=== PATIENT | female | born 1950 | race African-American/Black ===

== ENCOUNTER 2016-12-24 20:42 | Inpatient (IN) | payer OTHER, MEDICARE ==
[~2016-12-24] VITALS: Ht 170.2 cm; Wt 51.1 kg
[~2016-12-24 20:42] MED LIST: ADVA250A; Z.0.NO CURRENT MEDS
[2016-12-24 20:45] VITALS: BP 177/108; PULSE 140; RESP 22; TEMP 99.9; O2SAT 100
[2016-12-24 20:50] VITALS: O2SAT 98
[2016-12-24] MEDS ORDERED: NITROGLYCERIN 2% OINT 1 GM PACKET TOPICAL ONE (21:00)
[2016-12-24] MEDS ORDERED: SODIUM CHLORIDE 0.9% FLUSH 10 ML FLUSH IVF PRN ×2 (21:00→22:15)
[2016-12-24] MEDS ORDERED: RESP: ALBUTEROL 2.5 MG/IPRATROPIUM 0.5 MG NEB (SCH) INH ONE (21:00)
--- NOTE | 2016-12-24 21:03 | PD ---
HPI Chief Complaint: short of breath Time Seen by Provider: 20:57 Travel History International Travel<30 days: No Contact w/Intl Traveler<30days: No Traveled to known affect area: No History of Present Illness HPI 66-year-old female presents to the emergency department from local rehabilitation facility for complaint of shortness of breath. Patient presents with ongoing work of breathing and tachycardia. Patient was placed on CPAP en route to the hospital and received 1 L of normal saline and 2 g of magnesium sulfate IV. Patient did not receive any updraft treatments en route. Patient with recent hospitalization for fracture hip repair. Patient is currently not on antibiotic. Patient with reported temperature elevation. No antipyretics administered. Patient here upon arrival placed on BiPAP and patient reports feels improved. Patient has had some vague periumbilical discomfort. Patient has a umbilical hernia. Patient denies any productive cough of yellow-green sputum and has had no hemoptysis. Patient intermittently has right-sided chest pain. Pain is intermittent and moderate. PFSH Past Medical History Narrative Medical COPD anemia hysterectomy tobacco use Asthma: No Blood Disorders: No Cancer: No Cardiovascular Problems: No COPD: Yes Diminished Hearing: No Endocrine: No Genitourinary: No Immune Disorder: No Musculoskeletal: No Neurologic: No Psychiatric: No Reproductive: No Respiratory: Yes (SMOKER) Sleep Apnea: No Past Surgical History Abdominal Surgery: No AICD: No Arteriovenous Shunt: No Cardiac Surgery: No Ear Surgery: No Endocrine Surgery: No Eye Surgery: No Genitourinary Surgery: Yes (BLADDER REPAIR AND "TACKED BOWELS") Gynecologic Surgery: Yes (HYST, ) Hysterectomy: Yes Insulin Pump: No Joint Replacement: No Oral Surgery: No Pacemaker: No Thoracic Surgery: No Social History Alcohol Use: No Tobacco Use: Yes Substance Use: No Allergies-Medications (Allergen,Severity, Reaction): Coded Allergies: Penicillin (Verified Allergy, Severe, BELLS RINGING IN EARS, 12/24/16) Reported Meds & Prescriptions Reported Meds & Active Scripts Active Active Prescriptions or Reported Medications Unobtainable Narrative Medication rehab MAR Review of Systems Except as stated in HPI: all other systems reviewed are Neg General / Constitutional: No: Fever HENT: No: Congestion Cardiovascular: Positive: Chest Pain or Discomfort Respiratory: Positive: Cough, Shortness of Breath Gastrointestinal: Positive: Abdominal Pain Genitourinary: No: Flank Pain Musculoskeletal: No: Pain Skin: No Rash Neurologic: Positive: Weakness Psychiatric: Positive: Anxiety Hematologic/Lymphatic: No: Lymph Node Enlargement Physical Exam Narrative GENERAL: Well-developed thin female in moderate respiratory distress with increased heart rate; GCS 15. T:99.9F; HR: 140; BP: 177/108; RR: 22; O2sat BiPAP 98% SKIN: Warm and dry. HEAD: Normocephalic. EYES: No scleral icterus. No injection or drainage. NECK: Supple, trachea midline. No JVD or lymphadenopathy. CARDIOVASCULAR: Increased regular rate and rhythm without murmurs, gallops, or rubs. RESPIRATORY: Breath sounds equal bilaterally diminished bilateral bases. No accessory muscle use. GASTROINTESTINAL: Abdomen soft, non-tender, nondistended. MUSCULOSKELETAL: No cyanosis, or edema. BACK: Nontender without obvious deformity. No CVA tenderness. Data Data Last Documented VS Vital Signs Date Time Temp Pulse Resp B/P Pulse Ox O2 Delivery O2 Flow Rate FiO2 12/24/16 21:20 138 24 98 CPAP 12/24/16 21:12 40 12/24/16 20:45 99.9 177/108 Orders Complete Blood Count With Diff (12/24/16 20:57) Basic Metabolic Panel (Bmp) (12/24/16 20:57) B-Type Natriuretic Peptide (12/24/16 20:57) Act Partial Throm Time (Ptt) (12/24/16 20:57) Prothrombin Time / Inr (Pt) (12/24/16 20:57) Magnesium (Mg) (12/24/16 20:57) Ckmb (Isoenzyme) Profile (12/24/16 20:57) Troponin I (12/24/16 20:57) Urinalysis - C+S If Indicated (12/24/16 20:57) Blood Culture (12/24/16 20:57) Iv Access Insert/Monitor (12/24/16 20:57) Electrocardiogram (12/24/16 20:57) Ecg Monitoring (12/24/16 20:57) Oximetry (12/24/16 20:57) Oxygen Administration (12/24/16 20:57) Chest, Single Ap (12/24/16 20:57) Sodium Chloride 0.9% Flush (Ns Flush) (12/24/16 21:00) Albuterol-Ipratropium Neb (Duoneb Neb) (12/24/16 21:00) Lactic Acid (12/24/16 20:57) Nitroglycerin 2% Oint (Nitroglycerin 2% (12/24/16 21:00) Aztreonam Inj (Azactam Inj) (12/24/16 21:15) Azithromycin Inj (Zithromax Inj) (12/24/16 21:15) Methylprednisolone So Succ Inj (Solumedr (12/24/16 21:15) Arterial Blood Gas (Abg) (12/24/16 ) Sodium Chlor 0.9% 1000 Ml Inj (Ns 1000 M (12/24/16 21:15) Acetaminophen Supp (Tylenol Supp) (12/24/16 21:15) Albuterol-Ipratropium Neb (Duoneb Neb) (12/24/16 21:30) Ondansetron Inj (Zofran Inj) (12/24/16 21:45) Morphine Inj (Morphine Inj) (12/24/16 21:45) Enalaprilat Inj (Vasotec Inj) (12/24/16 22:00) Resp Bipap / Cpap Non Invas Vt (12/24/16 ) Dexmedetomidine Inj (Precedex Inj) (12/24/16 22:15) Neurological Rass Scale Q30MX2,Q2HX4,Q4H (12/24/16 22:11) Admit Order (Ed Use Only) (12/24/16 ) ^ Saline Lock (12/24/16 22:12) Resp Oxygen Selvin C Titrat 1-4 L (12/24/16 ) Notify Dr: Other (12/24/16 22:12) Sodium Chloride 0.9% Flush (Ns Flush) (12/25/16 09:00) Sodium Chloride 0.9% Flush (Ns Flush) (12/24/16 22:15) Ct Pulmonary Angiogram (12/24/16 ) Osmolality,Serum (12/24/16 22:13) Osmolality, Urine (12/24/16 22:13) Sodium, Random Urine (12/24/16 22:13) Labs Laboratory Tests Test 12/24/16 12/24/16 21:05 21:23 White Blood Count 10.8 TH/MM3 Red Blood Count 4.01 MIL/MM3 Hemoglobin 9.5 GM/DL Hematocrit 30.1 % Mean Corpuscular Volume 75.0 FL Mean Corpuscular Hemoglobin 23.8 PG Mean Corpuscular Hemoglobin 31.7 % Concent Red Cell Distribution Width 19.3 % Platelet Count 501 TH/MM3 Mean Platelet Volume 7.4 FL Neutrophils (%) (Auto) 74.0 % Lymphocytes (%) (Auto) 15.9 % Monocytes (%) (Auto) 9.6 % Eosinophils (%) (Auto) 0.1 % Basophils (%) (Auto) 0.4 % Neutrophils # (Auto) 8.0 TH/MM3 Lymphocytes # (Auto) 1.7 TH/MM3 Monocytes # (Auto) 1.0 TH/MM3 Eosinophils # (Auto) 0.0 TH/MM3 Basophils # (Auto) 0.0 TH/MM3 CBC Comment AUTO DIFF Differential Comment AUTO DIFF CONFIRMED Toxic Vacuolation PRESENT Platelet Estimate HIGH Platelet Morphology Comment NORMAL Prothrombin Time 10.2 SEC Prothromb Time International 0.9 RATIO Ratio Activated Partial 29.2 SEC Thromboplast Time Urine Color LIGHT-YELLOW Urine Turbidity CLEAR Urine pH 7.0 Urine Specific [place] 1.005 Urine Protein NEG mg/dL Urine Glucose (UA) NEG mg/dL Urine Ketones NEG mg/dL Urine Occult Blood SMALL Urine Nitrite NEG Urine Bilirubin NEG Urine Urobilinogen LESS THAN 2.0 MG/DL Urine Leukocyte Esterase NEG Urine RBC 4 /hpf Urine WBC LESS THAN 1 /hpf Microscopic Urinalysis Comment CULT NOT INDICATED Urine Osmolality 211 MOSM/KG Urine Random Sodium 64 MEQ/L Sodium Level 130 MEQ/L Potassium Level 4.2 MEQ/L Chloride Level 89 MEQ/L Carbon Dioxide Level 33.0 MEQ/L Anion Gap 8 MEQ/L Blood Urea Nitrogen 11 MG/DL Creatinine 0.48 MG/DL Estimat Glomerular Filtration 157 ML/MIN Rate Random Glucose 110 MG/DL Serum Osmolality 276 MOSM/KG Lactic Acid Level 0.9 mmol/L Calcium Level 8.3 MG/DL Magnesium Level 3.2 MG/DL Total Creatine Kinase 71 U/L Troponin I 0.02 NG/ML B-Type Natriuretic Peptide 17 PG/ML Blood Gas Puncture Site LT RADIAL Blood Gas Patient Temperature 98.6 Blood Gas HCO3 32 mmol/L Blood Gas Base Excess 6.6 mmol/L Blood Gas Oxygen Saturation 96 % Arterial Blood pH 7.36 Arterial Blood Partial 58 mmHg Pressure CO2 Arterial Blood Partial 109 mmHG Pressure O2 Arterial Blood Oxygen Content 12.6 Vol % Arterial Blood 1.9 % Carboxyhemoglobin Arterial Blood Methemoglobin 0.6 % Blood Gas Hemoglobin 9.2 G/DL Oxygen Delivery Device BiPAP Blood Gas Ventilator Setting IPAP15/[id number] Blood Gas Inspired Oxygen 40 % MDM Medical Decision Making Medical Screen Exam Complete: Yes Emergency Medical Condition: Yes Medical Record Reviewed: Yes Interpretation(s) CBC is automated differential noted to be anemic with hemoglobin 9.5 ABG on BiPAP 15 over 5 40% FiO2 pH 7.56 elevated PCO2 of 58 PO2 109 with bicarbonate 32 and base excess of 6.6 Chest x-ray shows hyperinflation no lobar infiltrate EKG sinus tachycardia rate [address] elevation or injury pattern change Metabolic panel values grossly normal range Lactic acid 0.9, not elevated CK: 71, not elevated; Troponin I: less than 0.02, not elevated; BNP: 17, not elevated Differential Diagnosis Dyspnea, exacerbation COPD, pneumonia, sepsis, PE, anemia, dehydration, electrolyte disturbance, ACS, CT, abdominal pain, bowel ischemia, UTI also consider partial small bowel obstruction Narrative Course Time is not 10:05 PM patient continues to remain hypertensive and tachycardic patient has identified sent to medical improvement on BiPAP and unable to tolerate nasal cannula supplemental oxygen has been administered 3 DuoNeb [facility] Solu-Medrol has been resumed on BiPAP for supplemental and ventilatory support chest x-ray reveals hyperinflation consistent with her history of COPD patient shows no evidence of leukocytosis shows mild left shift chronic anemia and normal range renal function. Patient is febrile and now receiving antipyretic which is contributing to tachycardia along with respiratory distress and anxiety. Patient is hypermagnesemic reportedly received 2 g of magnesium en route to the hospital for respiratory complaint as well as 1 L of normal saline. At this time no evidence for vascular congestion by auscultation BNP or radiographic and imaging. Will send patient for CT pulmonary angiogram Patient's case discussed with on-call jewel stringer for ongoing tachycardia recommends steering patient on Precedex which jewel stringer will start with admitting orders As part of evaluation as well as CT pulmonary angiogram will add CT abdomen and pelvis--results pending at time of admission Patient admitted to floor/unit CT imaging studies remain pending; patient clinically improved although still some abnormal VS parameters. Sepsis Criteria SIRS Criteria (2 or more): Temp > 100.9 or < 96.8, Heart rate over 90, RR > 20 or PaCO2 < 32 Physician Communication Physician Communication call placed to jewel stringer; discussed with Dr Medrano Diagnosis Primary Impression: COPD with exacerbation Additional Impressions: Hypercarbia HTN (hypertension) SIRS (systemic inflammatory response syndrome) Admitting Information Admitting Physician Requests: Admit Scripts Unable to Obtain Active Prescriptions or Reported Meds Eileen Espinal MD December 24, 2016 21:03
[2016-12-24 21:12] VITALS: PULSE 142; RESP 20; O2SAT 98
[2016-12-24] MEDS ORDERED: methylPREDNISolone SOD SUCC 125 MG/2 ML VIAL IV PUSH ONE (21:15)
[2016-12-24] MEDS ORDERED: AZTREONAM INJ 1,000 MG in SODIUM CHLORIDE 0.9% INJ 100 ML IV ONE (21:15)
[2016-12-24] MEDS ORDERED: ACETAMINOPHEN 650 MG SUPP RECTAL ONE (21:15)
[2016-12-24] MEDS ORDERED: AZITHROMYCIN INJ 500 MG in SODIUM CHLOR 0.9% 250 ML INJ 250 ML IV ONE (21:15)
[2016-12-24 21:27] LABS: BASOPHIL % 0.4 % (0.0-2.0); EOSINOPHIL % 0.1 % (0.0-4.0); HEMATOCRIT 30.1 % (35.0-46.0); LYMPH % 15.9 % (9.0-44.0); LYMPHOCYTE # 1.7 TH/MM3 (1.0-4.8); MEAN CORPUSCULAR HEMOGLOBIN 23.8 PG (27.0-34.0); MEAN CORPUSCULAR HGB CONC 31.7 % (32.0-36.0); MONO % 9.6 % (0.0-8.0); PLATELET COUNT 501 TH/MM3 (150-450); RED BLOOD COUNT 4.01 MIL/MM3 (4.00-5.30); RED CELL DISTRIBUTION WIDTH 19.3 % (11.6-17.2); WHITE BLOOD COUNT 10.8 TH/MM3 (4.0-11.0)
[2016-12-24 21:30] LABS: HEMO FLAGS AUTO DIFF
--- NOTE | 2016-12-24 21:30 | RADRPT ---
EXAM DATE/TIME: 12/24/2016 21:14 [facility] COMPARISON: No previous studies available for comparison. INDICATIONS : Short of Breath MEDICAL HISTORY : Chronic obstructive pulmonary disease. Emphysema. SURGICAL HISTORY : None. ENCOUNTER: Initial ACUITY: 1 day PAIN SCORE: 0/10 LOCATION: Bilateral chest FINDINGS: The lungs are mildly hyperinflated but clear. There is no pneumothorax. The heart is small. Pulmon radha vascularity is normal. CONCLUSION: Hyperinflation; otherwise, negative. Joey Candelario MD FACR on December 24, 2016 at 21:26 Board Certified Radiologist. This report was verified electronically.
[2016-12-24 21:32] LABS: BLOOD GAS BASE EXCESS 6.6 mmol/L (-2-2); BLOOD GAS CARBOXYHEMOGLOBIN 1.9 % (0-4); BLOOD GAS HCO3 32 mmol/L (22-26); BLOOD GAS METHEMOGLOBIN 0.6 % (0-2); BLOOD GAS O2 HGB SATURATION 96 % (90-100); BLOOD GAS OXYGEN CONTENT 12.6 Vol % (12.0-20.0); BLOOD GAS PCO2 58 mmHg (38-42); BLOOD GAS PO2 109 mmHG (61-120); BLOOD GAS TOTAL HGB 9.2 G/DL (12.0-16.0); CRITICAL VALUE YES; TEMP CORR TO 98.6
[2016-12-24 21:33] LABS: DRAW SITE LT RADIAL; FIO2 40 %; NUMBER OF ARTERIAL PUNCTURES 1; OXYGEN DEVICE BiPAP; STAT YES; ULNAR PULSE PRESENT; VENT SETTINGS IPAP15/EPAP5
[2016-12-24] MEDS: RESP: ALBUTEROL 2.5 MG/IPRATROPIUM 0.5 MG NEB (SCH) INH (21:37)
[2016-12-24] MEDS: SODIUM CHLOR 0.9% 1000 ML INJ 1,000 ML IV SCH (21:38)
[2016-12-24 21:40] LABS: APTT (PATIENT) 29.2 SEC (24.3-30.1); INTERNATIONAL NORMALIZED RATIO 0.9 RATIO; PROTHROMBIN TIME - PATIENT 10.2 SEC (9.8-11.6)
[2016-12-24 21:42] LABS: MAGNESIUM 3.2 MG/DL (1.5-2.5); POTASSIUM 4.2 MEQ/L (3.5-5.1)
[2016-12-24] MEDS ORDERED: ONDANSETRON HCL 4 MG/2 ML VIAL IV PUSH ONE (21:45)
[2016-12-24] MEDS ORDERED: MORPHINE SULFATE 4 MG/ML INJ IV PUSH ONE (21:45)
[2016-12-24] MEDS ORDERED: ENALAPRILAT 1.25 MG/ML VIAL IV PUSH ONE (22:00)
[2016-12-24 22:05] LABS: PLATELET ESTIMATE SMEAR HIGH (NORMAL); PLATELET MORPHOLOGY NORMAL (NORMAL); SCAN/DIFF AUTO DIFF CONFIRMED; TOXIC VACUOLATION PRESENT (NONE SEEN)
[2016-12-24] MEDS ORDERED: DEXMEDETOMIDINE INJ 200 MCG in SODIUM CHLORIDE 0.9% INJ 50 ML IV SCH (22:15)
[2016-12-24 22:28] LABS: BLOOD, URINE SMALL (NEG); COMMENT (UR) CULT NOT INDICATED; CULTURE IF INDICATED CULT NOT INDICATED; GLUCOSE,URINE NEG (NEG); KETONE, URINE NEG (NEG); NITRITE,URINE NEG (NEG); URINE COLOR LIGHT-YELLOW (YELLW/STRAW)
[2016-12-25] VITALS (15 sets, daily range): BP systolic 134–173; BP diastolic 77–94; PULSE 100–127; RESP 16–47; TEMP 98.1–99.9; O2SAT 95–100
[2016-12-25] MEDS ORDERED: IOHEXOL 350 MG/ML 10 ML VIAL (for RAD DIAG) IV ONE (02:05)
--- NOTE | 2016-12-25 02:18 | RADRPT ---
EXAM DATE/TIME: 12/25/2016 01:40 [facility] COMPARISON: No previous studies available for comparison. INDICATIONS : Shortness of breath. IV CONTRAST: 76 cc Omnipaque 350 (iohexol) IV ; Cumulative dose for multiple exams. RADIATION DOSE: 5.76 CTDIvol (mGy) MEDICAL HISTORY : Chronic obstructive pulmonary disease. Cardiovascular disease Hypertension. SURGICAL HISTORY : section. Hysterectomy. ENCOUNTER: Initial ACUITY: 1 day PAIN SCALE: 0/10 LOCATION: chest TECHNIQUE: Volumetric scanning of the chest was performed using a pulmonary embolism protocol MIP images were re constructed. Using automated exposure control and adjustment of the mA and/or kV according to patien t size, radiation dose was kept as low as reasonably achievable to obtain optimal diagnostic quality images. FINDINGS: No filling defects identified to suggest pulmonary embolic disease. There is a near complete obstruct ion of bronchus intermedius with mucoid plugging extending into multiple segmental branches of the ri ght lower lobe and right middle lobe. There is partial obstruction of the right upper lobe bronchus a s well. Small right effusion is present. The severe underlying emphysema. There is irregular parenchymal opacity right lung apex probably repr esents scarring. Interstitial changes present in both upper lobes and right middle lobe. No acute findings in the upper abdomen. CONCLUSION: 1. Negative for pulmonary embolus. 2. There is suspected extensive mucoid plugging involving a portion of the distal right mainstem bron chus, right upper lobe bronchus and bronchus intermedius extending into segmental branches in both th e right middle lobe and right lower lobe. Cannot exclude an endobronchial lesion. A small right-sided pleural effusion. 3. Severe emphysema. Lee Uribe MD on December 25, 2016 at 2:08 Board Certified Radiologist. This report was verified electronically.
--- NOTE | 2016-12-25 02:24 | RADRPT ---
EXAM DATE/TIME: 12/25/2016 01:36 [facility] COMPARISON: No previous studies available for comparison. INDICATIONS : Diffuse abdominal pain. IV CONTRAST: 76 cc Omnipaque 350 (iohexol) IV ; Cumulative dose for multiple exams. ORAL CONTRAST: No oral contrast ingested. RADIATION DOSE: 7.74 CTDIvol (mGy) MEDICAL HISTORY : Cardiovascular disease. Chronic obstructive pulmonary disease. Hypertension. SURGICAL HISTORY : section. Hysterectomy. ENCOUNTER: Initial ACUITY: 1 day PAIN SCALE: 10/10 LOCATION: Bilateral abdomen TECHNIQUE: Volumetric scanning of the abdomen and pelvis was performed. Using automated exposure control and ad justment of the mA and/or kV according to patient size, radiation dose was kept as low as reasonably achievable to obtain optimal diagnostic quality images. FINDINGS: There is a small right-sided pleural effusion and extensive mucoid plugging of segmental bronchi in t he right lower lobe. No acute findings in the liver, spleen, adrenals, kidneys or pancreas. Small hiatal hernia. No calcif ied gallstones. Gaze masslike enlargement of the right psoas muscle most characteristic of a psoas hematoma measuring up to 4.7 cm on the right. Left psoas intact. There is a [place] ventral hernia containing a loop of colon. There is mild constipation. There is dilatation of multiple proximal small bowel loops measuring up to 3.3 cm. There is evidence for prior anastomosis in the pelvis. Padilla catheter present in the bladder. Moderately advanced degenerative d isc disease in lumbar spine. CONCLUSION: 1. Right-sided psoas hematoma measuring about 4.7 cm in maximum diameter and extending over a length of about 7 cm. 2. Previous bowel anastomosis with dilated loops of small bowel proximally with air fluid levels. Dif ferential diagnosis includes a partial or early obstruction. 3. [place] ventral hernia near umbilicus containing a loop of constipated colon. 4. Small right pleural effusion. Lee Uribe MD on December 25, 2016 at 2:17 Board Certified Radiologist. This report was verified electronically.
[2016-12-25] MEDS ORDERED: LACTULOSE SYRUP 20 GM/30 ML CUP PO PRN (04:15)
[2016-12-25] MEDS ORDERED: CHLORHEXIDINE GLUCONATE 2 % 1 PACK (2 CLOTHS) TOP PRN (04:15)
[2016-12-25] MEDS ORDERED: MAGNESIUM HYDROXIDE SUSP 30 ML CUP PO PRN (04:15)
[2016-12-25] MEDS ORDERED: BISACODYL 10 MG SUPP RECTAL PRN (04:15)
[2016-12-25] MEDS ORDERED: MISCELLANEOUS NURSING INFORMATION XX SCH (04:15)
[2016-12-25] MEDS ORDERED: SENNOSIDES 8.6 MG TAB PO PRN (04:15)
--- NOTE | 2016-12-25 04:16 | HHI.HP ---
[facility] Service Critical Care Medicine Primary Care Physician Neftaly West M.D. Admission Diagnosis exacerbation COPD w/ypercarbia; sirs/early sepsis Diagnosis: Travel History International Travel<30 Days: No Contact w/Intl Traveler <30 Da: No Traveled to Known Affected Are: No History of Present Illness History from patient is limited as she is lethargic and is inconsistent with some of her responses. 66-year-old female with past medical history of COPD, hypertension, tobacco abuse who presents to [facility] emergency department from a senior care ([facility]) due to shortness of breath. She states she has been in senior care for 1-1/2 months after she fell and sustained a left hip fracture requiring left hip arthroplasty at [facility]. She was hypertensive, tachycardic and anxious upon [facility] arrival. She was administered 2 L normal saline bolus and magnesium sulfate prior to arrival. She was placed on BiPAP 15/5 40%. ABG demonstrated acute on chronic hypercapnic respiratory failure with pH 7.36/PaCO2 58/PA O2 of 109. She was very anxious on BiPAP and was started on Precedex for BiPAP tolerance. Chest x-ray demonstrates hyperinflation with possible right lower lobe infiltrate. She received DuoNeb 3, Solu-Medrol 125 mg IV, aztreonam, as azithromycin in the emergency department. CT pulmonary angiogram was negative for pulmonary embolism. There is severe emphysema and mucous plugging in the right mainstem bronchus. Unable to rule out endobronchial lesion. Patient has cough with large amount of thick yellow sputum production so was taken off Bipap and placed on HFNC 30 L/min 40% FIO2. She states she is feeling better than she was on arrival. CT abdomen/pelvis demonstrated a 4.7 cm right psoas hematoma, 7 cm length . She has a prior bowel anastomosis with small bowel dilatation which may represent partial or early obstruction. Hgb 9.5. Patient denies more recent fall. She denies abdominal pain, flank pain, nausea, vomiting. Does not recall her last bowel movement Past Family Social History Allergies: Coded Allergies: Penicillin (Verified Allergy, Severe, BELLS RINGING IN EARS, 12/24/16) Past Medical History COPD Hypertension Fall with left hip fracture 1-1/2 months ago. Reportedly with ORIF at [facility] Past Surgical History Hysterectomy Bladder suspension surgery Unknown bowel surgery Biopsy right upper lobe lung mass 11/2006 Reported Medications There is no medication list provided. KITCHEN LEAD Seble is going to call senior care to find out patient's active medication list. Family History Patient is not able to provide family medical history due to clinical condition. Social History Patient has a little history of heavy smoking but quit according to her aunt. No alcohol or illicit drug use reported Physical Exam Vital Signs Vital Signs Date Time Temp Pulse Resp B/P Pulse Ox O2 Delivery O2 Flow Rate FiO2 12/25/16 02:19 95 High Flow Nasal Cannula 30.00 40 12/25/16 02:14 98.2 125 20 173/94 96 12/25/16 00:08 99.1 127 16 143/90 100 BiPAP 41 12/24/16 21:20 138 24 98 CPAP 12/24/16 21:12 142 20 98 CPAP 40 12/24/16 21:12 98 CPAP 40 12/24/16 20:50 98 40 12/24/16 20:45 99.9 140 22 177/108 100 Physical Exam GENERAL: Thin debilitated appearing female curled up in [facility] bed , lethargic but arouses and answers some questions, complains of being cold. SKIN: Dry, cool but well perfused. HEAD: Atraumatic. Normocephalic. EYES: Pupils equal and round, 2mm reactive. No scleral icterus. No injection or drainage. ENT: No nasal bleeding or discharge. Mucous membranes dry NECK: Trachea midline. No JVD. CARDIOVASCULAR: Regular rate and rhythm No murmurs rubs or gallops. RESPIRATORY: Distant diminished breath sounds bilaterally, no accessory muscle use, some rhonchi on the left. Coughing up quarter sized yellow mucous plugs GASTROINTESTINAL: Abdomen soft, non tender, reducible ventral hernia, bowel sounds present, vertical scar extending from umbilicus is healed. MUSCULOSKELETAL: Thin lower extremities have no clubbing cyanosis or edema. NEUROLOGICAL: Lethargic but opens her eyes to voice. She does not answer sometimes when questioned but other times answers and was actually oriented to [facility], year. No obvious cranial nerve deficits. Motor grossly within normal limits. Moving all extremities. Laboratory Laboratory Tests Test 12/24/16 12/24/16 21:05 21:23 White Blood Count 10.8 Red Blood Count 4.01 Hemoglobin 9.5 Hematocrit 30.1 Mean Corpuscular Volume 75.0 Mean Corpuscular Hemoglobin 23.8 Mean Corpuscular Hemoglobin 31.7 Concent Red Cell Distribution Width 19.3 Platelet Count 501 Mean Platelet Volume 7.4 Neutrophils (%) (Auto) 74.0 Lymphocytes (%) (Auto) 15.9 Monocytes (%) (Auto) 9.6 Eosinophils (%) (Auto) 0.1 Basophils (%) (Auto) 0.4 Neutrophils # (Auto) 8.0 Lymphocytes # (Auto) 1.7 Monocytes # (Auto) 1.0 Eosinophils # (Auto) 0.0 Basophils # (Auto) 0.0 CBC Comment AUTO DIFF Differential Comment AUTO DIFF CONFIRMED Toxic Vacuolation PRESENT Platelet Estimate HIGH Platelet Morphology Comment NORMAL Prothrombin Time 10.2 Prothromb Time International 0.9 Ratio Activated Partial 29.2 Thromboplast Time Urine Color LIGHT-YELLOW Urine Turbidity CLEAR Urine pH 7.0 Urine Specific [place] 1.005 Urine Protein NEG Urine Glucose (UA) NEG Urine Ketones NEG Urine Occult Blood SMALL Urine Nitrite NEG Urine Bilirubin NEG Urine Urobilinogen LESS THAN 2.0 Urine Leukocyte Esterase NEG Urine RBC 4 Urine WBC LESS THAN 1 Microscopic Urinalysis Comment CULT NOT INDICATED Urine Osmolality 211 Urine Random Sodium 64 Sodium Level 130 Potassium Level 4.2 Chloride Level 89 Carbon Dioxide Level 33.0 Anion Gap 8 Blood Urea Nitrogen 11 Creatinine 0.48 Estimat Glomerular Filtration 157 Rate Random Glucose 110 Serum Osmolality 276 Lactic Acid Level 0.9 Calcium Level 8.3 Magnesium Level 3.2 Total Creatine Kinase 71 Troponin I 0.02 B-Type Natriuretic Peptide 17 Blood Gas Puncture Site LT RADIAL Blood Gas Patient Temperature 98.6 Blood Gas HCO3 32 Blood Gas Base Excess 6.6 Blood Gas Oxygen Saturation 96 Arterial Blood pH 7.36 Arterial Blood Partial 58 Pressure CO2 Arterial Blood Partial 109 Pressure O2 Arterial Blood Oxygen Content 12.6 Arterial Blood 1.9 Carboxyhemoglobin Arterial Blood Methemoglobin 0.6 Blood Gas Hemoglobin 9.2 Oxygen Delivery Device BiPAP Blood Gas Ventilator Setting IPAP15/[id number] Blood Gas Inspired Oxygen 40 Date/Time Procedure Status Source Growth 12/24/16 21:10 Aerobic Blood Culture Received Blood Peripheral Pending 12/24/16 21:10 Anaerobic Blood Culture Received Blood Peripheral Pending Result Diagram: 12/24/16210412/24/162104 Assessment and Plan Assessment and Plan NEURO: Acute encephalopathy likely secondary to hypercapnia Will obtain CT brain to rule out any intracranial process (unclear history of fall, psoas hematoma, unclear anticoag history) Will discontinue Precedex for now as she is being taken off BiPAP and this was being used for BiPAP tolerance. Patient denies pain. Would be judicious with sedative analgesic medications. RESP: Acute hypercapnic respiratory failure Acute COPD exacerbation Tobacco abuse History of right upper lobe lung mass biopsy 2007granulomatous inflammation. Cytology negative for malignancy R mainstem mucous plugging, ?endobronchial lesion DuoNeb every 4 hours. Albuterol every 2 hours when necessary. High flow nasal cannula 30 L/m, 40% wean as tolerated for sat >89%. F/u ABG. Received SoluMedrol 125 mg IV in the emergency department. Continue Solumedrol 60 mg IV every 6 hours Guaifenesin 600 mg by mouth twice a day Abx as per below CTPA - negative for PE. There is mucus plugging and right mainstem and unable to rule out endobronchial lesion. Consult pulmonology to follow up regarding possibility of endobronchial lesion. Perform bronchoscopy if she gets intubated, or if doesn't get intubated would wait until respiratory status is optimized. CV: History of hypertension Sinus tachycardia Monitor hemodynamics Labetalol as needed for SBP >165. Will obtain patient's med list from senior care to determine antihypertensive GI: Ileus Reducible ventral hernia Severe chronic protein energy malnutrition R psoas hematoma (discussed below) Pericolace, bowel regimen Lactulose [address] abd/pelvis with dilated small bowel ?early obstruction. Patient denies GI symptoms. Will keep NPO , give bowel regimen and monitor clinically. Obtain baseline LFT FEN/RENAL: Hypovolemic hyponatremia Hypermagnesemia, iatrogenic secondary to magnesium administration by Teodoro Padilla in place. Monitor intake and output. Monitor electrolytes. Replace electrolyte as indicated per ICU electrolyte replacement protocol. Continue normal saline at 125 L per hour Follow-up BMP ID: Acute tracheobronchitis, healthcare associated Reported penicillin allergy Obtain sputum culture. Follow up blood culture. UA negative for markers of infection. Received aztreonam and azithromycin in the emergency department. Continue aztreonam 2 g IV every 8 hours, Levaquin 750 mg IV daily. Transition Levaquin to by mouth when appropriate (ileus improving) HEME: Right psoas hematoma Unknown if patient was on some type of anticoagulation at the senior care, obtaining medication list. Patient denies trauma or symptoms. Coags are normal. Hemoglobin 9.5. Will obtain serial hemoglobins. ENDO: Euglycemic. Check TSH. PROPH: SCDs for DVT prophylaxis. Will hold Pharmacologic DVT prophylaxis due to psoas hematoma. Protonix 40 mg IV daily for stress ulcer prophylaxis. ACCESS: Peripheral IV providing adequate access at this time. Called Enmanuel Pablo listed as "person to notify" and no answer, left message to call hospital. CAlled Adriana Pablo who provided a small amount of medical history, she stated she would try to call some family members and see if anyone else is more familiar. Also stated patient has 4 adult children Lisa Soni (lives in [facility]), Keyon Busch (lives in [place]) and two twins Harlan and Josue. She is unsure where they live. To her knowledge patient does not have an advanced directive and is full code. Unclear if patient is truly capacitated for medical decision-making but she does also state that she is full code. CCT 60 minutes exclusive of separately billable procedures. Elli Medrano MD December 25, 2016 04:15
[2016-12-25] MEDS ORDERED: LACTULOSE SYRUP 20 GM/30 ML CUP PO ONE (04:30)
[2016-12-25 04:34] LABS: HEMATOCRIT 28.3 % (35.0-46.0); MEAN CELL VOLUME 76.9 FL (80.0-100.0); MEAN CORPUSCULAR HEMOGLOBIN 23.9 PG (27.0-34.0); MEAN CORPUSCULAR HGB CONC 31.1 % (32.0-36.0); PLATELET COUNT 426 TH/MM3 (150-450); RED BLOOD COUNT 3.68 MIL/MM3 (4.00-5.30); RED CELL DISTRIBUTION WIDTH 19.2 % (11.6-17.2); WHITE BLOOD COUNT 8.7 TH/MM3 (4.0-11.0)
[2016-12-25 04:39] LABS: REVIEW FLAG FINAL
[2016-12-25 04:46] LABS: ALT (GPT) 24 U/L (10-53); ANION GAP 5 MEQ/L (5-15); AST (GOT) 15 U/L (15-37); BICARBONATE 36.8 MEQ/L (21.0-32.0); BLOOD UREA NITROGEN 9 MG/DL (7-18); CHLORIDE 93 MEQ/L (98-107); GLOMERULAR FILTRATION RATE 140 ML/MIN (>89); POTASSIUM 4.3 MEQ/L (3.5-5.1); SODIUM (NA) 135 MEQ/L (136-145)
[2016-12-25 04:49] LABS: ALKALINE PHOSPHATASE 109 U/L (45-117); TOTAL BILIRUBIN ADULT 0.3 MG/DL (0.2-1.0)
[2016-12-25] MEDS: methylPREDNISolone SOD SUCC 125 MG/2 ML VIAL IV PUSH SCH ×4 (05:35→23:52)
--- NOTE | 2016-12-25 05:35 | RADRPT ---
EXAM DATE/TIME: 12/25/2016 04:14 [facility] COMPARISON: No previous studies available for comparison. INDICATIONS : Altered mental status. RADIATION DOSE: 56.35 CTDIvol (mGy) MEDICAL HISTORY : Chronic obstructive pulmonary disease. Cardiovascular disease Hypertension. SURGICAL HISTORY : Hysterectomy. section. ENCOUNTER: Initial ACUITY: 1 day PAIN SCALE: Non-responsive LOCATION: cranial TECHNIQUE: Multiple contiguous axial images were obtained of the head. Using automated exposure control and adj ustment of the mA and/or kV according to patient size, radiation dose was kept as low as reasonably a chievable to obtain optimal diagnostic quality images. FINDINGS: CEREBRUM: The ventricles are normal for age. No evidence of midline shift, mass lesion, hemorrhage or acute in farction. No extra-axial fluid collections are seen. POSTERIOR FOSSA: The cerebellum and brainstem are intact. The 4th ventricle is midline. The cerebellopontine angle i s unremarkable. EXTRACRANIAL: The visualized portion of the orbits is intact. SKULL: The calvaria is intact. No evidence of skull fracture. CONCLUSION: 1. No acute intracranial abnormalities. Mild white matter ischemic changes. Lee Uribe MD on December 25, 2016 at 5:33 Board Certified Radiologist. This report was verified electronically.
[2016-12-25] MEDS: LEVOFLOXACIN 750 MG PREMIX INJ 150 ML IV SCH (05:36)
[2016-12-25] MEDS: SODIUM CHLOR 0.9% 1000 ML INJ 1,000 ML IV SCH ×2 (05:37→17:04)
[2016-12-25 05:41] LABS: BLOOD GAS BASE EXCESS 5.2 mmol/L (-2-2); BLOOD GAS CARBOXYHEMOGLOBIN 2.2 % (0-4); BLOOD GAS HCO3 31 mmol/L (22-26); BLOOD GAS METHEMOGLOBIN 1.1 % (0-2); BLOOD GAS O2 HGB SATURATION 93 % (90-100); BLOOD GAS OXYGEN CONTENT 11.2 Vol % (12.0-20.0); BLOOD GAS PCO2 67 mmHg (38-42); BLOOD GAS PO2 91 mmHg (61-120); BLOOD GAS TOTAL HGB 8.5 G/DL (12.0-16.0); CRITICAL VALUE YES; DRAW SITE RT RADIAL; LITER FLOW 3 L/M; NUMBER OF ARTERIAL PUNCTURES 1; OXYGEN DEVICE NASAL CANNULA; TEMP CORR TO 98.6
[2016-12-25 05:42] LABS: STAT YES; ULNAR PULSE PRESENT
[2016-12-25] MEDS: ONDANSETRON HCL 4 MG/2 ML VIAL IV PRN ×2 (07:39→14:06)
[2016-12-25] MEDS: SODIUM CHLORIDE 0.9% FLUSH 10 ML FLUSH SCH ×2 (07:39→20:30)
[2016-12-25] MEDS: SODIUM CHLORIDE 0.9% FLUSH 10 ML FLUSH PRN (07:39)
[2016-12-25] MEDS: AZTREONAM INJ 2,000 MG in SODIUM CHLORIDE 0.9% INJ 100 ML IV SCH ×3 (08:09→23:53)
[2016-12-25] MEDS: guaiFENesin E.R. 600 MG TAB PO SCH ×2 (08:10→20:31)
[2016-12-25] MEDS: PANTOPRAZOLE SODIUM 40 MG VIAL IV SCH (08:10)
[2016-12-25] MEDS: DOCUSATE SODIUM 50 MG/SENNA 8.6 MG TAB PO SCH ×2 (08:10→20:31)
[2016-12-25] MEDS: RESP: ALBUTEROL 2.5 MG/IPRATROPIUM 0.5 MG NEB (SCH) INH ×5 (08:31→23:51)
[2016-12-25] MEDS ORDERED: SODIUM CHLORIDE 0.9% FLUSH 10 ML FLUSH IV FLUSH SCH (09:00)
[2016-12-25] MEDS ORDERED: GLUCAGON 1 MG/ML VIAL OTHER PRN (09:30)
[2016-12-25] MEDS ORDERED: DEXTROSE 50% IN WATER 50 ML VIAL(D50) IV PRN (09:30)
[2016-12-25] MEDS: INSULIN NovoLIN REGULAR SUPPLEMENTAL SCALE SQ SCH ×3 (10:00→22:00)
[2016-12-25 11:58] LABS: HEMATOCRIT 27.1 % (35.0-46.0)
[2016-12-25 12:02] LABS: REVIEW FLAG FINAL
[2016-12-25 14:00] LABS: BLOOD GAS BASE EXCESS 6.8 mmol/L (-2-2); BLOOD GAS CARBOXYHEMOGLOBIN 2.4 % (0-4); BLOOD GAS HCO3 32 mmol/L (22-26); BLOOD GAS METHEMOGLOBIN 1.2 % (0-2); BLOOD GAS O2 HGB SATURATION 89 % (90-100); BLOOD GAS OXYGEN CONTENT 10.2 Vol % (12.0-20.0); BLOOD GAS PCO2 53 mmHg (38-42); BLOOD GAS PO2 64 mmHg (61-120); BLOOD GAS TOTAL HGB 8.1 G/DL (12.0-16.0); TEMP CORR TO 98.6
[2016-12-25 14:01] LABS: CRITICAL VALUE YES; DRAW SITE RT RADIAL; LITER FLOW 3 L/M; NUMBER OF ARTERIAL PUNCTURES 2; OXYGEN DEVICE NASAL CANNULA; STAT NO; ULNAR PULSE PRESENT
--- NOTE | 2016-12-25 14:40 | EKG ---
Date Performed: 12/24/2016 Time Performed: 21:20:42 PTAGE: 66 years EKG: SINUS TACHYCARDIA PROMINENT PRECORDIAL VOLTAGE Compared to previous tracing, heart rate is faster, otherwise no significant change. ABNORMAL ECG PREVIOUS TRACING : 02/09/2007 13.00 DOCTOR: Aiden Medina Interpretating Date/Time 12/25/2016 14:40:37
[2016-12-25] MEDS ORDERED: DILTIAZEM HCL 25 MG/5 ML VIAL IV ONE (15:15)
[2016-12-25] MEDS ORDERED: SOD PHOSPHATE/SOD BIPHOSPHATE (ADULT) ENEMA 133ML RECTAL ONE (17:30)
[2016-12-25] MEDS: POLYETHYLENE GLYCOL 17 GM PKG PO SCH (18:22)
[2016-12-25] MEDS: LABETALOL HCL 100 MG/20 ML VIAL IV PUSH PRN (18:33)
--- NOTE | 2016-12-25 19:10 | MB ---
cc: WINIFRED HARRIS DATE OF CONSULTATION: 12/25/2016. REASON FOR CONSULTATION: COPD and mucus plugging. REQUESTING PHYSICIAN: Dr. Elli Medrano. HISTORY OF PRESENT ILLNESS: Ms. Soni is a pleasant 66-year-old -[place] female who is known to me from the office. She has history of very severe obstructive lung disease and is short of breath even at rest. She was recently admitted at [facility] and now she was recuperating at [facility]. She was brought here because of worsening of her shortness of breath and hypoxia. She was evaluated in the hospital. She had a blood gas done which shows pH 7.36, pCO2 58, bicarbonate of 109. She was put on BiPAP now she is weaned down to nasal cannula. Her pH is 7.40, pC02 53, p02 64. Her CBC showed white blood cell count of 8.7, hemoglobin 8.8, hematocrit 28.3, MCV 79, platelet count 426,000. Sodium 135, potassium 4.3, chloride 93, carbon dioxide 36, BUN 9, creatinine 0.53. She had a CTA of the chest done; it does not show any pulmonary embolism. It shows suspected extensive mucoid plugging more in the distal right main stem bronchus, right upper lobe bronchus and bronchus intermedius extending into the segmental branches and both middle lobes and lower lobes. She has underlying severe emphysema. PAST MEDICAL HISTORY: Her past medical history is significant for: 1. History of severe emphysema. She is oxygen-dependent. 2. Hypertension. 3. Recent left hip fracture. 4. Hysterectomy. 5. section. 6. Right upper lobe lung mass biopsy. MEDICATIONS: She is currently takin. Mucinex 600 milligrams twice a day. 2. Protonix 40 milligrams a day. 3. Albuterol and Atrovent nebulizer treatment. 4. Aztreonam 2 grams q. 8 hours. 5. Levaquin 750 milligrams a day. 6. Tramadol 60 milligrams q. 6 hours. ALLERGIES: PENICILLIN. SOCIAL HISTORY: She has a history of smoking in the past. No alcohol abuse. FAMILY HISTORY: She lives with her daughter. REVIEW OF SYSTEMS: She has lost weight, feels short of breath. No seizure, stroke or epilepsy. PHYSICAL EXAMINATION: GENERAL: The physical examination reveals a thin-built elderly female short of breath even at rest. VITAL SIGNS: Blood pressure 157/94, heart rate 116, respirations 28, temperature 98.2. HEAD, EYES, EARS, NOSE, THROAT: Pupils are equal and reactive. Oral mucosa and nasal mucosa are normal. NECK: The neck is supple. JVP not raised. CHEST: She has hyperresonant chest. Decreased breath sounds on the right. CARDIOVASCULAR: S1 and S2 normal. ABDOMEN: Abdomen benign. EXTREMITIES: No edema. IMPRESSION: 1. Hypercapnic respiratory failure. 2. Mucus plugging in the right lung. 3. History of COPD. 4. Chronic respiratory insufficiency. 5. Hypertension. PLAN: 1. I discussed with the patient we will give her aerosol treatment. 2. Start her on Mucomyst nebulizer treatment. 3. Continue antibiotic 4. IV Solu-Medrol. 5. I will schedule her for bronchoscopy. I explained to her the procedure and the complications including complication of anesthesia, pneumothorax requiring chest tube and possible need for requiring ventilator support, also the possibility of bleeding complication, infection, injury to the blood vessels, lungs, nerves, arrhythmia, hypoxia, pneumothorax which she understands and want to proceed. Will scheduled her for bronchoscopy for tomorrow. Further treatment will depend on the course in the hospital. Thank you, Dr. Medrano, for this consult. MD ALEXYS Ruggiero/JCEnedina /6:50 PM /6:57 PM
--- NOTE | 2016-12-25 22:44 | MB ---
cc: TORITHOMASCARI DATE OF CONSULTATION 12/25/[address] Elli Medrano. REASON FOR CONSULTATION Possible bowel obstruction and abdominal pain. HISTORY OF PRESENT ILLNESS Patient is a 66-year-old -Australian female who was admitted to [facility] with shortness of breath and a history of COPD. The patient states that she also had some worsening abdominal pain, obstipation, as well as some nonbilious vomiting. The patient also had some spitting up since she has been here in the hospital but without NG tube placement. The patient did undergo a CT scan of the abdomen and pelvis which showed some large amount of stool in the colon and some loops that were mildly dilated. There is also of note of right psoas hematoma. The patient does have this past surgical history significant for exploratory laparotomy and lysis of adhesions by Dr. Wing in 2011 per her report. I do not have records of this. The patient had multiple previous abdominal surgeries earlier as well as hysterectomy and C-sections as well. REVIEW OF SYSTEMS 12-point you systems discussed with the patient is negative except for the pertinent positives as mentioned above in the history of present illness. PAST MEDICAL HISTORY 1. Emphysema, oxygen dependent. 2. Hypertension. 3. Left hip fracture. 4. History of previous bowel obstruction. PAST SURGICAL HISTORY As above. MEDICATIONS 1. Mucinex. 2. Protonix. 3. Albuterol. 4. Aztreonam. 5. Levaquin. 6. Tramadol. ALLERGIES PENICILLIN. SOCIAL HISTORY The patient has a history of smoking in the past. Denies alcohol, tobacco or illicit drug use. Lives in a senior care. FAMILY HISTORY Noncontributory. PHYSICAL EXAMINATION VITAL SIGNS: Blood pressure 157/94, heart rate 116. Temperature 98.2 degrees. GENERAL: The patient is a thin, chronically ill-appearing -Australian female. HEENT: Head is normocephalic, atraumatic. Pupils round and reactive to light and accommodation. Sclerae anicteric. Mucous membranes are moist. NECK: Supple. No JVD. LUNGS: Decreased breath sounds bilaterally. Nonlabored breathing pattern. CARDIOVASCULAR: Regular rate and rhythm. ABDOMEN: Soft. Mildly distended, tympanic with ventral hernia that is easily reducible. The patient has no peritonitis, rebound, tenderness or guarding. BACK: No CVA tenderness. EXTREMITIES: Mild trace edema. Warm and perfused. NEUROLOGIC: The patient is awake and alert and oriented times three. Moving all extremities non focally. Cranial nerves II through XII grossly intact. LABORATORY DATA Laboratory values white blood cell count 10.8, hemoglobin 9.5. IMAGING STUDIES CT scan of the abdomen and pelvis does show right side psoas hematoma 4.7 cm. Possible abnormality of the previous anastomosis. ASSESSMENT/PLAN The patient is a 66-year-old female with multiple medical comorbidities including significant COPD with exacerbation, also with possible GI complaint. I feel that this patient's clinical findings intra-abdominally are chronic or potentially related to an ileus due to a psoas hematoma as well as some overlying constipation. I do not feel there is any acute abnormality at this time. However, again the patient may have some significant chronic dilation of her bowel due to her previous anastomosis. I do feel the patient does need continued workup of her abdominal issues to include catharsis and possible small bowel follow-through. I will go ahead and order this. Also I feel that GI would be helpful in the patient's evaluation as I feel the patient would likely benefit from a colonoscopy if she has not had a colonoscopy in several years to again further evaluate her anatomy. If the patient becomes more stable from her pulmonary status and persistently has inability to tolerate p.o. she may need a semi elective operation for revision of her surgery, however I would like to avoid this due to the patient's high risk for surgery. I discussed with the patient and she also would like to avoid surgery if at all possible. I will follow along with the patient. Thank you very much for this consultation. MD SHALOM Mendoza/[place] /10:00 PM /10:28 PM JUSTO
[2016-12-25] MEDS: RESP: ACETYLCYSTEINE 20% 30 ML NEB NEB SCH (23:51)
[2016-12-26] VITALS (14 sets, daily range): BP systolic 145–158; BP diastolic 76–94; PULSE 104–120; RESP 16–38; TEMP 97.3–99.7; O2SAT 93–100
[2016-12-26] MEDS: RESP: ALBUTEROL 2.5 MG/IPRATROPIUM 0.5 MG NEB (SCH) INH ×6 (03:22→23:12)
[2016-12-26] MEDS: RESP: ACETYLCYSTEINE 20% 30 ML NEB NEB SCH ×3 (03:23→15:56)
[2016-12-26] MEDS: CHLORHEXIDINE GLUCONATE 2 % 1 PACK (2 CLOTHS) TOP SCH (04:00)
[2016-12-26] MEDS: INSULIN NovoLIN REGULAR SUPPLEMENTAL SCALE SQ SCH ×4 (04:00→21:27)
[2016-12-26 04:05] LABS: AUTOMATED NEUTROPHIL # 9.7 TH/MM3 (1.8-7.7); BASOPHIL % 0.1 % (0.0-2.0); HEMATOCRIT 25.9 % (35.0-46.0); LYMPH % 5.4 % (9.0-44.0); LYMPHOCYTE # 0.6 TH/MM3 (1.0-4.8); MEAN CELL VOLUME 76.3 FL (80.0-100.0); MEAN CORPUSCULAR HEMOGLOBIN 23.4 PG (27.0-34.0); MEAN CORPUSCULAR HGB CONC 30.7 % (32.0-36.0); MONO % 4.3 % (0.0-8.0); NEUT % 90.2 % (16.0-70.0); PLATELET COUNT 417 TH/MM3 (150-450); RED CELL DISTRIBUTION WIDTH 19.1 % (11.6-17.2); WHITE BLOOD COUNT 10.7 TH/MM3 (4.0-11.0)
[2016-12-26 04:10] LABS: HEMO FLAGS AUTO DIFF
[2016-12-26 04:26] LABS: ANION GAP 6 MEQ/L (5-15); AST (GOT) 16 U/L (15-37); BICARBONATE 34.2 MEQ/L (21.0-32.0); BLOOD UREA NITROGEN 6 MG/DL (7-18); CHLORIDE 99 MEQ/L (98-107); GLOMERULAR FILTRATION RATE 218 ML/MIN (>89); POTASSIUM 3.8 MEQ/L (3.5-5.1); SODIUM (NA) 139 MEQ/L (136-145)
[2016-12-26 04:29] LABS: ALKALINE PHOSPHATASE 90 U/L (45-117); ALT (GPT) 22 U/L (10-53); TOTAL BILIRUBIN ADULT 0.2 MG/DL (0.2-1.0)
[2016-12-26 04:50] LABS: KERATOCYTES OCC (NORMAL); SCAN/DIFF AUTO DIFF CONFIRMED
[2016-12-26 04:51] LABS: TARGET CELLS 1+ (NORMAL)
[2016-12-26] MEDS: SODIUM CHLOR 0.9% 1000 ML INJ 1,000 ML IV SCH (04:59)
[2016-12-26] MEDS: LEVOFLOXACIN 750 MG PREMIX INJ 150 ML IV SCH (05:00)
[2016-12-26] MEDS: methylPREDNISolone SOD SUCC 125 MG/2 ML VIAL IV PUSH SCH ×4 (06:02→21:20)
--- NOTE | 2016-12-26 07:06 | RADRPT ---
EXAM DATE/TIME: 12/26/2016 06:02 [facility] COMPARISON: CT PULMONARY ANGIOGRAM, December 25, 2016, 1:40. CHEST SINGLE AP, December 24, 2016, 21:14. INDICATIONS : Short of breath. MEDICAL HISTORY : None. SURGICAL HISTORY : None. ENCOUNTER: Subsequent ACUITY: 3 days PAIN SCORE: Non-responsive. LOCATION: Bilateral chest FINDINGS: There has been slight interval increase in medial right base parenchymal opacity worrisome for develo ping infiltrate. Left lung remains hyperinflated but grossly clear. Heart size and mediastinal contou rs are grossly stable. CONCLUSION: Medial right basilar infiltrate Erich Allison MD on December 26, 2016 at 7:02 Board Certified Radiologist. This report was verified electronically.
[2016-12-26] MEDS: AZTREONAM INJ 2,000 MG in SODIUM CHLORIDE 0.9% INJ 100 ML IV SCH ×2 (08:30→16:17)
[2016-12-26] MEDS: SODIUM CHLORIDE 0.9% FLUSH 10 ML FLUSH PRN (08:31)
[2016-12-26] MEDS: DOCUSATE SODIUM 50 MG/SENNA 8.6 MG TAB PO SCH ×2 (08:31→21:19)
[2016-12-26] MEDS: guaiFENesin E.R. 600 MG TAB PO SCH ×2 (08:31→21:19)
[2016-12-26] MEDS: SODIUM CHLORIDE 0.9% FLUSH 10 ML FLUSH SCH ×2 (08:31→21:19)
[2016-12-26] MEDS: POLYETHYLENE GLYCOL 17 GM PKG PO SCH (08:31)
[2016-12-26] MEDS: PANTOPRAZOLE SODIUM 40 MG VIAL IV SCH (08:31)
--- NOTE | 2016-12-26 09:18 | HHI.CCPN ---
Subjective Remarks/Hospital Course 66-year-old female with past medical history of COPD, hypertension, tobacco abuse who presents to [facility] emergency department from a fdc ([facility]) due to shortness of breath. She states she has been in fdc for 1-1/2 months after she fell and sustained a left hip fracture requiring left hip arthroplasty at [facility] in [facility]. She was hypertensive, tachycardic and anxious upon E V[facility] arrival. She was administered 2 L normal saline bolus and magnesium sulfate prior to arrival. She was placed on BiPAP 15/5 40%. ABG demonstrated acute on chronic hypercapnic respiratory failure with pH 7.36/PaCO2 58/PA O2 of 109. She was very anxious on BiPAP and was started on Precedex for BiPAP tolerance. Chest x-ray demonstrates hyperinflation with possible right lower lobe infiltrate. She received DuoNeb 3, Solu-Medrol 125 mg IV, aztreonam, as azithromycin in the emergency department. CT pulmonary angiogram was negative for pulmonary embolism. There is severe emphysema and mucous plugging in the right mainstem bronchus. Unable to rule out endobronchial lesion. Patient has cough with large amount of thick yellow sputum production so was taken off Bipap and placed on HFNC 30 L/min 40% FIO2. She states she is feeling better than she was on arrival. CT abdomen/pelvis demonstrated a 4.7 cm right psoas hematoma, 7 cm length . She has a prior bowel anastomosis with small bowel dilatation which may represent partial or early obstruction. Hgb 9.5. Patient denies more recent fall. She denies abdominal pain, flank pain, nausea, vomiting. Does not recall her last bowel movement 12/26 Patient is on 4L oxygen with good sats. Afebrile. Objective Vital Signs Date Time Temp Pulse Resp B/P Pulse Ox O2 Delivery O2 Flow Rate FiO2 12/26/16 08:00 97.5 119 24 149/94 100 12/26/16 07:22 Nasal Cannula 4.00 12/25/16 02:19 40 Intake and Output 12/25/16 12/25/16 12/26/16 08:00 16:00 00:00 Intake Total 252 ml 1124 ml 820 ml Output Total 400 ml 1175 ml 1000 ml Balance -148 ml -51 ml -180 ml Result Diagram: 12/26/16 0309 12/26/16 0309 Other Results Laboratory Tests Test 12/25/16 12/25/16 12/26/16 11:38 13:47 03:09 Hemoglobin 8.5 GM/DL 8.0 GM/DL Hematocrit 27.1 % 25.9 % Blood Gas Puncture Site RT RADIAL Blood Gas Patient Temperature 98.6 Blood Gas HCO3 32 mmol/L Blood Gas Base Excess 6.8 mmol/L Blood Gas Oxygen Saturation 89 % Arterial Blood pH 7.40 Arterial Blood Partial 53 mmHg Pressure CO2 Arterial Blood Partial 64 mmHg Pressure O2 Arterial Blood Oxygen Content 10.2 Vol % Arterial Blood 2.4 % Carboxyhemoglobin Arterial Blood Methemoglobin 1.2 % Blood Gas Hemoglobin 8.1 G/DL Oxygen Delivery Device NASAL CANNULA Blood Gas Liter Flow 3 L/M White Blood Count 10.7 TH/MM3 Red Blood Count 3.40 MIL/MM3 Mean Corpuscular Volume 76.3 FL Mean Corpuscular Hemoglobin 23.4 PG Mean Corpuscular Hemoglobin 30.7 % Concent Red Cell Distribution Width 19.1 % Platelet Count 417 TH/MM3 Mean Platelet Volume 7.5 FL Neutrophils (%) (Auto) 90.2 % Lymphocytes (%) (Auto) 5.4 % Monocytes (%) (Auto) 4.3 % Eosinophils (%) (Auto) 0.0 % Basophils (%) (Auto) 0.1 % Neutrophils # (Auto) 9.7 TH/MM3 Lymphocytes # (Auto) 0.6 TH/MM3 Monocytes # (Auto) 0.5 TH/MM3 Eosinophils # (Auto) 0.0 TH/MM3 Basophils # (Auto) 0.0 TH/MM3 CBC Comment AUTO DIFF Differential Comment AUTO DIFF CONFIRMED Target Cells 1+ Keratocytes OCC Sodium Level 139 MEQ/L Potassium Level 3.8 MEQ/L Chloride Level 99 MEQ/L Carbon Dioxide Level 34.2 MEQ/L Anion Gap 6 MEQ/L Blood Urea Nitrogen 6 MG/DL Creatinine 0.36 MG/DL Estimat Glomerular Filtration 218 ML/MIN Rate Random Glucose 130 MG/DL Calcium Level 8.3 MG/DL Total Bilirubin 0.2 MG/DL Aspartate Amino Transf 16 U/L (AST/SGOT) Alanine Aminotransferase 22 U/L (ALT/SGPT) Alkaline Phosphatase 90 U/L Total Protein 5.5 GM/DL Albumin 2.5 GM/DL Imaging Last Impressions Chest X-Ray 12/26/16 0000 Signed Impressions: Service Date/Time: Monday, December 26, 2016 06:02 - CONCLUSION: Medial right basilar infiltrate Erich Allison MD Head CT 12/25/16 0000 Signed Impressions: Service Date/Time: Sunday, December 25, 2016 04:14 - CONCLUSION: 1. No acute intracranial abnormalities. Mild white matter ischemic changes. Lee Uribe MD CT Angiography 12/24/16 0000 Signed Impressions: Service Date/Time: Sunday, December 25, 2016 01:40 - CONCLUSION: 1. Negative for pulmonary embolus. 2. There is suspected extensive mucoid plugging involving a portion of the distal right mainstem bronchus, right upper lobe bronchus and bronchus intermedius extending into segmental branches in both the right middle lobe and right lower lobe. Cannot exclude an endobronchial lesion. A small right-sided pleural effusion. 3. Severe emphysema. Lee Uribe MD Abdomen/Pelvis CT 12/24/16 0000 Signed Impressions: Service Date/Time: Sunday, December 25, 2016 01:36 - CONCLUSION: 1. Right-sided psoas hematoma measuring about 4.7 cm in maximum diameter and extending over a length of about 7 cm. 2. Previous bowel anastomosis with dilated loops of small bowel proximally with air fluid levels. Differential diagnosis includes a partial or early obstruction. 3. Widemouth ventral hernia near umbilicus containing a loop of constipated colon. 4. Small right pleural effusion. Lee Uribe MD Objective Remarks GENERAL: Patient is lying in bed in NAD SKIN: Warm and dry. HEAD: Normocephalic. EYES: No scleral icterus. No injection or drainage. NECK: Supple, trachea midline. No JVD or lymphadenopathy. CARDIOVASCULAR: Tachycardic without murmurs, gallops, or rubs. RESPIRATORY: Breath sounds equal bilaterally. No accessory muscle use. Diminished GASTROINTESTINAL: Abdomen soft, non-tender, nondistended. MUSCULOSKELETAL: No cyanosis, or edema. BACK: Nontender without obvious deformity. No CVA tenderness. 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 Cytology negative for malignancy R mainstem mucous plugging, Continue with oxygen keep sat >92% DuoNeb every 4 hours. Albuterol every 2 hours when necessary. Continue Solumedrol 60 mg IV every 6 hours Guaifenesin 600 mg by mouth twice a day CTPA - negative for PE. There is mucus plugging and right mainstem and unable to rule out endobronchial lesion. Pulm is following- - For bronch today CV: History of hypertension Sinus tachycardia Place on Cardizem 60mg QID monitor HR and BP keep MAP>65mmHg GI: Ileus Reducible ventral hernia Severe chronic protein energy malnutrition R psoas hematoma (discussed below) CT abd/pelvis with dilated small bowel ?early obstruction. Surgery is following - no acute intervention at this time. For small bowel series Continue with bowel regimen( Pericolace, Fátima lax, Senna) FEN/RENAL: Monitor renal function, electrolytes replacement per protocol. D/c IVF ID: Acute tracheobronchitis, healthcare associated Reported penicillin allergy Received aztreonam and azithromycin in the emergency department. Continue aztreonam 2 g IV every 8 hours, Levaquin 750 mg IV daily. Monitor for signs of infections ( Fever, WBC) HEME: Right psoas hematoma Patient denies trauma or symptoms. Coags are normal. Monitor CBC ENDO:SSI for glycemic control PROPH: SCDs for DVT prophylaxis. Not on Pharmacologic DVT prophylaxis due to psoas hematoma. Protonix 40 mg IV daily for stress ulcer prophylaxis. ACCESS: Peripheral IV providing adequate access at this time. Will sign off and transfer care to [facility] Level 3 Lakshmi Walker MD December 26, 2016 09:18
[2016-12-26] MEDS ORDERED: CALCIUM CARBONATE 500 MG CHEWABLE TAB CHEW ONE (10:00)
--- NOTE | 2016-12-26 10:30 | RADRPT ---
EXAM DATE/TIME: 12/26/2016 09:49 [place] COMPARISON: CT ABDOMEN & PELVIS W CONTRAST, December 25, 2016, 1:36. INDICATIONS : Evaluate for ileus. MEDICAL HISTORY : Cardiovascular disease. Chronic obstructive pulmonary disease. Hypertension. SURGICAL HISTORY : section. Hysterectomy. Left hip ENCOUNTER: Subsequent ACUITY: 3 days PAIN SCORE: 0/10 LOCATION: Abdomen. FINDINGS: 2 supine frontal views of the abdomen demonstrate mild diffuse distention of the small bowel. There i s a mildly dilated segment of small bowel in the left mid abdomen measuring 3.2 cm. A minimal amount of colon gas is present. No organomegaly or concerning calcifications are seen. Clips overlie the pel vis. Padilla catheter is present. There is slight blunting of the right costophrenic sulcus. No acute o sseous abnormality is visualized. There are 3 screws in the left proximal femur. CONCLUSION: 1. Relatively diffuse mild gaseous distention of the small bowel with a segment that is mildly dilate d in the left midabdomen. The degree of distention is less than present on the prior CT. Findings ove rall are not highly suspicious for obstruction. Patient is currently scheduled for small bowel follow -through examination which will further assess. 2. Stable small right pleural effusion. Erich Stephenson MD on December 26, 2016 at 10:25 Board Certified Radiologist. This report was verified electronically.
[2016-12-26] MEDS: DILTIAZEM HCL 60 MG TAB PO SCH ×3 (11:06→21:19)
[2016-12-26] MEDS ORDERED: DEXT 5%-NACL 0.9% 500 ML INJ 500 ML IV ONE (11:07)
[2016-12-26] MEDS ORDERED: SODIUM CHLORID 0.9% 500 ML INJ 500 ML IV ONE (11:07)
[2016-12-26] MEDS ORDERED: SUGAMMADEX SODIUM 200 MG/2 ML VIAL IV PUSH ONE ×2 (11:07)
[2016-12-26] MEDS ORDERED: PROPOFOL 200 MG/20 ML AMP IV ONE (11:07)
[2016-12-26] MEDS ORDERED: ONDANSETRON HCL 4 MG/2 ML VIAL IV PUSH ONE (11:07)
--- NOTE | 2016-12-26 11:18 | PD.CONS ---
HPI History of Present Illness This is a 66 year old [lady] w/ COPD came to hospital day complaining of dyspnea, coughing. GI has been consulted for constipation and poss ileus. She c/o constipation in the last year. At times she has to perform digital maneuvers in order to pass stool and when she does it is hard balls. She says when she gets really constipated she doesn't eat. She had n/v the last 2 days in the hospital but this has improved and pt is asking for food. Denies tarry stool, blood in stool. She has been given enema yesterday and reports passing hard balls stool. She is having MOM today. She is due to have bronch today as well and then SBFT tomorrow. GS managing non-operatively for now as she is high risk for surgery. CT 12-25-16--> right sided psoas hematoma 4.7 x 7 cm, previous bowel anastomosis with dilated loops of small bowel proximally with air fluid levels, diff dx includes partial or early obstruction, wide mout ventral hernia near ubilicus containing loop constipated colon. KUB 12-26-16--> relatively diffuse mild gaseous distention of the small bowel with a sebment that is mildly dilated inthe left midabd. The degree of distention is less than present on prior CT. Findings overall not highly suspicious for obstruction. (Mary Groves) PFSH Past Medical History COPD HTN hx fall Past Surgical History ORIF right hip lysis adhesions per pt ?bowel surgery involving anastamosis? hysterectomy bowel suspension (Mary Groves) Coded Allergies: Penicillin (Verified Allergy, Severe, BELLS RINGING IN EARS, 12/24/16) Medications Current Medications Medications (Trade) Dose Ordered Sig/Mariluz Route PRN Reason Start Time Stop Time Status Last Admin Dose Admin Guaifenesin (Mucinex Er) 600 mg BID PO 12/25/16 09:00 12/26/16 08:31 Methylprednisolone Sodium Succinate (SoluMEDROL INJ) 60 mg Q6H IV PUSH 12/25/16 04:00 12/26/16 08:32 Sodium Chloride (NS Flush) 2 ml UNSCH PRN .XX FLUSH AFTER USING IV ACCESS 12/25/16 04:15 12/26/16 08:31 Sodium Chloride (NS Flush) 2 ml BID .XX 5/28/17 09:00 12/26/16 08:31 Acetaminophen (Tylenol) 650 mg Q6H PRN PO PAIN 1-10 AND/OR FEVER >101F 12/25/16 04:15 Pantoprazole Sodium (Protonix Inj) 40 mg DAILY IV 12/25/16 09:00 12/26/16 08:31 Ondansetron HCl (Zofran Inj) 4 mg Q6H PRN IV NAUSEA OR VOMITING 12/25/16 04:15 12/25/16 14:06 Miscellaneous Information 1 Q361D XX 12/25/16 04:15 12/25/16 04:15 Chlorhexidine Gluconate (Chlorhexidine 2% Cloth) 3 pack Taper DAILY@04 TOP 12/26/16 04:00 12/22/17 03:59 12/26/16 04:00 Chlorhexidine Gluconate (Chlorhexidine 2% Cloth) 3 pack UNSCH PRN TOP HYGIENIC CARE 12/25/16 04:15 Senna/Docusate Sodium (Kellen-Colace) 1 tab BID PO 12/25/16 09:00 12/26/16 08:31 Magnesium Hydroxide (Milk Of Magnesia Liq) 30 ml Q12H PRN PO MILD - MODERATE CONSTIPATION 12/25/16 04:15 12/26/16 10:28 Sennosides (Senokot) 17.2 mg Q12H PRN PO MODERATE - SEVERE CONSTIPATION 12/25/16 04:15 Bisacodyl (Dulcolax Supp) 10 mg DAILY PRN RECTAL SEVERE CONSITIPATION 12/25/16 04:15 Lactulose (Lactulose Liq) 30 ml DAILY PRN PO SEVERE CONSITIPATION 12/25/16 04:15 Labetalol HCl 10 mg 10 mg Q4H PRN IV PUSH SBP >165 12/25/16 04:30 12/25/16 18:33 Aztreonam 2000 mg/ Sodium Chloride 100 ml @ 200 mls/hr Q8H IV 12/25/16 08:00 12/26/16 08:30 Levofloxacin/ Dextrose (Levaquin 750 Mg Premix Inj) 150 ml @ 100 mls/hr Q24H IV 12/25/16 05:00 12/26/16 05:00 Dextrose (D50w (Vial) Inj) 50 ml UNSCH PRN IV HYPOGLYCEMIA-SEE COMMENTS 12/25/16 09:30 Glucagon (Glucagon Inj) 1 mg UNSCH PRN OTHER HYPOGLYCEMIA-SEE COMMENTS 12/25/16 09:30 Insulin Human Regular (NovoLIN R SUPPLEMENTAL SCALE) 1 Q6H SQ 12/25/16 10:00 Polyethylene Glycol (Miralax) 17 gm DAILY PO 12/25/16 17:30 12/26/16 08:31 Diltiazem HCl (Cardizem) 60 mg QID PO 12/26/16 13:00 Family History Last Impressions Chest X-Ray 12/26/16 0000 Signed Impressions: Service Date/Time: Monday, December 26, 2016 06:02 - CONCLUSION: Medial right basilar infiltrate Erich Allison MD Abdomen X-Ray 12/26/16 0000 Signed Impressions: Service Date/Time: Monday, December 26, 2016 09:49 - CONCLUSION: 1. Relatively diffuse mild gaseous distention of the small bowel with a segment that is mildly dilated in the left midabdomen. The degree of distention is less than present on the prior CT. Findings overall are not highly suspicious for obstruction. Patient is currently scheduled for small bowel follow-through examination which will further assess. 2. Stable small right pleural effusion. Erich Stephenson MD Head CT 12/25/16 0000 Signed Impressions: Service Date/Time: Sunday, December 25, 2016 04:14 - CONCLUSION: 1. No acute intracranial abnormalities. Mild white matter ischemic changes. Lee Uribe MD CT Angiography 12/24/16 0000 Signed Impressions: Service Date/Time: Sunday, December 25, 2016 01:40 - CONCLUSION: 1. Negative for pulmonary embolus. 2. There is suspected extensive mucoid plugging involving a portion of the distal right mainstem bronchus, right upper lobe bronchus and bronchus intermedius extending into segmental branches in both the right middle lobe and right lower lobe. Cannot exclude an endobronchial lesion. A small right-sided pleural effusion. 3. Severe emphysema. Lee Uribe MD Abdomen/Pelvis CT 12/24/16 0000 Signed Impressions: Service Date/Time: Sunday, December 25, 2016 01:36 - CONCLUSION: 1. Right-sided psoas hematoma measuring about 4.7 cm in maximum diameter and extending over a length of about 7 cm. 2. Previous bowel anastomosis with dilated loops of small bowel proximally with air fluid levels. Differential diagnosis includes a partial or early obstruction. 3. Widemouth ventral hernia near umbilicus containing a loop of constipated colon. 4. Small right pleural effusion. Lee Uribe MD Social History denies ETOH tobacco illicit drugs (Mary Groves) Review of Systems Constitutional: DENIES: Diaphoretic episodes Eyes: DENIES: Blurred vision Ears, nose, mouth, throat: DENIES: Hearing loss Respiratory: COMPLAINS OF: Cough, Sputum production, DENIES: Hemoptysis Cardiovascular: DENIES: Palpitations Gastrointestinal: COMPLAINS OF: Abdominal pain (says her muscles hurt from coughing), Constipation, Nausea, Vomiting, Heartburn, DENIES: Black stools, Bloody stools, Diarrhea, Hematemesis Genitourinary: COMPLAINS OF: Hematuria Musculoskeletal: DENIES: Muscle aches Integumentary: DENIES: Abnormal pigmentation Hematologic/lymphatic: DENIES: Bruising Neurologic: DENIES: Abnormal gait Psychiatric: DENIES: Confusion (Mary Groves) GI Exam Vitals I&O Vital Signs Date Time Temp Pulse Resp B/P Pulse Ox O2 Delivery O2 Flow Rate FiO2 12/26/16 10:00 113 12/26/16 08:00 97.5 119 24 149/94 100 12/26/16 08:00 119 12/26/16 07:22 100 Nasal Cannula 4.00 12/26/16 06:00 116 12/26/16 04:00 98.8 104 38 145/78 100 12/26/16 04:00 104 12/26/16 02:00 109 12/26/16 00:00 98.9 113 27 158/90 100 12/26/16 00:00 113 12/25/16 22:00 119 12/25/16 20:01 98 Nasal Cannula 4.00 12/25/16 20:00 119 12/25/16 20:00 99.6 115 47 144/92 98 12/25/16 18:00 123 12/25/16 16:00 98.2 116 28 157/94 95 12/25/16 16:00 116 12/25/16 14:00 123 12/25/16 12:00 117 12/25/16 12:00 98.1 117 28 134/77 98 I/O 12/25/16 12/25/16 12/25/16 12/26/16 12/26/16 12/26/16 07:00 15:00 23:00 07:00 15:00 23:00 Intake Total 252 ml 1124 ml 820 ml 473 ml Output Total 400 ml 1175 ml 1000 ml 500 ml Balance -148 ml -51 ml -180 ml -27 ml Intake Oral 0 ml 120 ml 0 ml IV Total 252 ml 1124 ml 700 ml 473 ml Output Urine Total 400 ml 1175 ml 1000 ml 500 ml Stool Total 0 ml # Bowel Movements 0 0 0 0 Imaging Last Impressions Chest X-Ray 12/26/16 0000 Signed Impressions: Service Date/Time: Monday, December 26, 2016 06:02 - CONCLUSION: Medial right basilar infiltrate Erich Allison MD Abdomen X-Ray 12/26/16 0000 Signed Impressions: Service Date/Time: Monday, December 26, 2016 09:49 - CONCLUSION: 1. Relatively diffuse mild gaseous distention of the small bowel with a segment that is mildly dilated in the left midabdomen. The degree of distention is less than present on the prior CT. Findings overall are not highly suspicious for obstruction. Patient is currently scheduled for small bowel follow-through examination which will further assess. 2. Stable small right pleural effusion. Erich Stephenson MD Head CT 12/25/16 0000 Signed Impressions: Service Date/Time: Sunday, December 25, 2016 04:14 - CONCLUSION: 1. No acute intracranial abnormalities. Mild white matter ischemic changes. Lee Uribe MD CT Angiography 12/24/16 0000 Signed Impressions: Service Date/Time: Sunday, December 25, 2016 01:40 - CONCLUSION: 1. Negative for pulmonary embolus. 2. There is suspected extensive mucoid plugging involving a portion of the distal right mainstem bronchus, right upper lobe bronchus and bronchus intermedius extending into segmental branches in both the right middle lobe and right lower lobe. Cannot exclude an endobronchial lesion. A small right-sided pleural effusion. 3. Severe emphysema. Lee Uribe MD Abdomen/Pelvis CT 12/24/16 0000 Signed Impressions: Service Date/Time: Sunday, December 25, 2016 01:36 - CONCLUSION: 1. Right-sided psoas hematoma measuring about 4.7 cm in maximum diameter and extending over a length of about 7 cm. 2. Previous bowel anastomosis with dilated loops of small bowel proximally with air fluid levels. Differential diagnosis includes a partial or early obstruction. 3. Widemouth ventral hernia near umbilicus containing a loop of constipated colon. 4. Small right pleural effusion. Lee Uribe MD Laboratory Test 12/25/16 12/25/16 12/26/16 11:38 13:47 03:09 Hemoglobin 8.5 GM/DL 8.0 GM/DL Hematocrit 27.1 % 25.9 % Blood Gas Puncture Site RT RADIAL Blood Gas Patient Temperature 98.6 Blood Gas HCO3 32 mmol/L Blood Gas Base Excess 6.8 mmol/L Blood Gas Oxygen Saturation 89 % Arterial Blood pH 7.40 Arterial Blood Partial 53 mmHg Pressure CO2 Arterial Blood Partial 64 mmHg Pressure O2 Arterial Blood Oxygen Content 10.2 Vol % Arterial Blood 2.4 % Carboxyhemoglobin Arterial Blood Methemoglobin 1.2 % Blood Gas Hemoglobin 8.1 G/DL Oxygen Delivery Device NASAL CANNULA Blood Gas Liter Flow 3 L/M White Blood Count 10.7 TH/MM3 Red Blood Count 3.40 MIL/MM3 Mean Corpuscular Volume 76.3 FL Mean Corpuscular Hemoglobin 23.4 PG Mean Corpuscular Hemoglobin 30.7 % Concent Red Cell Distribution Width 19.1 % Platelet Count 417 TH/MM3 Mean Platelet Volume 7.5 FL Neutrophils (%) (Auto) 90.2 % Lymphocytes (%) (Auto) 5.4 % Monocytes (%) (Auto) 4.3 % Eosinophils (%) (Auto) 0.0 % Basophils (%) (Auto) 0.1 % Neutrophils # (Auto) 9.7 TH/MM3 Lymphocytes # (Auto) 0.6 TH/MM3 Monocytes # (Auto) 0.5 TH/MM3 Eosinophils # (Auto) 0.0 TH/MM3 Basophils # (Auto) 0.0 TH/MM3 CBC Comment AUTO DIFF Differential Comment AUTO DIFF CONFIRMED Target Cells 1+ Keratocytes OCC Sodium Level 139 MEQ/L Potassium Level 3.8 MEQ/L Chloride Level 99 MEQ/L Carbon Dioxide Level 34.2 MEQ/L Anion Gap 6 MEQ/L Blood Urea Nitrogen 6 MG/DL Creatinine 0.36 MG/DL Estimat Glomerular Filtration 218 ML/MIN Rate Random Glucose 130 MG/DL Calcium Level 8.3 MG/DL Total Bilirubin 0.2 MG/DL Aspartate Amino Transf 16 U/L (AST/SGOT) Alanine Aminotransferase 22 U/L (ALT/SGPT) Alkaline Phosphatase 90 U/L Total Protein 5.5 GM/DL Albumin 2.5 GM/DL Date/Time Procedure Status Source Growth 12/25/16 05:00 Gram Stain - Final Resulted Sputum Expectorated Sputum 12/25/16 05:00 Sputum Culture Resulted Sputum Expectorated Sputum Pending 12/24/16 21:10 Aerobic Blood Culture - Preliminary Resulted Blood Peripheral NO GROWTH IN 1 DAY 12/24/16 21:10 Anaerobic Blood Culture - Preliminary Resulted Blood Peripheral NO GROWTH IN 1 DAY Physical Examination HEENT: EOMI; normocephalic; atraumatic; no jaundice. CHEST: diminished, SOB to conversation CARDIAC: RRR ABDOMEN: lower abd firm and mildly distended, ventral hernia that is reducible and very firm, nontender; no hepatosplenomegaly; bowel sounds are present in all four quadrants. EXTREMITIES: No clubbing, cyanosis, or edema. SKIN: Normal; no rash; no jaundice. HEALTH RESEARCHER: No focal deficits; alert and oriented times three. (Mary Groves [facility]) Assessment and Plan Plan ASSESSMENT - constipation - poss ileus. worse in the last year At times requiring digital maneuvers in order to pass stool and when she does it is hard balls. Had n/v the last 2 days in the hospital but this has improved and pt is asking for food. Denies tarry stool, blood in stool. She has been given enema yesterday and reports passing hard balls stool. CT 12-25-16--> right sided psoas hematoma 4.7 x 7 cm, previous bowel anastomosis with dilated loops of small bowel proximally with air fluid levels, diff dx includes partial or early obstruction, wide mout ventral hernia near ubilicus containing loop constipated colon. KUB 12-26-16-->relatively diffuse mild gaseous distention of the small bowel with a segment that is mildly dilated in the left midabd. The degree of distention is less than present on prior CT. Findings overall not highly suspicious for obstruction. GS managing non- operatively for now as she is high risk for surgery. SBFT pending, gastrografin may help constipation. PLAN - await SBFT - continue bowel regimen - consider IV reglan - consider colonoscopy for change in bowel habits when ileus ruled out or resolved - further recommendations based on results above This pt seen by myself and Dr Segovia and this note is written on his behalf (Mary Groves) Physician Comments Seen and examined, plan as above, will follow up with you. (Irma Segovia MD) Mary Groves December 26, 2016 11:18 Irma Segovia MD December 27, 2016 07:12
--- NOTE | 2016-12-26 11:40 | HHI.PR ---
Subjective Subjective Notes DAILY PROGRESS NOTE FOR SURGICAL ATTENDING, DR. VIPIN FAUSTIN Resting in bed Awaiting bronchoscopy Has has multiple BMs Objective Vitals/I&O Vital Signs Date Time Temp Pulse Resp B/P Pulse Ox O2 Delivery O2 Flow Rate FiO2 12/26/16 10:00 113 12/26/16 08:00 97.5 24 149/94 100 12/26/16 07:22 Nasal Cannula 4.00 12/25/16 02:19 40 Labs Laboratory Tests Test 12/25/16 12/26/16 13:47 03:09 Blood Gas Puncture Site RT RADIAL Blood Gas Patient Temperature 98.6 Blood Gas HCO3 32 Blood Gas Base Excess 6.8 Blood Gas Oxygen Saturation 89 Arterial Blood pH 7.40 Arterial Blood Partial 53 Pressure CO2 Arterial Blood Partial 64 Pressure O2 Arterial Blood Oxygen Content 10.2 Arterial Blood 2.4 Carboxyhemoglobin Arterial Blood Methemoglobin 1.2 Blood Gas Hemoglobin 8.1 Oxygen Delivery Device NASAL CANNULA Blood Gas Liter Flow 3 White Blood Count 10.7 Red Blood Count 3.40 Hemoglobin 8.0 Hematocrit 25.9 Mean Corpuscular Volume 76.3 Mean Corpuscular Hemoglobin 23.4 Mean Corpuscular Hemoglobin 30.7 Concent Red Cell Distribution Width 19.1 Platelet Count 417 Mean Platelet Volume 7.5 Neutrophils (%) (Auto) 90.2 Lymphocytes (%) (Auto) 5.4 Monocytes (%) (Auto) 4.3 Eosinophils (%) (Auto) 0.0 Basophils (%) (Auto) 0.1 Neutrophils # (Auto) 9.7 Lymphocytes # (Auto) 0.6 Monocytes # (Auto) 0.5 Eosinophils # (Auto) 0.0 Basophils # (Auto) 0.0 CBC Comment AUTO DIFF Differential Comment AUTO DIFF CONFIRMED Target Cells 1+ Keratocytes OCC Sodium Level 139 Potassium Level 3.8 Chloride Level 99 Carbon Dioxide Level 34.2 Anion Gap 6 Blood Urea Nitrogen 6 Creatinine 0.36 Estimat Glomerular Filtration 218 Rate Random Glucose 130 Calcium Level 8.3 Total Bilirubin 0.2 Aspartate Amino Transf 16 (AST/SGOT) Alanine Aminotransferase 22 (ALT/SGPT) Alkaline Phosphatase 90 Total Protein 5.5 Albumin 2.5 Date/Time Procedure Status Source Growth 12/25/16 05:00 Gram Stain - Final Resulted Sputum Expectorated Sputum 12/25/16 05:00 Sputum Culture Resulted Sputum Expectorated Sputum Pending 12/24/16 21:10 Aerobic Blood Culture - Preliminary Resulted Blood Peripheral NO GROWTH IN 2 DAYS 12/24/16 21:10 Anaerobic Blood Culture - Preliminary Resulted Blood Peripheral NO GROWTH IN 2 DAYS Radiology Last Impressions Chest X-Ray 12/26/16 0000 Signed Impressions: Service Date/Time: Monday, December 26, 2016 06:02 - CONCLUSION: Medial right basilar infiltrate Erich Allison MD Abdomen X-Ray 12/26/16 0000 Signed Impressions: Service Date/Time: Monday, December 26, 2016 09:49 - CONCLUSION: 1. Relatively diffuse mild gaseous distention of the small bowel with a segment that is mildly dilated in the left midabdomen. The degree of distention is less than present on the prior CT. Findings overall are not highly suspicious for obstruction. Patient is currently scheduled for small bowel follow-through examination which will further assess. 2. Stable small right pleural effusion. Erich Stephenson MD Head CT 12/25/16 0000 Signed Impressions: Service Date/Time: Sunday, December 25, 2016 04:14 - CONCLUSION: 1. No acute intracranial abnormalities. Mild white matter ischemic changes. Vipin Uribe MD CT Angiography 12/24/16 0000 Signed Impressions: Service Date/Time: Sunday, December 25, 2016 01:40 - CONCLUSION: 1. Negative for pulmonary embolus. 2. There is suspected extensive mucoid plugging involving a portion of the distal right mainstem bronchus, right upper lobe bronchus and bronchus intermedius extending into segmental branches in both the right middle lobe and right lower lobe. Cannot exclude an endobronchial lesion. A small right-sided pleural effusion. 3. Severe emphysema. Vipin Uribe MD Abdomen/Pelvis CT 12/24/16 0000 Signed Impressions: Service Date/Time: Sunday, December 25, 2016 01:36 - CONCLUSION: 1. Right-sided psoas hematoma measuring about 4.7 cm in maximum diameter and extending over a length of about 7 cm. 2. Previous bowel anastomosis with dilated loops of small bowel proximally with air fluid levels. Differential diagnosis includes a partial or early obstruction. 3. Widemouth ventral hernia near umbilicus containing a loop of constipated colon. 4. Small right pleural effusion. Vipin Uribe MD Cardiovascular: Regular Lungs: Clear Abdomen: Non-distended, Other (easily reducible ventral hernia; healed midline incision ) Extremities: No edema A/P Problem List: (1) Incisional hernia (2) Constipation (3) Alternating constipation and diarrhea (4) SIRS (systemic inflammatory response syndrome) (5) COPD with exacerbation Assessment and Plan 66 year old female with possible PSBO; COPD -SBFT today -No indication for NGT unless nausea/vomiting -Pulm following--planning for bronchoscopy today -Continue non surgical management Attending Statement NOTE FOR SURGICAL ATTENDING, DR. VIPIN FAUSTIN I agree with above assessment and plan. The exam, history, and the medical decision-making described in the above note were completed with the assistance of the mid-level provider. I reviewed and agree with the findings presented. I attest that I had a [id number] encounter with the patient on the same day, and personally performed and documented my assessment and findings in the medical record. Patient states she's had numerous bowel movements Abdomen soft she has an incisional hernia palpable: Present that's full of stool For bronchoscopy later today The following services were provided during this hospital visit: Chart data review, vital sign assessments/reviewing monitor data Review of consultations notes if present. Medication orders/review and/or management Ordering and/or reviewing lab tests Ordering and/or interpreting/reviewing x-rays and/or diagnostic studies Care of the patient and discussion of the patient with the care team Documentation time To help prompt me to consider important information that might be impacting today's encounter and assessment, information from prior notes written by myself or my colleagues may have been "brought forward/copy and pasted" into today's note. Problem Qualifiers (1) Constipation: Qualified Code: K59.01 - Slow transit constipation Juany Bryant [facility] December 26, 2016 11:40 Vipin Faustin MD December 26, 2016 12:47
[2016-12-26] MEDS ORDERED: LIDOCAINE HCL 2% 50 ML VIAL ONE (13:37)
[2016-12-26] MEDS ORDERED: EPINEPHrine HCL (1:1000) 1 MG/ML VIAL ONE (13:37)
[2016-12-26] MEDS ORDERED: SODIUM CHLORIDE 0.9% 20 ML VIAL ONE (13:37)
--- NOTE | 2016-12-26 14:06 | HHI.PR ---
Subjective Remarks 66 YO AA female with severe COPD, Ch. resp insuff,Hypercapnoic RF CT chest Mucous plugging No fever or chills No CP Objective Vital Signs Vital Signs Date Time Temp Pulse Resp B/P Pulse Ox O2 Delivery O2 Flow Rate FiO2 12/26/16 12:00 97.8 114 29 156/87 96 12/26/16 12:00 111 12/26/16 10:00 113 12/26/16 08:00 97.5 119 24 149/94 100 12/26/16 08:00 119 12/26/16 07:22 100 Nasal Cannula 4.00 12/26/16 06:00 116 12/26/16 04:00 98.8 104 38 145/78 100 12/26/16 04:00 104 12/26/16 02:00 109 12/26/16 00:00 98.9 113 27 158/90 100 12/26/16 00:00 113 12/25/16 22:00 119 12/25/16 20:01 98 Nasal Cannula 4.00 12/25/16 20:00 119 12/25/16 20:00 99.6 115 47 144/92 98 12/25/16 18:00 123 12/25/16 16:00 98.2 116 28 157/94 95 12/25/16 16:00 116 I/O 12/25/16 12/25/16 12/25/16 12/26/16 12/26/16 12/26/16 07:00 15:00 23:00 07:00 15:00 23:00 Intake Total 252 ml 1124 ml 820 ml 473 ml Output Total 400 ml 1175 ml 1000 ml 500 ml Balance -148 ml -51 ml -180 ml -27 ml Intake Oral 0 ml 120 ml 0 ml IV Total 252 ml 1124 ml 700 ml 473 ml Output Urine Total 400 ml 1175 ml 1000 ml 500 ml Stool Total 0 ml # Bowel Movements 0 0 0 0 Result Diagram: 12/26/16 03012/26/16308 Objective Remarks GENERAL: Thin built AA female, sob, uses accessory muscles SKIN: Warm and dry. HEAD: Normocephalic. EYES: No scleral icterus. No injection or drainage. NECK: Supple, trachea midline. No JVD or lymphadenopathy. CARDIOVASCULAR: Regular rate and rhythm without murmurs, gallops, or rubs. RESPIRATORY: Breath sounds equal bilaterally. No accessory muscle use. Decreased chest excursion GASTROINTESTINAL: Abdomen soft, non-tender, nondistended. MUSCULOSKELETAL: No cyanosis, or edema. BACK: Nontender without obvious deformity. No CVA tenderness. A/P Assessment and Plan Hypercapnoic RF Severe COPD Anxiety Mucous plugging HTN PLAN: DW Pt and her daughter on phone Explained Bronchoscopy, procedure and complications including chance of needing vent support They agree to proceed Cont Abx Aerosol nebs IV Solumedrol Rolando Mejia MD December 26, 2016 14:06
[2016-12-26] MEDS ORDERED: DO NOT ADM ANY ANTICOAGULANT DRUGS PRN (15:09)
[2016-12-26] MEDS ORDERED: *RESP: ALBUTEROL 2.5 MG/3 ML NEB (PRN) PERIprocedural Use ONLY NEB ONE (15:10)
[2016-12-26] MEDS ORDERED: DILTIAZEM HCL 25 MG/5 ML VIAL IV ONE (15:15)
--- NOTE | 2016-12-26 16:07 | RADRPT ---
EXAM DATE/TIME: 12/26/2016 15:08 [facility] COMPARISON: CT PULMONARY ANGIOGRAM, December 25, 2016, 1:40. CHEST SINGLE AP, December 26, 2016, 6:02. INDICATIONS : Pneumothorax, post bronchoscopy. MEDICAL HISTORY : None. SURGICAL HISTORY : None. ENCOUNTER: Subsequent ACUITY: 1 week PAIN SCORE: 0/10 LOCATION: Bilateral chest FINDINGS: Emphysematous changes are noted bilaterally. No pneumothorax is noted. A tiny right pleural effusio n is noted. Bibasilar atelectasis and/or minimal infiltrates are noted. The heart is stable. CONCLUSION: 1. No pneumothorax. 2. Small right pleural effusion. 3. Bibasilar atelectasis and/or infiltrates (right slightly worse than left). 4. Underlying emphysematous changes bilaterally. Dontae Miramontes MD on December 26, 2016 at 15:51 Board Certified Radiologist. This report was verified electronically.
--- NOTE | 2016-12-26 17:44 | MR ---
cc: WINIFRED HARRIS DATE: 12/26/2016. PROCEDURE: Bronchoscopy PREOPERATIVE DIAGNOSIS: Atelectasis of the right lung. POSTOPERATIVE DIAGNOSIS: Mucus plugging. DESCRIPTION OF THE PROCEDURE IN DETAIL: Informed consent was obtained from the patient. The procedure and the complications including the complication of anesthesia, pneumothorax requiring chest tube, bleeding complications, injury to the blood vessels, lungs nerves, arrhythmia, hypoxia and possible need for ventilator were explained to the patient and her daughter, and they agreed to proceed with it. The patient was brought to the operating room and under general anesthesia, an endotracheal tube was placed by anesthesia. Bronchoscopy was done through the endotracheal tube. Main liset is sharp. Bronchoscope advanced to the right lung. There was a lot of thick mucous plugs seen in the right main stem bronchus. After suctioning all the mucus plugs, the airways were inspected. No endobronchial lesion was seen. The right upper, middle and lower lobes were patent. Then the bronchoscope was pulled back and advanced to the left lung. The left upper lobe, lingula and lower lobe were visualized. Small amount of mucus was suctioned. She tolerated the procedure well. Postprocedure chest x-ray was ordered. Bronchial washings sent for routine culture, AFB fungal culture and cytology. After the completion of the procedure I called the patient's daughter, Lisa, and explained to her about her condition. MD ALEXYS Ruggiero/ELLEN /3:12 PM /5:38 PM
[2016-12-27] VITALS (22 sets, daily range): BP systolic 137–194; BP diastolic 71–100; PULSE 86–144; RESP 21–67; TEMP 98.4–98.9; O2SAT 87–100
[2016-12-27] MEDS: AZTREONAM INJ 2,000 MG in SODIUM CHLORIDE 0.9% INJ 100 ML IV SCH ×3 (00:35→16:24)
[2016-12-27] MEDS: RESP: ACETYLCYSTEINE 20% 30 ML NEB NEB SCH ×3 (03:07→19:57)
[2016-12-27] MEDS: RESP: ALBUTEROL 2.5 MG/IPRATROPIUM 0.5 MG NEB (SCH) INH ×4 (03:07→19:57)
[2016-12-27] MEDS: CHLORHEXIDINE GLUCONATE 2 % 1 PACK (2 CLOTHS) TOP SCH (04:00)
[2016-12-27] MEDS: INSULIN NovoLIN REGULAR SUPPLEMENTAL SCALE SQ SCH ×4 (04:30→22:34)
[2016-12-27] MEDS: LEVOFLOXACIN 750 MG PREMIX INJ 150 ML IV SCH (04:41)
[2016-12-27] MEDS: methylPREDNISolone SOD SUCC 125 MG/2 ML VIAL IV PUSH SCH ×4 (04:42→22:27)
[2016-12-27 05:49] LABS: AUTOMATED NEUTROPHIL # 8.9 TH/MM3 (1.8-7.7); HEMATOCRIT 25.8 % (35.0-46.0); LYMPH % 3.8 % (9.0-44.0); LYMPHOCYTE # 0.4 TH/MM3 (1.0-4.8); MEAN CELL VOLUME 76.1 FL (80.0-100.0); MEAN CORPUSCULAR HEMOGLOBIN 23.7 PG (27.0-34.0); MEAN CORPUSCULAR HGB CONC 31.1 % (32.0-36.0); MONO % 4.5 % (0.0-8.0); NEUT % 91.7 % (16.0-70.0); PLATELET COUNT 442 TH/MM3 (150-450); RED CELL DISTRIBUTION WIDTH 18.9 % (11.6-17.2); WHITE BLOOD COUNT 9.7 TH/MM3 (4.0-11.0)
[2016-12-27 05:59] LABS: HEMO FLAGS AUTO DIFF
[2016-12-27 06:07] LABS: MAGNESIUM 2.4 MG/DL (1.5-2.5); POTASSIUM 3.6 MEQ/L (3.5-5.1)
[2016-12-27 07:48] LABS: ACANTHOCYTES OCC (NORMAL); KERATOCYTES OCC (NORMAL); PLATELET ESTIMATE SMEAR HIGH (NORMAL); TARGET CELLS 1+ (NORMAL)
[2016-12-27 07:49] LABS: PLATELET MORPHOLOGY NORMAL (NORMAL); SCAN/DIFF AUTO DIFF CONFIRMED
[2016-12-27] MEDS: PANTOPRAZOLE SODIUM 40 MG VIAL IV SCH (08:19)
[2016-12-27] MEDS: SODIUM CHLORIDE 0.9% FLUSH 10 ML FLUSH SCH ×2 (08:19→22:29)
[2016-12-27] MEDS: DILTIAZEM HCL 60 MG TAB PO SCH ×4 (08:19→22:27)
[2016-12-27] MEDS ORDERED: DIATRIZOATE MEGLUM/DIATRIZOATE SOD 120 ML BTL (for RAD DIAG) PO ONE (09:49)
--- NOTE | 2016-12-27 13:13 | RADRPT ---
EXAM DATE/TIME: 12/27/2016 09:23 [facility] COMPARISON: No previous studies available for comparison. INDICATIONS : Constipation; evaluate for obstruction. FLUORO TIME: 1.0 minutes IMAGE COUNT: 21 CONTRAST: [facility] IMAGING TIME(S): 15 min, 30 min, 45 min, 1 hr, 1.5 hrs2hr, 3hr. MEDICAL HISTORY : Hypertension. Chronic obstructive pulmonary disease. Emphysema. Hernia. SURGICAL HISTORY : Hysterectomy. section. Bladder repair. ENCOUNTER: Subsequent ACUITY: 3 days PAIN SCORE: 0/10 LOCATION: Abdomen. FINDINGS: Preliminary film demonstrates moderate stool throughout the colon. No abnormal dilatation of large or small bowel.. The stomach is grossly unremarkable. Examination of the small bowel demonstrates normal mucosal pattern involving the jejunum and ileum. There is no evidence of mass or obstruction. No intraluminal filling defects are identified. Small bowel transit time is normal at 3 hours. Fluoroscopy of the abdomen and terminal ileum demonstrates no abnormality. CONCLUSION: Unremarkable small bowel examination. No evidence of obstruction Fred Michelle MD on December 27, 2016 at 13:09 Board Certified Radiologist. This report was verified electronically.
[2016-12-27] MEDS: DOCUSATE SODIUM 50 MG/SENNA 8.6 MG TAB PO SCH ×2 (13:36→22:27)
[2016-12-27] MEDS: POLYETHYLENE GLYCOL 17 GM PKG PO SCH (13:36)
[2016-12-27] MEDS: guaiFENesin E.R. 600 MG TAB PO SCH ×2 (13:37→22:27)
[2016-12-27] MEDS: LABETALOL HCL 100 MG/20 ML VIAL IV PUSH PRN (15:03)
[2016-12-27 17:04] LABS: BLOOD GAS BASE EXCESS 9.9 mmol/L (-2-2); BLOOD GAS CARBOXYHEMOGLOBIN 1.9 % (0-4); BLOOD GAS HCO3 36 mmol/L (22-26); BLOOD GAS METHEMOGLOBIN 1.4 % (0-2); BLOOD GAS O2 HGB SATURATION 84 % (90-100); BLOOD GAS OXYGEN CONTENT 10.7 Vol % (12.0-20.0); BLOOD GAS PCO2 64 mmHg (38-42); BLOOD GAS PO2 57 mmHg (61-120); TEMP CORR TO 98.6
[2016-12-27 17:06] LABS: CRITICAL VALUE YES; FIO2 40 %; LITER FLOW 25 L/M; OXYGEN DEVICE HIGH FLOW NC
[2016-12-27 17:07] LABS: DRAW SITE LT RADIAL; NUMBER OF ARTERIAL PUNCTURES 1; STAT NO; ULNAR PULSE Y
--- NOTE | 2016-12-27 18:26 | HHI.PR ---
Subjective Remarks As per Rn, patient previously on nasal canula bu then placed on bipap due to tachypnea and respiratory distress Also patient's daughter at bedside very belligerant demanding the bipap to be taken off Patient seems to be agitated patient afebrile Objective Vitals Vital Signs Date Time Temp Pulse Resp B/P Pulse Ox O2 Delivery O2 Flow Rate FiO2 12/27/16 17:24 95 High Flow Nasal Cannula 25.00 50 12/27/16 16:42 93 High Flow Nasal Cannula 25.00 40 12/27/16 16:00 98.4 104 21 163/94 97 12/27/16 16:00 104 12/27/16 15:07 102 22 137/78 100 12/27/16 15:00 144 45 194/93 87 12/27/16 14:07 113 30 170/93 100 12/27/16 14:00 115 27 180/100 100 12/27/16 14:00 115 12/27/16 13:17 113 27 171/100 98 12/27/16 12:00 102 12/27/16 12:00 98.6 102 46 156/99 100 12/27/16 10:00 113 12/27/16 08:00 98.9 112 39 161/96 97 12/27/16 08:00 108 12/27/16 07:20 94 Nasal Cannula 4.00 12/27/16 06:00 96 12/27/16 04:00 97 12/27/16 04:00 98.8 97 67 139/71 99 12/27/16 02:00 101 12/27/16 00:00 98.6 96 30 145/80 99 12/27/16 00:00 96 12/26/16 22:00 104 12/26/16 20:00 99.7 120 34 150/84 95 12/26/16 20:00 120 12/26/16 19:43 95 Nasal Cannula 5.00 I/O 12/26/16 12/26/16 12/26/16 12/27/16 12/27/16 12/27/16 07:00 15:00 23:00 07:00 15:00 23:00 Intake Total 473 ml 425 ml 790 ml 250 ml 300 ml Output Total 500 ml 950 ml 550 ml 350 ml 450 ml Balance -27 ml -525 ml 240 ml -100 ml -150 ml Intake Oral 0 ml 240 ml 0 ml 200 ml IV Total 473 ml 425 ml 50 ml 250 ml 100 ml Other 500 ml Output Urine Total 500 ml 950 ml 550 ml 350 ml 450 ml # Bowel Movements 0 0 0 Result Diagram: 12/27/1651812/27/16518 Imaging Last Impressions Small Bowel X-Ray 12/27/16 0600 Signed Impressions: Service Date/Time: Tuesday, December 27, 2016 09:23 - CONCLUSION: Unremarkable small bowel examination. No evidence of obstruction Fred Michelle MD Chest X-Ray 12/26/16 0000 Signed Impressions: Service Date/Time: Monday, December 26, 2016 15:08 - CONCLUSION: 1. No pneumothorax. 2. Small right pleural effusion. 3. Bibasilar atelectasis and/ or infiltrates (right slightly worse than left). 4. Underlying emphysematous changes bilaterally. Dontae Miramontes MD Abdomen X-Ray 12/26/16 0000 Signed Impressions: Service Date/Time: Monday, December 26, 2016 09:49 - CONCLUSION: 1. Relatively diffuse mild gaseous distention of the small bowel with a segment that is mildly dilated in the left midabdomen. The degree of distention is less than present on the prior CT. Findings overall are not highly suspicious for obstruction. Patient is currently scheduled for small bowel follow-through examination which will further assess. 2. Stable small right pleural effusion. Erich Stephenson MD Head CT 12/25/16 0000 Signed Impressions: Service Date/Time: Sunday, December 25, 2016 04:14 - CONCLUSION: 1. No acute intracranial abnormalities. Mild white matter ischemic changes. Lee Uribe MD CT Angiography 12/24/16 0000 Signed Impressions: Service Date/Time: Sunday, December 25, 2016 01:40 - CONCLUSION: 1. Negative for pulmonary embolus. 2. There is suspected extensive mucoid plugging involving a portion of the distal right mainstem bronchus, right upper lobe bronchus and bronchus intermedius extending into segmental branches in both the right middle lobe and right lower lobe. Cannot exclude an endobronchial lesion. A small right-sided pleural effusion. 3. Severe emphysema. Lee Uribe MD Abdomen/Pelvis CT 12/24/16 0000 Signed Impressions: Service Date/Time: Sunday, December 25, 2016 01:36 - CONCLUSION: 1. Right-sided psoas hematoma measuring about 4.7 cm in maximum diameter and extending over a length of about 7 cm. 2. Previous bowel anastomosis with dilated loops of small bowel proximally with air fluid levels. Differential diagnosis includes a partial or early obstruction. 3. Widemouth ventral hernia near umbilicus containing a loop of constipated colon. 4. Small right pleural effusion. Lee Uribe MD Objective Remarks GENERAL: Patient is lying in bed in moderate respiratory distress SKIN: Warm and dry. HEAD: Normocephalic. EYES: No scleral icterus. No injection or drainage. NECK: Supple, trachea midline. No JVD or lymphadenopathy. CARDIOVASCULAR: Tachycardic without murmurs, gallops, or rubs. RESPIRATORY: Diminished bilaterally, no wheezing but very poor air movement. there is accesory muscle use. GASTROINTESTINAL: Abdomen soft, non-tender, nondistended. MUSCULOSKELETAL: No cyanosis, or edema. BACK: Nontender without obvious deformity. No CVA tenderness. Neuro: Awake and alert Medications and IVs Current Medications Medications (Trade) Dose Ordered Sig/Mariluz Route Start Time Stop Time Status Last Admin (Mucinex Er) 600 mg BID PO 12/25/16 09:00 12/27/16 13:37 (SoluMEDROL INJ) 60 mg Q6H IV PUSH 12/25/16 04:00 12/27/16 15:03 (NS Flush) 2 ml UNSCH PRN .XX 12/25/16 04:15 12/26/16 08:31 (NS Flush) 2 ml BID .XX 12/25/16 09:00 12/27/16 08:19 (Tylenol) 650 mg Q6H PRN PO 12/25/16 04:15 (Protonix Inj) 40 mg DAILY IV 12/25/16 09:00 12/27/16 08:19 (Zofran Inj) 4 mg Q6H PRN IV 12/25/16 04:15 12/25/16 14:06 Miscellaneous Information 1 Q361D XX 12/25/16 04:15 12/25/16 04:15 (Chlorhexidine 2% Cloth) 3 pack Taper DAILY@04 TOP 12/26/16 04:00 12/22/17 03:59 12/27/16 04:00 (Chlorhexidine 2% Cloth) 3 pack UNSCH PRN TOP 12/25/16 04:15 (Kellen-Colace) 1 tab BID PO 12/25/16 09:00 12/27/16 13:36 (Milk Of Magnesia Liq) 30 ml Q12H PRN PO 12/25/16 04:15 12/26/16 10:28 (Senokot) 17.2 mg Q12H PRN PO 12/25/16 04:15 (Dulcolax Supp) 10 mg DAILY PRN RECTAL 12/25/16 04:15 (Lactulose Liq) 30 ml DAILY PRN PO 12/25/16 04:15 Labetalol HCl 10 mg 10 mg Q4H PRN IV PUSH 12/25/16 04:30 12/27/16 15:03 Aztreonam 2000 mg/ Sodium Chloride 100 ml @ 200 mls/hr Q8H IV 12/25/16 08:00 12/27/16 16:24 (Levaquin 750 Mg Premix Inj) 150 ml @ 100 mls/hr Q24H IV 12/25/16 05:00 12/27/16 04:41 (D50w (Vial) Inj) 50 ml UNSCH PRN IV 12/25/16 09:30 (Glucagon Inj) 1 mg UNSCH PRN OTHER 12/25/16 09:30 (NovoLIN R SUPPLEMENTAL SCALE) 1 Q6H SQ 12/25/16 10:00 12/27/16 16:25 (Miralax) 17 gm DAILY PO 12/25/16 17:30 12/27/16 13:36 (Cardizem) 60 mg QID PO 12/26/16 13:00 12/27/16 13:38 A/P Problem List: (1) Acute hypercapnic respiratory failure ICD Code: J96.02 Status: Acute Plan: The patient was admitted to the intensive care unit and taken care of by wide area network engineer initially. Patient required BiPAP, now off BiPAP. Continue with supplemental oxygen to keep an O2 sat duration 192%. Continue DuoNeb every 4 hours, albuterol every 12 hours when needed. Continue Solu-Medrol IV CT angiogram without PE. This mucous plugging in the right mainstem, unable to rule out endobronchial lesion. Patient underwent bronchoscopy on 12/27, as per pulmonary report, no endobronchial lesion seen. (2) COPD with exacerbation ICD Code: J44.1 Status: Acute Plan: As above. Continue IV steroids and IV antibiotics. The patient currently on aztreonam 2 g IV every 8 hours, Levaquin 750 mg IV daily. Continue bipap appreciate pulmonary recommendations. check ABG (3) HTN (hypertension) ICD Code: I10 Status: Acute Plan: Bp seems to be elevated.Continue Cardizem po. will start patient on cardura. (4) Ileus ICD Code: K56.7 Status: Acute Plan: CT abdomen and pelvis showed right psoas hematoma measuring about 4.7 cm. Previous bowel anastomosis on the limited loops of small bowel proximally with air fluid level. Possible partial or early obstruction. There is also wid[place]outh ventral hernia the umbilicus containing a loop of constipated colon. Small right pleural effusion. Surgery consulted on following. Continue nonsurgical management. Patient has had several bowel movements today. (5) Hematoma ICD Code: T14.8 Status: Acute Plan: Patient denies any trauma or symptoms. Coags are normal. Monitor CBC. (6) Severe protein-calorie malnutrition ICD Code: E43 Status: Acute Plan: Consult dietitian. Patient has a low BMI of 17.6 (7) Anxiety ICD Code: F41.9 Status: Acute Plan: Due to respiratory distress - Will give Lorazepam as needed. Christian Graham MD December 27, 2016 18:25
--- NOTE | 2016-12-27 19:04 | HHI.PR ---
Subjective Remarks 66 YO AA female with severe COPD, Ch. resp insuff,Hypercapnoic RF CT chest Mucous plugging No fever or chills No CP Had small bowel study Feels more sob and tired Anxious Objective Vital Signs Vital Signs Date Time Temp Pulse Resp B/P Pulse Ox O2 Delivery O2 Flow Rate FiO2 12/27/16 19:00 110 12/27/16 18:00 122 12/27/16 17:24 95 High Flow Nasal Cannula 25.00 50 12/27/16 16:42 93 High Flow Nasal Cannula 25.00 40 12/27/16 16:00 98.4 104 21 163/94 97 12/27/16 16:00 104 12/27/16 15:07 102 22 137/78 100 12/27/16 15:00 144 45 194/93 87 12/27/16 14:07 113 30 170/93 100 12/27/16 14:00 115 27 180/100 100 12/27/16 14:00 115 12/27/16 13:17 113 27 171/100 98 12/27/16 12:00 102 12/27/16 12:00 98.6 102 46 156/99 100 12/27/16 10:00 113 12/27/16 08:00 98.9 112 39 161/96 97 12/27/16 08:00 108 12/27/16 07:20 94 Nasal Cannula 4.00 12/27/16 06:00 96 12/27/16 04:00 97 12/27/16 04:00 98.8 97 67 139/71 99 12/27/16 02:00 101 12/27/16 00:00 98.6 96 30 145/80 99 12/27/16 00:00 96 12/26/16 22:00 104 12/26/16 20:00 99.7 120 34 150/84 95 12/26/16 20:00 120 12/26/16 19:43 95 Nasal Cannula 5.00 I/O 12/26/16 12/26/16 12/26/16 12/27/16 12/27/16 12/27/16 07:00 15:00 23:00 07:00 15:00 23:00 Intake Total 473 ml 425 ml 790 ml 250 ml 300 ml Output Total 500 ml 950 ml 550 ml 350 ml 450 ml Balance -27 ml -525 ml 240 ml -100 ml -150 ml Intake Oral 0 ml 240 ml 0 ml 200 ml IV Total 473 ml 425 ml 50 ml 250 ml 100 ml Other 500 ml Output Urine Total 500 ml 950 ml 550 ml 350 ml 450 ml # Bowel Movements 0 0 0 Result Diagram: 12/27/1651812/27/16518 Objective Remarks GENERAL: Thin built AA female, sob, uses accessory muscles SKIN: Warm and dry. HEAD: Normocephalic. EYES: No scleral icterus. No injection or drainage. NECK: Supple, trachea midline. No JVD or lymphadenopathy. CARDIOVASCULAR: Regular rate and rhythm without murmurs, gallops, or rubs. RESPIRATORY: Breath sounds equal bilaterally. No accessory muscle use. Decreased chest excursion GASTROINTESTINAL: Abdomen soft, non-tender, nondistended. MUSCULOSKELETAL: No cyanosis, or edema. BACK: Nontender without obvious deformity. No CVA tenderness. A/P Assessment and Plan Hypercapnoic RF Severe COPD Anxiety Mucous plugging HTN PLAN: DW Pt and her daughter on phone Explained Bronchoscopy, procedure and complications including chance of needing vent support They agree to proceed Cont Abx Aerosol nebs IV Solumedrol Add Buspar 5 mg tid will try CPAP10/5 Rolando Mejia MD December 27, 2016 19:04
[2016-12-27] MEDS ORDERED: LORazepam 2 MG/ML VIAL IV PUSH ONE (19:45)
[2016-12-27] MEDS: busPIRone HCL 5 MG TAB PO SCH (22:27)
[2016-12-28] VITALS (18 sets, daily range): BP systolic 145–169; BP diastolic 86–99; PULSE 79–121; RESP 22–28; TEMP 97.7–98.6; O2SAT 95–100
[2016-12-28] MEDS: RESP: ALBUTEROL 2.5 MG/IPRATROPIUM 0.5 MG NEB (SCH) INH ×6 (00:07→20:29)
[2016-12-28] MEDS: CHLORHEXIDINE GLUCONATE 2 % 1 PACK (2 CLOTHS) TOP SCH (01:02)
[2016-12-28] MEDS: AZTREONAM INJ 2,000 MG in SODIUM CHLORIDE 0.9% INJ 100 ML IV SCH ×3 (01:12→17:58)
[2016-12-28] MEDS: methylPREDNISolone SOD SUCC 125 MG/2 ML VIAL IV PUSH SCH ×4 (04:20→22:08)
[2016-12-28] MEDS: LEVOFLOXACIN 750 MG PREMIX INJ 150 ML IV SCH (04:21)
[2016-12-28] MEDS: INSULIN NovoLIN REGULAR SUPPLEMENTAL SCALE SQ SCH ×4 (04:27→22:15)
[2016-12-28] MEDS: busPIRone HCL 5 MG TAB PO SCH ×3 (04:27→22:12)
[2016-12-28] MEDS: RESP: ACETYLCYSTEINE 20% 30 ML NEB NEB SCH ×4 (04:34→20:29)
[2016-12-28 04:53] LABS: BLOOD GAS BASE EXCESS 12.9 mmol/L (-2-2); BLOOD GAS HCO3 38 mmol/L (22-26); BLOOD GAS METHEMOGLOBIN 1.1 % (0-2); BLOOD GAS O2 HGB SATURATION 97 % (90-100); BLOOD GAS OXYGEN CONTENT 12.1 Vol % (12.0-20.0); BLOOD GAS PCO2 61 mmHg (38-42); BLOOD GAS PO2 162 mmHg (61-120); BLOOD GAS TOTAL HGB 8.7 G/DL (12.0-16.0); TEMP CORR TO 98.6
[2016-12-28 04:54] LABS: CRITICAL VALUE YES; OXYGEN DEVICE BiPAP
[2016-12-28 04:55] LABS: DRAW SITE LT RADIAL; FIO2 40 %; NUMBER OF ARTERIAL PUNCTURES 1; STAT NO; ULNAR PULSE PRESENT; VENT SETTINGS IPAP10/EPAP5
[2016-12-28] MEDS: RESP: ALBUTEROL 2.5 MG/3 ML NEB (PRN) INH (06:22)
[2016-12-28 06:57] LABS: BASOPHIL % 0.1 % (0.0-2.0); HEMATOCRIT 28.4 % (35.0-46.0); LYMPH % 4.8 % (9.0-44.0); LYMPHOCYTE # 0.4 TH/MM3 (1.0-4.8); MEAN CELL VOLUME 75.9 FL (80.0-100.0); MEAN CORPUSCULAR HEMOGLOBIN 22.8 PG (27.0-34.0); MONO % 3.5 % (0.0-8.0); NEUT % 91.6 % (16.0-70.0); PLATELET COUNT 459 TH/MM3 (150-450); RED BLOOD COUNT 3.74 MIL/MM3 (4.00-5.30); WHITE BLOOD COUNT 7.6 TH/MM3 (4.0-11.0)
[2016-12-28 07:05] LABS: HEMO FLAGS AUTO DIFF
[2016-12-28 07:10] LABS: ALKALINE PHOSPHATASE 115 U/L (45-117); ALT (GPT) 50 U/L (10-53); ANION GAP 5 MEQ/L (5-15); AST (GOT) 27 U/L (15-37); BICARBONATE 41.2 MEQ/L (21.0-32.0); BLOOD UREA NITROGEN 11 MG/DL (7-18); CHLORIDE 95 MEQ/L (98-107); GLOMERULAR FILTRATION RATE 199 ML/MIN (>89); MAGNESIUM 2.4 MG/DL (1.5-2.5); POTASSIUM 3.1 MEQ/L (3.5-5.1); SODIUM (NA) 141 MEQ/L (136-145); TOTAL BILIRUBIN ADULT 0.2 MG/DL (0.2-1.0)
[2016-12-28] MEDS: PANTOPRAZOLE SODIUM 40 MG VIAL IV SCH (07:34)
[2016-12-28] MEDS: DILTIAZEM HCL 60 MG TAB PO SCH ×4 (07:34→22:07)
[2016-12-28] MEDS: guaiFENesin E.R. 600 MG TAB PO SCH ×2 (07:34→22:07)
[2016-12-28] MEDS: SODIUM CHLORIDE 0.9% FLUSH 10 ML FLUSH SCH ×2 (07:36→22:07)
[2016-12-28 08:05] LABS: MYELOCYTES 2 % (0-0); NEUTROPHIL # MANUAL DIFF 7.1 TH/MM3 (1.8-7.7); PLATELET ESTIMATE SMEAR HIGH (NORMAL); PLATELET MORPHOLOGY NORMAL (NORMAL); POLYS (SEG NEUTROPHILS) 91 % (16-70); WBC DIFF SAMPLE 100
[2016-12-28 08:06] LABS: OVALOCYTES 1+ (NORMAL); SCAN/DIFF FINAL DIFF MANUAL
[2016-12-28 08:07] LABS: KERATOCYTES OCC (NORMAL)
[2016-12-28] MEDS: DOCUSATE SODIUM 50 MG/SENNA 8.6 MG TAB PO SCH ×2 (08:20→22:07)
[2016-12-28] MEDS: POLYETHYLENE GLYCOL 17 GM PKG PO SCH (08:20)
[2016-12-28] MEDS ORDERED: POTASSIUM CHLORIDE 20 MEQ CONTROLLED RELEASE TAB PO ONE (09:00)
--- NOTE | 2016-12-28 10:07 | HHI.PR ---
Subjective Remarks Patient off bipap states still has sob but has improved Patient has had BM's Bp elevated on nasal canula K low Objective Vitals Vital Signs Date Time Temp Pulse Resp B/P Pulse Ox O2 Delivery O2 Flow Rate FiO2 12/28/16 10:00 110 12/28/16 08:36 95 Nasal Cannula 25.00 45 12/28/16 08:00 97.7 110 22 169/99 96 12/28/16 08:00 110 12/28/16 08:00 Bi-Pap 40 12/28/16 07:48 97 BiPAP 40 12/28/16 07:48 97 40 12/28/16 06:29 100 Bi-Pap 40 12/28/16 06:00 121 12/28/16 05:31 100 Bi-Pap 35 12/28/16 04:35 100 40 12/28/16 04:00 79 12/28/16 04:00 98.4 79 24 162/99 100 12/28/16 02:00 89 12/28/16 01:08 100 40 12/28/16 00:00 100 Bi-Pap 40 12/28/16 00:00 87 12/28/16 00:00 98.6 87 26 145/86 100 12/27/16 22:00 86 12/27/16 20:00 105 12/27/16 20:00 100 Bi-Pap 40 12/27/16 20:00 98.8 105 52 168/92 100 12/27/16 19:57 100 50 12/27/16 19:57 100 BiPAP 50 12/27/16 19:03 94 35 12/27/16 19:00 110 12/27/16 18:00 122 12/27/16 17:24 95 High Flow Nasal Cannula 25.00 50 12/27/16 16:42 93 High Flow Nasal Cannula 25.00 40 12/27/16 16:00 98.4 104 21 163/94 97 12/27/16 16:00 104 12/27/16 15:07 102 22 137/78 100 12/27/16 15:00 144 45 194/93 87 12/27/16 14:07 113 30 170/93 100 12/27/16 14:00 115 27 180/100 100 12/27/16 14:00 115 12/27/16 13:17 113 27 171/100 98 12/27/16 12:00 102 12/27/16 12:00 98.6 102 46 156/99 100 I/O 12/27/16 12/27/16 12/27/16 12/28/16 12/28/16 12/28/16 07:00 15:00 23:00 07:00 15:00 23:00 Intake Total 250 ml 300 ml 240 ml 350 ml Output Total 350 ml 450 ml 600 ml 475 ml Balance -100 ml -150 ml -360 ml -125 ml Intake Oral 0 ml 200 ml 240 ml 100 ml IV Total 250 ml 100 ml 250 ml Output Urine Total 350 ml 450 ml 600 ml 475 ml # Bowel Movements 0 2 5 Result Diagram: 12/28/16 0527 12/28/16 0521 Imaging Last Impressions Small Bowel X-Ray 12/27/16 0600 Signed Impressions: Service Date/Time: Tuesday, December 27, 2016 09:23 - CONCLUSION: Unremarkable small bowel examination. No evidence of obstruction Fred Michelle MD Chest X-Ray 12/26/16 0000 Signed Impressions: Service Date/Time: Monday, December 26, 2016 15:08 - CONCLUSION: 1. No pneumothorax. 2. Small right pleural effusion. 3. Bibasilar atelectasis and/ or infiltrates (right slightly worse than left). 4. Underlying emphysematous changes bilaterally. Dontae Miramontes MD Abdomen X-Ray 12/26/16 0000 Signed Impressions: Service Date/Time: Monday, December 26, 2016 09:49 - CONCLUSION: 1. Relatively diffuse mild gaseous distention of the small bowel with a segment that is mildly dilated in the left midabdomen. The degree of distention is less than present on the prior CT. Findings overall are not highly suspicious for obstruction. Patient is currently scheduled for small bowel follow-through examination which will further assess. 2. Stable small right pleural effusion. Erich Stephenson MD Head CT 12/25/16 0000 Signed Impressions: Service Date/Time: Sunday, December 25, 2016 04:14 - CONCLUSION: 1. No acute intracranial abnormalities. Mild white matter ischemic changes. Lee Uribe MD CT Angiography 12/24/16 0000 Signed Impressions: Service Date/Time: Sunday, December 25, 2016 01:40 - CONCLUSION: 1. Negative for pulmonary embolus. 2. There is suspected extensive mucoid plugging involving a portion of the distal right mainstem bronchus, right upper lobe bronchus and bronchus intermedius extending into segmental branches in both the right middle lobe and right lower lobe. Cannot exclude an endobronchial lesion. A small right-sided pleural effusion. 3. Severe emphysema. Lee Uribe MD Abdomen/Pelvis CT 12/24/16 0000 Signed Impressions: Service Date/Time: Sunday, December 25, 2016 01:36 - CONCLUSION: 1. Right-sided psoas hematoma measuring about 4.7 cm in maximum diameter and extending over a length of about 7 cm. 2. Previous bowel anastomosis with dilated loops of small bowel proximally with air fluid levels. Differential diagnosis includes a partial or early obstruction. 3. Widemouth ventral hernia near umbilicus containing a loop of constipated colon. 4. Small right pleural effusion. Lee Uribe MD Objective Remarks GENERAL: Patient is lying in bed in moderate respiratory distress SKIN: Warm and dry. HEAD: Normocephalic. EYES: No scleral icterus. No injection or drainage. NECK: Supple, trachea midline. No JVD or lymphadenopathy. CARDIOVASCULAR: Tachycardic without murmurs, gallops, or rubs. RESPIRATORY: Diminished bilaterally, no wheezing but very poor air movement. there is accesory muscle use. GASTROINTESTINAL: Abdomen soft, non-tender, nondistended. MUSCULOSKELETAL: No cyanosis, or edema. BACK: Nontender without obvious deformity. No CVA tenderness. Neuro: Awake and alert Procedures sp bronchoscopy Medications and IVs Current Medications Medications (Trade) Dose Ordered Sig/Mariluz Route Start Time Stop Time Status Last Admin (Mucinex Er) 600 mg BID PO 12/25/16 09:00 12/28/16 07:34 (NS Flush) 2 ml UNSCH PRN .XX 12/25/16 04:15 12/26/16 08:31 (NS Flush) 2 ml BID .XX 12/25/16 09:00 12/28/16 07:36 (Tylenol) 650 mg Q6H PRN PO 12/25/16 04:15 (Protonix Inj) 40 mg DAILY IV 12/25/16 09:00 12/28/16 07:34 (Zofran Inj) 4 mg Q6H PRN IV 12/25/16 04:15 12/25/16 14:06 Miscellaneous Information 1 Q361D XX 12/25/16 04:15 12/25/16 04:15 (Chlorhexidine 2% Cloth) 3 pack Taper DAILY@04 TOP 12/26/16 04:00 12/22/17 03:59 12/28/16 01:02 (Chlorhexidine 2% Cloth) 3 pack UNSCH PRN TOP 12/25/16 04:15 (Kellen-Colace) 1 tab BID PO 12/25/16 09:00 12/27/16 22:27 (Milk Of Magnesia Liq) 30 ml Q12H PRN PO 12/25/16 04:15 12/26/16 10:28 (Senokot) 17.2 mg Q12H PRN PO 12/25/16 04:15 (Dulcolax Supp) 10 mg DAILY PRN RECTAL 12/25/16 04:15 (Lactulose Liq) 30 ml DAILY PRN PO 12/25/16 04:15 Labetalol HCl 10 mg 10 mg Q4H PRN IV PUSH 12/25/16 04:30 12/27/16 15:03 Aztreonam 2000 mg/ Sodium Chloride 100 ml @ 200 mls/hr Q8H IV 12/25/16 08:00 12/28/16 07:35 (Levaquin 750 Mg Premix Inj) 150 ml @ 100 mls/hr Q24H IV 12/25/16 05:00 12/28/16 04:21 (D50w (Vial) Inj) 50 ml UNSCH PRN IV 12/25/16 09:30 (Glucagon Inj) 1 mg UNSCH PRN OTHER 12/25/16 09:30 (NovoLIN R SUPPLEMENTAL SCALE) 1 Q6H SQ 12/25/16 10:00 12/27/16 16:25 (Miralax) 17 gm DAILY PO 12/25/16 17:30 12/27/16 13:36 (Cardizem) 60 mg QID PO 12/26/16 13:00 12/28/16 07:34 (Buspar) 5 mg Q8HR PO 12/27/16 22:00 12/28/16 15:26 (Ativan Inj) 1 mg Q2H PRN IV PUSH 12/27/16 20:00 (SoluMEDROL INJ) 125 mg Q6H IV PUSH 12/28/16 04:00 12/28/16 15:26 (Xanax) 0.5 mg Q6H PRN PO 12/28/16 10:15 12/28/16 12:01 Urinary Catheter: No Vascular Central Line Catheter: No A/P Problem List: (1) Acute hypercapnic respiratory failure ICD Code: J96.02 Status: Acute Plan: The patient was admitted to the intensive care unit and taken care of by vice president for philanthropy initially. Continue with supplemental oxygen to keep an O2 sat duration > 92%. Continue Bipap as needed Continue DuoNeb every 4 hours, albuterol every 12 hours when needed. Continue Solu-Medrol IV - dose increased to 125 mg IV Q [address] angiogram without PE. Mucous plugging in the right mainstem, unable to rule out endobronchial lesion. Patient underwent bronchoscopy on 12/27, as per pulmonary report, no endobronchial lesion seen. (2) COPD with exacerbation ICD Code: J44.1 Status: Acute Plan: As above. Continue IV steroids and IV antibiotics. The patient currently on aztreonam 2 g IV every 8 hours, Levaquin 750 mg IV daily. Continue bipap appreciate pulmonary recommendations. check ABG (3) HTN (hypertension) ICD Code: I10 Status: Acute Plan: Bp seems to be elevated.Continue Cardizem po. Start the patient on Cardura 2 mg po daily. (4) Ileus ICD Code: K56.7 Status: Acute Plan: CT abdomen and pelvis showed right psoas hematoma measuring about 4.7 cm. Previous bowel anastomosis on the limited loops of small bowel proximally with air fluid level. Possible partial or early obstruction. There is also wid[place]outh ventral hernia the umbilicus containing a loop of constipated colon. Small right pleural effusion. Surgery consulted - recommended non surgical management. Small bowel series - showed unremarkable examination (5) Hematoma ICD Code: T14.8 Status: Chronic Plan: Patient denies any trauma or symptoms. Coags are normal. Monitor CBC. (6) Severe protein-calorie malnutrition ICD Code: E43 Status: Acute Plan: Patient has a low BMI of 17.6 Dietitian consulted - enlive TID added to meals (7) Anxiety ICD Code: F41.9 Status: Acute Plan: Seems to be improved. continue Ativan for severe anxiety. Will Rx Xanax for mild anxiety. Assessment and Plan DVT prophylaxis - SCD's, continue to hold chemoprophylaxis due to psoas hematoma. Discharge Planning Continue to monitor in the ICU. Patient still requiring bipap. Christian Graham MD December 28, 2016 10:07
[2016-12-28] MEDS: ALPRAZolam 0.5 MG TAB PO PRN (12:01)
--- NOTE | 2016-12-28 14:27 | HHI.GIFU ---
Subjective Remarks Pt sitting up in bed eating. Says she is without abd pain and has been having BMs. She says she has vomited her food a few times into a cup but is still eating. (Mary Groves) Objective Vitals I&O Vital Signs Date Time Temp Pulse Resp B/P Pulse Ox O2 Delivery O2 Flow Rate FiO2 12/28/16 12:00 98.5 96 24 154/94 99 12/28/16 12:00 Bi-Pap 40 12/28/16 12:00 110 12/28/16 10:00 110 12/28/16 08:36 95 Nasal Cannula 25.00 45 12/28/16 08:00 97.7 110 22 169/99 96 12/28/16 08:00 110 12/28/16 08:00 Bi-Pap 40 12/28/16 07:48 97 BiPAP 40 12/28/16 07:48 97 40 12/28/16 06:29 100 Bi-Pap 40 12/28/16 06:00 121 12/28/16 05:31 100 Bi-Pap 35 12/28/16 04:35 100 40 12/28/16 04:00 79 12/28/16 04:00 98.4 79 24 162/99 100 12/28/16 02:00 89 12/28/16 01:08 100 40 12/28/16 00:00 100 Bi-Pap 40 12/28/16 00:00 87 12/28/16 00:00 98.6 87 26 145/86 100 12/27/16 22:00 86 12/27/16 20:00 105 12/27/16 20:00 100 Bi-Pap 40 12/27/16 20:00 98.8 105 52 168/92 100 12/27/16 19:57 100 50 12/27/16 19:57 100 BiPAP 50 12/27/16 19:03 94 35 12/27/16 19:00 110 12/27/16 18:00 122 12/27/16 17:24 95 High Flow Nasal Cannula 25.00 50 12/27/16 16:42 93 High Flow Nasal Cannula 25.00 40 12/27/16 16:00 98.4 104 21 163/94 97 12/27/16 16:00 104 12/27/16 15:07 102 22 137/78 100 12/27/16 15:00 144 45 194/93 87 I/O 12/27/16 12/27/16 12/27/16 12/28/16 12/28/16 12/28/16 07:00 15:00 23:00 07:00 15:00 23:00 Intake Total 250 ml 300 ml 240 ml 350 ml Output Total 350 ml 450 ml 600 ml 475 ml Balance -100 ml -150 ml -360 ml -125 ml Intake Oral 0 ml 200 ml 240 ml 100 ml IV Total 250 ml 100 ml 250 ml Output Urine Total 350 ml 450 ml 600 ml 475 ml # Bowel Movements 0 2 5 Laboratory Laboratory Tests Test 12/27/16 12/28/16 12/28/16 12/28/16 17:00 04:39 05:21 05:27 Blood Gas Puncture Site LT RADIAL LT RADIAL Blood Gas Patient Temperature 98.6 98.6 Blood Gas HCO3 36 38 Blood Gas Base Excess 9.9 12.9 Blood Gas Oxygen Saturation 84 97 Arterial Blood pH 7.37 7.42 Arterial Blood Partial 64 61 Pressure CO2 Arterial Blood Partial 57 162 Pressure O2 Arterial Blood Oxygen Content 10.7 12.1 Arterial Blood 1.9 2.0 Carboxyhemoglobin Arterial Blood Methemoglobin 1.4 1.1 Blood Gas Hemoglobin 9.0 8.7 Oxygen Delivery Device HIGH FLOW NC BiPAP Blood Gas Liter Flow 25 Blood Gas Ventilator Setting IPAP10/EPAP5 Blood Gas Inspired Oxygen 40 40 Sodium Level 141 Potassium Level 3.1 Chloride Level 95 Carbon Dioxide Level 41.2 Anion Gap 5 Blood Urea Nitrogen 11 Creatinine 0.39 Estimat Glomerular Filtration 199 Rate Random Glucose 121 Calcium Level 8.4 Phosphorus Level 2.4 Magnesium Level 2.4 Total Bilirubin 0.2 Aspartate Amino Transf 27 (AST/SGOT) Alanine Aminotransferase 50 (ALT/SGPT) Alkaline Phosphatase 115 Total Protein 5.7 Albumin 2.6 White Blood Count 7.6 Red Blood Count 3.74 Hemoglobin 8.5 Hematocrit 28.4 Mean Corpuscular Volume 75.9 Mean Corpuscular Hemoglobin 22.8 Mean Corpuscular Hemoglobin 30.0 Concent Red Cell Distribution Width 19.0 Platelet Count 459 Mean Platelet Volume 7.4 Neutrophils (%) (Auto) 91.6 Lymphocytes (%) (Auto) 4.8 Monocytes (%) (Auto) 3.5 Eosinophils (%) (Auto) 0.0 Basophils (%) (Auto) 0.1 Neutrophils # (Auto) 7.0 Lymphocytes # (Auto) 0.4 Monocytes # (Auto) 0.3 Eosinophils # (Auto) 0.0 Basophils # (Auto) 0.0 CBC Comment AUTO DIFF Differential Total Cells 100 Counted Neutrophils % (Manual) 91 Lymphocytes % 7 Neutrophils # (Manual) 7.1 Myelocytes 2 Differential Comment FINAL DIFF MANUAL Platelet Estimate HIGH Platelet Morphology Comment NORMAL Ovalocytes 1+ Keratocytes OCC Date/Time Procedure Status Source Growth 12/26/16 15:00 Gram Stain - Final Complete Bronchial Washings Other 12/26/16 15:00 Bronchial Culture - Final Complete Bronchial Washings Other NO GROWTH IN 48 HOURS. 12/26/16 15:00 Fungal Smear - Final Resulted Bronchial Washings Other NO FUNGAL ELEMENTS SEEN. 12/26/16 15:00 Fungal Culture Resulted Bronchial Washings Other Pending 12/26/16 15:00 Acid Fast Stain - Final Resulted Bronchial Washings Other NO ACID FAST BACILLI SEEN 12/26/16 15:00 Mycobacterial Culture Resulted Bronchial Washings Other Pending 12/24/16 21:10 Aerobic Blood Culture - Preliminary Resulted Blood Peripheral NO GROWTH IN 4 DAYS 12/24/16 21:10 Anaerobic Blood Culture - Preliminary Resulted Blood Peripheral NO GROWTH IN 4 DAYS Imaging Last Impressions Small Bowel X-Ray 12/27/16 0600 Signed Impressions: Service Date/Time: Tuesday, December 27, 2016 09:23 - CONCLUSION: Unremarkable small bowel examination. No evidence of obstruction Fred Michelle MD Chest X-Ray 12/26/16 0000 Signed Impressions: Service Date/Time: Monday, December 26, 2016 15:08 - CONCLUSION: 1. No pneumothorax. 2. Small right pleural effusion. 3. Bibasilar atelectasis and/ or infiltrates (right slightly worse than left). 4. Underlying emphysematous changes bilaterally. Dontae Miramontes MD Abdomen X-Ray 12/26/16 0000 Signed Impressions: Service Date/Time: Monday, December 26, 2016 09:49 - CONCLUSION: 1. Relatively diffuse mild gaseous distention of the small bowel with a segment that is mildly dilated in the left midabdomen. The degree of distention is less than present on the prior CT. Findings overall are not highly suspicious for obstruction. Patient is currently scheduled for small bowel follow-through examination which will further assess. 2. Stable small right pleural effusion. Erich Stephenson MD Head CT 12/25/16 0000 Signed Impressions: Service Date/Time: Sunday, December 25, 2016 04:14 - CONCLUSION: 1. No acute intracranial abnormalities. Mild white matter ischemic changes. Lee Uribe MD CT Angiography 12/24/16 0000 Signed Impressions: Service Date/Time: Sunday, December 25, 2016 01:40 - CONCLUSION: 1. Negative for pulmonary embolus. 2. There is suspected extensive mucoid plugging involving a portion of the distal right mainstem bronchus, right upper lobe bronchus and bronchus intermedius extending into segmental branches in both the right middle lobe and right lower lobe. Cannot exclude an endobronchial lesion. A small right-sided pleural effusion. 3. Severe emphysema. Lee Uribe MD Abdomen/Pelvis CT 12/24/16 0000 Signed Impressions: Service Date/Time: Sunday, December 25, 2016 01:36 - CONCLUSION: 1. Right-sided psoas hematoma measuring about 4.7 cm in maximum diameter and extending over a length of about 7 cm. 2. Previous bowel anastomosis with dilated loops of small bowel proximally with air fluid levels. Differential diagnosis includes a partial or early obstruction. 3. [place] ventral hernia near umbilicus containing a loop of constipated colon. 4. Small right pleural effusion. Lee Uribe MD Physical Exam HEENT: EOMI; normocephalic; atraumatic; no jaundice. CHEST: diminished, respirations seem labored CARDIAC: tachy ABDOMEN: Soft, nondistended, nontender; no hepatosplenomegaly; bowel sounds are present in all four quadrants. EXTREMITIES: No clubbing, cyanosis, or edema. SKIN: Normal; no rash; no jaundice. PROGRESSIVE CARE UNIT REGISTERED NURSE: No focal deficits; alert and oriented times three. (Mary Groves AUDIO VIDEO TECH) Assessment and Plan Plan ASSESSMENT - constipation - poss ileus. + BM after SBFT 12-27-16 negative. She has had constipation worse in the last year At times requiring digital maneuvers in order to pass stool and when she does it is hard balls. Had n/v the last 2 days in the hospital but this has improved and pt is asking for food. Denies tarry stool, blood in stool. She has been given enema yesterday and reports passing hard balls stool. CT 12-25-16--> right sided psoas hematoma 4.7 x 7 cm, previous bowel anastomosis with dilated loops of small bowel proximally with air fluid levels, diff dx includes partial or early obstruction, wide mout ventral hernia near ubilicus containing loop constipated colon. KUB 12-26-16-->relatively diffuse mild gaseous distention of the small bowel with a segment that is mildly dilated in the left midabd. The degree of distention is less than present on prior CT. Findings overall not highly suspicious for obstruction. GS managing non- operatively for now as she is high risk for surgery. PLAN - bowel regimen prn - consider colonoscopy for change in bowel habits as outpatient - GI will sign off, please reconsult if needed This pt seen by myself and Dr Segovia and this note is written on his behalf (Mary Groves) Physician Comments Seen and examined, plan as above, patient will need colonoscopy but SOB at this admission, need to schedule it as out patient when more stable, Please notify us if needed. (Irma Segovia MD) Mary Groves December 28, 2016 14:27 Irma Segovia MD Dec 29, 2016 06:51
--- NOTE | 2016-12-28 15:08 | HHI.PR ---
Subjective Subjective Notes Follow up on possible SBO Sitting up in bed Tolerated regular diet Reports +BMs Objective Vitals/I&O Vital Signs Date Time Temp Pulse Resp B/P Pulse Ox O2 Delivery O2 Flow Rate FiO2 12/28/16 12:00 98.5 96 24 154/94 99 12/28/16 12:00 Bi-Pap 40 12/28/16 08:36 25.00 Labs Laboratory Tests Test 12/27/16 12/28/16 12/28/16 12/28/16 17:00 04:39 05:21 05:27 Blood Gas Puncture Site LT RADIAL LT RADIAL Blood Gas Patient Temperature 98.6 98.6 Blood Gas HCO3 36 38 Blood Gas Base Excess 9.9 12.9 Blood Gas Oxygen Saturation 84 97 Arterial Blood pH 7.37 7.42 Arterial Blood Partial 64 61 Pressure CO2 Arterial Blood Partial 57 162 Pressure O2 Arterial Blood Oxygen Content 10.7 12.1 Arterial Blood 1.9 2.0 Carboxyhemoglobin Arterial Blood Methemoglobin 1.4 1.1 Blood Gas Hemoglobin 9.0 8.7 Oxygen Delivery Device HIGH FLOW NC BiPAP Blood Gas Liter Flow 25 Blood Gas Ventilator Setting IPAP10/EPAP5 Blood Gas Inspired Oxygen 40 40 Sodium Level 141 Potassium Level 3.1 Chloride Level 95 Carbon Dioxide Level 41.2 Anion Gap 5 Blood Urea Nitrogen 11 Creatinine 0.39 Estimat Glomerular Filtration 199 Rate Random Glucose 121 Calcium Level 8.4 Phosphorus Level 2.4 Magnesium Level 2.4 Total Bilirubin 0.2 Aspartate Amino Transf 27 (AST/SGOT) Alanine Aminotransferase 50 (ALT/SGPT) Alkaline Phosphatase 115 Total Protein 5.7 Albumin 2.6 White Blood Count 7.6 Red Blood Count 3.74 Hemoglobin 8.5 Hematocrit 28.4 Mean Corpuscular Volume 75.9 Mean Corpuscular Hemoglobin 22.8 Mean Corpuscular Hemoglobin 30.0 Concent Red Cell Distribution Width 19.0 Platelet Count 459 Mean Platelet Volume 7.4 Neutrophils (%) (Auto) 91.6 Lymphocytes (%) (Auto) 4.8 Monocytes (%) (Auto) 3.5 Eosinophils (%) (Auto) 0.0 Basophils (%) (Auto) 0.1 Neutrophils # (Auto) 7.0 Lymphocytes # (Auto) 0.4 Monocytes # (Auto) 0.3 Eosinophils # (Auto) 0.0 Basophils # (Auto) 0.0 CBC Comment AUTO DIFF Differential Total Cells 100 Counted Neutrophils % (Manual) 91 Lymphocytes % 7 Neutrophils # (Manual) 7.1 Myelocytes 2 Differential Comment FINAL DIFF MANUAL Platelet Estimate HIGH Platelet Morphology Comment NORMAL Ovalocytes 1+ Keratocytes OCC Date/Time Procedure Status Source Growth 12/26/16 15:00 Gram Stain - Final Complete Bronchial Washings Other 12/26/16 15:00 Bronchial Culture - Final Complete Bronchial Washings Other NO GROWTH IN 48 HOURS. 12/26/16 15:00 Fungal Smear - Final Resulted Bronchial Washings Other NO FUNGAL ELEMENTS SEEN. 12/26/16 15:00 Fungal Culture Resulted Bronchial Washings Other Pending 12/26/16 15:00 Acid Fast Stain - Final Resulted Bronchial Washings Other NO ACID FAST BACILLI SEEN 12/26/16 15:00 Mycobacterial Culture Resulted Bronchial Washings Other Pending 12/24/16 21:10 Aerobic Blood Culture - Preliminary Resulted Blood Peripheral NO GROWTH IN 4 DAYS 12/24/16 21:10 Anaerobic Blood Culture - Preliminary Resulted Blood Peripheral NO GROWTH IN 4 DAYS Radiology Last Impressions Chest X-Ray 12/26/16 0000 Signed Impressions: Service Date/Time: Monday, December 26, 2016 06:02 - CONCLUSION: Medial right basilar infiltrate Erich Allison MD Abdomen X-Ray 12/26/16 0000 Signed Impressions: Service Date/Time: Monday, December 26, 2016 09:49 - CONCLUSION: 1. Relatively diffuse mild gaseous distention of the small bowel with a segment that is mildly dilated in the left midabdomen. The degree of distention is less than present on the prior CT. Findings overall are not highly suspicious for obstruction. Patient is currently scheduled for small bowel follow-through examination which will further assess. 2. Stable small right pleural effusion. Erich Stephenson MD Head CT 12/25/16 0000 Signed Impressions: Service Date/Time: Sunday, December 25, 2016 04:14 - CONCLUSION: 1. No acute intracranial abnormalities. Mild white matter ischemic changes. Lee Uribe MD CT Angiography 12/24/16 0000 Signed Impressions: Service Date/Time: Sunday, December 25, 2016 01:40 - CONCLUSION: 1. Negative for pulmonary embolus. 2. There is suspected extensive mucoid plugging involving a portion of the distal right mainstem bronchus, right upper lobe bronchus and bronchus intermedius extending into segmental branches in both the right middle lobe and right lower lobe. Cannot exclude an endobronchial lesion. A small right-sided pleural effusion. 3. Severe emphysema. Lee Uribe MD Abdomen/Pelvis CT 12/24/16 0000 Signed Impressions: Service Date/Time: Sunday, December 25, 2016 01:36 - CONCLUSION: 1. Right-sided psoas hematoma measuring about 4.7 cm in maximum diameter and extending over a length of about 7 cm. 2. Previous bowel anastomosis with dilated loops of small bowel proximally with air fluid levels. Differential diagnosis includes a partial or early obstruction. 3. [place] ventral hernia near umbilicus containing a loop of constipated colon. 4. Small right pleural effusion. Lee Uribe MD Cardiovascular: Regular Lungs: Clear Abdomen: Non-distended, Non-tender Extremities: No edema A/P Problem List: (1) Incisional hernia (2) Constipation (3) Alternating constipation and diarrhea (4) SIRS (systemic inflammatory response syndrome) (5) COPD with exacerbation Assessment and Plan 66 year old female with possible PSBO; COPD -SBFT shows no obstruction -Tolerating regular diet -+BM -Continue non surgical management -GS will sign off; please call with any ??s Problem Qualifiers (1) Constipation: Qualified Code: K59.01 - Slow transit constipation Juany Bryant December 28, 2016 15:08
[2016-12-28] MEDS: DOXAZOSIN MESYLATE 2 MG TAB PO SCH (17:30)
--- NOTE | 2016-12-28 20:19 | HHI.PR ---
Subjective Remarks 66 YO AA female with severe COPD, Ch. resp insuff,Hypercapnoic RF CT chest Mucous plugging No fever or chills No CP Anxious Did't like CPAP Breathing little better today Objective Vital Signs Vital Signs Date Time Temp Pulse Resp B/P Pulse Ox O2 Delivery O2 Flow Rate FiO2 12/28/16 18:00 110 12/28/16 16:00 110 12/28/16 16:00 98.6 101 28 158/93 95 12/28/16 16:00 Nasal Cannula 40 Bi-Pap 12/28/16 14:00 110 12/28/16 12:00 98.5 96 24 154/94 99 12/28/16 12:00 Bi-Pap 40 12/28/16 12:00 110 12/28/16 10:00 110 12/28/16 08:36 95 Nasal Cannula 25.00 45 12/28/16 08:00 97.7 110 22 169/99 96 12/28/16 08:00 110 12/28/16 08:00 Bi-Pap 40 12/28/16 07:48 97 BiPAP 40 12/28/16 07:48 97 40 12/28/16 06:29 100 Bi-Pap 40 12/28/16 06:00 121 12/28/16 05:31 100 Bi-Pap 35 12/28/16 04:35 100 40 12/28/16 04:00 79 12/28/16 04:00 98.4 79 24 162/99 100 12/28/16 02:00 89 12/28/16 01:08 100 40 12/28/16 00:00 100 Bi-Pap 40 12/28/16 00:00 87 12/28/16 00:00 98.6 87 26 145/86 100 12/27/16 22:00 86 I/O 12/27/16 12/27/16 12/27/16 12/28/16 12/28/16 12/28/16 07:00 15:00 23:00 07:00 15:00 23:00 Intake Total 250 ml 300 ml 240 ml 350 ml 660 ml Output Total 350 ml 450 ml 600 ml 475 ml 700 ml Balance -100 ml -150 ml -360 ml -125 ml -40 ml Intake Oral 0 ml 200 ml 240 ml 100 ml 560 ml IV Total 250 ml 100 ml 250 ml 100 ml Output Urine Total 350 ml 450 ml 600 ml 475 ml 700 ml # Bowel Movements 0 2 5 5 Result Diagram: 12/28/16 0527 12/28/16 0521 Objective Remarks GENERAL: Thin built AA female, sob, uses accessory muscles SKIN: Warm and dry. HEAD: Normocephalic. EYES: No scleral icterus. No injection or drainage. NECK: Supple, trachea midline. No JVD or lymphadenopathy. CARDIOVASCULAR: Regular rate and rhythm without murmurs, gallops, or rubs. RESPIRATORY: Breath sounds equal bilaterally. No accessory muscle use. Decreased chest excursion GASTROINTESTINAL: Abdomen soft, non-tender, nondistended. MUSCULOSKELETAL: No cyanosis, or edema. BACK: Nontender without obvious deformity. No CVA tenderness. A/P Assessment and Plan Hypercapnoic RF Severe COPD Anxiety Mucous plugging HTN PLAN: DW Pt and her daughter on phone Explained Bronchoscopy, procedure and complications including chance of needing vent support They agree to proceed Cont Abx Aerosol nebs IV Solumedrol Buspar 5 mg tid CPAP10/5 prn SOB Rolando Mejia MD December 28, 2016 20:19
[2016-12-29] VITALS (15 sets, daily range): BP systolic 130–172; BP diastolic 71–104; PULSE 88–131; RESP 16–49; TEMP 98.1–98.9; O2SAT 94–100
[2016-12-29] MEDS: RESP: ALBUTEROL 2.5 MG/IPRATROPIUM 0.5 MG NEB (SCH) INH ×2 (00:01→03:43)
[2016-12-29] MEDS: AZTREONAM INJ 2,000 MG in SODIUM CHLORIDE 0.9% INJ 100 ML IV SCH ×4 (00:35→23:56)
[2016-12-29] MEDS: RESP: ACETYLCYSTEINE 20% 30 ML NEB NEB SCH ×5 (03:44→23:25)
[2016-12-29] MEDS: CHLORHEXIDINE GLUCONATE 2 % 1 PACK (2 CLOTHS) TOP SCH (04:00)
[2016-12-29] MEDS: methylPREDNISolone SOD SUCC 125 MG/2 ML VIAL IV PUSH SCH ×3 (04:01→17:01)
[2016-12-29] MEDS: LEVOFLOXACIN 750 MG PREMIX INJ 150 ML IV SCH (04:02)
[2016-12-29] MEDS: INSULIN NovoLIN REGULAR SUPPLEMENTAL SCALE SQ SCH ×4 (04:03→21:30)
[2016-12-29] MEDS: busPIRone HCL 5 MG TAB PO SCH ×3 (06:59→21:27)
[2016-12-29] MEDS: SODIUM CHLORIDE 0.9% FLUSH 10 ML FLUSH SCH ×2 (09:00→21:33)
[2016-12-29] MEDS: PANTOPRAZOLE SODIUM 40 MG VIAL IV SCH (09:00)
[2016-12-29] MEDS: DOCUSATE SODIUM 50 MG/SENNA 8.6 MG TAB PO SCH ×2 (09:00→21:28)
[2016-12-29] MEDS: POLYETHYLENE GLYCOL 17 GM PKG PO SCH (09:00)
[2016-12-29] MEDS: DOXAZOSIN MESYLATE 2 MG TAB PO SCH (09:27)
[2016-12-29] MEDS: DILTIAZEM HCL 60 MG TAB PO SCH ×4 (09:27→21:28)
[2016-12-29] MEDS: guaiFENesin E.R. 600 MG TAB PO SCH ×2 (09:27→21:27)
--- NOTE | 2016-12-29 10:52 | HHI.PR ---
Subjective Remarks Tells me breathing is improving. still coughing a lot. no CP. Vomited once this morning but none since. no nausea at this time. Objective Vitals Vital Signs Date Time Temp Pulse Resp B/P Pulse Ox O2 Delivery O2 Flow Rate FiO2 12/29/16 08:26 98 High Flow Nasal Cannula 25.00 37 12/29/16 08:00 102 12/29/16 08:00 40 12/29/16 08:00 98.5 102 22 172/92 94 12/29/16 06:00 94 12/29/16 04:00 92 12/29/16 04:00 98.3 92 22 172/104 100 12/29/16 04:00 Nasal Cannula 40 Bi-Pap 12/29/16 03:44 97 High Flow Nasal Cannula 25.00 38 12/29/16 02:00 93 12/29/16 00:00 91 12/29/16 00:00 99 High Flow Nasal Cannula 25.00 40 12/29/16 00:00 98.1 91 20 133/77 99 12/29/16 00:00 Nasal Cannula 40 Bi-Pap 12/28/16 22:48 99 High Flow Nasal Cannula 43 12/28/16 22:00 99 12/28/16 20:29 100 High Flow Nasal Cannula 25.00 46 12/28/16 20:00 98.0 101 22 157/94 100 12/28/16 20:00 101 12/28/16 20:00 Nasal Cannula 40 Bi-Pap 12/28/16 18:00 110 12/28/16 16:00 110 12/28/16 16:00 98.6 101 28 158/93 95 12/28/16 16:00 Nasal Cannula 40 Bi-Pap 12/28/16 14:00 110 12/28/16 12:00 98.5 96 24 154/94 99 12/28/16 12:00 Bi-Pap 40 12/28/16 12:00 110 I/O 12/28/16 12/28/16 12/28/16 12/29/16 12/29/16 12/29/16 07:00 15:00 23:00 07:00 15:00 23:00 Intake Total 350 ml 660 ml 402 ml 273 ml Output Total 475 ml 700 ml 400 ml 300 ml Balance -125 ml -40 ml 2 ml -27 ml Intake Oral 100 ml 560 ml 300 ml IV Total 250 ml 100 ml 102 ml 273 ml Output Urine Total 475 ml 700 ml 400 ml 300 ml # Bowel Movements 5 5 1 1 Result Diagram: 12/28/16 0527 12/28/16 0521 Imaging Last Impressions Small Bowel X-Ray 12/27/16 0600 Signed Impressions: Service Date/Time: Tuesday, December 27, 2016 09:23 - CONCLUSION: Unremarkable small bowel examination. No evidence of obstruction Fred Michelle MD Chest X-Ray 12/26/16 0000 Signed Impressions: Service Date/Time: Monday, December 26, 2016 15:08 - CONCLUSION: 1. No pneumothorax. 2. Small right pleural effusion. 3. Bibasilar atelectasis and/ or infiltrates (right slightly worse than left). 4. Underlying emphysematous changes bilaterally. Dontae Miramontes MD Abdomen X-Ray 12/26/16 0000 Signed Impressions: Service Date/Time: Monday, December 26, 2016 09:49 - CONCLUSION: 1. Relatively diffuse mild gaseous distention of the small bowel with a segment that is mildly dilated in the left midabdomen. The degree of distention is less than present on the prior CT. Findings overall are not highly suspicious for obstruction. Patient is currently scheduled for small bowel follow-through examination which will further assess. 2. Stable small right pleural effusion. Erich Stephenson MD Head CT 12/25/16 0000 Signed Impressions: Service Date/Time: Sunday, December 25, 2016 04:14 - CONCLUSION: 1. No acute intracranial abnormalities. Mild white matter ischemic changes. Lee Uribe MD CT Angiography 12/24/16 0000 Signed Impressions: Service Date/Time: Sunday, December 25, 2016 01:40 - CONCLUSION: 1. Negative for pulmonary embolus. 2. There is suspected extensive mucoid plugging involving a portion of the distal right mainstem bronchus, right upper lobe bronchus and bronchus intermedius extending into segmental branches in both the right middle lobe and right lower lobe. Cannot exclude an endobronchial lesion. A small right-sided pleural effusion. 3. Severe emphysema. Lee Uribe MD Abdomen/Pelvis CT 12/24/16 0000 Signed Impressions: Service Date/Time: Sunday, December 25, 2016 01:36 - CONCLUSION: 1. Right-sided psoas hematoma measuring about 4.7 cm in maximum diameter and extending over a length of about 7 cm. 2. Previous bowel anastomosis with dilated loops of small bowel proximally with air fluid levels. Differential diagnosis includes a partial or early obstruction. 3. Widemouth ventral hernia near umbilicus containing a loop of constipated colon. 4. Small right pleural effusion. Lee Uribe MD Objective Remarks GENERAL: Patient is lying in bed in moderate respiratory distress CARDIOVASCULAR: mildly Tachycardic without murmurs RESPIRATORY: Diminished bilaterally, no wheezing but very poor air movement. GASTROINTESTINAL: Abdomen soft, non-tender, nondistended. MUSCULOSKELETAL: No cyanosis, or edema. Neuro: Awake and alert Procedures sp bronchoscopy A/P Problem List: (1) Acute hypercapnic respiratory failure ICD Code: J96.02 Status: Acute (2) COPD with exacerbation ICD Code: J44.1 Status: Acute (3) HTN (hypertension) ICD Code: I10 Status: Acute (4) Ileus ICD Code: K56.7 Status: Acute (5) Hematoma ICD Code: T14.8 Status: Chronic (6) Severe protein-calorie malnutrition ICD Code: E43 Status: Acute (7) Anxiety ICD Code: F41.9 Status: Acute Assessment and Plan (1) Acute hypercapnic respiratory failure The patient was admitted to the intensive care unit and taken care of by chiropractor assistant initially. Continue with supplemental oxygen to keep an O2 sat duration > 92%. Continue Bipap as needed Continue DuoNeb every 4 hours, albuterol every 12 hours when needed. Continue Solu-Medrol IV - decreased dose to 60 mg IV Q [address] angiogram without PE. Mucous plugging in the right mainstem, unable to rule out endobronchial lesion. Patient underwent bronchoscopy on 12/27, as per pulmonary report, no endobronchial lesion seen. (2) COPD with exacerbation As above. Continue IV steroids and IV antibiotics. The patient currently on aztreonam 2 g IV every 8 hours, Levaquin 750 mg IV daily. Continue bipap appreciate pulmonary recommendations. (3) HTN (hypertension) BP elevated overnight but hasn't yet taken her meds. Continue Cardizem po. on Cardura 2 mg po daily. adjust meds as needed (4) Ileus CT abdomen and pelvis showed right psoas hematoma measuring about 4.7 cm. Previous bowel anastomosis on the limited loops of small bowel proximally with air fluid level. Possible partial or early obstruction. There is also widemouth ventral hernia the umbilicus containing a loop of constipated colon. Small right pleural effusion. Surgery consulted - pt had a BM, GS has signed off Small bowel series - showed unremarkable examination (5) Hematoma Patient denies any trauma or symptoms. Coags are normal. Monitor CBC. (6) Severe protein-calorie malnutrition Patient has a low BMI of 17.6 Dietitian consulted - enlive TID added to meals (7) Anxiety Seems to be improved. continue Ativan for severe anxiety. on Xanax for mild anxiety. DVT prophylaxis - SCD's, continue to hold chemoprophylaxis due to psoas hematoma. Discharge Planning Continue to monitor in the ICU. Patient still requiring bipap. continue to wean steroids. appreciate assistance from consultants Marysol Osborn MD Dec 29, 2016 10:52
[2016-12-29] MEDS: RESP: ALBUTEROL 2.5 MG/3 ML NEB (PRN) INH ×4 (11:40→23:25)
[2016-12-29] MEDS: ALPRAZolam 0.5 MG TAB PO PRN ×2 (12:05→23:56)
[2016-12-29] MEDS: ACETAMINOPHEN 325 MG TAB PO PRN (12:48)
[2016-12-29] MEDS: LORazepam 2 MG/ML VIAL IV PUSH PRN (13:44)
[2016-12-29 16:36] LABS: MAGNESIUM 2.1 MG/DL (1.5-2.5); POTASSIUM 4.1 MEQ/L (3.5-5.1)
[2016-12-29 17:06] LABS: BICARBONATE 42.9 MEQ/L (21.0-32.0)
--- NOTE | 2016-12-29 19:45 | HHI.PR ---
Subjective Remarks 66 YO AA female with severe COPD, Ch. resp insuff,Hypercapnoic RF CT chest Mucous plugging No fever or chills No CP Anxious Did't like CPAP Breathing little better today SOb even at rest Objective Vital Signs Vital Signs Date Time Temp Pulse Resp B/P Pulse Ox O2 Delivery O2 Flow Rate FiO2 12/29/16 18:00 102 12/29/16 16:00 98.9 88 24 130/71 95 12/29/16 16:00 102 12/29/16 16:00 40 12/29/16 14:00 102 12/29/16 14:00 96 High Flow Nasal Cannula 30.00 37 12/29/16 12:00 102 12/29/16 12:00 40 12/29/16 12:00 98.2 131 16 171/89 96 12/29/16 10:00 102 12/29/16 08:26 98 High Flow Nasal Cannula 25.00 37 12/29/16 08:00 102 12/29/16 08:00 40 12/29/16 08:00 98.5 102 22 172/92 94 12/29/16 06:00 94 12/29/16 04:00 92 12/29/16 04:00 98.3 92 22 172/104 100 12/29/16 04:00 Nasal Cannula 40 Bi-Pap 12/29/16 03:44 97 High Flow Nasal Cannula 25.00 38 12/29/16 02:00 93 12/29/16 00:00 91 12/29/16 00:00 99 High Flow Nasal Cannula 25.00 40 12/29/16 00:00 98.1 91 20 133/77 99 12/29/16 00:00 Nasal Cannula 40 Bi-Pap 12/28/16 22:48 99 High Flow Nasal Cannula 43 12/28/16 22:00 99 12/28/16 20:29 100 High Flow Nasal Cannula 25.00 46 12/28/16 20:00 98.0 101 22 157/94 100 12/28/16 20:00 101 12/28/16 20:00 Nasal Cannula 40 Bi-Pap I/O 12/28/16 12/28/16 12/28/16 12/29/16 12/29/16 12/29/16 07:00 15:00 23:00 07:00 15:00 23:00 Intake Total 350 ml 660 ml 402 ml 273 ml 578 ml Output Total 475 ml 700 ml 400 ml 300 ml 1400 ml Balance -125 ml -40 ml 2 ml -27 ml -822 ml Intake Oral 100 ml 560 ml 300 ml 480 ml IV Total 250 ml 100 ml 102 ml 273 ml 98 ml Output Urine Total 475 ml 700 ml 400 ml 300 ml 1400 ml # Bowel Movements 5 5 1 1 2 Result Diagram: 12/28/16 0527 12/29/16 1525 Objective Remarks GENERAL: Thin built AA female, sob, uses accessory muscles SKIN: Warm and dry. HEAD: Normocephalic. EYES: No scleral icterus. No injection or drainage. NECK: Supple, trachea midline. No JVD or lymphadenopathy. CARDIOVASCULAR: Regular rate and rhythm without murmurs, gallops, or rubs. RESPIRATORY: Breath sounds equal bilaterally. No accessory muscle use. Decreased chest excursion GASTROINTESTINAL: Abdomen soft, non-tender, nondistended. MUSCULOSKELETAL: No cyanosis, or edema. BACK: Nontender without obvious deformity. No CVA tenderness. A/P Assessment and Plan Hypercapnoic RF Severe COPD Anxiety Mucous plugging HTN PLAN: DW Pt and her daughter on phone Explained Bronchoscopy, procedure and complications including chance of needing vent support They agree to proceed Cont Abx Aerosol nebs Decrease Solumedrol 40 mg q 6 hrs Buspar 5 mg tid CPAP10/5 prn SOB Rolando Mejia MD Dec 29, 2016 19:44
[2016-12-29] MEDS: methylPREDNISolone SOD SUCC 40 MG/1 ML VIAL IV SCH (21:27)
[2016-12-29] MEDS ORDERED: methylPREDNISolone SOD SUCC 125 MG/2 ML VIAL IV PUSH SCH (22:00)
[2016-12-30] VITALS (16 sets, daily range): BP systolic 77–175; BP diastolic 65–111; PULSE 91–123; RESP 20–33; TEMP 98.4–99.3; O2SAT 95–100
[2016-12-30] MEDS: LABETALOL HCL 100 MG/20 ML VIAL IV PUSH PRN ×2 (00:09→09:06)
[2016-12-30] MEDS: INSULIN NovoLIN REGULAR SUPPLEMENTAL SCALE SQ SCH ×4 (04:00→21:45)
[2016-12-30] MEDS: CHLORHEXIDINE GLUCONATE 2 % 1 PACK (2 CLOTHS) TOP SCH (04:00)
[2016-12-30] MEDS: methylPREDNISolone SOD SUCC 40 MG/1 ML VIAL IV SCH ×3 (04:25→21:42)
[2016-12-30] MEDS: LEVOFLOXACIN 750 MG PREMIX INJ 150 ML IV SCH (04:27)
[2016-12-30] MEDS: busPIRone HCL 5 MG TAB PO SCH ×3 (05:50→21:43)
[2016-12-30 06:09] LABS: REVIEW FLAG FINAL
[2016-12-30 06:36] LABS: ANION GAP 3 MEQ/L (5-15); BICARBONATE GREATER THAN 45.0 MEQ/L (21.0-32.0); BLOOD UREA NITROGEN 18 MG/DL (7-18); CHLORIDE 86 MEQ/L (98-107); GLOMERULAR FILTRATION RATE 157 ML/MIN (>89); POTASSIUM 3.9 MEQ/L (3.5-5.1); SODIUM (NA) 134 MEQ/L (136-145)
[2016-12-30] MEDS: RESP: ALBUTEROL 2.5 MG/3 ML NEB (PRN) INH ×2 (08:19→11:53)
[2016-12-30] MEDS: RESP: ACETYLCYSTEINE 20% 30 ML NEB NEB SCH ×2 (08:19→16:00)
[2016-12-30] MEDS: PANTOPRAZOLE SODIUM 40 MG VIAL IV SCH (08:28)
[2016-12-30] MEDS: guaiFENesin E.R. 600 MG TAB PO SCH ×2 (08:28→21:43)
[2016-12-30] MEDS: DOXAZOSIN MESYLATE 2 MG TAB PO SCH (08:28)
[2016-12-30] MEDS: DILTIAZEM HCL 60 MG TAB PO SCH ×4 (08:28→21:00)
[2016-12-30] MEDS: DOCUSATE SODIUM 50 MG/SENNA 8.6 MG TAB PO SCH ×2 (08:28→21:00)
[2016-12-30] MEDS: SODIUM CHLORIDE 0.9% FLUSH 10 ML FLUSH SCH ×2 (09:00→21:42)
[2016-12-30] MEDS: POLYETHYLENE GLYCOL 17 GM PKG PO SCH (09:00)
[2016-12-30] MEDS: AZTREONAM INJ 2,000 MG in SODIUM CHLORIDE 0.9% INJ 100 ML IV SCH ×2 (10:04→17:32)
[2016-12-30] MEDS: ALPRAZolam 0.5 MG TAB PO PRN (11:08)
[2016-12-30] MEDS: ONDANSETRON HCL 4 MG/2 ML VIAL IV PRN (12:04)
--- NOTE | 2016-12-30 12:22 | EKG ---
Date Performed: 12/29/2016 Time Performed: 14:27:23 PTAGE: 66 years EKG: SINUS TACHYCARDIA WITH FREQUENT SUPRAVENTRICULAR PREMATURE COMPLEXES, POSSIBLE ATRIAL FLUTT ER VOLTAGE CRITERIA FOR LVH ABNORMAL ECG Compared to prior tracing no significant change PREVIOUS TRACING : 12/24/2016 21.20 DOCTOR: Doe Taylor Interpretating Date/Time 12/30/2016 12:19:53
[2016-12-30 12:25] LABS: BLOOD GAS BASE EXCESS 17.9 mmol/L (-2-2); BLOOD GAS CARBOXYHEMOGLOBIN 2.2 % (0-4); BLOOD GAS HCO3 44 mmol/L (22-26); BLOOD GAS METHEMOGLOBIN 1.2 % (0-2); BLOOD GAS O2 HGB SATURATION 91 % (90-100); BLOOD GAS OXYGEN CONTENT 12.2 Vol % (12.0-20.0); BLOOD GAS PCO2 78 mmHg (38-42); BLOOD GAS PO2 75 mmHg (61-120); BLOOD GAS TOTAL HGB 9.5 G/DL (12.0-16.0); TEMP CORR TO 98.6
[2016-12-30 12:26] LABS: CRITICAL VALUE YES; DRAW SITE RT RADIAL; FIO2 35 %; LITER FLOW 30 L/M; NUMBER OF ARTERIAL PUNCTURES 1; OXYGEN DEVICE HI-FLOW NC; STAT YES; ULNAR PULSE PRESENT
[2016-12-30] MEDS ORDERED: methylPREDNISolone SOD SUCC 125 MG/2 ML VIAL IV PUSH ONE (13:15)
--- NOTE | 2016-12-30 13:23 | HHI.PR ---
Subjective Remarks Pt tells me that she is having a hard time breathing. Discussed w RN, pt had difficulty eating breakfast due to SOB. Pt states she feels tightness across her chest as well. no nausea or vomiting. Objective Vitals Vital Signs Date Time Temp Pulse Resp B/P Pulse Ox O2 Delivery O2 Flow Rate FiO2 12/30/16 10:00 102 12/30/16 08:22 98 High Flow Nasal Cannula 35.00 35 12/30/16 08:00 102 12/30/16 08:00 98.5 111 20 175/107 95 12/30/16 08:00 40 12/30/16 06:00 117 12/30/16 04:00 95 Nasal Cannula 30.00 40 Bi-Pap 12/30/16 04:00 12/30/16 04:00 93 12/30/16 02:00 91 12/30/16 00:00 96 Nasal Cannula 30.00 40 Bi-Pap 12/30/16 00:00 123 12/30/16 00:00 98.4 123 28 171/111 97 12/29/16 22:00 130 12/29/16 20:31 100 High Flow Nasal Cannula 30.00 35 12/29/16 20:00 98.5 123 49 165/97 98 12/29/16 20:00 123 12/29/16 20:00 95 Nasal Cannula 30.00 40 Bi-Pap 12/29/16 18:00 102 12/29/16 16:00 98.9 88 24 130/71 95 12/29/16 16:00 102 12/29/16 16:00 40 12/29/16 14:00 102 12/29/16 14:00 96 High Flow Nasal Cannula 30.00 37 I/O 12/29/16 12/29/16 12/29/16 12/30/16 12/30/16 12/30/16 07:00 15:00 23:00 07:00 15:00 23:00 Intake Total 273 ml 578 ml 966 ml 448 ml Output Total 300 ml 1400 ml 850 ml 1050 ml Balance -27 ml -822 ml 116 ml -602 ml Intake Oral 480 ml 850 ml 300 ml IV Total 273 ml 98 ml 116 ml 148 ml Output Urine Total 300 ml 1400 ml 850 ml 1050 ml # Bowel Movements 1 2 0 0 Result Diagram: 12/30/16 0458 12/30/16 0458 Imaging Last Impressions Small Bowel X-Ray 12/27/16 0600 Signed Impressions: Service Date/Time: Tuesday, December 27, 2016 09:23 - CONCLUSION: Unremarkable small bowel examination. No evidence of obstruction Fred Michelle MD Chest X-Ray 12/26/16 0000 Signed Impressions: Service Date/Time: Monday, December 26, 2016 15:08 - CONCLUSION: 1. No pneumothorax. 2. Small right pleural effusion. 3. Bibasilar atelectasis and/ or infiltrates (right slightly worse than left). 4. Underlying emphysematous changes bilaterally. Dontae Miramontes MD Abdomen X-Ray 12/26/16 0000 Signed Impressions: Service Date/Time: Monday, December 26, 2016 09:49 - CONCLUSION: 1. Relatively diffuse mild gaseous distention of the small bowel with a segment that is mildly dilated in the left midabdomen. The degree of distention is less than present on the prior CT. Findings overall are not highly suspicious for obstruction. Patient is currently scheduled for small bowel follow-through examination which will further assess. 2. Stable small right pleural effusion. Erich Stephenson MD Head CT 12/25/16 0000 Signed Impressions: Service Date/Time: Sunday, December 25, 2016 04:14 - CONCLUSION: 1. No acute intracranial abnormalities. Mild white matter ischemic changes. Lee Uribe MD CT Angiography 12/24/16 0000 Signed Impressions: Service Date/Time: Sunday, December 25, 2016 01:40 - CONCLUSION: 1. Negative for pulmonary embolus. 2. There is suspected extensive mucoid plugging involving a portion of the distal right mainstem bronchus, right upper lobe bronchus and bronchus intermedius extending into segmental branches in both the right middle lobe and right lower lobe. Cannot exclude an endobronchial lesion. A small right-sided pleural effusion. 3. Severe emphysema. Lee Uribe MD Abdomen/Pelvis CT 12/24/16 0000 Signed Impressions: Service Date/Time: Sunday, December 25, 2016 01:36 - CONCLUSION: 1. Right-sided psoas hematoma measuring about 4.7 cm in maximum diameter and extending over a length of about 7 cm. 2. Previous bowel anastomosis with dilated loops of small bowel proximally with air fluid levels. Differential diagnosis includes a partial or early obstruction. 3. [place]idemouth ventral hernia near umbilicus containing a loop of constipated colon. 4. Small right pleural effusion. Lee Uribe MD Objective Remarks GENERAL: Patient is lying in bed in moderate respiratory distress, eyes closed CARDIOVASCULAR: Tachycardic without murmurs RESPIRATORY: very diminished bilaterally, no wheezing but very poor air movement. some use of accessory muscles GASTROINTESTINAL: Abdomen soft, non-tender, nondistended. MUSCULOSKELETAL: No cyanosis, or edema. Neuro: Awake, keeps eyes closed, but answers questions Procedures sp bronchoscopy A/P Problem List: (1) Acute hypercapnic respiratory failure ICD Code: J96.02 Status: Acute (2) COPD with exacerbation ICD Code: J44.1 Status: Acute (3) HTN (hypertension) ICD Code: I10 Status: Acute (4) Ileus ICD Code: K56.7 Status: Acute (5) Hematoma ICD Code: T14.8 Status: Chronic (6) Severe protein-calorie malnutrition ICD Code: E43 Status: Acute (7) Anxiety ICD Code: F41.9 Status: Acute Assessment and Plan (1) Acute hypercapnic respiratory failure The patient was admitted to the intensive care unit and taken care of by mechanical specialist initially. Continue with supplemental oxygen to keep an O2 sat duration > 92%. Pt clinically doing worst this morning. I ordered a STAT ABG which showed pH 7.369, pCO2 78.4, HCO3 44.2. I explained to pt that we need to put her on BiPAP to help w her breathing but pt refuses adamantly, and tells me that Dr. Mejia told her she didn't have to use it if she didn't want to. I spoke w Dr. Mejia who agrees that pt needs it, I went back and explained to her that he recommended BiPAP but pt still refused. I personally spoke w Dr. Jung, mechanical specialist who agrees that clinically she is not doing well and should get BiPAP. Chest x-ray ordered. Dr. Jung recommended giving her a dose of ativan prior to doing BiPAP and see if she tolerates it, if not, will consult him for further management. Pt is agreeable to intubation if needed. Stat Solu-medrol 125mg IV x 1 and increase to 60mg IV q6hrs. DuoNeb every 4 hours, albuterol every [address] angiogram without PE. Mucous plugging in the right mainstem, unable to rule out endobronchial lesion. Patient underwent bronchoscopy on 12/27, as per pulmonary report, no endobronchial lesion seen. (2) COPD with exacerbation As above. Continue IV steroids and IV antibiotics. The patient currently on aztreonam 2 g IV every 8 hours, Levaquin 750 mg IV daily. Continue bipap appreciate pulmonary recommendations. (3) HTN (hypertension) BP elevated overnight but hasn't yet taken her meds. Continue Cardizem po. on Cardura 2 mg po daily. adjust meds as needed (4) Ileus CT abdomen and pelvis showed right psoas hematoma measuring about 4.7 cm. Previous bowel anastomosis on the limited loops of small bowel proximally with air fluid level. Possible partial or early obstruction. There is also widemouth ventral hernia the umbilicus containing a loop of constipated colon. Small right pleural effusion. Surgery consulted - pt had a BM, GS has signed off Small bowel series - showed unremarkable examination (5) Hematoma Patient denies any trauma or symptoms. Coags are normal. Monitor CBC. (6) Severe protein-calorie malnutrition Patient has a low BMI of 17.6 Dietitian consulted - enlive TID added to meals (7) Anxiety Seems to be improved. continue Ativan for severe anxiety. on Xanax for mild anxiety. DVT prophylaxis - SCD's, continue to hold chemoprophylaxis due to psoas hematoma. Discharge Planning Continue to monitor in the ICU. Patient needs bipap but is refusing, will try some ativan and see if she tolerates it, if not, will transfer care to mechanical specialist service. Marysol Vo MD Dec 30, 2016 13:23
--- NOTE | 2016-12-30 13:30 | RADRPT ---
EXAM DATE/TIME: 12/30/2016 12:54 [facility] COMPARISON: CHEST SINGLE AP, December 26, 2016, 6:02. CHEST SINGLE AP, December 26, 2016, 15:08. INDICATIONS : Respiratory Distress/ Shortness of Breath MEDICAL HISTORY : Chronic obstructive pulmonary disease. SURGICAL HISTORY : None. ENCOUNTER: Subsequent ACUITY: 4 - 6 days PAIN SCORE: 0/10 LOCATION: Bilateral chest FINDINGS: Single AP view of the chest. Hyperaeration suggesting emphysema. The lungs are clear. Cardiomediastin al silhouette within normal limits. No evidence of pleural effusion or pneumothorax. CONCLUSION: No acute cardiopulmonary disease identified. Joe Piña MD on December 30, 2016 at 13:28 Board Certified Radiologist. This report was verified electronically.
[2016-12-30] MEDS ORDERED: DEXMEDETOMIDINE INJ 200 MCG in SODIUM CHLORIDE 0.9% INJ 50 ML IV SCH (14:15)
[2016-12-30] MEDS ORDERED: DEXMEDETOMIDINE HCL 200 MCG/2 ML VIAL ONE (14:20)
--- NOTE | 2016-12-30 14:33 | HHI.CCPN ---
Subjective Remarks/Hospital Course 66-year-old female with past medical history of COPD, hypertension, tobacco abuse who presents to [facility] emergency department from a residential ([facility]) due to shortness of breath. She states she has been in residential for 1-1/2 months after she fell and sustained a left hip fracture requiring left hip arthroplasty at [facility] in [facility]. She was hypertensive, tachycardic and anxious upon E VAC arrival. She was administered 2 L normal saline bolus and magnesium sulfate prior to arrival. She was placed on BiPAP 15/5 40%. ABG demonstrated acute on chronic hypercapnic respiratory failure with pH 7.36/PaCO2 58/PA O2 of 109. She was very anxious on BiPAP and was started on Precedex for BiPAP tolerance. Chest x-ray demonstrates hyperinflation with possible right lower lobe infiltrate. She received DuoNeb 3, Solu-Medrol 125 mg IV, aztreonam, as azithromycin in the emergency department. CT pulmonary angiogram was negative for pulmonary embolism. There is severe emphysema and mucous plugging in the right mainstem bronchus. Unable to rule out endobronchial lesion. Patient has cough with large amount of thick yellow sputum production so was taken off Bipap and placed on HFNC 30 L/min 40% FIO2. She states she is feeling better than she was on arrival. CT abdomen/pelvis demonstrated a 4.7 cm right psoas hematoma, 7 cm length . She has a prior bowel anastomosis with small bowel dilatation which may represent partial or early obstruction. Hgb 9.5. Patient denies more recent fall. She denies abdominal pain, flank pain, nausea, vomiting. Does not recall her last bowel movement 12/26 Patient is on 4L oxygen with good sats. Afebrile. 12/30: [facility] reconsulted today for worsening COPD exacerbation. Patient is tachypneic, shallow breathing and respiratory rate varying from 35-40. Patient isn't using BiPAP but his bilirubin for endotracheal intubation if need be. After discussion with the patient she is agreeable to attempt BiPAP after IV Ativan. I have written for Ativan and Precedex to be started if needed. I have explained to the patient that she may need endotracheal intubation if not improved in the next 2 hours. ABG shows worsening CO2 retention, now 78 Objective Vital Signs Date Time Temp Pulse Resp B/P Pulse Ox O2 Delivery O2 Flow Rate FiO2 12/30/16 14:00 102 12/30/16 13:48 96 35 12/30/16 12:00 98.6 20 170/101 12/30/16 08:22 High Flow Nasal Cannula 35.00 Intake and Output 12/29/16 12/29/16 12/30/16 08:00 16:00 00:00 Intake Total 273 ml 578 ml 966 ml Output Total 300 ml 1400 ml 850 ml Balance -27 ml -822 ml 116 ml Result Diagram: 12/30/16 0458 12/30/16 0458 Other Results Laboratory Tests Test 12/30/16 12:10 Blood Gas Puncture Site RT RADIAL Blood Gas Patient Temperature 98.6 Blood Gas HCO3 44 mmol/L (22-26) Blood Gas Base Excess 17.9 mmol/L (-2-2) Blood Gas Oxygen Saturation 91 % (90-100) Arterial Blood pH 7.37 (7.380-7.420) Arterial Blood Partial 78 mmHg (38-42) Pressure CO2 Arterial Blood Partial 75 mmHg Pressure O2 (61-120) Arterial Blood Oxygen Content 12.2 Vol % (12.0-20.0) Arterial Blood 2.2 % (0-4) Carboxyhemoglobin Arterial Blood Methemoglobin 1.2 % (0-2) Blood Gas Hemoglobin 9.5 G/DL (12.0-16.0) Oxygen Delivery Device HI-FLOW NC Blood Gas Liter Flow 30 L/M Blood Gas Inspired Oxygen 35 % Imaging Last Impressions Chest X-Ray 12/26/16 0000 Signed Impressions: Service Date/Time: Monday, December 26, 2016 06:02 - CONCLUSION: Medial right basilar infiltrate Erich Allison MD Head CT 12/25/16 0000 Signed Impressions: Service Date/Time: Sunday, December 25, 2016 04:14 - CONCLUSION: 1. No acute intracranial abnormalities. Mild white matter ischemic changes. Lee Uribe MD CT Angiography 12/24/16 0000 Signed Impressions: Service Date/Time: Sunday, December 25, 2016 01:40 - CONCLUSION: 1. Negative for pulmonary embolus. 2. There is suspected extensive mucoid plugging involving a portion of the distal right mainstem bronchus, right upper lobe bronchus and bronchus intermedius extending into segmental branches in both the right middle lobe and right lower lobe. Cannot exclude an endobronchial lesion. A small right-sided pleural effusion. 3. Severe emphysema. Lee Uribe MD Abdomen/Pelvis CT 12/24/16 0000 Signed Impressions: Service Date/Time: Sunday, December 25, 2016 01:36 - CONCLUSION: 1. Right-sided psoas hematoma measuring about 4.7 cm in maximum diameter and extending over a length of about 7 cm. 2. Previous bowel anastomosis with dilated loops of small bowel proximally with air fluid levels. Differential diagnosis includes a partial or early obstruction. 3. Widemouth ventral hernia near umbilicus containing a loop of constipated colon. 4. Small right pleural effusion. Lee Uribe MD Objective Remarks GENERAL: Patient is lying in bed in acute respiratory distress, tachypneic SKIN: Warm and dry. HEAD: Normocephalic. EYES: No scleral icterus. No injection or drainage. NECK: Supple, trachea midline. No JVD or lymphadenopathy. CARDIOVASCULAR: Tachycardic without murmurs, gallops, or rubs. RESPIRATORY: Breath sounds equal bilaterally, but very diminished. Positive accessory muscle use. Mild expiratory wheezing bilaterally GASTROINTESTINAL: Abdomen soft, non-tender, nondistended. MUSCULOSKELETAL: No cyanosis, or edema. BACK: Nontender without obvious deformity. No CVA tenderness. Neuro: Awake and alert. No focal deficits Procedures sp bronchoscopy A/P Assessment and Plan NEURO: When necessary Ativan and continued Precedex for anxiety RESP: Acute hypercapnic respiratory failure Acute COPD exacerbation Tobacco abuse History of right upper lobe lung mass biopsy 2007granulomatous inflammation. Cytology negative for malignancy R mainstem mucous plugging, resolved BiPAP 12/5 to keep sat >88%, RR <30 DuoNeb every 4 hoursand PRN IV Solu-Medrol 125 mg 1 and 60 every 6 hours Pulm is following- Dr.Aneja COX in 2 hours CV: Sinus tachycardia History of hypertension Continue Cardizem 60mg QID monitor HR and BP keep MAP>65mmHg GI: Ileus resolved Reducible ventral hernia Severe chronic protein energy malnutrition R psoas hematoma (see below) Small bowel x-ray 12/17/[address] abd/pelvis with dilated small bowel ?early obstruction. Surgery has followed Continue with bowel regimen( Pericolace, Fátima lax, Senna) FEN/RENAL: Monitor renal function, electrolytes replacement per protocol. D/c IVF ID: Acute tracheobronchitis, healthcare associated Continue aztreonam 2 g IV every 8 hours, Levaquin 750 mg IV daily. Monitor for signs of infections ( Fever, WBC) HEME: Right psoas hematoma Patient denies trauma or symptoms. Coags are normal. ENDO: SSI for glycemic control PROPH: SCDs for DVT prophylaxis. Not on Pharmacologic DVT prophylaxis due to psoas hematoma. Protonix 40 mg IV daily for stress ulcer prophylaxis. ACCESS: Peripheral IV providing adequate access at this time. CCT 55 min Addendum: Repeat ABG after 1 hour BiPAP shows pH of 7.27 PCO2 was sent to 106. Patient is still tachypneic, using accessory muscles. She is agreeable endotracheal intubation. We'll proceed with intubation and mechanical ventilation Additional critical care time 32 minutes Total CCT 77 MIN excluding procedures Yuriy Jung MD Dec 30, 2016 14:33
[2016-12-30 15:12] LABS: BLOOD GAS BASE EXCESS 18.8 mmol/L (-2-2); BLOOD GAS CARBOXYHEMOGLOBIN 2.1 % (0-4); BLOOD GAS HCO3 46 mmol/L (22-26); BLOOD GAS METHEMOGLOBIN 1.1 % (0-2); BLOOD GAS O2 HGB SATURATION 90 % (90-100); BLOOD GAS OXYGEN CONTENT 12.3 Vol % (12.0-20.0); BLOOD GAS PCO2 106 mmHg (38-42); BLOOD GAS PO2 78 mmHg (61-120); BLOOD GAS TOTAL HGB 9.6 G/DL (12.0-16.0); TEMP CORR TO 98.6
[2016-12-30 15:13] LABS: CRITICAL VALUE YES; DRAW SITE RT RADIAL; FIO2 35 %; NUMBER OF ARTERIAL PUNCTURES 1; OXYGEN DEVICE BIPAP; STAT NO; ULNAR PULSE PRESENT; VENT SETTINGS IPAP 10/EPAP 5
[2016-12-30] MEDS ORDERED: ETOMIDATE 20 MG/10 ML VIAL ONE (15:21)
[2016-12-30] MEDS ORDERED: MIDAZOLAM HCL 5 MG/ML VIAL (1 ML) ONE (15:21)
[2016-12-30] MEDS ORDERED: PROPOFOL 1000 MG/100 ML INJ 100 ML ONE ×2 (15:38→21:34)
--- NOTE | 2016-12-30 15:46 | PD.PROCEDR ---
Procedure Note Procedure After the risks and benefits were discussed the following procedure was performed: INTUBATION: The patient was put in optimal position for the procedure. Rapid sequence intubation was initiated by me using 20 milligrams of etomidate IV, Versed 5 mg IV and 50 milligrams of Rocuronium IV. DL with Mac 4 blade, Grade 1 view. The patient was intubated with a 8.0 cuffed endotracheal tube. Tube placement was confirmed by visualization of the tube and balloon passing through the cords, capnometry and subsequent chest x-ray. Breath sounds were equal and well aerated bilaterally postintubation. No breath sounds over stomach. Patient tolerated procedure well. Yuriy Jung MD Dec 30, 2016 15:46
[2016-12-30] MEDS: RESP: ALBUTEROL 2.5 MG/IPRATROPIUM 0.5 MG NEB (SCH) NEB ×2 (15:48→19:53)
--- NOTE | 2016-12-30 16:07 | RADRPT ---
EXAM DATE/TIME: 12/30/2016 15:40 [facility] COMPARISON: CHEST SINGLE AP, December 30, 2016, 12:54. INDICATIONS : Post intubation MEDICAL HISTORY : Chronic obstructive pulmonary disease. SURGICAL HISTORY : None. ENCOUNTER: Initial ACUITY: 1 day PAIN SCORE: Non-responsive. LOCATION: Bilateral chest FINDINGS: Lungs are hyperinflated. The patient is intubated. There is no pneumothorax. Nipple shadows are seen. Heart is small and tubular. CONCLUSION: 1. Hyperinflated. 2. Intubated without pneumothorax. Joey Candelario MD FACR on December 30, 2016 at 16:03 Board Certified Radiologist. This report was verified electronically.
[2016-12-30 17:24] LABS: BLOOD GAS BASE EXCESS 14.9 mmol/L (-2-2); BLOOD GAS CARBOXYHEMOGLOBIN 2.6 % (0-4); BLOOD GAS HCO3 40 mmol/L (22-26); BLOOD GAS METHEMOGLOBIN 1.2 % (0-2); BLOOD GAS O2 HGB SATURATION 96 % (90-100); BLOOD GAS OXYGEN CONTENT 11.4 Vol % (12.0-20.0); BLOOD GAS PCO2 54 mmHg (38-42); BLOOD GAS PO2 162 mmHg (61-120); BLOOD GAS TOTAL HGB 8.2 G/DL (12.0-16.0); TEMP CORR TO 98.6
[2016-12-30 17:25] LABS: CRITICAL VALUE YES; DRAW SITE RT RADIAL; FIO2 40 %; NUMBER OF ARTERIAL PUNCTURES 1; OXYGEN DEVICE VENTILATOR; STAT NO; ULNAR PULSE PRESENT; VENT SETTINGS AC/12/550/PEEP 5
--- NOTE | 2016-12-30 18:10 | HHI.PR ---
Subjective Remarks 66 YO AA female with severe COPD, Ch. resp insuff,Hypercapnoic RF CT chest Mucous plugging No fever or chills No CP Anxious Intubated due to worsening resp status Sedated Objective Vital Signs Vital Signs Date Time Temp Pulse Resp B/P Pulse Ox O2 Delivery O2 Flow Rate FiO2 12/30/16 16:00 Mechanical Ventilator 40 12/30/16 16:00 102 12/30/16 16:00 98.4 101 20 77/65 96 12/30/16 15:52 100 40 12/30/16 14:00 102 12/30/16 13:48 96 35 12/30/16 12:00 98.6 111 20 170/101 96 12/30/16 12:00 102 12/30/16 12:00 40 12/30/16 10:00 102 12/30/16 08:22 98 High Flow Nasal Cannula 35.00 35 12/30/16 08:00 102 12/30/16 08:00 98.5 111 20 175/107 95 12/30/16 08:00 40 12/30/16 06:00 117 12/30/16 04:00 95 Nasal Cannula 30.00 40 Bi-Pap 12/30/16 04:00 12/30/16 04:00 93 12/30/16 02:00 91 12/30/16 00:00 96 Nasal Cannula 30.00 40 Bi-Pap 12/30/16 00:00 123 12/30/16 00:00 98.4 123 28 171/111 97 12/29/16 22:00 130 12/29/16 20:31 100 High Flow Nasal Cannula 30.00 35 12/29/16 20:00 98.5 123 49 165/97 98 12/29/16 20:00 123 12/29/16 20:00 95 Nasal Cannula 30.00 40 Bi-Pap I/O 12/29/16 12/29/16 12/29/16 12/30/16 12/30/16 12/30/16 06:59 14:59 22:59 06:59 14:59 22:59 Intake Total 273 ml 578 ml 966 ml 448 ml 286 ml Output Total 300 ml 1400 ml 850 ml 1050 ml 1000 ml Balance -27 ml -822 ml 116 ml -602 ml -714 ml Intake Oral 480 ml 850 ml 300 ml 120 ml IV Total 273 ml 98 ml 116 ml 148 ml 166 ml Output Urine Total 300 ml 1400 ml 850 ml 1050 ml 1000 ml # Bowel Movements 1 2 0 0 Result Diagram: 12/30/1645712/30/16457 Objective Remarks GENERAL: Thin built AA female, sob, uses accessory muscles SKIN: Warm and dry. HEAD: Normocephalic. EYES: No scleral icterus. No injection or drainage. NECK: Supple, trachea midline. No JVD or lymphadenopathy. CARDIOVASCULAR: Regular rate and rhythm without murmurs, gallops, or rubs. RESPIRATORY: Breath sounds equal bilaterally. No accessory muscle use. Decreased chest excursion GASTROINTESTINAL: Abdomen soft, non-tender, nondistended. MUSCULOSKELETAL: No cyanosis, or edema. BACK: Nontender without obvious deformity. No CVA tenderness. A/P Assessment and Plan Hypercapnoic RF VDRF Severe COPD Anxiety Mucous plugging HTN PLAN: Vent support AC 14, TV 500, Decrease Fi02 30% Cont Abx Aerosol nebs Solumedrol 40 mg q 6 hrs Buspar 5 mg tid CPAP trial in AM Rolando Mejia MD Dec 30, 2016 18:10
[2016-12-31] VITALS (24 sets, daily range): BP systolic 103–147; BP diastolic 70–93; PULSE 78–103; RESP 14–27; TEMP 97.5–99.4; O2SAT 97–100
[2016-12-31] MEDS: RESP: ALBUTEROL 2.5 MG/IPRATROPIUM 0.5 MG NEB (SCH) NEB ×7 (00:14→23:52)
[2016-12-31] MEDS: AZTREONAM INJ 2,000 MG in SODIUM CHLORIDE 0.9% INJ 100 ML IV SCH ×4 (00:19→23:07)
[2016-12-31] MEDS: CHLORHEXIDINE GLUCONATE 2 % 1 PACK (2 CLOTHS) TOP SCH (04:00)
[2016-12-31] MEDS: INSULIN NovoLIN REGULAR SUPPLEMENTAL SCALE SQ SCH ×4 (04:00→21:20)
[2016-12-31 04:26] LABS: HEMATOCRIT 28.5 % (35.0-46.0)
[2016-12-31 04:29] LABS: REVIEW FLAG FINAL
[2016-12-31 04:38] LABS: BICARBONATE 42.5 MEQ/L (21.0-32.0); POTASSIUM 3.5 MEQ/L (3.5-5.1)
[2016-12-31] MEDS: methylPREDNISolone SOD SUCC 40 MG/1 ML VIAL IV SCH ×4 (05:29→21:18)
[2016-12-31] MEDS: LEVOFLOXACIN 750 MG PREMIX INJ 150 ML IV SCH (05:30)
[2016-12-31] MEDS: PROPOFOL 1000 MG/100 ML IV SCH ×2 (05:30→21:22)
[2016-12-31] MEDS: busPIRone HCL 5 MG TAB PO SCH ×3 (05:30→21:19)
--- NOTE | 2016-12-31 07:17 | HHI.CCPN ---
Subjective Remarks/Hospital Course 66-year-old female with past medical history of COPD, hypertension, tobacco abuse who presents to [facility] emergency department from a long term ([facility]) due to shortness of breath. She states she has been in long term for 1-1/2 months after she fell and sustained a left hip fracture requiring left hip arthroplasty at [facility] in [facility]. She was hypertensive, tachycardic and anxious upon E VAC arrival. She was administered 2 L normal saline bolus and magnesium sulfate prior to arrival. She was placed on BiPAP 15/5 40%. ABG demonstrated acute on chronic hypercapnic respiratory failure with pH 7.36/PaCO2 58/PA O2 of 109. She was very anxious on BiPAP and was started on Precedex for BiPAP tolerance. Chest x-ray demonstrates hyperinflation with possible right lower lobe infiltrate. She received DuoNeb 3, Solu-Medrol 125 mg IV, aztreonam, as azithromycin in the emergency department. CT pulmonary angiogram was negative for pulmonary embolism. There is severe emphysema and mucous plugging in the right mainstem bronchus. Unable to rule out endobronchial lesion. Patient has cough with large amount of thick yellow sputum production so was taken off Bipap and placed on HFNC 30 L/min 40% FIO2. She states she is feeling better than she was on arrival. CT abdomen/pelvis demonstrated a 4.7 cm right psoas hematoma, 7 cm length . She has a prior bowel anastomosis with small bowel dilatation which may represent partial or early obstruction. Hgb 9.5. Patient denies more recent fall. She denies abdominal pain, flank pain, nausea, vomiting. Does not recall her last bowel movement 12/26 Patient is on 4L oxygen with good sats. Afebrile. 12/30: [facility] reconsulted today for worsening COPD exacerbation. Patient is tachypneic, shallow breathing and respiratory rate varying from 35-40. Patient isn't using BiPAP but his bilirubin for endotracheal intubation if need be. After discussion with the patient she is agreeable to attempt BiPAP after IV Ativan. I have written for Ativan and Precedex to be started if needed. I have explained to the patient that she may need endotracheal intubation if not improved in the next 2 hours. ABG shows worsening CO2 retention, now 78 12/31: Patient developed worsening hypercapnic respiratory failure on BiPAP required intubation yesterday evening. Postintubation PCO2 improved from 106 to 54. Currently remains intubated sedated on the ventilator improved wheezing Objective Vital Signs Date Time Temp Pulse Resp B/P Pulse Ox O2 Delivery O2 Flow Rate FiO2 12/31/16 04:14 100 30 12/31/16 02:00 97 12/31/16 00:00 Mechanical Ventilator 12/31/16 00:00 99.4 27 103/74 12/30/16 08:22 35.00 Intake and Output 12/30/16 12/30/16 12/31/16 08:00 16:00 00:00 Intake Total 448 ml 286 ml 199 ml Output Total 1050 ml 1000 ml 350 ml Balance -602 ml -714 ml -151 ml Result Diagram: 12/31/16 0347 12/31/16 0347 Other Results Laboratory Tests Test 12/30/16 12/30/16 12/30/16 12:10 14:54 17:08 Blood Gas Puncture Site RT RADIAL RT RADIAL RT RADIAL Blood Gas Patient Temperature 98.6 98.6 98.6 Blood Gas HCO3 44 mmol/L 46 mmol/L 40 mmol/L (22-26) (22-26) (22-26) Blood Gas Base Excess 17.9 mmol/L 18.8 mmol/L 14.9 mmol/L (-2-2) (-2-2) (-2-2) Blood Gas Oxygen Saturation 91 % (90-100) 90 % (90-100) 96 % (90-100) Arterial Blood pH 7.37 7.27 7.48 (7.380-7.420) (7.380-7.420) (7.380-7.420) Arterial Blood Partial 78 mmHg (38-42) 106 mmHg 54 mmHg (38-42) Pressure CO2 (38-42) Arterial Blood Partial 75 mmHg 78 mmHg 162 mmHg Pressure O2 (61-120) (61-120) (61-120) Arterial Blood Oxygen Content 12.2 Vol % 12.3 Vol % 11.4 Vol % (12.0-20.0) (12.0-20.0) (12.0-20.0) Arterial Blood 2.2 % (0-4) 2.1 % (0-4) 2.6 % (0-4) Carboxyhemoglobin Arterial Blood Methemoglobin 1.2 % (0-2) 1.1 % (0-2) 1.2 % (0-2) Blood Gas Hemoglobin 9.5 G/DL 9.6 G/DL 8.2 G/DL (12.0-16.0) (12.0-16.0) (12.0-16.0) Oxygen Delivery Device HI-FLOW NC BIPAP VENTILATOR Blood Gas Liter Flow 30 L/M Blood Gas Inspired Oxygen 35 % 35 % 40 % Blood Gas Ventilator Setting IPAP 10/EPAP 5 AC/12/550/PEEP 5 Imaging Last Impressions Chest X-Ray 12/26/16 0000 Signed Impressions: Service Date/Time: Monday, December 26, 2016 06:02 - CONCLUSION: Medial right basilar infiltrate Erich Allison MD Head CT 12/25/16 0000 Signed Impressions: Service Date/Time: Sunday, December 25, 2016 04:14 - CONCLUSION: 1. No acute intracranial abnormalities. Mild white matter ischemic changes. Lee Uribe MD CT Angiography 12/24/16 0000 Signed Impressions: Service Date/Time: Sunday, December 25, 2016 01:40 - CONCLUSION: 1. Negative for pulmonary embolus. 2. There is suspected extensive mucoid plugging involving a portion of the distal right mainstem bronchus, right upper lobe bronchus and bronchus intermedius extending into segmental branches in both the right middle lobe and right lower lobe. Cannot exclude an endobronchial lesion. A small right-sided pleural effusion. 3. Severe emphysema. Lee Uribe MD Abdomen/Pelvis CT 12/24/16 0000 Signed Impressions: Service Date/Time: Sunday, December 25, 2016 01:36 - CONCLUSION: 1. Right-sided psoas hematoma measuring about 4.7 cm in maximum diameter and extending over a length of about 7 cm. 2. Previous bowel anastomosis with dilated loops of small bowel proximally with air fluid levels. Differential diagnosis includes a partial or early obstruction. 3. [place] ventral hernia near umbilicus containing a loop of constipated colon. 4. Small right pleural effusion. Lee Uribe MD Objective Remarks GENERAL: Patient is lying in bed in intubated sedated SKIN: Warm and dry. HEAD: Normocephalic. EYES: No scleral icterus. No injection or drainage. NECK: Supple, trachea midline. No JVD or lymphadenopathy. CARDIOVASCULAR: Tachycardic without murmurs, gallops, or rubs. RESPIRATORY: Breath sounds equal bilaterally, improved air entry. Mild expiratory wheezing bilaterally GASTROINTESTINAL: Abdomen soft, non-tender, nondistended. MUSCULOSKELETAL: No cyanosis, or edema. NEURO: Intubated sedated with propofol. Moves all extremities Procedures sp bronchoscopy A/P Assessment and Plan NEURO: Propofol for sedation and ventilator synchrony Daily sedation vacation in 24 hours RESP: Acute hypercapnic respiratory failure Acute COPD exacerbation History of right upper lobe lung mass biopsy 2007granulomatous inflammation. Cytology negative for malignancy R mainstem mucous plugging, resolved Tobacco abuse Failed BiPAP, required endotracheal intubation and mechanical ventilation 12/30/16 DuoNeb every 4 hoursand PRN IV Solu-Medrol 60 every 6 hours Pulm is following- Continue empiric ABX, DC Azactam today CV: Sinus tachycardia History of hypertension Continue Cardizem 60mg QID monitor HR and BP keep MAP>65mmHg GI: Ileus resolved Reducible ventral hernia Severe chronic protein energy malnutrition R psoas hematoma (see below) Small bowel x-ray 12/17/[address] abd/pelvis with dilated small bowel ?early obstruction. Surgery has followed Continue with bowel regimen( Pericolace, Fátima lax, Senna) FEN/RENAL: Monitor renal function, electrolytes replacement per protocol. D/c IVF ID: Acute tracheobronchitis, healthcare associated DC aztreonam 2 g IV every 8 hours today 12/31/16, Continue Levaquin 750 mg IV daily. Monitor for signs of infections ( Fever, WBC) HEME: Right psoas hematoma Patient denies trauma or symptoms. Coags are normal. ENDO: SSI for glycemic control PROPH: SCDs for DVT prophylaxis. Not on Pharmacologic DVT prophylaxis due to psoas hematoma. Protonix 40 mg IV daily for stress ulcer prophylaxis. ACCESS: Peripheral IV providing adequate access at this time. CCT 35 min Addendum: Repeat ABG after 1 hour BiPAP shows pH of 7.27 PCO2 was sent to 106. Patient is still tachypneic, using accessory muscles. She is agreeable endotracheal intubation. We'll proceed with intubation and mechanical ventilation Additional critical care time 32 minutes Total CCT 77 MIN excluding procedures Yuriy Jung MD Dec 31, 2016 07:17
[2016-12-31] MEDS: RESP: ACETYLCYSTEINE 20% 30 ML NEB NEB SCH ×3 (07:26→23:52)
[2016-12-31] MEDS: DOXAZOSIN MESYLATE 2 MG TAB PO SCH (09:09)
[2016-12-31] MEDS: guaiFENesin E.R. 600 MG TAB PO SCH ×2 (09:09→21:18)
[2016-12-31] MEDS: DILTIAZEM HCL 60 MG TAB PO SCH ×4 (09:09→21:18)
[2016-12-31] MEDS: DOCUSATE SODIUM 50 MG/SENNA 8.6 MG TAB PO SCH ×2 (09:09→21:00)
[2016-12-31] MEDS: PANTOPRAZOLE SODIUM 40 MG VIAL IV SCH (09:09)
[2016-12-31] MEDS: SODIUM CHLORIDE 0.9% FLUSH 10 ML FLUSH SCH ×2 (09:10→21:18)
[2016-12-31] MEDS: POLYETHYLENE GLYCOL 17 GM PKG PO SCH (09:11)
--- NOTE | 2016-12-31 13:33 | HHI.PR ---
Subjective Remarks 66 YO AA female with severe COPD, Ch. resp insuff,Hypercapnoic RF CT chest Mucous plugging No fever or chills Anxious Intubated due to worsening resp status Sedated Objective Vital Signs Vital Signs Date Time Temp Pulse Resp B/P Pulse Ox O2 Delivery O2 Flow Rate FiO2 12/31/16 12:00 100 Mechanical Ventilator 30 12/31/16 12:00 98.3 84 14 139/92 100 12/31/16 12:00 30 12/31/16 12:00 84 12/31/16 11:26 100 30 12/31/16 10:00 103 12/31/16 08:00 98.7 103 17 141/81 100 12/31/16 08:00 100 Mechanical Ventilator 30 12/31/16 08:00 103 12/31/16 07:25 100 30 12/31/16 06:00 102 12/31/16 04:14 100 30 12/31/16 04:00 101 12/31/16 04:00 100 Mechanical Ventilator 30 12/31/16 04:00 99.0 101 14 128/81 100 12/31/16 02:00 97 12/31/16 00:13 100 30 12/31/16 00:00 100 Mechanical Ventilator 30 12/31/16 00:00 99.4 97 27 103/74 100 12/31/16 00:00 97 12/30/16 22:00 101 12/30/16 20:03 100 30 12/30/16 20:00 99.3 104 33 126/79 100 12/30/16 20:00 104 12/30/16 20:00 100 Mechanical Ventilator 30 12/30/16 18:00 102 12/30/16 16:00 Mechanical Ventilator 40 12/30/16 16:00 102 12/30/16 16:00 98.4 101 20 77/65 96 12/30/16 15:52 100 40 12/30/16 14:00 102 12/30/16 13:48 96 35 I/O 12/30/16 12/30/16 12/30/16 12/31/16 12/31/16 12/31/16 07:00 15:00 23:00 07:00 15:00 23:00 Intake Total 448 ml 286 ml 199 ml 221 ml Output Total 1050 ml 1000 ml 350 ml 225 ml Balance -602 ml -714 ml -151 ml -4 ml Intake Oral 300 ml 120 ml 0 ml 0 ml IV Total 148 ml 166 ml 199 ml 221 ml Output Urine Total 1050 ml 1000 ml 350 ml 225 ml # Bowel Movements 0 0 1 Result Diagram: 12/31/1634612/31/16346 Objective Remarks GENERAL: Thin built AA female, sob, uses accessory muscles SKIN: Warm and dry. HEAD: Normocephalic. EYES: No scleral icterus. No injection or drainage. NECK: Supple, trachea midline. No JVD or lymphadenopathy. CARDIOVASCULAR: Regular rate and rhythm without murmurs, gallops, or rubs. RESPIRATORY: Breath sounds equal bilaterally. No accessory muscle use. Decreased chest excursion GASTROINTESTINAL: Abdomen soft, non-tender, nondistended. MUSCULOSKELETAL: No cyanosis, or edema. BACK: Nontender without obvious deformity. No CVA tenderness. A/P Assessment and Plan Hypercapnoic RF VDRF Severe COPD Anxiety Mucous plugging HTN PLAN: Vent support AC 14, TV 500, Decrease Fi02 30% Cont Abx Aerosol nebs Solumedrol 40 mg q 6 hrs Buspar 5 mg tid CPAP trial Rolando Mejia MD Dec 31, 2016 13:33
[2017-01-01] VITALS (38 sets, daily range): BP systolic 113–171; BP diastolic 71–101; PULSE 79–118; RESP 14–69; TEMP 97.5–98.8; O2SAT 97–100
[2017-01-01] MEDS: methylPREDNISolone SOD SUCC 40 MG/1 ML VIAL IV SCH ×4 (01:50→22:41)
[2017-01-01] MEDS: RESP: ALBUTEROL 2.5 MG/IPRATROPIUM 0.5 MG NEB (SCH) NEB ×6 (03:32→23:10)
[2017-01-01] MEDS: INSULIN NovoLIN REGULAR SUPPLEMENTAL SCALE SQ SCH ×4 (04:00→22:45)
[2017-01-01] MEDS: CHLORHEXIDINE GLUCONATE 2 % 1 PACK (2 CLOTHS) TOP SCH (04:00)
--- NOTE | 2017-01-01 04:31 | RADRPT ---
EXAM DATE/TIME: 01/01/2017 03:43 [facility] COMPARISON: CHEST SINGLE AP, December 30, 2016, 15:40. INDICATIONS : Shortness of breath, possible pulmonary disease. MEDICAL HISTORY : Chronic obstructive pulmonary disease. SURGICAL HISTORY : None. ENCOUNTER: Subsequent ACUITY: 1 week PAIN SCORE: Non-responsive. LOCATION: Bilateral chest FINDINGS: NG tube is present with tip in the stomach. ET tube is present with tip overlapping approximately 4 c m above the liset. COPD is again seen. Heart and mediastinum are unremarkable for technique. The debbie gs are clear without infiltrate, nodule, or mass. There is no appreciable pleural effusion for techn ique. Heart and mediastinum are unremarkable. CONCLUSION: No acute cardiopulmonary disease. Lorri Engel MD on January 01, 2017 at 4:28 Board Certified Radiologist. This report was verified electronically.
[2017-01-01] MEDS: PROPOFOL 1000 MG/100 ML IV SCH (05:03)
[2017-01-01] MEDS: LEVOFLOXACIN 750 MG PREMIX INJ 150 ML IV SCH (05:04)
[2017-01-01] MEDS: busPIRone HCL 5 MG TAB PO SCH ×3 (05:06→22:34)
[2017-01-01 06:47] LABS: AUTOMATED NEUTROPHIL # 8.8 TH/MM3 (1.8-7.7); EOSINOPHIL % 0.1 % (0.0-4.0); LYMPH % 4.1 % (9.0-44.0); LYMPHOCYTE # 0.4 TH/MM3 (1.0-4.8); MEAN CELL VOLUME 74.2 FL (80.0-100.0); MEAN CORPUSCULAR HEMOGLOBIN 23.7 PG (27.0-34.0); MEAN CORPUSCULAR HGB CONC 31.9 % (32.0-36.0); MONO % 3.6 % (0.0-8.0); NEUT % 92.2 % (16.0-70.0); PLATELET COUNT 426 TH/MM3 (150-450); RED BLOOD COUNT 3.91 MIL/MM3 (4.00-5.30); RED CELL DISTRIBUTION WIDTH 19.4 % (11.6-17.2); WHITE BLOOD COUNT 9.5 TH/MM3 (4.0-11.0)
[2017-01-01 06:49] LABS: HEMO FLAGS AUTO DIFF
[2017-01-01 07:24] LABS: ALKALINE PHOSPHATASE 87 U/L (45-117); ALT (GPT) 30 U/L (10-53); ANION GAP 6 MEQ/L (5-15); AST (GOT) 14 U/L (15-37); BICARBONATE 38.6 MEQ/L (21.0-32.0); BLOOD UREA NITROGEN 24 MG/DL (7-18); CHLORIDE 91 MEQ/L (98-107); GLOMERULAR FILTRATION RATE 117 ML/MIN (>89); MAGNESIUM 2.2 MG/DL (1.5-2.5); SODIUM (NA) 136 MEQ/L (136-145); TOTAL BILIRUBIN ADULT 0.2 MG/DL (0.2-1.0)
[2017-01-01 07:51] LABS: POTASSIUM 2.9 MEQ/L (3.5-5.1)
[2017-01-01] MEDS: DOXAZOSIN MESYLATE 2 MG TAB PO SCH (08:03)
[2017-01-01] MEDS: DILTIAZEM HCL 60 MG TAB PO SCH ×4 (08:04→22:33)
[2017-01-01] MEDS: AZTREONAM INJ 2,000 MG in SODIUM CHLORIDE 0.9% INJ 100 ML IV SCH ×3 (08:04→22:42)
[2017-01-01] MEDS: PANTOPRAZOLE SODIUM 40 MG VIAL IV SCH (08:04)
[2017-01-01] MEDS: DOCUSATE SODIUM 50 MG/SENNA 8.6 MG TAB PO SCH ×2 (08:04→22:34)
[2017-01-01] MEDS: guaiFENesin E.R. 600 MG TAB PO SCH ×2 (08:04→22:33)
[2017-01-01] MEDS: SODIUM CHLORIDE 0.9% FLUSH 10 ML FLUSH SCH ×2 (08:05→22:33)
[2017-01-01] MEDS: POLYETHYLENE GLYCOL 17 GM PKG PO SCH (08:05)
[2017-01-01] MEDS ORDERED: POTASSIUM PHOSPHATE INJ 30 MMOL in SODIUM CHLOR 0.9% 250 ML INJ 250 ML IV PRN (08:15)
[2017-01-01] MEDS ORDERED: MAGNESIUM SULFATE INJ 4 GM in SODIUM CHLORIDE 0.9% INJ 92 ML IV PRN (08:15)
[2017-01-01] MEDS ORDERED: POTASSIUM PHOSPHATE MONOBASIC 500 MG TAB PO/TUBE PRN (08:15)
[2017-01-01] MEDS ORDERED: POTASSIUM CHLORIDE 25 MEQ EFFERVESCENT TAB PO PRN (08:15)
[2017-01-01] MEDS ORDERED: MAGNESIUM OXIDE 400 MG TAB PO PRN (08:15)
[2017-01-01] MEDS ORDERED: POTASSIUM CHLOR 20 MEQ PREMIX 100 ML IV PRN (08:15)
[2017-01-01] MEDS ORDERED: SODIUM PHOSPHATE INJ 30 MMOL in SODIUM CHLOR 0.9% 250 ML INJ 240 ML IV PRN (08:15)
[2017-01-01] MEDS ORDERED: MAGNESIUM SULFATE INJ 2 GM in SODIUM CHLORIDE 0.9% INJ 96 ML IV PRN (08:15)
[2017-01-01] MEDS ORDERED: POTASSIUM PHOSPHATE MONOBASIC 500 MG TAB PO PRN (08:15)
[2017-01-01] MEDS ORDERED: POTASSIUM CHLOR 40 MEQ PREMIX 100 ML IV PRN ×2 (08:15)
[2017-01-01 08:46] LABS: BANDS 3 % (0-6); CORRECTED NUCLEATED RBC 1 /100 WBC (0-0); METAMYELOCYTES 1 % (0-1); MYELOCYTES 7 % (0-0); NEUTROPHIL # MANUAL DIFF 9.2 TH/MM3 (1.8-7.7); POLYS (SEG NEUTROPHILS) 86 % (16-70); WBC DIFF SAMPLE 100
[2017-01-01 08:48] LABS: TARGET CELLS 1+ (NORMAL)
[2017-01-01 08:49] LABS: ACANTHOCYTES OCC (NORMAL)
[2017-01-01 08:50] LABS: OVALOCYTES 1+ (NORMAL); PLATELET ESTIMATE SMEAR HIGH (NORMAL); PLATELET MORPHOLOGY NORMAL (NORMAL); SCAN/DIFF FINAL DIFF MANUAL
[2017-01-01] MEDS: POTASSIUM CHLOR 20 MEQ PREMIX 100 ML IV PRN ×4 (09:45→16:33)
--- NOTE | 2017-01-01 11:11 | HHI.CCPN ---
Subjective Remarks/Hospital Course 66-year-old female with past medical history of COPD, hypertension, tobacco abuse who presents to [facility] emergency department from a skilled nursing ([facility]) due to shortness of breath. She states she has been in skilled nursing for 1-1/2 months after she fell and sustained a left hip fracture requiring left hip arthroplasty at [facility] in [facility]. She was hypertensive, tachycardic and anxious upon E VAC arrival. She was administered 2 L normal saline bolus and magnesium sulfate prior to arrival. She was placed on BiPAP 15/5 40%. ABG demonstrated acute on chronic hypercapnic respiratory failure with pH 7.36/PaCO2 58/PA O2 of 109. She was very anxious on BiPAP and was started on Precedex for BiPAP tolerance. Chest x-ray demonstrates hyperinflation with possible right lower lobe infiltrate. She received DuoNeb 3, Solu-Medrol 125 mg IV, aztreonam, as azithromycin in the emergency department. CT pulmonary angiogram was negative for pulmonary embolism. There is severe emphysema and mucous plugging in the right mainstem bronchus. Unable to rule out endobronchial lesion. Patient has cough with large amount of thick yellow sputum production so was taken off Bipap and placed on HFNC 30 L/min 40% FIO2. She states she is feeling better than she was on arrival. CT abdomen/pelvis demonstrated a 4.7 cm right psoas hematoma, 7 cm length . She has a prior bowel anastomosis with small bowel dilatation which may represent partial or early obstruction. Hgb 9.5. Patient denies more recent fall. She denies abdominal pain, flank pain, nausea, vomiting. Does not recall her last bowel movement 12/26 Patient is on 4L oxygen with good sats. Afebrile. 12/30: CCM reconsulted today for worsening COPD exacerbation. Patient is tachypneic, shallow breathing and respiratory rate varying from 35-40. Patient isn't using BiPAP but his bilirubin for endotracheal intubation if need be. After discussion with the patient she is agreeable to attempt BiPAP after IV Ativan. I have written for Ativan and Precedex to be started if needed. I have explained to the patient that she may need endotracheal intubation if not improved in the next 2 hours. ABG shows worsening CO2 retention, now 78 12/31: Patient developed worsening hypercapnic respiratory failure on BiPAP required intubation yesterday evening. Postintubation PCO2 improved from 106 to 54. Currently remains intubated sedated on the ventilator improved wheezing 01/01: Appears comfortable on the ventilator. Follows commands when sedation is held. Wheezing improved. Chest x-ray unchanged Objective Vital Signs Date Time Temp Pulse Resp B/P Pulse Ox O2 Delivery O2 Flow Rate FiO2 01/01/17 10:00 103 01/01/17 09:47 30 01/01/17 08:00 97.5 14 161/101 100 01/01/17 08:00 Mechanical Ventilator 12/30/16 08:22 35.00 Intake and Output 12/31/16 12/31/16 01/01/17 08:00 16:00 00:00 Intake Total 221 ml 578 ml 268 ml Output Total 225 ml 775 ml 475 ml Balance -4 ml -197 ml -207 ml Result Diagram: 01/01/17 0455 01/01/17 0455 Imaging Last Impressions Chest X-Ray 12/26/16 0000 Signed Impressions: Service Date/Time: Monday, December 26, 2016 06:02 - CONCLUSION: Medial right basilar infiltrate Erich Allison MD Head CT 12/25/16 0000 Signed Impressions: Service Date/Time: Sunday, December 25, 2016 04:14 - CONCLUSION: 1. No acute intracranial abnormalities. Mild white matter ischemic changes. Lee Uribe MD CT Angiography 12/24/16 0000 Signed Impressions: Service Date/Time: Sunday, December 25, 2016 01:40 - CONCLUSION: 1. Negative for pulmonary embolus. 2. There is suspected extensive mucoid plugging involving a portion of the distal right mainstem bronchus, right upper lobe bronchus and bronchus intermedius extending into segmental branches in both the right middle lobe and right lower lobe. Cannot exclude an endobronchial lesion. A small right-sided pleural effusion. 3. Severe emphysema. Lee Uribe MD Abdomen/Pelvis CT 12/24/16 0000 Signed Impressions: Service Date/Time: Sunday, December 25, 2016 01:36 - CONCLUSION: 1. Right-sided psoas hematoma measuring about 4.7 cm in maximum diameter and extending over a length of about 7 cm. 2. Previous bowel anastomosis with dilated loops of small bowel proximally with air fluid levels. Differential diagnosis includes a partial or early obstruction. 3. Widemouth ventral hernia near umbilicus containing a loop of constipated colon. 4. Small right pleural effusion. Lee Uribe MD Objective Remarks GENERAL: Patient is lying in bed in intubated sedated SKIN: Warm and dry. HEAD: Normocephalic. EYES: No scleral icterus. No injection or drainage. NECK: Supple, trachea midline. No JVD or lymphadenopathy. CARDIOVASCULAR: No murmurs, gallops, or rubs. RESPIRATORY: Breath sounds equal bilaterally, improved air entry. Mild expiratory wheezing bilaterally, now improved GASTROINTESTINAL: Abdomen soft, non-tender, nondistended. MUSCULOSKELETAL: No cyanosis, or edema. NEURO: Intubated sedated with propofol. Moves all extremities. 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 Cytology negative for malignancy R mainstem mucous plugging, resolved Tobacco abuse Failed BiPAP, required endotracheal intubation and mechanical ventilation 12/30/16 DuoNeb every 4 hoursand PRN IV Solu-Medrol 60 every 6 hours Pulm is following- Continue empiric ABX, DC Azactam today SBT for possible extubation today CV: Sinus tachycardia History of hypertension Continue Cardizem 60mg QID monitor HR and BP keep MAP>65mmHg GI: Ileus resolved Reducible ventral hernia Severe chronic protein energy malnutrition R psoas hematoma (see below) Small bowel x-ray 12/17/[address] abd/pelvis with dilated small bowel ?early obstruction. Surgery has followed Continue with bowel regimen( Pericolace, Fátima lax, Senna) FEN/RENAL: Monitor renal function, electrolytes replacement per protocol. D/c IVF ID: Acute tracheobronchitis, healthcare associated DCd aztreonam 2 g IV every 8 hours today 12/31/16, Continue Levaquin 750 mg IV daily. Monitor for signs of infections ( Fever, WBC) HEME: Right psoas hematoma Patient denies trauma or symptoms. Coags are normal. ENDO: SSI for glycemic control PROPH: SCDs for DVT prophylaxis. Not on Pharmacologic DVT prophylaxis due to psoas hematoma. Protonix 40 mg IV daily for stress ulcer prophylaxis. ACCESS: Peripheral IV providing adequate access at this time. Level 2 Yuriy Jung MD Jan 01, 2017 11:11
[2017-01-01 11:19] LABS: BLOOD GAS BASE EXCESS 12.8 mmol/L (-2-2); BLOOD GAS HCO3 37 mmol/L (22-26); BLOOD GAS O2 HGB SATURATION 93 % (90-100); BLOOD GAS OXYGEN CONTENT 12.3 Vol % (12.0-20.0); BLOOD GAS PCO2 54 mmHg (38-42); BLOOD GAS PO2 80 mmHg (61-120); BLOOD GAS TOTAL HGB 9.3 G/DL (12.0-16.0); CRITICAL VALUE YES; DRAW SITE LT RADIAL; FIO2 30 %; NUMBER OF ARTERIAL PUNCTURES 1; TEMP CORR TO 98.6; ULNAR PULSE Y
[2017-01-01 11:20] LABS: STAT NO
--- NOTE | 2017-01-01 14:26 | HHI.PR ---
Subjective Remarks 66 YO AA female with severe COPD, Ch. resp insuff,Hypercapnoic RF CT chest Mucous plugging No fever or chills Anxious Extubated On NC, weak, tired Objective Vital Signs Vital Signs Date Time Temp Pulse Resp B/P Pulse Ox O2 Delivery O2 Flow Rate FiO2 01/01/17 12:28 100 Nasal Cannula 3 01/01/17 10:00 103 01/01/17 09:47 30 01/01/17 08:00 79 01/01/17 08:00 30 01/01/17 08:00 97.5 79 14 161/101 100 01/01/17 08:00 100 Mechanical Ventilator 30 01/01/17 07:16 100 30 01/01/17 06:00 82 01/01/17 05:30 102 01/01/17 05:00 81 01/01/17 04:30 84 14 128/83 100 01/01/17 04:30 84 01/01/17 04:03 100 30 01/01/17 04:00 30 01/01/17 04:00 100 Mechanical Ventilator 30 01/01/17 04:00 97.8 84 14 139/92 100 01/01/17 04:00 84 01/01/17 03:30 80 14 132/71 100 01/01/17 03:00 83 14 124/79 100 01/01/17 03:00 83 01/01/17 02:30 82 01/01/17 02:30 82 14 129/79 100 01/01/17 02:00 86 14 143/88 100 01/01/17 02:00 86 01/01/17 01:30 82 14 138/88 100 01/01/17 01:30 82 01/01/17 01:02 100 30 01/01/17 01:00 79 01/01/17 01:00 79 14 113/78 100 01/01/17 00:30 82 01/01/17 00:30 82 14 118/76 100 01/01/17 00:00 30 01/01/17 00:00 97.7 112 16 123/82 100 01/01/17 00:00 112 01/01/17 00:00 100 Mechanical Ventilator 30 12/31/16 23:30 78 12/31/16 23:30 78 14 127/84 100 12/31/16 23:00 80 14 119/77 100 12/31/16 23:00 80 12/31/16 22:30 82 14 111/75 100 12/31/16 22:20 100 30 12/31/16 22:00 86 12/31/16 22:00 86 14 120/81 100 12/31/16 21:30 85 14 125/82 98 12/31/16 21:00 83 14 142/93 100 12/31/16 20:00 83 12/31/16 20:00 30 12/31/16 20:00 97.5 83 14 147/89 97 12/31/16 20:00 100 Mechanical Ventilator 30 12/31/16 19:36 100 30 12/31/16 18:00 87 12/31/16 16:00 100 Mechanical Ventilator 30 12/31/16 16:00 97.5 82 14 124/70 100 12/31/16 16:00 30 12/31/16 16:00 82 12/31/16 15:22 100 30 I/O 12/31/16 12/31/16 12/31/16 01/01/17 01/01/17 01/01/17 07:00 15:00 23:00 07:00 15:00 23:00 Intake Total 221 ml 578 ml 268 ml 257 ml Output Total 225 ml 775 ml 475 ml 245 ml Balance -4 ml -197 ml -207 ml 12 ml Intake Oral 0 ml 240 ml 0 ml 0 ml IV Total 221 ml 338 ml 268 ml 197 ml Tube Irrigant 60 ml Output Urine Total 225 ml 775 ml 475 ml 245 ml # Bowel Movements 1 0 0 Result Diagram: 01/01/17 0455 01/01/17 0455 Objective Remarks GENERAL: Thin built AA female, sob, uses accessory muscles SKIN: Warm and dry. HEAD: Normocephalic. EYES: No scleral icterus. No injection or drainage. NECK: Supple, trachea midline. No JVD or lymphadenopathy. CARDIOVASCULAR: Regular rate and rhythm without murmurs, gallops, or rubs. RESPIRATORY: Breath sounds equal bilaterally. No accessory muscle use. Decreased chest excursion GASTROINTESTINAL: Abdomen soft, non-tender, nondistended. MUSCULOSKELETAL: No cyanosis, or edema. BACK: Nontender without obvious deformity. No CVA tenderness. A/P Assessment and Plan Hypercapnoic RF S/P Extubation Severe COPD Anxiety Mucous plugging HTN PLAN: Supplement 02 Cont Abx Aerosol nebs Solumedrol 40 mg q 6 hrs Buspar 5 mg tid Rolando Mejia MD Jan 01, 2017 14:26
[2017-01-01] MEDS: RESP: ACETYLCYSTEINE 20% 30 ML NEB NEB SCH (19:36)
[2017-01-02] VITALS (20 sets, daily range): BP systolic 114–157; BP diastolic 71–88; PULSE 85–116; RESP 17–84; TEMP 98.4–98.6; O2SAT 96–100
[2017-01-02] MEDS: RESP: ALBUTEROL 2.5 MG/IPRATROPIUM 0.5 MG NEB (SCH) NEB ×6 (03:20→23:34)
[2017-01-02] MEDS: CHLORHEXIDINE GLUCONATE 2 % 1 PACK (2 CLOTHS) TOP SCH (04:00)
[2017-01-02] MEDS: INSULIN NovoLIN REGULAR SUPPLEMENTAL SCALE SQ SCH ×3 (04:00→20:19)
[2017-01-02] MEDS: methylPREDNISolone SOD SUCC 40 MG/1 ML VIAL IV SCH ×4 (04:57→20:19)
[2017-01-02] MEDS: LEVOFLOXACIN 750 MG PREMIX INJ 150 ML IV SCH (04:58)
[2017-01-02] MEDS: busPIRone HCL 5 MG TAB PO SCH ×3 (04:59→20:18)
--- NOTE | 2017-01-02 07:29 | HHI.CCPN ---
Subjective Remarks/Hospital Course 66-year-old female with past medical history of COPD, hypertension, tobacco abuse who presents to [facility] emergency department from a intermediate ([facility]) due to shortness of breath. She states she has been in intermediate for 1-1/2 months after she fell and sustained a left hip fracture requiring left hip arthroplasty at [facility] in [facility]. She was hypertensive, tachycardic and anxious upon E VAC arrival. She was administered 2 L normal saline bolus and magnesium sulfate prior to arrival. She was placed on BiPAP 15/5 40%. ABG demonstrated acute on chronic hypercapnic respiratory failure with pH 7.36/PaCO2 58/PA O2 of 109. She was very anxious on BiPAP and was started on Precedex for BiPAP tolerance. Chest x-ray demonstrates hyperinflation with possible right lower lobe infiltrate. She received DuoNeb 3, Solu-Medrol 125 mg IV, aztreonam, as azithromycin in the emergency department. CT pulmonary angiogram was negative for pulmonary embolism. There is severe emphysema and mucous plugging in the right mainstem bronchus. Unable to rule out endobronchial lesion. Patient has cough with large amount of thick yellow sputum production so was taken off Bipap and placed on HFNC 30 L/min 40% FIO2. She states she is feeling better than she was on arrival. CT abdomen/pelvis demonstrated a 4.7 cm right psoas hematoma, 7 cm length . She has a prior bowel anastomosis with small bowel dilatation which may represent partial or early obstruction. Hgb 9.5. Patient denies more recent fall. She denies abdominal pain, flank pain, nausea, vomiting. Does not recall her last bowel movement 12/26 Patient is on 4L oxygen with good sats. Afebrile. 12/30: CCM reconsulted today for worsening COPD exacerbation. Patient is tachypneic, shallow breathing and respiratory rate varying from 35-40. Patient isn't using BiPAP but his bilirubin for endotracheal intubation if need be. After discussion with the patient she is agreeable to attempt BiPAP after IV Ativan. I have written for Ativan and Precedex to be started if needed. I have explained to the patient that she may need endotracheal intubation if not improved in the next 2 hours. ABG shows worsening CO2 retention, now 78 12/31: Patient developed worsening hypercapnic respiratory failure on BiPAP required intubation yesterday evening. Postintubation PCO2 improved from 106 to 54. Currently remains intubated sedated on the ventilator improved wheezing 01/01: Appears comfortable on the ventilator. Follows commands when sedation is held. Wheezing improved. Chest x-ray unchanged 01/02 Patient s/p extubation yesterday. On 2L oxygen with good sats. Afebrile. Objective Vital Signs Date Time Temp Pulse Resp B/P Pulse Ox O2 Delivery O2 Flow Rate FiO2 01/02/17 06:00 101 01/02/17 05:00 84 114/86 99 01/02/17 04:00 Nasal Cannula 2.00 01/02/17 04:00 98.5 01/01/17 12:00 30 Intake and Output 01/01/17 01/01/17 01/02/17 08:00 16:00 00:00 Intake Total 257 ml 654 ml 912 ml Output Total 245 ml 625 ml 330 ml Balance 12 ml 29 ml 582 ml Result Diagram: 01/01/17 0455 01/01/17 2230 Other Results Laboratory Tests Test 01/01/17 01/01/17 11:12 22:30 Blood Gas Puncture Site LT RADIAL Blood Gas Patient Temperature 98.6 Blood Gas HCO3 37 mmol/L Blood Gas Base Excess 12.8 mmol/L Blood Gas Oxygen Saturation 93 % Arterial Blood pH 7.46 Arterial Blood Partial 54 mmHg Pressure CO2 Arterial Blood Partial 80 mmHg Pressure O2 Arterial Blood Oxygen Content 12.3 Vol % Arterial Blood 2.0 % Carboxyhemoglobin Arterial Blood Methemoglobin 1.0 % Blood Gas Hemoglobin 9.3 G/DL Blood Gas Ventilator Setting Blood Gas Inspired Oxygen 30 % Potassium Level 4.0 MEQ/L Imaging Last Impressions Chest X-Ray 01/01/17 06 Signed Impressions: Service Date/Time: Sunday, January 01, 2017 03:43 - CONCLUSION: No acute cardiopulmonary disease. Lorri Engel MD Small Bowel X-Ray 12/27/16 06 Signed Impressions: Service Date/Time: Tuesday, December 27, 2016 09:23 - CONCLUSION: Unremarkable small bowel examination. No evidence of obstruction Fred Michelle MD Abdomen X-Ray 12/26/16 0000 Signed Impressions: Service Date/Time: Monday, December 26, 2016 09:49 - CONCLUSION: 1. Relatively diffuse mild gaseous distention of the small bowel with a segment that is mildly dilated in the left midabdomen. The degree of distention is less than present on the prior CT. Findings overall are not highly suspicious for obstruction. Patient is currently scheduled for small bowel follow-through examination which will further assess. 2. Stable small right pleural effusion. Erich Stephenson MD Head CT 12/25/16 0000 Signed Impressions: Service Date/Time: Sunday, December 25, 2016 04:14 - CONCLUSION: 1. No acute intracranial abnormalities. Mild white matter ischemic changes. Lee Uribe MD CT Angiography 12/24/16 0000 Signed Impressions: Service Date/Time: Sunday, December 25, 2016 01:40 - CONCLUSION: 1. Negative for pulmonary embolus. 2. There is suspected extensive mucoid plugging involving a portion of the distal right mainstem bronchus, right upper lobe bronchus and bronchus intermedius extending into segmental branches in both the right middle lobe and right lower lobe. Cannot exclude an endobronchial lesion. A small right-sided pleural effusion. 3. Severe emphysema. Lee Uribe MD Abdomen/Pelvis CT 12/24/16 0000 Signed Impressions: Service Date/Time: Sunday, December 25, 2016 01:36 - CONCLUSION: 1. Right-sided psoas hematoma measuring about 4.7 cm in maximum diameter and extending over a length of about 7 cm. 2. Previous bowel anastomosis with dilated loops of small bowel proximally with air fluid levels. Differential diagnosis includes a partial or early obstruction. 3. [place] ventral hernia near umbilicus containing a loop of constipated colon. 4. Small right pleural effusion. Lee Uribe MD Objective Remarks GENERAL: Patient is 66 yo lying in bed in NAD SKIN: Warm and dry. HEAD: Normocephalic. EYES: No scleral icterus. No injection or drainage. NECK: Supple, trachea midline. No JVD or lymphadenopathy. CARDIOVASCULAR: Regular rate and rhythm without murmurs, gallops, or rubs. RESPIRATORY: Breath sounds equal bilaterally. No accessory muscle use. GASTROINTESTINAL: Abdomen soft, non-tender, nondistended. MUSCULOSKELETAL: No cyanosis, or edema. Neuro: awake and alert Procedures sp bronchoscopy A/P Assessment and Plan NEURO: Monitor neuro status and avoid sedatives RESP: Acute hypercapnic respiratory failure- Extubated 6/ Acute COPD exacerbation History of right upper lobe lung mass biopsy 2007granulomatous inflammation. Cytology negative for malignancy R mainstem mucous plugging, resolved Tobacco abuse Continue with oxygen keep sat >92% DuoNeb every 4 hoursand PRN IV Solu-Medrol 60 every 6 hours Pulm is following- NIPPV PRN for resp distress CV: Sinus tachycardia History of hypertension Continue Cardizem 60mg QID, Cardura 2mg daily- monitor HR and BP keep MAP>65mmHg GI: Ileus resolved Reducible ventral hernia Severe chronic protein energy malnutrition R psoas hematoma (see below) Small bowel x-ray 12/17/[address] abd/pelvis with dilated small bowel ?early obstruction. Surgery has followed Continue with bowel regimen( Pericolace, Fátima lax, Senna) Speech eval, diet per speech FEN/RENAL: Monitor renal function, electrolytes replacement per protocol. ID: Acute tracheobronchitis, healthcare associated DCd aztreonam. Continue Levaquin 750 mg IV daily. Monitor for signs of infections ( Fever, WBC) HEME: Right psoas hematoma Patient denies trauma or symptoms. Coags are normal. Monitor CBC ENDO: SSI for glycemic control PROPH: SCDs for DVT prophylaxis. Not on Pharmacologic DVT prophylaxis due to psoas hematoma. Protonix 40 mg IV daily for stress ulcer prophylaxis. ACCESS: Peripheral IV providing adequate access at this time. Will sign off and transfer care to [facility] Level 3 Lakshmi Walker MD Jan 02, 2017 07:29
[2017-01-02] MEDS: RESP: ACETYLCYSTEINE 20% 30 ML NEB NEB SCH ×3 (07:41→23:34)
[2017-01-02] MEDS: guaiFENesin E.R. 600 MG TAB PO SCH ×2 (09:00→20:18)
[2017-01-02] MEDS: PANTOPRAZOLE SODIUM 40 MG VIAL IV SCH (09:00)
[2017-01-02 09:22] LABS: AUTOMATED NEUTROPHIL # 16.7 TH/MM3 (1.8-7.7); BASOPHIL % 0.1 % (0.0-2.0); LYMPH % 1.3 % (9.0-44.0); LYMPHOCYTE # 0.2 TH/MM3 (1.0-4.8); MEAN CELL VOLUME 74.5 FL (80.0-100.0); MEAN CORPUSCULAR HEMOGLOBIN 23.3 PG (27.0-34.0); MEAN CORPUSCULAR HGB CONC 31.2 % (32.0-36.0); MONO % 2.1 % (0.0-8.0); NEUT % 96.5 % (16.0-70.0); PLATELET COUNT 427 TH/MM3 (150-450); RED BLOOD COUNT 4.03 MIL/MM3 (4.00-5.30); RED CELL DISTRIBUTION WIDTH 19.6 % (11.6-17.2); WHITE BLOOD COUNT 17.3 TH/MM3 (4.0-11.0)
[2017-01-02 09:23] LABS: HEMO FLAGS AUTO DIFF
[2017-01-02 09:33] LABS: BICARBONATE 37.8 MEQ/L (21.0-32.0); MAGNESIUM 2.5 MG/DL (1.5-2.5)
[2017-01-02] MEDS: POLYETHYLENE GLYCOL 17 GM PKG PO SCH (09:46)
[2017-01-02] MEDS: DOXAZOSIN MESYLATE 2 MG TAB PO SCH (09:46)
[2017-01-02] MEDS: DILTIAZEM HCL 60 MG TAB PO SCH ×4 (09:46→20:25)
[2017-01-02] MEDS: DOCUSATE SODIUM 50 MG/SENNA 8.6 MG TAB PO SCH ×2 (09:46→20:18)
[2017-01-02] MEDS: ALPRAZolam 0.5 MG TAB PO PRN (09:55)
[2017-01-02 10:00] LABS: BANDS 4 % (0-6); CORRECTED NUCLEATED RBC 1 /100 WBC (0-0); MYELOCYTES 3 % (0-0); NEUTROPHIL # MANUAL DIFF 16.4 TH/MM3 (1.8-7.7); PLATELET ESTIMATE SMEAR NORMAL (NORMAL); PLATELET MORPHOLOGY NORMAL (NORMAL); POLYS (SEG NEUTROPHILS) 88 % (16-70); SCAN/DIFF FINAL DIFF MANUAL; WBC DIFF SAMPLE 100
--- NOTE | 2017-01-02 18:26 | HHI.PR ---
Subjective Remarks 66 YO AA female with severe COPD, Ch. resp insuff,Hypercapnoic RF CT chest Mucous plugging No fever or chills Anxious Up in chair. On NC, weak, tired Objective Vital Signs Vital Signs Date Time Temp Pulse Resp B/P Pulse Ox O2 Delivery O2 Flow Rate FiO2 01/02/17 10:00 101 01/02/17 08:00 98.6 116 24 150/83 98 01/02/17 08:00 101 01/02/17 07:42 100 Nasal Cannula 2.00 01/02/17 06:00 101 01/02/17 05:30 100 01/02/17 05:00 108 01/02/17 05:00 108 84 114/86 99 01/02/17 04:30 97 60 151/86 100 01/02/17 04:30 97 01/02/17 04:00 99 01/02/17 04:00 100 Nasal Cannula 2.00 01/02/17 04:00 98.5 99 60 151/85 100 01/02/17 03:30 96 01/02/17 03:30 96 71 145/85 100 01/02/17 03:00 99 54 153/83 99 01/02/17 03:00 99 01/02/17 02:30 101 61 157/88 99 01/02/17 02:30 101 01/02/17 02:00 94 28 140/83 98 01/02/17 02:00 94 01/02/17 01:30 93 01/02/17 01:30 93 26 134/79 97 01/02/17 01:00 111 01/02/17 01:00 111 53 146/76 96 01/02/17 00:30 85 30 122/75 99 01/02/17 00:30 85 01/02/17 00:30 85 01/02/17 00:00 100 Nasal Cannula 2.00 01/02/17 00:00 98.5 96 17 133/75 100 01/02/17 00:00 96 01/02/17 00:00 96 01/01/17 23:30 101 18 146/79 100 01/01/17 23:30 101 01/01/17 23:00 113 22 155/91 98 01/01/17 23:00 113 01/01/17 22:30 107 63 146/81 99 01/01/17 22:30 107 01/01/17 22:00 109 01/01/17 22:00 109 69 150/85 99 01/01/17 21:30 101 35 134/78 99 01/01/17 21:30 101 01/01/17 21:00 103 53 135/77 99 01/01/17 21:00 103 01/01/17 20:30 103 01/01/17 20:30 103 48 138/81 100 01/01/17 20:00 98.4 103 58 126/80 100 01/01/17 20:00 103 01/01/17 20:00 100 Nasal Cannula 2.00 01/01/17 19:36 97 Nasal Cannula 2.00 01/01/17 19:30 99 01/01/17 19:30 99 25 137/83 99 01/01/17 19:00 98 18 132/77 100 01/01/17 19:00 98 01/01/17 18:30 103 43 137/78 99 I/O 01/01/17 01/01/17 01/01/17 01/02/17 01/02/17 01/02/17 07:00 15:00 23:00 07:00 15:00 23:00 Intake Total 257 ml 654 ml 912 ml 276 ml Output Total 245 ml 625 ml 330 ml 85 ml Balance 12 ml 29 ml 582 ml 191 ml Intake Oral 0 ml 120 ml 120 ml IV Total 197 ml 554 ml 792 ml 156 ml Tube Irrigant 60 ml 100 ml Output Urine Total 245 ml 625 ml 330 ml 85 ml # Bowel Movements 0 0 0 Result Diagram: 01/02/1746 01/02/1746 Objective Remarks GENERAL: Thin built AA female, sob, uses accessory muscles SKIN: Warm and dry. HEAD: Normocephalic. EYES: No scleral icterus. No injection or drainage. NECK: Supple, trachea midline. No JVD or lymphadenopathy. CARDIOVASCULAR: Regular rate and rhythm without murmurs, gallops, or rubs. RESPIRATORY: Breath sounds equal bilaterally. No accessory muscle use. Decreased chest excursion GASTROINTESTINAL: Abdomen soft, non-tender, nondistended. MUSCULOSKELETAL: No cyanosis, or edema. BACK: Nontender without obvious deformity. No CVA tenderness. A/P Assessment and Plan Hypercapnoic RF S/P Extubation Severe COPD Anxiety Mucous plugging HTN PLAN: Supplement 02 Cont Abx Aerosol nebs Solumedrol 40 mg q 6 hrs Buspar 5 mg tid OOB in chair Rolando Mejia MD Jan 02, 2017 18:26
[2017-01-02] MEDS: SODIUM CHLORIDE 0.9% FLUSH 10 ML FLUSH SCH (20:21)
[2017-01-03] VITALS (12 sets, daily range): BP systolic 143–172; BP diastolic 81–98; PULSE 99–128; RESP 16–37; TEMP 98–98.8; O2SAT 99–100
[2017-01-03] MEDS: RESP: ALBUTEROL 2.5 MG/IPRATROPIUM 0.5 MG NEB (SCH) NEB ×3 (03:30→11:52)
[2017-01-03] MEDS: CHLORHEXIDINE GLUCONATE 2 % 1 PACK (2 CLOTHS) TOP SCH (04:00)
[2017-01-03] MEDS: INSULIN NovoLIN REGULAR SUPPLEMENTAL SCALE SQ SCH ×4 (04:00→21:23)
[2017-01-03] MEDS: busPIRone HCL 5 MG TAB PO SCH ×3 (04:56→20:19)
[2017-01-03] MEDS: methylPREDNISolone SOD SUCC 40 MG/1 ML VIAL IV SCH ×3 (04:56→13:17)
[2017-01-03] MEDS: LEVOFLOXACIN 750 MG PREMIX INJ 150 ML IV SCH (04:56)
[2017-01-03 06:34] LABS: AUTOMATED NEUTROPHIL # 23.1 TH/MM3 (1.8-7.7); BASOPHIL % 0.1 % (0.0-2.0); HEMATOCRIT 29.5 % (35.0-46.0); LYMPH % 0.7 % (9.0-44.0); LYMPHOCYTE # 0.2 TH/MM3 (1.0-4.8); MEAN CELL VOLUME 76.2 FL (80.0-100.0); MEAN CORPUSCULAR HEMOGLOBIN 23.2 PG (27.0-34.0); MEAN CORPUSCULAR HGB CONC 30.4 % (32.0-36.0); MONO % 2.3 % (0.0-8.0); NEUT % 96.9 % (16.0-70.0); PLATELET COUNT 374 TH/MM3 (150-450); RED BLOOD COUNT 3.88 MIL/MM3 (4.00-5.30); RED CELL DISTRIBUTION WIDTH 19.1 % (11.6-17.2); WHITE BLOOD COUNT 23.8 TH/MM3 (4.0-11.0)
[2017-01-03 06:36] LABS: HEMO FLAGS AUTO DIFF
[2017-01-03 06:54] LABS: BICARBONATE 43.9 MEQ/L (21.0-32.0); POTASSIUM 4.6 MEQ/L (3.5-5.1)
[2017-01-03 07:58] LABS: ACANTHOCYTES OCC (NORMAL); OVALOCYTES 1+ (NORMAL); SCAN/DIFF AUTO DIFF CONFIRMED; TARGET CELLS 1+ (NORMAL)
[2017-01-03] MEDS: SODIUM CHLORIDE 0.9% FLUSH 10 ML FLUSH SCH ×2 (09:30→20:20)
[2017-01-03] MEDS: guaiFENesin E.R. 600 MG TAB PO SCH ×2 (09:31→20:19)
[2017-01-03] MEDS: PANTOPRAZOLE SODIUM 40 MG VIAL IV SCH (09:31)
[2017-01-03] MEDS: DILTIAZEM HCL 60 MG TAB PO SCH ×4 (09:31→20:19)
[2017-01-03] MEDS: DOCUSATE SODIUM 50 MG/SENNA 8.6 MG TAB PO SCH ×2 (09:31→20:19)
[2017-01-03] MEDS: POLYETHYLENE GLYCOL 17 GM PKG PO SCH (09:31)
[2017-01-03] MEDS: DOXAZOSIN MESYLATE 2 MG TAB PO SCH (09:31)
--- NOTE | 2017-01-03 16:45 | HHI.PR ---
Subjective Remarks patient states breathing better cough- productive of whitsh phlegm- suctions herself Objective Vitals Vital Signs Date Time Temp Pulse Resp B/P Pulse Ox O2 Delivery O2 Flow Rate FiO2 01/03/17 12:00 119 01/03/17 12:00 98.0 119 16 163/95 100 01/03/17 12:00 100 3.00 01/03/17 10:00 114 01/03/17 08:00 100 Nasal Cannula 3.00 01/03/17 08:00 98.4 100 18 155/94 100 01/03/17 08:00 100 01/03/17 08:00 100 Nasal Cannula 3.00 01/03/17 06:00 99 01/03/17 04:00 107 01/03/17 04:00 95 Nasal Cannula 2.00 01/03/17 04:00 98.0 101 21 143/81 100 01/03/17 02:00 103 01/03/17 00:00 94 Nasal Cannula 2.00 01/03/17 00:00 98.2 105 37 151/84 99 01/03/17 00:00 105 01/02/17 22:00 100 01/02/17 20:18 100 Nasal Cannula 2.00 01/02/17 20:00 96 Nasal Cannula 2.00 01/02/17 20:00 110 01/02/17 20:00 98.4 111 18 124/71 100 I/O 01/02/17 01/02/17 01/02/17 01/03/17 01/03/17 01/03/17 07:00 15:00 23:00 07:00 15:00 23:00 Intake Total 276 ml 408 ml 179 ml Output Total 85 ml 550 ml 500 ml Balance 191 ml -142 ml -321 ml Intake Oral 120 ml 200 ml IV Total 156 ml 208 ml 179 ml Output Urine Total 85 ml 550 ml 500 ml # Bowel Movements 0 0 0 Result Diagram: 01/03/17 0501 01/03/17 0501 Imaging Last Impressions Chest X-Ray 01/01/17599 Signed Impressions: Service Date/Time: Sunday, January 01, 2017 03:43 - CONCLUSION: No acute cardiopulmonary disease. Lorri Engel MD Small Bowel X-Ray 12/27/16599 Signed Impressions: Service Date/Time: Tuesday, December 27, 2016 09:23 - CONCLUSION: Unremarkable small bowel examination. No evidence of obstruction Fred Michelle MD Abdomen X-Ray 12/26/16 0000 Signed Impressions: Service Date/Time: Monday, December 26, 2016 09:49 - CONCLUSION: 1. Relatively diffuse mild gaseous distention of the small bowel with a segment that is mildly dilated in the left midabdomen. The degree of distention is less than present on the prior CT. Findings overall are not highly suspicious for obstruction. Patient is currently scheduled for small bowel follow-through examination which will further assess. 2. Stable small right pleural effusion. Erich Stephenson MD Head CT 12/25/16 0000 Signed Impressions: Service Date/Time: Sunday, December 25, 2016 04:14 - CONCLUSION: 1. No acute intracranial abnormalities. Mild white matter ischemic changes. Lee Uribe MD CT Angiography 12/24/16 0000 Signed Impressions: Service Date/Time: Sunday, December 25, 2016 01:40 - CONCLUSION: 1. Negative for pulmonary embolus. 2. There is suspected extensive mucoid plugging involving a portion of the distal right mainstem bronchus, right upper lobe bronchus and bronchus intermedius extending into segmental branches in both the right middle lobe and right lower lobe. Cannot exclude an endobronchial lesion. A small right-sided pleural effusion. 3. Severe emphysema. Lee Uribe MD Abdomen/Pelvis CT 12/24/16 0000 Signed Impressions: Service Date/Time: Sunday, December 25, 2016 01:36 - CONCLUSION: 1. Right-sided psoas hematoma measuring about 4.7 cm in maximum diameter and extending over a length of about 7 cm. 2. Previous bowel anastomosis with dilated loops of small bowel proximally with air fluid levels. Differential diagnosis includes a partial or early obstruction. 3. Widemouth ventral hernia near umbilicus containing a loop of constipated colon. 4. Small right pleural effusion. Lee Uribe MD Objective Remarks awake and alert, oriented x 3 anicteric lungs- decreased breath sounds, no rales or wheezes regular rhythm HR 106-sinus abdomen soft, nontender extremites no edema-no calf swelling, moves all spontaenously Procedures sp bronchoscopy Urinary Catheter: Yes Assessment to: Continue A/P Problem List: (1) Acute hypercapnic respiratory failure ICD Code: J96.02 Status: Acute (2) COPD with exacerbation ICD Code: J44.1 Status: Acute (3) HTN (hypertension) ICD Code: I10 Status: Acute (4) Ileus ICD Code: K56.7 Status: Acute (5) Hematoma ICD Code: T14.8 Status: Chronic (6) Severe protein-calorie malnutrition ICD Code: E43 Status: Acute (7) Anxiety ICD Code: F41.9 Status: Acute Assessment and Plan NEURO: a xox 3 Monitor neuro status and avoid sedatives RESP: Acute hypercapnic respiratory failure- Extubated 01/01 Acute COPD exacerbation History of right upper lobe lung mass biopsy 2007granulomatous inflammation. Cytology negative for malignancy R mainstem mucous plugging, resolved Tobacco abuse Continue with oxygen keep sat >92% DuoNeb every 4 hoursand PRN IV Solu-Medrol 60 every 6 hours - decrease to q 8 today 01/03 - Pulm is following- NIPPV PRN for resp distress CV: Sinus tachycardia History of hypertension Continue Cardizem 60mg QID, Cardura 2mg daily- monitor HR and BP keep MAP>65mmHg GI: Ileus resolved Reducible ventral hernia Severe chronic protein energy malnutrition R psoas hematoma (see below) Small bowel x-ray 12/17/[address] abd/pelvis with dilated small bowel ?early obstruction. Surgery has followed Continue with bowel regimen( Pericolace, Fátima lax, Senna) + BM FEN/RENAL: Monitor renal function, electrolytes replacement per protocol. ID: Acute tracheobronchitis, healthcare associated DCd aztreonam. On Levaquin 750 mg IV daily- 12/25. Monitor for signs of infections - - leukocytosis- on steroids HEME: Right psoas hematoma Leukocytosis- on steroids Patient denies trauma or symptoms. Coags are normal. Monitor CBC Recent Left hip surgery at [facility] - came from rehab facility -PT consult - keep levin- consider DC in am -Out of bed to chair ENDO: SSI for glycemic control PROPH: SCDs for DVT prophylaxis. Not on Pharmacologic DVT prophylaxis due to psoas hematoma. Protonix 40 mg IV daily for stress ulcer prophylaxis. ACCESS: Peripheral IV providing adequate access at this time. Case management consult w- patient need SNF- recent hip surgery- patient came from [facility] post hip surgery from [facility] Jackelyn Castaneda MD Jan 03, 2017 16:45 Jackelyn Castaneda MD Jan 03, 2017 16:45 Jackelyn Castaneda MD Jan 03, 2017 16:45
--- NOTE | 2017-01-03 19:16 | HHI.PR ---
Subjective Remarks 66 YO AA female with severe COPD, Ch. resp insuff,Hypercapnoic RF CT chest Mucous plugging No fever or chills Anxious Up in chair. On NC, weak, tired has cough not able to expactorate Objective Vital Signs Vital Signs Date Time Temp Pulse Resp B/P Pulse Ox O2 Delivery O2 Flow Rate FiO2 01/03/17 18:00 116 01/03/17 16:00 118 01/03/17 16:00 98.6 118 22 172/98 100 01/03/17 16:00 100 Nasal Cannula 6.00 01/03/17 14:00 128 01/03/17 12:00 119 01/03/17 12:00 98.0 119 16 163/95 100 01/03/17 12:00 100 3.00 01/03/17 10:00 114 01/03/17 08:00 100 Nasal Cannula 3.00 01/03/17 08:00 98.4 100 18 155/94 100 01/03/17 08:00 100 01/03/17 08:00 100 Nasal Cannula 3.00 01/03/17 06:00 99 01/03/17 04:00 107 01/03/17 04:00 95 Nasal Cannula 2.00 01/03/17 04:00 98.0 101 21 143/81 100 01/03/17 02:00 103 01/03/17 00:00 94 Nasal Cannula 2.00 01/03/17 00:00 98.2 105 37 151/84 99 01/03/17 00:00 105 01/02/17 22:00 100 01/02/17 20:18 100 Nasal Cannula 2.00 01/02/17 20:00 96 Nasal Cannula 2.00 01/02/17 20:00 110 01/02/17 20:00 98.4 111 18 124/71 100 I/O 01/02/17 01/02/17 01/02/17 01/03/17 01/03/17 01/03/17 07:00 15:00 23:00 07:00 15:00 23:00 Intake Total 276 ml 408 ml 179 ml Output Total 85 ml 550 ml 500 ml 450 ml Balance 191 ml -142 ml -321 ml -450 ml Intake Oral 120 ml 200 ml IV Total 156 ml 208 ml 179 ml Output Urine Total 85 ml 550 ml 500 ml 450 ml # Bowel Movements 0 0 0 1 Result Diagram: 01/03/17 0501 01/03/17 0501 Objective Remarks GENERAL: Thin built AA female, sob, uses accessory muscles SKIN: Warm and dry. HEAD: Normocephalic. EYES: No scleral icterus. No injection or drainage. NECK: Supple, trachea midline. No JVD or lymphadenopathy. CARDIOVASCULAR: Regular rate and rhythm without murmurs, gallops, or rubs. RESPIRATORY: Breath sounds equal bilaterally. No accessory muscle use. Decreased chest excursion GASTROINTESTINAL: Abdomen soft, non-tender, nondistended. MUSCULOSKELETAL: No cyanosis, or edema. BACK: Nontender without obvious deformity. No CVA tenderness. A/P Assessment and Plan Hypercapnoic RF S/P Extubation Severe COPD Anxiety Mucous plugging HTN PLAN: Supplement 02 Cont Abx Aerosol nebs Solumedrol 40 mg q 6 hrs Buspar 5 mg tid OOB in chair tessalon 200 mg tid Rolando Mejia MD Jan 03, 2017 19:16
[2017-01-03] MEDS: methylPREDNISolone SOD SUCC 125 MG/2 ML VIAL IV SCH (20:19)
[2017-01-03] MEDS: RESP: ALBUTEROL 2.5 MG/3 ML NEB (PRN) INH (20:36)
[2017-01-04] VITALS (25 sets, daily range): BP systolic 162–196; BP diastolic 93–108; PULSE 89–121; RESP 19–59; TEMP 98–98.9; O2SAT 100
[2017-01-04] MEDS: LABETALOL HCL 100 MG/20 ML VIAL IV PUSH PRN (00:47)
[2017-01-04] MEDS: CHLORHEXIDINE GLUCONATE 2 % 1 PACK (2 CLOTHS) TOP SCH (04:00)
[2017-01-04] MEDS: INSULIN NovoLIN REGULAR SUPPLEMENTAL SCALE SQ SCH ×4 (04:00→20:24)
[2017-01-04] MEDS: busPIRone HCL 5 MG TAB PO SCH ×3 (04:54→20:26)
[2017-01-04] MEDS: methylPREDNISolone SOD SUCC 125 MG/2 ML VIAL IV SCH ×3 (04:55→20:26)
[2017-01-04] MEDS: LEVOFLOXACIN 750 MG PREMIX INJ 150 ML IV SCH (04:55)
[2017-01-04] MEDS: RESP: ALBUTEROL 2.5 MG/3 ML NEB (PRN) INH (07:38)
[2017-01-04] MEDS: DOXAZOSIN MESYLATE 2 MG TAB PO SCH (08:38)
[2017-01-04] MEDS: POLYETHYLENE GLYCOL 17 GM PKG PO SCH (08:38)
[2017-01-04] MEDS: BENZONATATE 100 MG CAP PO SCH ×3 (08:38→18:46)
[2017-01-04] MEDS: DILTIAZEM HCL 60 MG TAB PO SCH ×2 (08:39→15:15)
[2017-01-04] MEDS: guaiFENesin E.R. 600 MG TAB PO SCH ×2 (08:39→20:27)
[2017-01-04] MEDS: SODIUM CHLORIDE 0.9% FLUSH 10 ML FLUSH SCH ×2 (08:39→20:27)
[2017-01-04] MEDS: DOCUSATE SODIUM 50 MG/SENNA 8.6 MG TAB PO SCH ×2 (08:39→20:24)
[2017-01-04] MEDS: PANTOPRAZOLE SODIUM 40 MG VIAL IV SCH (08:39)
[2017-01-04] MEDS: ACETAMINOPHEN 325 MG TAB PO PRN (15:18)
[2017-01-04] MEDS: RESP: ALBUTEROL 2.5 MG/IPRATROPIUM 0.5 MG NEB (SCH) NEB (17:33)
--- NOTE | 2017-01-04 17:37 | HHI.PR ---
Subjective Remarks awake and alert, cough slightly better patient is baseline 02 dependent at 3 LNC minimal cough Objective Vitals Vital Signs Date Time Temp Pulse Resp B/P Pulse Ox O2 Delivery O2 Flow Rate FiO2 01/04/17 17:00 97 30 162/93 100 01/04/17 16:00 100 Nasal Cannula 6.00 01/04/17 16:00 98.9 106 29 174/96 100 01/04/17 15:00 115 21 180/104 100 01/04/17 15:00 115 01/04/17 14:00 119 36 189/101 100 01/04/17 14:00 119 01/04/17 13:01 115 01/04/17 13:01 115 34 196/108 100 01/04/17 13:00 114 01/04/17 13:00 114 21 100 01/04/17 12:00 100 Nasal Cannula 6.00 01/04/17 12:00 109 01/04/17 12:00 98.8 109 29 171/97 100 01/04/17 11:00 111 30 185/97 100 01/04/17 11:00 111 01/04/17 10:30 108 19 172/98 100 01/04/17 10:30 108 01/04/17 10:00 107 37 169/95 100 01/04/17 10:00 107 01/04/17 09:30 121 01/04/17 09:30 121 28 195/105 100 01/04/17 09:01 113 37 180/103 100 01/04/17 09:01 113 01/04/17 09:00 111 01/04/17 09:00 111 35 100 01/04/17 08:31 121 01/04/17 08:31 121 26 163/103 100 01/04/17 08:01 112 01/04/17 08:01 112 27 190/108 100 01/04/17 08:00 100 Nasal Cannula 6.00 01/04/17 08:00 98.7 108 20 100 01/04/17 08:00 108 01/04/17 07:39 100 Nasal Cannula 3.00 01/04/17 06:00 101 01/04/17 04:00 100 01/04/17 04:00 98.0 100 59 162/95 100 01/04/17 04:00 100 Nasal Cannula 6.00 01/04/17 02:00 89 01/04/17 00:00 109 01/04/17 00:00 99 Nasal Cannula 6.00 01/04/17 00:00 98.4 109 50 173/97 100 01/03/17 22:00 124 01/03/17 20:00 123 01/03/17 20:00 99 Nasal Cannula 6.00 01/03/17 20:00 98.8 109 18 157/88 99 01/03/17 18:00 116 I/O 01/03/17 01/03/17 01/03/17 01/04/17 01/04/17 01/04/17 07:00 15:00 23:00 07:00 15:00 23:00 Intake Total 179 ml 300 ml 1020 ml Output Total 500 ml 450 ml 300 ml 450 ml 700 ml Balance -321 ml -450 ml 0 ml -450 ml 320 ml Intake Oral 300 ml 1020 ml IV Total 179 ml 0 ml Output Urine Total 500 ml 450 ml 300 ml 450 ml 700 ml # Bowel Movements 0 1 2 Result Diagram: 01/03/17 0501 01/03/17 0501 Imaging Last Impressions Chest X-Ray 01/01/17 0600 Signed Impressions: Service Date/Time: Sunday, January 01, 2017 03:43 - CONCLUSION: No acute cardiopulmonary disease. Lorri Engel MD Small Bowel X-Ray 12/27/16 0600 Signed Impressions: Service Date/Time: Tuesday, December 27, 2016 09:23 - CONCLUSION: Unremarkable small bowel examination. No evidence of obstruction Fred Michelle MD Abdomen X-Ray 12/26/16 0000 Signed Impressions: Service Date/Time: Monday, December 26, 2016 09:49 - CONCLUSION: 1. Relatively diffuse mild gaseous distention of the small bowel with a segment that is mildly dilated in the left midabdomen. The degree of distention is less than present on the prior CT. Findings overall are not highly suspicious for obstruction. Patient is currently scheduled for small bowel follow-through examination which will further assess. 2. Stable small right pleural effusion. Erich Stephenson MD Head CT 12/25/16 0000 Signed Impressions: Service Date/Time: Sunday, December 25, 2016 04:14 - CONCLUSION: 1. No acute intracranial abnormalities. Mild white matter ischemic changes. Lee Uribe MD CT Angiography 12/24/16 0000 Signed Impressions: Service Date/Time: Sunday, December 25, 2016 01:40 - CONCLUSION: 1. Negative for pulmonary embolus. 2. There is suspected extensive mucoid plugging involving a portion of the distal right mainstem bronchus, right upper lobe bronchus and bronchus intermedius extending into segmental branches in both the right middle lobe and right lower lobe. Cannot exclude an endobronchial lesion. A small right-sided pleural effusion. 3. Severe emphysema. Lee Uribe MD Abdomen/Pelvis CT 12/24/16 0000 Signed Impressions: Service Date/Time: Sunday, December 25, 2016 01:36 - CONCLUSION: 1. Right-sided psoas hematoma measuring about 4.7 cm in maximum diameter and extending over a length of about 7 cm. 2. Previous bowel anastomosis with dilated loops of small bowel proximally with air fluid levels. Differential diagnosis includes a partial or early obstruction. 3. [place]idemouth ventral hernia near umbilicus containing a loop of constipated colon. 4. Small right pleural effusion. Lee Uribe MD Objective Remarks awake and alert, oriented x 3 BP 160-100 anicteric lungs- decreased breath sounds, no rales or wheezes regular rhythm HR 106-sinus abdomen soft, nontender extremites no edema-no calf swelling, moves all spontaneously Procedures sp bronchoscopy Assessment to: Remove Date of Removal: Jan 04, 2017 A/P Problem List: (1) Acute hypercapnic respiratory failure ICD Code: J96.02 Status: Acute (2) COPD with exacerbation ICD Code: J44.1 Status: Acute (3) HTN (hypertension) ICD Code: I10 Status: Acute (4) Ileus ICD Code: K56.7 Status: Acute (5) Hematoma ICD Code: T14.8 Status: Chronic (6) Severe protein-calorie malnutrition ICD Code: E43 Status: Acute (7) Anxiety ICD Code: F41.9 Status: Acute Assessment and Plan NEURO: a xox 3 Monitor neuro status and avoid sedatives RESP: Acute hypercapnic respiratory failure- Extubated 01/01 with underlying COPD-02 dependent Acute COPD exacerbation History of right upper lobe lung mass biopsy 2007granulomatous inflammation. Cytology negative for malignancy R mainstem mucous plugging, resolved Tobacco abuse Continue with oxygen keep sat >92% DuoNeb every 6 hoursand PRN q 2 IV Solu-Medrol 60 every 6 hours - decrease to q 8 - 01/03 - Pulm is following- Dr.Aneja KRAFT PRN for resp distress CV: Sinus tachycardia- occasionally 110s History of hypertension - some DBPs in the 100 Continue Cardizem 60mg QID, - increasee to 90 mg qid Cardura 2mg daily- monitor HR and BP keep MAP>65mmHg GI: Ileus resolved Reducible ventral hernia Severe chronic protein energy malnutrition R psoas hematoma (see below) Small bowel x-ray 12/17/[address] abd/pelvis with dilated small bowel ?early obstruction. Surgery has followed Continue with bowel regimen( Pericolace, Fátima lax, Senna) + BM FEN/RENAL: Monitor renal function, electrolytes replacement per protocol. - DC levin- check voiding ID: Acute tracheobronchitis, healthcare associated DCd aztreonam. On Levaquin 750 mg IV daily- 12/25. - change to po Levaquin starting suyapa- 01/05 x 3 days more Monitor for signs of infections - - leukocytosis- on steroids HEME: Right psoas hematoma Leukocytosis- on steroids Patient denies trauma or symptoms. Coags are normal. Monitor CBC Recent Left hip surgery at [facility] - came from rehab facility - -DC levin today- 01/04- check voiding -Out of bed to chair/ PT dialy as tolerated ENDO: SSI for glycemic control PROPH: SCDs for DVT prophylaxis. Not on Pharmacologic DVT prophylaxis due to psoas hematoma. Protonix 40 mg IV daily for stress ulcer prophylaxis.- change to po ACCESS: Peripheral IV providing adequate access at this time. Case management consult w- patient need SNF- recent hip surgery- patient came from [facility] post hip surgery from [facility] Jackelyn Castaneda MD Jan 04, 2017 17:37
--- NOTE | 2017-01-04 18:21 | HHI.PR ---
Subjective Remarks 66 YO AA female with severe COPD, Ch. resp insuff,Hypercapnoic RF CT chest Mucous plugging No fever or chills Anxious Up in chair. On NC, weak, tired Objective Vital Signs Vital Signs Date Time Temp Pulse Resp B/P Pulse Ox O2 Delivery O2 Flow Rate FiO2 01/04/17 17:00 97 30 162/93 100 01/04/17 16:00 100 Nasal Cannula 6.00 01/04/17 16:00 98.9 106 29 174/96 100 01/04/17 15:00 115 21 180/104 100 01/04/17 15:00 115 01/04/17 14:00 119 36 189/101 100 01/04/17 14:00 119 01/04/17 13:01 115 01/04/17 13:01 115 34 196/108 100 01/04/17 13:00 114 01/04/17 13:00 114 21 100 01/04/17 12:00 100 Nasal Cannula 6.00 01/04/17 12:00 109 01/04/17 12:00 98.8 109 29 171/97 100 01/04/17 11:00 111 30 185/97 100 01/04/17 11:00 111 01/04/17 10:30 108 19 172/98 100 01/04/17 10:30 108 01/04/17 10:00 107 37 169/95 100 01/04/17 10:00 107 01/04/17 09:30 121 01/04/17 09:30 121 28 195/105 100 01/04/17 09:01 113 37 180/103 100 01/04/17 09:01 113 01/04/17 09:00 111 01/04/17 09:00 111 35 100 01/04/17 08:31 121 01/04/17 08:31 121 26 163/103 100 01/04/17 08:01 112 01/04/17 08:01 112 27 190/108 100 01/04/17 08:00 100 Nasal Cannula 6.00 01/04/17 08:00 98.7 108 20 100 01/04/17 08:00 108 01/04/17 07:39 100 Nasal Cannula 3.00 01/04/17 06:00 101 01/04/17 04:00 100 01/04/17 04:00 98.0 100 59 162/95 100 01/04/17 04:00 100 Nasal Cannula 6.00 01/04/17 02:00 89 01/04/17 00:00 109 01/04/17 00:00 99 Nasal Cannula 6.00 01/04/17 00:00 98.4 109 50 173/97 100 01/03/17 22:00 124 01/03/17 20:00 123 01/03/17 20:00 99 Nasal Cannula 6.00 01/03/17 20:00 98.8 109 18 157/88 99 I/O 01/03/17 01/03/17 01/03/17 01/04/17 01/04/17 01/04/17 07:00 15:00 23:00 07:00 15:00 23:00 Intake Total 179 ml 300 ml 1020 ml Output Total 500 ml 450 ml 300 ml 450 ml 700 ml Balance -321 ml -450 ml 0 ml -450 ml 320 ml Intake Oral 300 ml 1020 ml IV Total 179 ml 0 ml Output Urine Total 500 ml 450 ml 300 ml 450 ml 700 ml # Bowel Movements 0 1 2 Result Diagram: 01/03/17 0501 01/03/17 0501 Objective Remarks GENERAL: Thin built AA female, sob, uses accessory muscles SKIN: Warm and dry. HEAD: Normocephalic. EYES: No scleral icterus. No injection or drainage. NECK: Supple, trachea midline. No JVD or lymphadenopathy. CARDIOVASCULAR: Regular rate and rhythm without murmurs, gallops, or rubs. RESPIRATORY: Breath sounds equal bilaterally. No accessory muscle use. Decreased chest excursion GASTROINTESTINAL: Abdomen soft, non-tender, nondistended. MUSCULOSKELETAL: No cyanosis, or edema. BACK: Nontender without obvious deformity. No CVA tenderness. A/P Assessment and Plan Hypercapnoic RF S/P Extubation Severe COPD Anxiety Mucous plugging HTN PLAN: Supplement 02 Cont Abx Aerosol nebs Solumedrol 40 mg q 6 hrs Buspar 5 mg tid OOB in chair tessalon 200 mg tid Renew Aerosol keiths Rolando Mejia MD Jan 04, 2017 18:21
[2017-01-04] MEDS: DILTIAZEM HCL 90 MG TAB PO SCH (20:26)
[2017-01-04] MEDS: LORazepam 2 MG/ML VIAL IV PUSH PRN (23:40)
[2017-01-05] VITALS (14 sets, daily range): BP systolic 139–200; BP diastolic 89–116; PULSE 97–124; RESP 24–42; TEMP 98.2–98.6; O2SAT 95–100
[2017-01-05] MEDS: RESP: ALBUTEROL 2.5 MG/IPRATROPIUM 0.5 MG NEB (SCH) NEB ×7 (00:35→23:48)
[2017-01-05] MEDS: ALPRAZolam 0.5 MG TAB PO PRN ×3 (00:38→20:02)
[2017-01-05] MEDS: CHLORHEXIDINE GLUCONATE 2 % 1 PACK (2 CLOTHS) TOP SCH (03:36)
[2017-01-05] MEDS: INSULIN NovoLIN REGULAR SUPPLEMENTAL SCALE SQ SCH ×4 (03:36→20:03)
[2017-01-05] MEDS: methylPREDNISolone SOD SUCC 125 MG/2 ML VIAL IV SCH ×3 (05:23→20:02)
[2017-01-05] MEDS: busPIRone HCL 5 MG TAB PO SCH ×3 (05:23→20:04)
[2017-01-05] MEDS: DOXAZOSIN MESYLATE 2 MG TAB PO SCH (08:46)
[2017-01-05] MEDS: SODIUM CHLORIDE 0.9% FLUSH 10 ML FLUSH SCH ×2 (08:46→20:02)
[2017-01-05] MEDS: BENZONATATE 100 MG CAP PO SCH ×3 (08:46→18:08)
[2017-01-05] MEDS: POLYETHYLENE GLYCOL 17 GM PKG PO SCH (08:46)
[2017-01-05] MEDS: LEVOFLOXACIN 750 MG TAB PO SCH (08:46)
[2017-01-05] MEDS: DILTIAZEM HCL 90 MG TAB PO SCH ×4 (08:46→20:02)
[2017-01-05] MEDS: DOCUSATE SODIUM 50 MG/SENNA 8.6 MG TAB PO SCH ×2 (08:46→20:02)
[2017-01-05] MEDS: guaiFENesin E.R. 600 MG TAB PO SCH ×2 (08:46→20:02)
[2017-01-05] MEDS: PANTOPRAZOLE SOD 40 MG DELAYED RELEASE TAB PO SCH (08:46)
[2017-01-05] MEDS: LABETALOL HCL 100 MG/20 ML VIAL IV PUSH PRN ×2 (11:33→15:39)
--- NOTE | 2017-01-05 17:38 | HHI.PR ---
Subjective Remarks BP noted to be elevated patient denies cp Patient also noted to be tachycardic and tachypneic Objective Vitals Vital Signs Date Time Temp Pulse Resp B/P Pulse Ox O2 Delivery O2 Flow Rate FiO2 01/05/17 16:00 100 Nasal Cannula 3.00 01/05/17 16:00 98.6 124 24 200/116 100 01/05/17 16:00 124 01/05/17 14:00 120 01/05/17 12:00 95 Nasal Cannula 3.00 01/05/17 12:00 105 01/05/17 12:00 98.4 105 36 183/105 95 01/05/17 10:00 100 01/05/17 08:25 100 Nasal Cannula 2.00 01/05/17 08:00 98.4 97 30 146/89 100 01/05/17 08:00 100 01/05/17 08:00 93 Nasal Cannula 3.00 01/05/17 06:00 101 01/05/17 04:00 98 01/05/17 04:00 94 Nasal Cannula 4.00 01/05/17 04:00 98.2 98 28 139/94 100 01/05/17 02:00 99 01/05/17 00:00 100 Nasal Cannula 4.00 01/05/17 00:00 116 01/05/17 00:00 98.6 116 24 172/100 100 01/04/17 22:00 119 01/04/17 20:20 100 Nasal Cannula 4.00 01/04/17 20:00 112 01/04/17 20:00 100 Nasal Cannula 4.00 01/04/17 20:00 98.0 112 27 169/96 100 01/04/17 18:00 121 I/O 01/04/17 01/04/17 01/04/17 01/05/17 01/05/17 01/05/17 07:00 15:00 23:00 07:00 15:00 23:00 Intake Total 1020 ml 480 ml 100 ml 150 ml Output Total 450 ml 700 ml 600 ml 800 ml Balance -450 ml 320 ml -120 ml -700 ml 150 ml Intake Oral 1020 ml 480 ml 100 ml 150 ml IV Total 0 ml 0 ml 0 ml Output Urine Total 450 ml 700 ml 600 ml 800 ml # Voids 3 # Bowel Movements 2 0 0 1 Result Diagram: 01/03/17 0501 01/03/17 0501 Imaging Last Impressions Chest X-Ray 01/01/17 06 Signed Impressions: Service Date/Time: Sunday, January 01, 2017 03:43 - CONCLUSION: No acute cardiopulmonary disease. Lorri Engel MD Small Bowel X-Ray 12/27/16 0600 Signed Impressions: Service Date/Time: Tuesday, December 27, 2016 09:23 - CONCLUSION: Unremarkable small bowel examination. No evidence of obstruction Fred Michelle MD Abdomen X-Ray 12/26/16 0000 Signed Impressions: Service Date/Time: Monday, December 26, 2016 09:49 - CONCLUSION: 1. Relatively diffuse mild gaseous distention of the small bowel with a segment that is mildly dilated in the left midabdomen. The degree of distention is less than present on the prior CT. Findings overall are not highly suspicious for obstruction. Patient is currently scheduled for small bowel follow-through examination which will further assess. 2. Stable small right pleural effusion. Erich Stephenson MD Head CT 12/25/16 0000 Signed Impressions: Service Date/Time: Sunday, December 25, 2016 04:14 - CONCLUSION: 1. No acute intracranial abnormalities. Mild white matter ischemic changes. Lee Uirbe MD CT Angiography 12/24/16 0000 Signed Impressions: Service Date/Time: Sunday, December 25, 2016 01:40 - CONCLUSION: 1. Negative for pulmonary embolus. 2. There is suspected extensive mucoid plugging involving a portion of the distal right mainstem bronchus, right upper lobe bronchus and bronchus intermedius extending into segmental branches in both the right middle lobe and right lower lobe. Cannot exclude an endobronchial lesion. A small right-sided pleural effusion. 3. Severe emphysema. Lee Uribe MD Abdomen/Pelvis CT 12/24/16 0000 Signed Impressions: Service Date/Time: Sunday, December 25, 2016 01:36 - CONCLUSION: 1. Right-sided psoas hematoma measuring about 4.7 cm in maximum diameter and extending over a length of about 7 cm. 2. Previous bowel anastomosis with dilated loops of small bowel proximally with air fluid levels. Differential diagnosis includes a partial or early obstruction. 3. [place] ventral hernia near umbilicus containing a loop of constipated colon. 4. Small right pleural effusion. Lee Uribe MD Objective Remarks GENERAL: Patient is sitting up in bed in moderate respiratory distress. SKIN: Warm and dry. HEAD: Normocephalic. EYES: No scleral icterus. No injection or drainage. NECK: Supple, trachea midline. No JVD or lymphadenopathy. CARDIOVASCULAR: Tachycardic without murmurs, gallops, or rubs. RESPIRATORY: Diminished bilaterally, no wheezing but very poor air movement. there is accesory muscle use. GASTROINTESTINAL: Abdomen soft, non-tender, nondistended. MUSCULOSKELETAL: No cyanosis, or edema. BACK: Nontender without obvious deformity. No CVA tenderness. Neuro: Awake and alert Procedures sp bronchoscopy Medications and IVs Current Medications Medications (Trade) Dose Ordered Sig/Mariluz Route Start Time Stop Time Status Last Admin (Mucinex Er) 600 mg BID PO 12/25/16 09:00 01/05/17 20:02 (NS Flush) 2 ml UNSCH PRN .XX 12/25/16 04:15 12/26/16 08:31 (NS Flush) 2 ml BID .XX 12/25/16 09:00 01/05/17 08:46 (Tylenol) 650 mg Q6H PRN PO 12/25/16 04:15 01/04/17 15:18 (Zofran Inj) 4 mg Q6H PRN IV 12/25/16 04:15 12/30/16 12:04 Miscellaneous Information 1 Q361D XX 12/25/16 04:15 12/25/16 04:15 (Chlorhexidine 2% Cloth) Taper DAILY@04 TOP 12/26/16 04:00 12/22/17 03:59 01/04/17 04:00 (Chlorhexidine 2% Cloth) 3 pack UNSCH PRN TOP 12/25/16 04:15 (Kellen-Colace) 1 tab BID PO 12/25/16 09:00 01/05/17 08:46 (Milk Of Magnesia Liq) 30 ml Q12H PRN PO 12/25/16 04:15 12/26/16 10:28 (Senokot) 17.2 mg Q12H PRN PO 12/25/16 04:15 (Dulcolax Supp) 10 mg DAILY PRN RECTAL 12/25/16 04:15 (Lactulose Liq) 30 ml DAILY PRN PO 12/25/16 04:15 (D50w (Vial) Inj) 50 ml UNSCH PRN IV 12/25/16 09:30 (Glucagon Inj) 1 mg UNSCH PRN OTHER 12/25/16 09:30 (NovoLIN R SUPPLEMENTAL SCALE) 1 Q6H SQ 12/25/16 10:00 01/04/17 10:56 (Miralax) 17 gm DAILY PO 12/25/16 17:30 01/05/17 08:46 (Buspar) 5 mg Q8HR PO 12/27/16 22:00 01/05/17 20:04 (Ativan Inj) 1 mg Q2H PRN IV PUSH 12/27/16 20:00 01/05/17 20:09 Alprazolam 0.5 mg 0.5 mg Q6H PRN PO 12/28/16 10:15 01/05/17 20:02 Propofol 100 ml @ 0 mls/hr TITRATE IV 12/31/16 03:00 01/01/17 05:03 Potassium Chloride 100 ml @ 50 mls/hr Q2H PRN IV 01/01/17 08:15 (KCl 20 Meq Premix Inj) 100 ml @ 50 mls/hr Q2H PRN IV 01/01/17 08:15 01/01/17 16:33 Potassium Bicarb/ Potassium Chloride 50 meq 50 meq UNSCH PRN PO 01/01/17 08:15 Potassium Chloride 100 ml @ 25 mls/hr UNSCH PRN IV 01/01/17 08:15 Potassium Chloride 100 ml @ 50 mls/hr Q2H PRN IV 01/01/17 08:15 (Magnesium Sulfate Inj/NS Inj) 100 ml @ 50 mls/hr UNSCH PRN IV 01/01/17 08:15 Magnesium Oxide 800 mg 800 mg UNSCH PRN PO 01/01/17 08:15 (Magnesium Sulfate Inj/NS Inj) 100 ml @ 50 mls/hr UNSCH PRN IV 01/01/17 08:15 Potassium Phosphate 2000 mg 2,000 mg Q4H PRN PO 01/01/17 08:15 (Sodium Phosphate Inj/NS 250 ml Inj) 250 ml @ 42 mls/hr UNSCH PRN IV 01/01/17 08:15 Potassium Phosphate 2000 mg 2,000 mg UNSCH PRN PO/TUBE 01/01/17 08:15 (Potassium Phosphate Inj/NS 250 ml Inj) 260 ml @ 42 mls/hr UNSCH PRN IV 01/01/17 08:15 (Tessalon) 200 mg TID PO 01/04/17 09:00 01/05/17 18:08 (Levaquin) 750 mg DAILY PO 01/05/17 09:00 01/08/17 08:59 01/05/17 08:46 (Cardizem) 90 mg QID PO 01/04/17 21:00 01/05/17 20:02 (Protonix) 40 mg DAILY PO 01/05/17 09:00 01/05/17 08:46 (Cardura) 4 mg DAILY PO 01/06/17 09:00 (SoluMEDROL INJ) 40 mg Q6H IV 01/05/17 20:00 01/05/17 20:02 (Apresoline Inj) 10 mg Q30M PRN IV PUSH 01/05/17 17:45 (Catapres) 0.1 mg Q6H PRN PO 01/05/17 17:45 Urinary Catheter: No Date of Removal: Jan 04, 2017 Vascular Central Line Catheter: No A/P Problem List: (1) Acute hypercapnic respiratory failure ICD Code: J96.02 Status: Acute Plan: The patient was admitted to the intensive care unit and taken care of by powerbuilder initially. Continue with supplemental oxygen to keep an O2 sat duration > 92%. Continue Bipap as needed Continue DuoNeb every 4 hours, albuterol every [address] angiogram without PE. Mucous plugging in the right mainstem, unable to rule out endobronchial lesion. Patient underwent bronchoscopy on 12/27, as per pulmonary report, no endobronchial lesion seen. Continue Solu-Medrol IV - decrease dose to 40 q 6 hrs (2) COPD with exacerbation ICD Code: J44.1 Status: Acute Plan: As above. Continue bipap appreciate pulmonary recommendations. Continue oral Levaquin Continue steroids Patient has end stage COPD exacerbation, now on IV steroids for prolonged time with minimal improvement. Will consult Palliative care. (3) HTN (hypertension) ICD Code: I10 Status: Acute Plan: Bp uncontrolled. Will increase Doxazosin to 4 mg po daily and give 2 mg po now. Will DC Labetalol IV as beta blockers could worsen COPD. Will RX Clonidine and Hydralazine prn for SBP >170. (4) Ileus ICD Code: K56.7 Status: Resolved Plan: CT abdomen and pelvis showed right psoas hematoma measuring about 4.7 cm. Previous bowel anastomosis on the limited loops of small bowel proximally with air fluid level. Possible partial or early obstruction. There is also [place] ventral hernia the umbilicus containing a loop of constipated colon. Small right pleural effusion. Surgery consulted - recommended non surgical management. Small bowel series - showed unremarkable examination Ileus has resolved (5) Hematoma ICD Code: T14.8 Status: Chronic Plan: Patient denies any trauma or symptoms. Coags are normal. Monitor CBC. (6) Severe protein-calorie malnutrition ICD Code: E43 Status: Acute Plan: Patient has a low BMI of 17.6 Dietitian consulted - enlive TID added to meals (7) Anxiety ICD Code: F41.9 Status: Acute Plan: Seems to be improved. continue Ativan and Xanax for Anxiety. Assessment and Plan DVT prophylaxis - SCD's, continue to hold chemoprophylaxis due to psoas hematoma. Discharge Planning Continue to monitor in the ICU. Patient still requiring bipap. Problem Qualifiers (1) HTN (hypertension): Qualified Code: I10 - Essential hypertension Christian Graham MD Jan 05, 2017 17:38
[2017-01-05] MEDS ORDERED: cloNIDine HCL 0.1 MG TAB PO PRN (17:45)
[2017-01-05 18:38] LABS: AUTOMATED NEUTROPHIL # 29.7 TH/MM3 (1.8-7.7); BASOPHIL # 0.1 TH/MM3 (0-0.2); BASOPHIL % 0.2 % (0.0-2.0); HEMATOCRIT 32.1 % (35.0-46.0); LYMPH % 0.8 % (9.0-44.0); LYMPHOCYTE # 0.2 TH/MM3 (1.0-4.8); MEAN CELL VOLUME 76.5 FL (80.0-100.0); MEAN CORPUSCULAR HEMOGLOBIN 23.4 PG (27.0-34.0); MEAN CORPUSCULAR HGB CONC 30.6 % (32.0-36.0); PLATELET COUNT 207 TH/MM3 (150-450); RED BLOOD COUNT 4.19 MIL/MM3 (4.00-5.30); RED CELL DISTRIBUTION WIDTH 19.9 % (11.6-17.2); WHITE BLOOD COUNT 30.6 TH/MM3 (4.0-11.0)
[2017-01-05 18:39] LABS: HEMO FLAGS AUTO DIFF
[2017-01-05 18:48] LABS: ALKALINE PHOSPHATASE 114 U/L (45-117); ALT (GPT) 57 U/L (10-53); ANION GAP 1 MEQ/L (5-15); AST (GOT) 38 U/L (15-37); BICARBONATE 41.9 MEQ/L (21.0-32.0); BLOOD UREA NITROGEN 20 MG/DL (7-18); CHLORIDE 87 MEQ/L (98-107); GLOMERULAR FILTRATION RATE 160 ML/MIN (>89); SODIUM (NA) 130 MEQ/L (136-145); TOTAL BILIRUBIN ADULT 0.3 MG/DL (0.2-1.0)
[2017-01-05 18:49] LABS: POTASSIUM 5.2 MEQ/L (3.5-5.1)
--- NOTE | 2017-01-05 18:53 | HHI.PR ---
Subjective Remarks 66 YO AA female with severe COPD, Ch. resp insuff,Hypercapnoic RF No fever or chills Anxious Up in chair. On NC, weak, tired Objective Vital Signs Vital Signs Date Time Temp Pulse Resp B/P Pulse Ox O2 Delivery O2 Flow Rate FiO2 01/05/17 18:00 120 01/05/17 16:00 100 Nasal Cannula 3.00 01/05/17 16:00 98.6 124 24 200/116 100 01/05/17 16:00 124 01/05/17 14:00 120 01/05/17 12:00 95 Nasal Cannula 3.00 01/05/17 12:00 105 01/05/17 12:00 98.4 105 36 183/105 95 01/05/17 10:00 100 01/05/17 08:25 100 Nasal Cannula 2.00 01/05/17 08:00 98.4 97 30 146/89 100 01/05/17 08:00 100 01/05/17 08:00 93 Nasal Cannula 3.00 01/05/17 06:00 101 01/05/17 04:00 98 01/05/17 04:00 94 Nasal Cannula 4.00 01/05/17 04:00 98.2 98 28 139/94 100 01/05/17 02:00 99 01/05/17 00:00 100 Nasal Cannula 4.00 01/05/17 00:00 116 01/05/17 00:00 98.6 116 24 172/100 100 01/04/17 22:00 119 01/04/17 20:20 100 Nasal Cannula 4.00 01/04/17 20:00 112 01/04/17 20:00 100 Nasal Cannula 4.00 01/04/17 20:00 98.0 112 27 169/96 100 I/O 01/04/17 01/04/17 01/04/17 01/05/17 01/05/17 01/05/17 07:00 15:00 23:00 07:00 15:00 23:00 Intake Total 1020 ml 480 ml 100 ml 150 ml Output Total 450 ml 700 ml 600 ml 800 ml Balance -450 ml 320 ml -120 ml -700 ml 150 ml Intake Oral 1020 ml 480 ml 100 ml 150 ml IV Total 0 ml 0 ml 0 ml Output Urine Total 450 ml 700 ml 600 ml 800 ml # Voids 3 # Bowel Movements 2 0 0 1 Result Diagram: 01/05/17 1746 01/05/17 1746 Objective Remarks GENERAL: Thin built AA female, sob, uses accessory muscles SKIN: Warm and dry. HEAD: Normocephalic. EYES: No scleral icterus. No injection or drainage. NECK: Supple, trachea midline. No JVD or lymphadenopathy. CARDIOVASCULAR: Regular rate and rhythm without murmurs, gallops, or rubs. RESPIRATORY: Breath sounds equal bilaterally. No accessory muscle use. Decreased chest excursion GASTROINTESTINAL: Abdomen soft, non-tender, nondistended. MUSCULOSKELETAL: No cyanosis, or edema. BACK: Nontender without obvious deformity. No CVA tenderness. A/P Assessment and Plan Hypercapnoic RF S/P Extubation Severe COPD Anxiety Mucous plugging HTN PLAN: Supplement 02 Cont Abx Aerosol nebs Solumedrol 40 mg q 6 hrs Buspar 5 mg tid OOB in chair tessalon 200 mg tid Renew Aerosol nebs palliative care consulted Rolando Mejia MD Jan 05, 2017 18:53
[2017-01-05] MEDS ORDERED: DOXAZOSIN MESYLATE 2 MG TAB PO ONE (19:00)
[2017-01-05 19:16] LABS: NEUTROPHIL # MANUAL DIFF 29.7 TH/MM3 (1.8-7.7); POLYS (SEG NEUTROPHILS) 97 % (16-70); WBC DIFF SAMPLE 100
[2017-01-05 19:17] LABS: ACANTHOCYTES 1+ (NORMAL); OVALOCYTES 1+ (NORMAL); PLATELET ESTIMATE SMEAR NORMAL (NORMAL); PLATELET MORPHOLOGY NORMAL (NORMAL); SCAN/DIFF FINAL DIFF MANUAL
[2017-01-05] MEDS: LORazepam 2 MG/ML VIAL IV PUSH PRN (20:09)
[2017-01-06] VITALS (20 sets, daily range): BP systolic 113–165; BP diastolic 66–96; PULSE 85–142; RESP 30–80; TEMP 98–99; O2SAT 98–100
[2017-01-06] MEDS: RESP: ALBUTEROL 2.5 MG/IPRATROPIUM 0.5 MG NEB (SCH) NEB ×6 (03:44→23:10)
[2017-01-06] MEDS: CHLORHEXIDINE GLUCONATE 2 % 1 PACK (2 CLOTHS) TOP SCH (04:00)
[2017-01-06] MEDS: INSULIN NovoLIN REGULAR SUPPLEMENTAL SCALE SQ SCH ×4 (04:00→21:30)
[2017-01-06] MEDS: methylPREDNISolone SOD SUCC 125 MG/2 ML VIAL IV SCH ×4 (05:29→20:37)
[2017-01-06] MEDS: busPIRone HCL 5 MG TAB PO SCH ×5 (06:00→20:36)
[2017-01-06 06:17] LABS: AUTOMATED NEUTROPHIL # 25.2 TH/MM3 (1.8-7.7); BASOPHIL # 0.1 TH/MM3 (0-0.2); BASOPHIL % 0.4 % (0.0-2.0); HEMATOCRIT 30.4 % (35.0-46.0); HEMO FLAGS DIFF FINAL; LYMPH % 0.7 % (9.0-44.0); LYMPHOCYTE # 0.2 TH/MM3 (1.0-4.8); MEAN CELL VOLUME 75.8 FL (80.0-100.0); MEAN CORPUSCULAR HGB CONC 30.3 % (32.0-36.0); MONO % 1.8 % (0.0-8.0); NEUT % 97.1 % (16.0-70.0); PLATELET COUNT 269 TH/MM3 (150-450); RED BLOOD COUNT 4.01 MIL/MM3 (4.00-5.30); RED CELL DISTRIBUTION WIDTH 19.7 % (11.6-17.2); WHITE BLOOD COUNT 25.9 TH/MM3 (4.0-11.0)
[2017-01-06 06:36] LABS: ALT (GPT) 63 U/L (10-53); ANION GAP 4 MEQ/L (5-15); AST (GOT) 16 U/L (15-37); BICARBONATE GREATER THAN 45.0 MEQ/L (21.0-32.0); BLOOD UREA NITROGEN 19 MG/DL (7-18); CHLORIDE 87 MEQ/L (98-107); GLOMERULAR FILTRATION RATE 188 ML/MIN (>89); MAGNESIUM 2.6 MG/DL (1.5-2.5); POTASSIUM 4.9 MEQ/L (3.5-5.1); SODIUM (NA) 136 MEQ/L (136-145)
[2017-01-06 06:39] LABS: ALKALINE PHOSPHATASE 110 U/L (45-117); TOTAL BILIRUBIN ADULT 0.3 MG/DL (0.2-1.0)
[2017-01-06] MEDS: POLYETHYLENE GLYCOL 17 GM PKG PO SCH (08:32)
[2017-01-06] MEDS: guaiFENesin E.R. 600 MG TAB PO SCH ×2 (08:32→20:36)
[2017-01-06] MEDS: DOXAZOSIN MESYLATE 2 MG TAB PO SCH (08:33)
[2017-01-06] MEDS: BENZONATATE 100 MG CAP PO SCH ×3 (08:33→18:00)
[2017-01-06] MEDS: DOCUSATE SODIUM 50 MG/SENNA 8.6 MG TAB PO SCH ×2 (08:33→20:36)
[2017-01-06] MEDS: LEVOFLOXACIN 750 MG TAB PO SCH (08:33)
[2017-01-06] MEDS: PANTOPRAZOLE SOD 40 MG DELAYED RELEASE TAB PO SCH (08:33)
[2017-01-06] MEDS: DILTIAZEM HCL 90 MG TAB PO SCH ×4 (08:33→20:36)
[2017-01-06] MEDS: SODIUM CHLORIDE 0.9% FLUSH 10 ML FLUSH SCH ×2 (08:38→20:37)
[2017-01-06] MEDS: RESP: ALBUTEROL 2.5 MG/3 ML NEB (PRN) INH ×2 (16:33→21:35)
--- NOTE | 2017-01-06 16:43 | HHI.PR ---
Subjective Remarks 66 YO AA female with severe COPD, Ch. resp insuff,Hypercapnoic RF No fever or chills Anxious Up in chair. On NC, weak, tired SOB even at rest Objective Vital Signs Vital Signs Date Time Temp Pulse Resp B/P Pulse Ox O2 Delivery O2 Flow Rate FiO2 01/06/17 16:27 100 40 01/06/17 14:01 126 62 155/80 100 01/06/17 14:00 129 30 100 01/06/17 13:00 118 47 139/75 100 01/06/17 12:00 98.4 120 62 163/88 100 01/06/17 11:00 116 50 149/70 01/06/17 10:10 119 55 160/92 01/06/17 10:00 119 43 01/06/17 09:00 121 50 163/86 98 01/06/17 08:00 Nasal Cannula 4.00 01/06/17 08:00 98.3 110 77 149/81 100 01/06/17 07:40 100 Nasal Cannula 4.00 01/06/17 04:00 98.0 85 39 116/66 100 01/06/17 04:00 85 01/06/17 04:00 100 Nasal Cannula 4.00 01/06/17 02:00 90 01/06/17 00:00 98 01/06/17 00:00 98.1 98 51 113/68 100 01/06/17 00:00 100 Nasal Cannula 4.00 01/05/17 22:00 122 01/05/17 20:47 100 Nasal Cannula 5.00 01/05/17 20:00 122 01/05/17 20:00 100 Nasal Cannula 4.00 01/05/17 20:00 98.3 122 42 170/101 100 01/05/17 18:00 120 I/O 01/05/17 01/05/17 01/05/17 01/06/17 01/06/17 01/06/17 07:00 15:00 23:00 07:00 15:00 23:00 Intake Total 100 ml 150 ml 480 ml 100 ml 400 ml Output Total 800 ml Balance -700 ml 150 ml 480 ml 100 ml 400 ml Intake Oral 100 ml 150 ml 480 ml 100 ml 400 ml IV Total 0 ml 0 ml 0 ml 0 ml Output Urine Total 800 ml # Voids 3 2 1 2 # Bowel Movements 0 1 0 0 0 Result Diagram: 01/06/17 0549 01/06/17 0549 Objective Remarks GENERAL: Thin built AA female, sob, uses accessory muscles SKIN: Warm and dry. HEAD: Normocephalic. EYES: No scleral icterus. No injection or drainage. NECK: Supple, trachea midline. No JVD or lymphadenopathy. CARDIOVASCULAR: Regular rate and rhythm without murmurs, gallops, or rubs. RESPIRATORY: Breath sounds equal bilaterally. No accessory muscle use. Decreased chest excursion GASTROINTESTINAL: Abdomen soft, non-tender, nondistended. MUSCULOSKELETAL: No cyanosis, or edema. BACK: Nontender without obvious deformity. No CVA tenderness. A/P Assessment and Plan Hypercapnoic RF S/P Extubation Severe COPD Anxiety Mucous plugging HTN PLAN: Supplement 02 Cont Abx Aerosol nebs Solumedrol 40 mg q 6 hrs Buspar 5 mg tid OOB in chair tessalon 200 mg tid Aerosol nebs palliative care consulted Rolando Mejia MD Jan 06, 2017 16:43
[2017-01-06] MEDS ORDERED: DILTIAZEM HCL 30 MG TAB PO ONE (17:00)
--- NOTE | 2017-01-06 17:14 | PD.CONS ---
Consult Service Palliative Care . Consult Requested By Dr. Memo Kapadia . Primary Care Physician Neftaly West M.D. . Reason for Consultation a. To assist with evaluation and management of symptoms including: dyspnea, anxiety. b. To assist medical decision maker(s) with: better understanding of current medical conditions; weighing benefits/burdens of medical treatment options; making medical treatment decisions. . HPI History of Present Illness Ms. Soni is a 66 year old female with past medical history of end stage oxygen dependent COPD, emphysema, hypertension and tobacco abuse. Patient presented to [facility] emergency department on 12/24/[address] [facility] rehab for worsening shortness of breath. She was in penitent[facility] for 1-1/2 months after she fell and sustained a left hip fracture requiring left hip arthroplasty at [facility] in [facility]. She was hypertensive, tachycardic and anxious upon [facility] arrival. She was administered 2 L normal saline bolus and magnesium sulfate prior to arrival. She was placed on BiPAP 15/ 5 40%. ABG demonstrated acute on chronic hypercapnic respiratory failure with pH 7.36/PaCO2 58/PA O2 of 109. She was very anxious on BiPAP and was started on Precedex for BiPAP tolerance. Chest x-ray demonstrated hyperinflation with possible right lower lobe infiltrate. She received DuoNeb 3, Solu-Medrol 125 mg IV, aztreonam, as azithromycin in the emergency department. CT pulmonary angiogram was negative for pulmonary embolism, with severe emphysema and mucous plugging in the right mainstem bronchus, unable to rule out endobronchial lesion. Patient had cough with large amount of thick yellow sputum production so was taken off BiPAP and placed on HFNC 30 L/min 40% FIO2, with some improvement in shortness of breath. CT abdomen/pelvis demonstrated a 4.7 cm right psoas hematoma measuring 7cm, denied recent fall. Patient with history of prior bowel anastomosis with small bowel dilatation which may represent partial or early obstruction. Hgb 9.5. Denied abdominal pain, flank pain, nausea, vomiting. Patient was admitted with respiratory failure and COPD exacerbation. Pulmonology, Dr. Mejia was consulted and continues to follow. Dr. Love, general surgery was consulted for evaluation of possible bowel obstruction and abdominal pain. He recommended against surgery due to high surgical risk and GI consult. Gastroenterology, Dr. Segovia was consulted, bowel regimen recommended, symptoms resolved and GI recommend outpatient follow up for colonoscopy. Patient remains in ICU on oxygen via NC with persistent shortness of breath, generalized weakness, difficulty participating in therapy due to severe SOB. Oxygen saturations remain within normal limits. Palliative care consulted to assist with clarification fo treatment goals in this patient with end stage COPD. . Function/Cognitive Trajectory Ongoing trajectory of decline. Was living home alone prior to last hospitalization it appears, now requiring assistance with all care. Oxygen dependent. Feeds herself some meals. . Review of Systems Constitutional: COMPLAINS OF: Fatigue, Weight loss, Change in appetite ( decreased), Generalized weakness Eyes: COMPLAINS OF: Blurred vision (wears bifocals. ) Respiratory: COMPLAINS OF: Cough, Shortness of breath (at rest, worsens with conversation, eating, exertion. ) Cardiovascular: COMPLAINS OF: Dyspnea on Exertion, Orthopnea Gastrointestinal: COMPLAINS OF: Constipation Musculoskeletal: COMPLAINS OF: Joint pain (from being in bed) Neurologic: COMPLAINS OF: Speech Problems (weak frail voice due to dyspnea. ), Poor Balance (recent falls. ) Psychiatric: COMPLAINS OF: Anxiety Past Family Social History Coded Allergies: Penicillin (Verified Allergy, Severe, BELLS RINGING IN EARS, 12/24/16) Past Medical History COPD, end stage, oxygen dependent. Emphysema Hypertension History of falls Prior hip fracture s/p surgery . Past Surgical History ORIF hip Lysis of adhesions ? Bowel surgery involving anastomosis Hysterectomy Bowel suspension Right upper lung mass biopsy 11/2006 . Reported Medications * Mucinex 600 mg BID * Protonix 40mg PO daily * Albuterol and Atrovent nebulizer treatment * Aztreonam 2grams every 8 hours * Levaquin 750mg PO daily * Tramadol 60mg every 6 hours. . Current Medications Medications (Trade) Dose Ordered Sig/Mariluz Route Start Time Stop Time Status Last Admin (Mucinex Er) 600 mg BID PO 12/25/16 09:00 01/06/17 08:32 (NS Flush) 2 ml UNSCH PRN .XX 12/25/16 04:15 12/26/16 08:31 (NS Flush) 2 ml BID .XX 12/25/16 09:00 01/06/17 08:38 (Tylenol) 650 mg Q6H PRN PO 12/25/16 04:15 01/04/17 15:18 (Zofran Inj) 4 mg Q6H PRN IV 12/25/16 04:15 12/30/16 12:04 Miscellaneous Information 1 Q361D XX 12/25/16 04:15 12/25/16 04:15 (Chlorhexidine 2% Cloth) Taper DAILY@04 TOP 12/26/16 04:00 12/22/17 03:59 01/04/17 04:00 (Chlorhexidine 2% Cloth) 3 pack UNSCH PRN TOP 12/25/16 04:15 (Kellen-Colace) 1 tab BID PO 12/25/16 09:00 01/06/17 08:33 (Milk Of Magnesia Liq) 30 ml Q12H PRN PO 12/25/16 04:15 12/26/16 10:28 (Senokot) 17.2 mg Q12H PRN PO 12/25/16 04:15 (Dulcolax Supp) 10 mg DAILY PRN RECTAL 12/25/16 04:15 (Lactulose Liq) 30 ml DAILY PRN PO 12/25/16 04:15 (D50w (Vial) Inj) 50 ml UNSCH PRN IV 12/25/16 09:30 (Glucagon Inj) 1 mg UNSCH PRN OTHER 12/25/16 09:30 (NovoLIN R SUPPLEMENTAL SCALE) 1 Q6H SQ 12/25/16 10:00 01/06/17 10:00 (Miralax) 17 gm DAILY PO 12/25/16 17:30 01/06/17 08:32 (Buspar) 5 mg Q8HR PO 12/27/16 22:00 01/06/17 15:39 (Ativan Inj) 1 mg Q2H PRN IV PUSH 12/27/16 20:00 01/05/17 20:09 Alprazolam 0.5 mg 0.5 mg Q6H PRN PO 12/28/16 10:15 01/05/17 20:02 Propofol 100 ml @ 0 mls/hr TITRATE IV 12/31/16 03:00 01/01/17 05:03 Potassium Chloride 100 ml @ 50 mls/hr Q2H PRN IV 01/01/17 08:15 (KCl 20 Meq Premix Inj) 100 ml @ 50 mls/hr Q2H PRN IV 01/01/17 08:15 01/01/17 16:33 Potassium Bicarb/ Potassium Chloride 50 meq 50 meq UNSCH PRN PO 01/01/17 08:15 Potassium Chloride 100 ml @ 25 mls/hr UNSCH PRN IV 01/01/17 08:15 Potassium Chloride 100 ml @ 50 mls/hr Q2H PRN IV 01/01/17 08:15 (Magnesium Sulfate Inj/NS Inj) 100 ml @ 50 mls/hr UNSCH PRN IV 01/01/17 08:15 Magnesium Oxide 800 mg 800 mg UNSCH PRN PO 01/01/17 08:15 (Magnesium Sulfate Inj/NS Inj) 100 ml @ 50 mls/hr UNSCH PRN IV 01/01/17 08:15 Potassium Phosphate 2000 mg 2,000 mg Q4H PRN PO 01/01/17 08:15 (Sodium Phosphate Inj/NS 250 ml Inj) 250 ml @ 42 mls/hr UNSCH PRN IV 01/01/17 08:15 Potassium Phosphate 2000 mg 2,000 mg UNSCH PRN PO/TUBE 01/01/17 08:15 (Potassium Phosphate Inj/NS 250 ml Inj) 260 ml @ 42 mls/hr UNSCH PRN IV 01/01/17 08:15 (Tessalon) 200 mg TID PO 01/04/17 09:00 01/06/17 12:30 (Levaquin) 750 mg DAILY PO 01/05/17 09:00 01/08/17 08:59 01/06/17 08:33 (Cardizem) 90 mg QID PO 01/04/17 21:00 01/06/17 12:30 (Protonix) 40 mg DAILY PO 01/05/17 09:00 01/06/17 08:33 (Cardura) 4 mg DAILY PO 01/06/17 09:00 01/06/17 08:33 (SoluMEDROL INJ) 40 mg Q6H IV 01/05/17 20:00 01/06/17 12:32 (Apresoline Inj) 10 mg Q30M PRN IV PUSH 01/05/17 17:45 (Catapres) 0.1 mg Q6H PRN PO 01/05/17 17:45 (Cardizem) 30 mg ONCE ONCE PO 01/06/17 16:15 01/06/17 16:16 UNV . Family History Last Impressions Chest X-Ray 12/26/16 0000 Signed Impressions: Service Date/Time: Monday, December 26, 2016 06:02 - CONCLUSION: Medial right basilar infiltrate Erich Allison MD Abdomen X-Ray 12/26/16 0000 Signed Impressions: Service Date/Time: Monday, December 26, 2016 09:49 - CONCLUSION: 1. Relatively diffuse mild gaseous distention of the small bowel with a segment that is mildly dilated in the left midabdomen. The degree of distention is less than present on the prior CT. Findings overall are not highly suspicious for obstruction. Patient is currently scheduled for small bowel follow-through examination which will further assess. 2. Stable small right pleural effusion. Erich Stephenson MD Head CT 12/25/16 0000 Signed Impressions: Service Date/Time: Sunday, December 25, 2016 04:14 - CONCLUSION: 1. No acute intracranial abnormalities. Mild white matter ischemic changes. Lee Uribe MD CT Angiography 12/24/16 Signed Impressions: Service Date/Time: Sunday, December 25, 2016 01:40 - CONCLUSION: 1. Negative for pulmonary embolus. 2. There is suspected extensive mucoid plugging involving a portion of the distal right mainstem bronchus, right upper lobe bronchus and bronchus intermedius extending into segmental branches in both the right middle lobe and right lower lobe. Cannot exclude an endobronchial lesion. A small right-sided pleural effusion. 3. Severe emphysema. Lee Uribe MD Abdomen/Pelvis CT 12/24/16 0000 Signed Impressions: Service Date/Time: Sunday, December 25, 2016 01:36 - CONCLUSION: 1. Right-sided psoas hematoma measuring about 4.7 cm in maximum diameter and extending over a length of about 7 cm. 2. Previous bowel anastomosis with dilated loops of small bowel proximally with air fluid levels. Differential diagnosis includes a partial or early obstruction. 3. Widemouth ventral hernia near umbilicus containing a loop of constipated colon. 4. Small right pleural effusion. Lee Uribe MD Substance Use Tobacco: History of heavy smoking, quit. Alcohol: None. Prescription med abuse: None. Illicits: None. . Psychosocial History From [place]. 27 years ago. 4 adult children Lisa Soni (lives in [facility]), Keyon Busch (lives in [place]) and two twins Harlan and Josue. . Spiritual/Cultural Factors Scientology jonelle. . Health Care Surrogate: Copy in medical record Date completed: 01/06/17 . Health Care Surrogate(s): Primary health care surrogate, Enmanuel Pablo (brother). Alternates listed on form. . Documented care wishes: No Living Will. . Today's verbally stated goals: Desires aggressive care. . Ethical and Legal Issues Patient is currently capacitated. Should she lose capacity she has designated her brother, Enmanuel Pablo as primary HCS. . Physical Exam Vital Signs Date Time Temp Pulse Resp B/P Pulse Ox O2 Delivery O2 Flow Rate FiO2 01/06/17 14:01 126 62 155/80 100 01/06/17 14:00 129 30 100 01/06/17 13:00 118 47 139/75 100 01/06/17 12:00 98.4 120 62 163/88 100 01/06/17 11:00 116 50 149/70 01/06/17 10:10 119 55 160/92 01/06/17 10:00 119 43 01/06/17 09:00 121 50 163/86 98 01/06/17 08:00 Nasal Cannula 4.00 01/06/17 08:00 98.3 110 77 149/81 100 01/06/17 07:40 100 Nasal Cannula 4.00 01/06/17 04:00 98.0 85 39 116/66 100 01/06/17 04:00 85 01/06/17 04:00 100 Nasal Cannula 4.00 01/06/17 02:00 90 01/06/17 00:00 98 01/06/17 00:00 98.1 98 51 113/68 100 01/06/17 00:00 100 Nasal Cannula 4.00 01/05/17 22:00 122 01/05/17 20:47 100 Nasal Cannula 5.00 01/05/17 20:00 122 01/05/17 20:00 100 Nasal Cannula 4.00 01/05/17 20:00 98.3 122 42 170/101 100 01/05/17 18:00 120 01/05/17 01/06/17 19:00 07:00 Intake Total 150 ml 580 ml Balance 150 ml 580 ml Intake Oral 150 ml 580 ml IV Total 0 ml # Voids 3 3 # Bowel Movements 1 0 Exam CONSTITUTIONAL/GENERAL: This is an frail, short of breath female who appears older than her age. TUBES/LINES/DRAINS: PIV x 2 left. SKIN: No jaundice, rashes, or lesions. Ecchymoses on upper extremities. No wounds seen anteriorly. Skin temperature appropriate. Not diaphoretic. HEAD: Atraumatic. Normocephalic. EYES: Pupils equal and round and reactive. Extraocular motions intact. No scleral icterus. No injection or drainage. Fundi not examined. ENT: Hearing grossly normal. Nose without bleeding or purulent drainage. Throat without visible erythema, exudates, masses, or lesions. NECK: Trachea midline. CARDIOVASCULAR: Irregular, tachycardic. No JVD. RESPIRATORY/CHEST: Symmetric, labored respirations at rest. Diminished breath sounds bilaterally. GASTROINTESTINAL: Abdomen soft, non-tender, nondistended. No guarding. Bowel sounds present. GENITOURINARY: Without palpable bladder distension. Padilla catheter in place. MUSCULOSKELETAL: Extremities without clubbing, cyanosis, or edema. LYMPHATICS: No palpable cervical or supraclavicular adenopathy. NEUROLOGICAL: Awake and alert. Generalized weakness. Follows commands. Cognitively sharp. Moves all extremities. PSYCHIATRIC: Denies anxiety. . Diagnostic Tests Laboratory Laboratory Tests Test 01/05/17 01/06/17 17:46 05:49 White Blood Count 30.6 TH/MM3 25.9 TH/MM3 (4.0-11.0) (4.0-11.0) Red Blood Count 4.19 MIL/MM3 4.01 MIL/MM3 (4.00-5.30) (4.00-5.30) Hemoglobin 9.8 GM/DL 9.2 GM/DL (11.6-15.3) (11.6-15.3) Hematocrit 32.1 % 30.4 % (35.0-46.0) (35.0-46.0) Mean Corpuscular Volume 76.5 FL 75.8 FL (80.0-100.0) (80.0-100.0) Mean Corpuscular Hemoglobin 23.4 PG 23.0 PG (27.0-34.0) (27.0-34.0) Mean Corpuscular Hemoglobin 30.6 % 30.3 % Concent (32.0-36.0) (32.0-36.0) Red Cell Distribution Width 19.9 % 19.7 % (11.6-17.2) (11.6-17.2) Platelet Count 207 TH/MM3 269 TH/MM3 (150-450) (150-450) Mean Platelet Volume 8.2 FL 7.4 FL (7.0-11.0) (7.0-11.0) Neutrophils (%) (Auto) 97.0 % 97.1 % (16.0-70.0) (16.0-70.0) Lymphocytes (%) (Auto) 0.8 % 0.7 % (9.0-44.0) (9.0-44.0) Monocytes (%) (Auto) 2.0 % (0.0-8.0) 1.8 % (0.0-8.0) Eosinophils (%) (Auto) 0.0 % (0.0-4.0) 0.0 % (0.0-4.0) Basophils (%) (Auto) 0.2 % (0.0-2.0) 0.4 % (0.0-2.0) Neutrophils # (Auto) 29.7 TH/MM3 25.2 TH/MM3 (1.8-7.7) (1.8-7.7) Lymphocytes # (Auto) 0.2 TH/MM3 0.2 TH/MM3 (1.0-4.8) (1.0-4.8) Monocytes # (Auto) 0.6 TH/MM3 0.5 TH/MM3 (0-0.9) (0-0.9) Eosinophils # (Auto) 0.0 TH/MM3 0.0 TH/MM3 (0-0.4) (0-0.4) Basophils # (Auto) 0.1 TH/MM3 0.1 TH/MM3 (0-0.2) (0-0.2) CBC Comment AUTO DIFF DIFF FINAL Differential Total Cells 100 Counted Neutrophils % (Manual) 97 % (16-70) Lymphocytes % 2 % (9-44) Monocytes % 1 % (0-8) Neutrophils # (Manual) 29.7 TH/MM3 (1.8-7.7) Differential Comment FINAL DIFF MANUAL Platelet Estimate NORMAL (NORMAL) Platelet Morphology Comment NORMAL (NORMAL) Ovalocytes 1+ (NORMAL) Acanthocytes 1+ (NORMAL) Sodium Level 130 MEQ/L 136 MEQ/L (136-145) (136-145) Potassium Level 5.2 MEQ/L 4.9 MEQ/L (3.5-5.1) (3.5-5.1) Chloride Level 87 MEQ/L 87 MEQ/L (98-107) (98-107) Carbon Dioxide Level 41.9 MEQ/L GREATER THAN (21.0-32.0) 45.0 MEQ/L (21.0-32.0) Anion Gap 1 MEQ/L (5-15) 4 MEQ/L (5-15) Blood Urea Nitrogen 20 MG/DL (7-18) 19 MG/DL (7-18) Creatinine 0.47 MG/DL 0.41 MG/DL (0.50-1.00) (0.50-1.00) Estimat Glomerular Filtration 160 ML/MIN 188 ML/MIN Rate (>89) (>89) Random Glucose 177 MG/DL 140 MG/DL (74-106) (74-106) Calcium Level 8.5 MG/DL 8.8 MG/DL (8.5-10.1) (8.5-10.1) Total Bilirubin 0.3 MG/DL 0.3 MG/DL (0.2-1.0) (0.2-1.0) Aspartate Amino Transf 38 U/L (15-37) 16 U/L (15-37) (AST/SGOT) Alanine Aminotransferase 57 U/L (10-53) 63 U/L (10-53) (ALT/SGPT) Alkaline Phosphatase 114 U/L 110 U/L (45-117) (45-117) Total Protein 5.6 GM/DL 5.5 GM/DL (6.4-8.2) (6.4-8.2) Albumin 2.4 GM/DL 2.7 GM/DL (3.4-5.0) (3.4-5.0) Phosphorus Level 3.2 MG/DL (2.5-4.9) Magnesium Level 2.6 MG/DL (1.5-2.5) Result Diagram: 01/06/17 0549 01/06/17 0549 Imaging Last Impressions Chest X-Ray 01/01/17 0600 Signed Impressions: Service Date/Time: Sunday, January 01, 2017 03:43 - CONCLUSION: No acute cardiopulmonary disease. Lorri Engel MD Small Bowel X-Ray 12/27/16 0600 Signed Impressions: Service Date/Time: Tuesday, December 27, 2016 09:23 - CONCLUSION: Unremarkable small bowel examination. No evidence of obstruction Fred Michelle MD Abdomen X-Ray 12/26/16 0000 Signed Impressions: Service Date/Time: Monday, December 26, 2016 09:49 - CONCLUSION: 1. Relatively diffuse mild gaseous distention of the small bowel with a segment that is mildly dilated in the left midabdomen. The degree of distention is less than present on the prior CT. Findings overall are not highly suspicious for obstruction. Patient is currently scheduled for small bowel follow-through examination which will further assess. 2. Stable small right pleural effusion. Erich Stephenson MD Head CT 12/25/16 0000 Signed Impressions: Service Date/Time: Sunday, December 25, 2016 04:14 - CONCLUSION: 1. No acute intracranial abnormalities. Mild white matter ischemic changes. Lee Uribe MD CT Angiography 12/24/16 0000 Signed Impressions: Service Date/Time: Sunday, December 25, 2016 01:40 - CONCLUSION: 1. Negative for pulmonary embolus. 2. There is suspected extensive mucoid plugging involving a portion of the distal right mainstem bronchus, right upper lobe bronchus and bronchus intermedius extending into segmental branches in both the right middle lobe and right lower lobe. Cannot exclude an endobronchial lesion. A small right-sided pleural effusion. 3. Severe emphysema. Lee Uribe MD Abdomen/Pelvis CT 12/24/16 0000 Signed Impressions: Service Date/Time: Sunday, December 25, 2016 01:36 - CONCLUSION: 1. Right-sided psoas hematoma measuring about 4.7 cm in maximum diameter and extending over a length of about 7 cm. 2. Previous bowel anastomosis with dilated loops of small bowel proximally with air fluid levels. Differential diagnosis includes a partial or early obstruction. 3. Widemouth ventral hernia near umbilicus containing a loop of constipated colon. 4. Small right pleural effusion. Lee Uribe MD . Procedures * 01/01/17 - extubated. * 12/30/16 - Intubated * 12/24/16 - Bronchoscopy. . Patient/Family Conference Present at Family Conference: Met with pt. Also present Adalgisa Andrea LCSW. . Family Conference Time (mins): 60 Family Conference Location: Bedside Issues Discussed: * Palliative care role, purpose, approach * Additional medical, psychosocial, and spiritual history * Patients general health, functional status, and cognitive changes in the months leading up to the current hospitalization * Patient/family understanding of the current medical problems * Patient/family understanding of prognosis * Patients goals of care as best understood from advance directives and/or conversations and/or values * Current medical treatment options and benefits/burdens of those options * Likely scenarios comparing ongoing aggressive care with a transition to comfort measures only * Questions answered to the best of my ability * Palliative care contact information provided In summary: Patient completed designation of health care surrogate paperwork today. Conversation is limited due to severe shortness of breath. She desires continued aggressive care. Welcomes continued palliative care visits and conversations. She does verbalize frustration with lack of pulmonary improvement and the limitations severe shortness of breath has had on her life. Patient is considering alternate Code Status, for now remains FULL CODE. I was unable to open conversation regarding consideration of transition to comfort measures during this encounter. . Assessment and Plan Disease Oriented Problem List: (1) COPD with exacerbation (2) Anxiety (3) HTN (hypertension) (4) Ileus (5) Hematoma (6) Severe protein-calorie malnutrition Symptom Scale: (1) Anxiety 0-10 Scale: Unable to quantify (2) Shortness of breath 0-10 Scale: Unable to quantify Pertinent Non-Medical Issues Psychosocial: . 4 children. Spiritual: Scientology jonelle. Legal: Patient is currently capacitated. Should she lose capacity she has designated her brother, Enmanuel Pablo as primary HCS. Sent Designation of HCS paperwork to HIM to be scanned, copy in chart, and original given to patient. Witnessed by Adalgisa Andrea LCSW. Ethical issues impacting care: No known concerns at this time. . Important Contacts * Enmanuel Pablo, brother/primary HCS: [phone] * Alternate HCS #2: Raysa Acharya, sister: [phone] or Eli Pelayo, sister : * Alternate HCS #3: Lisa Zachariah, daughter: [phone] * Alternate HCS #4: Talisha Busch, daughter: [phone] . Prognosis 66 year old female with end stage COPD, overall prognosis is poor. Life expectancy limited, hospice appropriate if goals are comfort oriented. . Code Status: Full Code Plan * Patient is currently capacitated. Should she lose capacity she has designated her brother, Enmanuel Pablo as primary HCS. Sent Designation of HCS paperwork to HIM to be scanned, copy in chart, and original given to patient. Witnessed by Adalgisa Andrea LCSW. * FULL CODE * Discussed with case advocate (Serene), nurse (Antonietta) and Dr. Mejia. * Palliative care met with patient at bedside. Also present Adalgisa Andrea LCSW. Patient completed designation of health care surrogate paperwork today. Conversation is limited due to severe shortness of breath. She desires continued aggressive care. Welcomes continued palliative care visits and conversations. She does verbalize frustration with lack of pulmonary improvement and the limitations severe shortness of breath has had on her life. Patient is considering alternate Code Status, for now remains FULL CODE. I was unable to open conversation regarding consideration of transition to comfort measures during this encounter. Left message for brother, Enmanuel Pablo to introduce palliative care, give medical update, review HCS paperwork completed and discussion with patient, awaiting return call. * Palliative care will see again 01/09/17 to continue to attempt to clarify goals. * SYMPTOMS: Shortness of breath: on oxygen via NC, on Solu-medrol, On Buspar 5mg PO every 8 hours ATC, Xanax 0.5mg PO every 6 hours PRN anxiety, encouraged use and has nebulizers ordered. Will monitor. Anxiety: secondary to severe COPD , Xanax 0.5mg PO every 6 hours PRN anxiety, encouraged use. No new medication recommendations at this time. * Palliative care number provided. * Palliative care will continue to follow to assist with symptom management and further clarification of treatment goals. . Time Spent Total Floor Time (mins): 75 Face to Face Time (mins): 60 >50% Counseling/Coord of Care: Yes Thank you for the opportunity to participate in the care of Ms. Soni. Attestation To help prompt me to consider important information that might be impacting today's encounter and assessment, information from prior notes written by myself or my colleagues may have been "brought forward" into today's note. My signature on this note, however, is an attestation that I personally performed the exam, history, and/or decision-making noted today, and, unless otherwise indicated, the interactions with patient, family, and staff as well as the review of records all occurred today. I also attest that the listed assessment and stated plan reflect my best clinical judgment today based on the combination of historical information, prior notes, and today's exam/ interactions. When time spent is documented, it refers only to time spent today by the signer, or if indicated, combined time spent today by collaborating physician/nurse practitioner. IVETH OSBORNE Jan 06, 2017 17:13
--- NOTE | 2017-01-06 18:58 | HHI.PR ---
Subjective Remarks Deferred entry - patient seen earlier at 12:30 PM Patient states her breathing is at baseline denies cp seems anxious Objective Vitals Vital Signs Date Time Temp Pulse Resp B/P Pulse Ox O2 Delivery O2 Flow Rate FiO2 01/06/17 17:00 119 30 156/81 100 01/06/17 16:27 100 40 01/06/17 16:00 Nasal Cannula 4.00 01/06/17 16:00 99.0 127 38 154/88 100 01/06/17 15:00 142 80 165/96 100 01/06/17 14:01 126 62 155/80 100 01/06/17 14:00 129 30 100 01/06/17 13:00 118 47 139/75 100 01/06/17 12:00 Nasal Cannula 4.00 01/06/17 12:00 98.4 120 62 163/88 100 01/06/17 11:00 116 50 149/70 01/06/17 10:10 119 55 160/92 01/06/17 10:00 119 43 01/06/17 09:00 121 50 163/86 98 01/06/17 08:00 Nasal Cannula 4.00 01/06/17 08:00 98.3 110 77 149/81 100 01/06/17 07:40 100 Nasal Cannula 4.00 01/06/17 04:00 98.0 85 39 116/66 100 01/06/17 04:00 85 01/06/17 04:00 100 Nasal Cannula 4.00 01/06/17 02:00 90 01/06/17 00:00 98 01/06/17 00:00 98.1 98 51 113/68 100 01/06/17 00:00 100 Nasal Cannula 4.00 01/05/17 22:00 122 01/05/17 20:47 100 Nasal Cannula 5.00 01/05/17 20:00 122 01/05/17 20:00 100 Nasal Cannula 4.00 01/05/17 20:00 98.3 122 42 170/101 100 I/O 01/05/17 01/05/17 01/05/17 01/06/17 01/06/17 01/06/17 07:00 15:00 23:00 07:00 15:00 23:00 Intake Total 100 ml 150 ml 480 ml 100 ml 400 ml Output Total 800 ml Balance -700 ml 150 ml 480 ml 100 ml 400 ml Intake Oral 100 ml 150 ml 480 ml 100 ml 400 ml IV Total 0 ml 0 ml 0 ml 0 ml Output Urine Total 800 ml # Voids 3 2 1 2 # Bowel Movements 0 1 0 0 0 Result Diagram: 01/06/17 0549 01/06/17 0549 Imaging Last Impressions Chest X-Ray 01/01/17 06 Signed Impressions: Service Date/Time: Sunday, January 01, 2017 03:43 - CONCLUSION: No acute cardiopulmonary disease. Lorri Engel MD Small Bowel X-Ray 12/27/16 0600 Signed Impressions: Service Date/Time: Tuesday, December 27, 2016 09:23 - CONCLUSION: Unremarkable small bowel examination. No evidence of obstruction Fred Michelle MD Abdomen X-Ray 12/26/16 0000 Signed Impressions: Service Date/Time: Monday, December 26, 2016 09:49 - CONCLUSION: 1. Relatively diffuse mild gaseous distention of the small bowel with a segment that is mildly dilated in the left midabdomen. The degree of distention is less than present on the prior CT. Findings overall are not highly suspicious for obstruction. Patient is currently scheduled for small bowel follow-through examination which will further assess. 2. Stable small right pleural effusion. Erich Stephenson MD Head CT 12/25/16 0000 Signed Impressions: Service Date/Time: Sunday, December 25, 2016 04:14 - CONCLUSION: 1. No acute intracranial abnormalities. Mild white matter ischemic changes. Lee Uribe MD CT Angiography 12/24/16 0000 Signed Impressions: Service Date/Time: Sunday, December 25, 2016 01:40 - CONCLUSION: 1. Negative for pulmonary embolus. 2. There is suspected extensive mucoid plugging involving a portion of the distal right mainstem bronchus, right upper lobe bronchus and bronchus intermedius extending into segmental branches in both the right middle lobe and right lower lobe. Cannot exclude an endobronchial lesion. A small right-sided pleural effusion. 3. Severe emphysema. Lee Uribe MD Abdomen/Pelvis CT 12/24/16 0000 Signed Impressions: Service Date/Time: Sunday, December 25, 2016 01:36 - CONCLUSION: 1. Right-sided psoas hematoma measuring about 4.7 cm in maximum diameter and extending over a length of about 7 cm. 2. Previous bowel anastomosis with dilated loops of small bowel proximally with air fluid levels. Differential diagnosis includes a partial or early obstruction. 3. [place] ventral hernia near umbilicus containing a loop of constipated colon. 4. Small right pleural effusion. Lee Uribe MD Objective Remarks GENERAL: Patient is sitting up in bed in moderate respiratory distress. SKIN: Warm and dry. HEAD: Normocephalic. EYES: No scleral icterus. No injection or drainage. NECK: Supple, trachea midline. No JVD or lymphadenopathy. CARDIOVASCULAR: Tachycardic without murmurs, gallops, or rubs. RESPIRATORY: Diminished bilaterally, no wheezing but very poor air movement. there is accesory muscle use. GASTROINTESTINAL: Abdomen soft, non-tender, nondistended. MUSCULOSKELETAL: No cyanosis, or edema. BACK: Nontender without obvious deformity. No CVA tenderness. Neuro: Awake and alert Procedures sp bronchoscopy Medications and IVs Current Medications Medications (Trade) Dose Ordered Sig/Mariluz Route Start Time Stop Time Status Last Admin (Mucinex Er) 600 mg BID PO 12/25/16 09:00 01/06/17 08:32 (NS Flush) 2 ml UNSCH PRN .XX 12/25/16 04:15 12/26/16 08:31 (NS Flush) 2 ml BID .XX 12/25/16 09:00 01/06/17 08:38 (Tylenol) 650 mg Q6H PRN PO 12/25/16 04:15 01/04/17 15:18 (Zofran Inj) 4 mg Q6H PRN IV 12/25/16 04:15 12/30/16 12:04 Miscellaneous Information 1 Q361D XX 12/25/16 04:15 12/25/16 04:15 (Chlorhexidine 2% Cloth) Taper DAILY@04 TOP 12/26/16 04:00 12/22/17 03:59 01/04/17 04:00 (Chlorhexidine 2% Cloth) 3 pack UNSCH PRN TOP 12/25/16 04:15 (Kellen-Colace) 1 tab BID PO 12/25/16 09:00 01/06/17 08:33 (Milk Of Magnesia Liq) 30 ml Q12H PRN PO 12/25/16 04:15 12/26/16 10:28 (Senokot) 17.2 mg Q12H PRN PO 12/25/16 04:15 (Dulcolax Supp) 10 mg DAILY PRN RECTAL 12/25/16 04:15 (Lactulose Liq) 30 ml DAILY PRN PO 12/25/16 04:15 (D50w (Vial) Inj) 50 ml UNSCH PRN IV 12/25/16 09:30 (Glucagon Inj) 1 mg UNSCH PRN OTHER 12/25/16 09:30 (NovoLIN R SUPPLEMENTAL SCALE) 1 Q6H SQ 12/25/16 10:00 01/06/17 16:00 (Miralax) 17 gm DAILY PO 12/25/16 17:30 01/06/17 08:32 (Buspar) 5 mg Q8HR PO 12/27/16 22:00 01/06/17 15:39 (Ativan Inj) 1 mg Q2H PRN IV PUSH 12/27/16 20:00 01/05/17 20:09 Alprazolam 0.5 mg 0.5 mg Q6H PRN PO 12/28/16 10:15 01/05/17 20:02 Propofol 100 ml @ 0 mls/hr TITRATE IV 12/31/16 03:00 01/01/17 05:03 Potassium Chloride 100 ml @ 50 mls/hr Q2H PRN IV 01/01/17 08:15 (KCl 20 Meq Premix Inj) 100 ml @ 50 mls/hr Q2H PRN IV 01/01/17 08:15 01/01/17 16:33 Potassium Bicarb/ Potassium Chloride 50 meq 50 meq UNSCH PRN PO 01/01/17 08:15 Potassium Chloride 100 ml @ 25 mls/hr UNSCH PRN IV 01/01/17 08:15 Potassium Chloride 100 ml @ 50 mls/hr Q2H PRN IV 01/01/17 08:15 (Magnesium Sulfate Inj/NS Inj) 100 ml @ 50 mls/hr UNSCH PRN IV 01/01/17 08:15 Magnesium Oxide 800 mg 800 mg UNSCH PRN PO 01/01/17 08:15 (Magnesium Sulfate Inj/NS Inj) 100 ml @ 50 mls/hr UNSCH PRN IV 01/01/17 08:15 Potassium Phosphate 2000 mg 2,000 mg Q4H PRN PO 01/01/17 08:15 (Sodium Phosphate Inj/NS 250 ml Inj) 250 ml @ 42 mls/hr UNSCH PRN IV 01/01/17 08:15 Potassium Phosphate 2000 mg 2,000 mg UNSCH PRN PO/TUBE 01/01/17 08:15 (Potassium Phosphate Inj/NS 250 ml Inj) 260 ml @ 42 mls/hr UNSCH PRN IV 01/01/17 08:15 (Tessalon) 200 mg TID PO 01/04/17 09:00 01/06/17 18:00 (Levaquin) 750 mg DAILY PO 01/05/17 09:00 01/08/17 08:59 01/06/17 08:33 (Cardizem) 90 mg QID PO 01/04/17 21:00 01/06/17 18:00 (Protonix) 40 mg DAILY PO 01/05/17 09:00 01/06/17 08:33 (Cardura) 4 mg DAILY PO 01/06/17 09:00 01/06/17 08:33 (SoluMEDROL INJ) 40 mg Q6H IV 01/05/17 20:00 01/06/17 12:32 (Apresoline Inj) 10 mg Q30M PRN IV PUSH 01/05/17 17:45 (Catapres) 0.1 mg Q6H PRN PO 01/05/17 17:45 Urinary Catheter: No Date of Removal: Jan 04, 2017 Vascular Central Line Catheter: No A/P Problem List: (1) Acute hypercapnic respiratory failure ICD Code: J96.02 Status: Acute Plan: The patient was admitted to the intensive care unit and taken care of by medical assembly initially. Continue with supplemental oxygen to keep an O2 sat duration > 92%. Continue Bipap as needed Continue DuoNeb every 4 hours, albuterol every [address] angiogram without PE. Mucous plugging in the right mainstem, unable to rule out endobronchial lesion. Patient underwent bronchoscopy on 12/27, as per pulmonary report, no endobronchial lesion seen. Continue Solu-Medrol IV - Continue Solumedrol 40 mg IV Q 6 hrs (2) COPD with exacerbation ICD Code: J44.1 Status: Acute Plan: As above. Continue bipap appreciate pulmonary recommendations. Continue oral Levaquin Continue steroids Patient has end stage COPD exacerbation, now on IV steroids for prolonged time with minimal improvement. 01/06 appreciate palliative care efforts. (3) HTN (hypertension) ICD Code: I10 Status: Acute Plan: BP with improved control however still elevated. We'll continue doxazosin 4 mg by mouth daily. Continue to monitor vital signs. Continue dosing and clonidine as needed. Labetalol discontinued as beta blockers could worsen COPD. (4) Ileus ICD Code: K56.7 Status: Resolved Plan: CT abdomen and pelvis showed right psoas hematoma measuring about 4.7 cm. Previous bowel anastomosis on the limited loops of small bowel proximally with air fluid level. Possible partial or early obstruction. There is also [place] ventral hernia the umbilicus containing a loop of constipated colon. Small right pleural effusion. Surgery consulted - recommended non surgical management. Small bowel series - showed unremarkable examination Ileus has resolved (5) Hematoma ICD Code: T14.8 Status: Chronic Plan: Patient denies any trauma or symptoms. Coags are normal. Monitor CBC. (6) Severe protein-calorie malnutrition ICD Code: E43 Status: Acute Plan: Patient has a low BMI of 17.6 Dietitian consulted - enlive TID added to meals (7) Anxiety ICD Code: F41.9 Status: Acute Plan: Seems to be improved. continue Ativan and Xanax for Anxiety. Assessment and Plan DVT prophylaxis - SCD's, continue to hold chemoprophylaxis due to psoas hematoma. Discharge Planning Continue to monitor in the ICU. Patient still requiring bipap. Problem Qualifiers (1) HTN (hypertension): Qualified Code: I10 - Essential hypertension Christian Graham MD Jan 06, 2017 18:58
[2017-01-06] MEDS: ALPRAZolam 0.5 MG TAB PO PRN (20:36)
[2017-01-06] MEDS: hydrALAZINE HCL 20 MG/ML VIAL IV PUSH PRN (21:41)
[2017-01-06] MEDS: LORazepam 2 MG/ML VIAL IV PUSH PRN (22:56)
[2017-01-07] VITALS (16 sets, daily range): BP systolic 143–176; BP diastolic 71–89; PULSE 100–117; RESP 24–44; TEMP 96.7–98.5; O2SAT 99–100
[2017-01-07] MEDS: methylPREDNISolone SOD SUCC 125 MG/2 ML VIAL IV SCH ×4 (02:02→19:47)
[2017-01-07] MEDS: RESP: ALBUTEROL 2.5 MG/IPRATROPIUM 0.5 MG NEB (SCH) NEB ×6 (03:34→23:36)
[2017-01-07] MEDS: CHLORHEXIDINE GLUCONATE 2 % 1 PACK (2 CLOTHS) TOP SCH (04:00)
[2017-01-07] MEDS: INSULIN NovoLIN REGULAR SUPPLEMENTAL SCALE SQ SCH ×4 (04:00→22:24)
[2017-01-07 04:08] LABS: BLOOD GAS BASE EXCESS 20.3 mmol/L (-2-2); BLOOD GAS CARBOXYHEMOGLOBIN 2.1 % (0-4); BLOOD GAS HCO3 47 mmol/L (22-26); BLOOD GAS METHEMOGLOBIN 1.1 % (0-2); BLOOD GAS O2 HGB SATURATION 94 % (90-100); BLOOD GAS OXYGEN CONTENT 11.6 Vol % (12.0-20.0); BLOOD GAS PCO2 81 mmHg (38-42); BLOOD GAS PO2 90 mmHg (61-120); BLOOD GAS TOTAL HGB 8.7 G/DL (12.0-16.0); TEMP CORR TO 98.6
[2017-01-07 04:09] LABS: CRITICAL VALUE YES; DRAW SITE RT RADIAL; FIO2 36 %; LITER FLOW 4 L/M; NUMBER OF ARTERIAL PUNCTURES 1; OXYGEN DEVICE NASAL CANNULA; ULNAR PULSE PRESENT
[2017-01-07] MEDS: LORazepam 2 MG/ML VIAL IV PUSH PRN ×3 (04:09→14:33)
[2017-01-07] MEDS: busPIRone HCL 5 MG TAB PO SCH ×4 (04:09→22:22)
[2017-01-07 04:10] LABS: STAT NO
--- NOTE | 2017-01-07 05:09 | HHI.PR ---
Blank section for building Received call from Dr. Oconnor and RN that patient does not want to be reintubated latest ABG reviewed 7.38, pCO2 81, pO2 90 HCO3 47, base excess 20.3 Patient is currently A&O x3 and states she does not want to be re intubated. Patient would like to be a DNR Patient states that she is, "ready to meet [facility]." Patient agreeable to where a BiPAP BiPAP placed and code status changed to DNR Discussed with patient, nursing, Dr. Oconnor and Kait Amezcua Jan 07, 2017 05:09
[2017-01-07] MEDS: hydrALAZINE HCL 20 MG/ML VIAL IV PUSH PRN (06:53)
[2017-01-07] MEDS: POLYETHYLENE GLYCOL 17 GM PKG PO SCH (07:53)
[2017-01-07] MEDS: DILTIAZEM HCL 90 MG TAB PO SCH ×4 (07:54→19:47)
[2017-01-07] MEDS: DOCUSATE SODIUM 50 MG/SENNA 8.6 MG TAB PO SCH ×2 (07:54→19:46)
[2017-01-07] MEDS: SODIUM CHLORIDE 0.9% FLUSH 10 ML FLUSH SCH ×2 (07:54→19:48)
[2017-01-07] MEDS: DOXAZOSIN MESYLATE 2 MG TAB PO SCH (07:54)
[2017-01-07] MEDS: PANTOPRAZOLE SOD 40 MG DELAYED RELEASE TAB PO SCH (07:54)
[2017-01-07] MEDS: BENZONATATE 100 MG CAP PO SCH ×4 (07:54→18:00)
[2017-01-07] MEDS: LEVOFLOXACIN 750 MG TAB PO SCH (07:54)
[2017-01-07] MEDS: guaiFENesin E.R. 600 MG TAB PO SCH ×2 (07:54→19:51)
--- NOTE | 2017-01-07 23:46 | HHI.PR ---
Subjective Remarks Deferred entry - patient seen earlier around 10 AM Patient in severe respiratory distress and hypercapnia refused to be intubated made DNR Patient feels sob and states is anxious BP still elevated Objective Vitals Vital Signs Date Time Temp Pulse Resp B/P Pulse Ox O2 Delivery O2 Flow Rate FiO2 01/07/17 20:30 100 40 01/07/17 20:07 100 Nasal Cannula 3.00 01/07/17 20:00 100 01/07/17 18:00 102 01/07/17 16:00 96 Nasal Cannula 4.00 01/07/17 16:00 97.6 117 28 167/89 100 01/07/17 16:00 114 01/07/17 14:00 110 01/07/17 12:00 98 Nasal Cannula 4.00 01/07/17 12:00 98.5 104 28 146/78 100 01/07/17 12:00 104 01/07/17 10:00 101 01/07/17 08:00 105 01/07/17 08:00 98.2 109 36 163/79 100 01/07/17 08:00 100 Non-Rebreather 01/07/17 07:51 100 Non-Rebreather 12.00 01/07/17 06:00 107 01/07/17 04:45 99 40 01/07/17 04:00 108 01/07/17 04:00 Nasal Cannula 4.00 40 01/07/17 04:00 96.7 108 44 144/71 100 01/07/17 02:00 107 01/07/17 00:00 116 01/07/17 00:00 Nasal Cannula 4.00 40 01/07/17 00:00 98.0 116 38 143/71 100 I/O 01/06/17 01/06/17 01/06/17 01/07/17 01/07/17 01/07/17 07:00 15:00 23:00 07:00 15:00 23:00 Intake Total 100 ml 400 ml 740 ml 200 ml 480 ml Balance 100 ml 400 ml 740 ml 200 ml 480 ml Intake Oral 100 ml 400 ml 740 ml 200 ml 480 ml IV Total 0 ml 0 ml # Voids 1 2 3 1 2 # Bowel Movements 0 0 0 0 Result Diagram: 01/06/17 0549 01/06/17 0549 Imaging Last Impressions Chest X-Ray 01/01/17599 Signed Impressions: Service Date/Time: Sunday, January 01, 2017 03:43 - CONCLUSION: No acute cardiopulmonary disease. Lorri Engel MD Small Bowel X-Ray 12/27/1600 Signed Impressions: Service Date/Time: Tuesday, December 27, 2016 09:23 - CONCLUSION: Unremarkable small bowel examination. No evidence of obstruction Fred Michelle MD Abdomen X-Ray 12/26/16 0000 Signed Impressions: Service Date/Time: Monday, December 26, 2016 09:49 - CONCLUSION: 1. Relatively diffuse mild gaseous distention of the small bowel with a segment that is mildly dilated in the left midabdomen. The degree of distention is less than present on the prior CT. Findings overall are not highly suspicious for obstruction. Patient is currently scheduled for small bowel follow-through examination which will further assess. 2. Stable small right pleural effusion. Erich Stephenson MD Head CT 12/25/16 0000 Signed Impressions: Service Date/Time: Sunday, December 25, 2016 04:14 - CONCLUSION: 1. No acute intracranial abnormalities. Mild white matter ischemic changes. Lee Uribe MD CT Angiography 12/24/16 0000 Signed Impressions: Service Date/Time: Sunday, December 25, 2016 01:40 - CONCLUSION: 1. Negative for pulmonary embolus. 2. There is suspected extensive mucoid plugging involving a portion of the distal right mainstem bronchus, right upper lobe bronchus and bronchus intermedius extending into segmental branches in both the right middle lobe and right lower lobe. Cannot exclude an endobronchial lesion. A small right-sided pleural effusion. 3. Severe emphysema. Lee Uribe MD Abdomen/Pelvis CT 12/24/16 0000 Signed Impressions: Service Date/Time: Sunday, December 25, 2016 01:36 - CONCLUSION: 1. Right-sided psoas hematoma measuring about 4.7 cm in maximum diameter and extending over a length of about 7 cm. 2. Previous bowel anastomosis with dilated loops of small bowel proximally with air fluid levels. Differential diagnosis includes a partial or early obstruction. 3. [place] ventral hernia near umbilicus containing a loop of constipated colon. 4. Small right pleural effusion. Lee Uribe MD Objective Remarks GENERAL: Patient is sitting up in bed in moderate respiratory distress. SKIN: Warm and dry. HEAD: Normocephalic. EYES: No scleral icterus. No injection or drainage. NECK: Supple, trachea midline. No JVD or lymphadenopathy. CARDIOVASCULAR: Tachycardic without murmurs, gallops, or rubs. RESPIRATORY: Diminished bilaterally, no wheezing but very poor air movement. there is accesory muscle use. GASTROINTESTINAL: Abdomen soft, non-tender, nondistended. MUSCULOSKELETAL: No cyanosis, or edema. BACK: Nontender without obvious deformity. No CVA tenderness. Neuro: Awake and alert Procedures sp bronchoscopy Medications and IVs Current Medications Medications (Trade) Dose Ordered Sig/Mariluz Route Start Time Stop Time Status Last Admin (Mucinex Er) 600 mg BID PO 12/25/16 09:00 01/07/17 19:51 (NS Flush) 2 ml UNSCH PRN .XX 12/25/16 04:15 12/26/16 08:31 (NS Flush) 2 ml BID .XX 12/25/16 09:00 01/07/17 19:48 (Tylenol) 650 mg Q6H PRN PO 12/25/16 04:15 01/04/17 15:18 (Zofran Inj) 4 mg Q6H PRN IV 12/25/16 04:15 12/30/16 12:04 Miscellaneous Information 1 Q361D XX 12/25/16 04:15 12/25/16 04:15 (Chlorhexidine 2% Cloth) Taper DAILY@04 TOP 12/26/16 04:00 12/22/17 03:59 01/07/17 04:00 (Chlorhexidine 2% Cloth) 3 pack UNSCH PRN TOP 12/25/16 04:15 (Kellen-Colace) 1 tab BID PO 12/25/16 09:00 01/07/17 19:46 (Milk Of Magnesia Liq) 30 ml Q12H PRN PO 12/25/16 04:15 12/26/16 10:28 (Senokot) 17.2 mg Q12H PRN PO 12/25/16 04:15 (Dulcolax Supp) 10 mg DAILY PRN RECTAL 12/25/16 04:15 (Lactulose Liq) 30 ml DAILY PRN PO 12/25/16 04:15 (D50w (Vial) Inj) 50 ml UNSCH PRN IV 12/25/16 09:30 (Glucagon Inj) 1 mg UNSCH PRN OTHER 12/25/16 09:30 (NovoLIN R SUPPLEMENTAL SCALE) 1 Q6H SQ 12/25/16 10:00 01/07/17 22:24 (Miralax) 17 gm DAILY PO 12/25/16 17:30 01/07/17 07:53 (Buspar) 5 mg Q8HR PO 12/27/16 22:00 01/07/17 22:22 (Ativan Inj) 1 mg Q2H PRN IV PUSH 12/27/16 20:00 01/07/17 14:33 Alprazolam 0.5 mg 0.5 mg Q6H PRN PO 12/28/16 10:15 01/06/17 20:36 Propofol 100 ml @ 0 mls/hr TITRATE IV 12/31/16 03:00 01/01/17 05:03 Potassium Chloride 100 ml @ 50 mls/hr Q2H PRN IV 01/01/17 08:15 (KCl 20 Meq Premix Inj) 100 ml @ 50 mls/hr Q2H PRN IV 01/01/17 08:15 01/01/17 16:33 Potassium Bicarb/ Potassium Chloride 50 meq 50 meq UNSCH PRN PO 01/01/17 08:15 Potassium Chloride 100 ml @ 25 mls/hr UNSCH PRN IV 01/01/17 08:15 Potassium Chloride 100 ml @ 50 mls/hr Q2H PRN IV 01/01/17 08:15 (Magnesium Sulfate Inj/NS Inj) 100 ml @ 50 mls/hr UNSCH PRN IV 01/01/17 08:15 Magnesium Oxide 800 mg 800 mg UNSCH PRN PO 01/01/17 08:15 (Magnesium Sulfate Inj/NS Inj) 100 ml @ 50 mls/hr UNSCH PRN IV 01/01/17 08:15 Potassium Phosphate 2000 mg 2,000 mg Q4H PRN PO 01/01/17 08:15 (Sodium Phosphate Inj/NS 250 ml Inj) 250 ml @ 42 mls/hr UNSCH PRN IV 01/01/17 08:15 Potassium Phosphate 2000 mg 2,000 mg UNSCH PRN PO/TUBE 01/01/17 08:15 (Potassium Phosphate Inj/NS 250 ml Inj) 260 ml @ 42 mls/hr UNSCH PRN IV 01/01/17 08:15 (Tessalon) 200 mg TID PO 01/04/17 09:00 01/07/17 07:54 (Levaquin) 750 mg DAILY PO 01/05/17 09:00 01/08/17 08:59 01/07/17 07:54 (Cardizem) 90 mg QID PO 01/04/17 21:00 01/07/17 19:47 (Protonix) 40 mg DAILY PO 01/05/17 09:00 01/07/17 07:54 (Cardura) 4 mg DAILY PO 01/06/17 09:00 01/07/17 07:54 (SoluMEDROL INJ) 40 mg Q6H IV 01/05/17 20:00 01/07/17 19:47 (Apresoline Inj) 10 mg Q30M PRN IV PUSH 01/05/17 17:45 01/07/17 06:53 (Catapres) 0.1 mg Q6H PRN PO 01/05/17 17:45 01/06/17 22:05 Urinary Catheter: No Date of Removal: Jan 04, 2017 Vascular Central Line Catheter: No A/P Problem List: (1) Acute hypercapnic respiratory failure ICD Code: J96.02 Status: Acute Plan: The patient was admitted to the intensive care unit and taken care of by faith doctor initially. Continue with supplemental oxygen to keep an O2 sat duration > 92%. Continue Bipap as needed Continue DuoNeb every 4 hours, albuterol every [address] angiogram without PE. Mucous plugging in the right mainstem, unable to rule out endobronchial lesion. Patient underwent bronchoscopy on 12/27, as per pulmonary report, no endobronchial lesion seen. Continue Solu-Medrol IV - Continue Solumedrol 40 mg IV Q 6 hrs 01/07 Patient with severe respiratory distress overnight, seen by [employer] PA. ABG showed hypercapnic respiratory failure and patient was offered to be intubated however she refused and changed her code status to DNR. I discussed the patient's current status w the patient and explained to her that she has reached an end stage in her condition which is not reponding to treatment with high dose steroids, bronchodilators and antibiotics. Offered to consult hospice but she asked me to speak with her family first. I called brother who came to hospital. I discussed at length the patient's condition, brother stated he was going to consult with her other sister and get back to me. (2) COPD with exacerbation ICD Code: J44.1 Status: Acute Plan: As above. Continue bipap appreciate pulmonary recommendations. Continue oral Levaquin Continue steroids Patient has end stage COPD exacerbation, now on IV steroids for prolonged time with minimal improvement. 01/06 appreciate palliative care efforts. 01/07 patient is DNR. Awaiting family and patient decision to consult hospice. (3) HTN (hypertension) ICD Code: I10 Status: Acute Plan: BP with improved control however still elevated. We'll continue doxazosin 4 mg by mouth daily. Continue to monitor vital signs. Continue dosing and clonidine as needed. Labetalol discontinued as beta blockers could worsen COPD. 01/07 BP still elevated - Will increase Cardura to 6 mg po daily. Continue Clonidine as needed. (4) Ileus ICD Code: K56.7 Status: Resolved Plan: CT abdomen and pelvis showed right psoas hematoma measuring about 4.7 cm. Previous bowel anastomosis on the limited loops of small bowel proximally with air fluid level. Possible partial or early obstruction. There is also [place] ventral hernia the umbilicus containing a loop of constipated colon. Small right pleural effusion. Surgery consulted - recommended non surgical management. Small bowel series - showed unremarkable examination Ileus has resolved (5) Hematoma ICD Code: T14.8 Status: Chronic Plan: Patient denies any trauma or symptoms. Coags are normal. Monitor CBC. (6) Severe protein-calorie malnutrition ICD Code: E43 Status: Acute Plan: Patient has a low BMI of 17.6 Dietitian consulted - enlive TID added to meals (7) Anxiety ICD Code: F41.9 Status: Acute Plan: Seems to be improved. continue Ativan and Xanax for Anxiety. Assessment and Plan DVT prophylaxis - SCD's, continue to hold chemoprophylaxis due to psoas hematoma. Discharge Planning Continue to monitor in the ICU. Patient still requiring bipap. Problem Qualifiers (1) HTN (hypertension): Qualified Code: I10 - Essential hypertension Christian Graham MD Jan 07, 2017 23:46
[2017-01-08] VITALS (14 sets, daily range): BP systolic 119–190; BP diastolic 59–92; PULSE 79–115; RESP 22–29; TEMP 97.4–98.6; O2SAT 94–100
[2017-01-08] MEDS: methylPREDNISolone SOD SUCC 125 MG/2 ML VIAL IV SCH ×4 (01:39→21:25)
[2017-01-08] MEDS: RESP: ALBUTEROL 2.5 MG/IPRATROPIUM 0.5 MG NEB (SCH) NEB ×6 (03:27→23:18)
[2017-01-08] MEDS: INSULIN NovoLIN REGULAR SUPPLEMENTAL SCALE SQ SCH ×4 (04:00→22:00)
[2017-01-08] MEDS: CHLORHEXIDINE GLUCONATE 2 % 1 PACK (2 CLOTHS) TOP SCH ×2 (04:00→23:15)
[2017-01-08] MEDS: busPIRone HCL 5 MG TAB PO SCH ×3 (04:57→21:27)
[2017-01-08 06:33] LABS: AUTOMATED NEUTROPHIL # 23.5 TH/MM3 (1.8-7.7); BASOPHIL # 0.1 TH/MM3 (0-0.2); BASOPHIL % 0.3 % (0.0-2.0); HEMATOCRIT 28.7 % (35.0-46.0); HEMO FLAGS DIFF FINAL; LYMPH % 0.3 % (9.0-44.0); LYMPHOCYTE # 0.1 TH/MM3 (1.0-4.8); MEAN CELL VOLUME 74.5 FL (80.0-100.0); MEAN CORPUSCULAR HEMOGLOBIN 23.1 PG (27.0-34.0); MONO % 1.7 % (0.0-8.0); NEUT % 97.7 % (16.0-70.0); PLATELET COUNT 214 TH/MM3 (150-450); RED BLOOD COUNT 3.85 MIL/MM3 (4.00-5.30); RED CELL DISTRIBUTION WIDTH 19.6 % (11.6-17.2)
[2017-01-08 07:05] LABS: ALKALINE PHOSPHATASE 95 U/L (45-117); ALT (GPT) 57 U/L (10-53); ANION GAP 6 MEQ/L (5-15); AST (GOT) 18 U/L (15-37); BICARBONATE 43.8 MEQ/L (21.0-32.0); BLOOD UREA NITROGEN 17 MG/DL (7-18); CHLORIDE 82 MEQ/L (98-107); GLOMERULAR FILTRATION RATE 366 ML/MIN (>89); POTASSIUM 4.1 MEQ/L (3.5-5.1); SODIUM (NA) 132 MEQ/L (136-145); TOTAL BILIRUBIN ADULT 0.5 MG/DL (0.2-1.0)
[2017-01-08] MEDS: DOXAZOSIN MESYLATE 2 MG TAB PO SCH (07:56)
[2017-01-08] MEDS: guaiFENesin E.R. 600 MG TAB PO SCH ×2 (07:56→21:00)
[2017-01-08] MEDS: BENZONATATE 100 MG CAP PO SCH ×3 (07:56→17:28)
[2017-01-08] MEDS: DILTIAZEM HCL 90 MG TAB PO SCH ×4 (07:56→21:00)
[2017-01-08] MEDS: DOCUSATE SODIUM 50 MG/SENNA 8.6 MG TAB PO SCH ×2 (07:56→21:00)
[2017-01-08] MEDS: PANTOPRAZOLE SOD 40 MG DELAYED RELEASE TAB PO SCH (07:56)
[2017-01-08] MEDS: POLYETHYLENE GLYCOL 17 GM PKG PO SCH (07:56)
[2017-01-08] MEDS: SODIUM CHLORIDE 0.9% FLUSH 10 ML FLUSH SCH ×2 (07:57→21:24)
[2017-01-08] MEDS: ALPRAZolam 0.5 MG TAB PO PRN (12:01)
--- NOTE | 2017-01-08 14:13 | HHI.PR ---
Subjective Remarks The patient is in severe respiratory distress Very lethargic Tachycardic, tachypneic Satting well on nasal cannula. Objective Vitals Vital Signs Date Time Temp Pulse Resp B/P Pulse Ox O2 Delivery O2 Flow Rate FiO2 01/08/17 10:00 111 01/08/17 08:00 100 Nasal Cannula 4.00 01/08/17 08:00 97 29 144/73 100 01/08/17 08:00 115 01/08/17 07:41 100 Nasal Cannula 4.00 01/08/17 06:00 109 01/08/17 04:00 100 Nasal Cannula 4.00 01/08/17 04:00 98.6 103 24 170/86 97 01/08/17 04:00 103 01/08/17 02:00 96 01/08/17 00:00 100 Nasal Cannula 4.00 01/08/17 00:00 99 01/08/17 00:00 98.2 99 22 151/74 100 01/07/17 22:00 112 01/07/17 20:30 100 40 01/07/17 20:07 100 Nasal Cannula 3.00 01/07/17 20:00 99 Nasal Cannula 4.00 01/07/17 20:00 100 01/07/17 20:00 98.3 112 24 176/84 99 01/07/17 18:00 102 01/07/17 16:00 96 Nasal Cannula 4.00 01/07/17 16:00 97.6 117 28 167/89 100 01/07/17 16:00 114 I/O 01/07/17 01/07/17 01/07/17 01/08/17 01/08/17 01/08/17 07:00 15:00 23:00 07:00 15:00 23:00 Intake Total 200 ml 480 ml 200 ml 200 ml Balance 200 ml 480 ml 200 ml 200 ml Intake Oral 200 ml 480 ml 200 ml 200 ml # Voids 1 2 1 1 # Bowel Movements 0 0 0 Result Diagram: 01/08/17 0536 01/08/17 0536 Imaging Last Impressions Chest X-Ray 01/08/17 0000 Signed Impressions: Service Date/Time: Sunday, January 08, 2017 14:04 - CONCLUSION: No evidence of acute cardiopulmonary disease. Erich Morales MD Small Bowel X-Ray 12/27/16 0600 Signed Impressions: Service Date/Time: Tuesday, December 27, 2016 09:23 - CONCLUSION: Unremarkable small bowel examination. No evidence of obstruction Fred Michelle MD Abdomen X-Ray 12/26/16 0000 Signed Impressions: Service Date/Time: Monday, December 26, 2016 09:49 - CONCLUSION: 1. Relatively diffuse mild gaseous distention of the small bowel with a segment that is mildly dilated in the left midabdomen. The degree of distention is less than present on the prior CT. Findings overall are not highly suspicious for obstruction. Patient is currently scheduled for small bowel follow-through examination which will further assess. 2. Stable small right pleural effusion. Erich Stephenson MD Head CT 12/25/16 0000 Signed Impressions: Service Date/Time: Sunday, December 25, 2016 04:14 - CONCLUSION: 1. No acute intracranial abnormalities. Mild white matter ischemic changes. Lee Uribe MD CT Angiography 12/24/16 0000 Signed Impressions: Service Date/Time: Sunday, December 25, 2016 01:40 - CONCLUSION: 1. Negative for pulmonary embolus. 2. There is suspected extensive mucoid plugging involving a portion of the distal right mainstem bronchus, right upper lobe bronchus and bronchus intermedius extending into segmental branches in both the right middle lobe and right lower lobe. Cannot exclude an endobronchial lesion. A small right-sided pleural effusion. 3. Severe emphysema. Lee Uribe MD Abdomen/Pelvis CT 12/24/16 0000 Signed Impressions: Service Date/Time: Sunday, December 25, 2016 01:36 - CONCLUSION: 1. Right-sided psoas hematoma measuring about 4.7 cm in maximum diameter and extending over a length of about 7 cm. 2. Previous bowel anastomosis with dilated loops of small bowel proximally with air fluid levels. Differential diagnosis includes a partial or early obstruction. 3. [place] ventral hernia near umbilicus containing a loop of constipated colon. 4. Small right pleural effusion. Lee Uribe MD Objective Remarks GENERAL: Patient is sitting up in bed in moderate respiratory distress. SKIN: Warm and dry. HEAD: Normocephalic. EYES: No scleral icterus. No injection or drainage. NECK: Supple, trachea midline. No JVD or lymphadenopathy. CARDIOVASCULAR: Tachycardic without murmurs, gallops, or rubs. RESPIRATORY: Diminished bilaterally, no wheezing but very poor air movement. there is accesory muscle use. GASTROINTESTINAL: Abdomen soft, non-tender, nondistended. MUSCULOSKELETAL: No cyanosis, or edema. BACK: Nontender without obvious deformity. No CVA tenderness. Neuro: Awake and alert Procedures sp bronchoscopy Medications and IVs Current Medications Medications (Trade) Dose Ordered Sig/Mariluz Route Start Time Stop Time Status Last Admin (Mucinex Er) 600 mg BID PO 12/25/16 09:00 01/08/17 07:56 (NS Flush) 2 ml UNSCH PRN .XX 12/25/16 04:15 12/26/16 08:31 (NS Flush) 2 ml BID .XX 12/25/16 09:00 01/08/17 07:57 (Tylenol) 650 mg Q6H PRN PO 12/25/16 04:15 01/04/17 15:18 (Zofran Inj) 4 mg Q6H PRN IV 12/25/16 04:15 12/30/16 12:04 Miscellaneous Information 1 Q361D XX 12/25/16 04:15 12/25/16 04:15 (Chlorhexidine 2% Cloth) Taper DAILY@04 TOP 12/26/16 04:00 12/22/17 03:59 01/08/17 04:00 (Chlorhexidine 2% Cloth) 3 pack UNSCH PRN TOP 12/25/16 04:15 (Kellen-Colace) 1 tab BID PO 12/25/16 09:00 01/08/17 07:56 (Milk Of Magnesia Liq) 30 ml Q12H PRN PO 12/25/16 04:15 12/26/16 10:28 (Senokot) 17.2 mg Q12H PRN PO 12/25/16 04:15 (Dulcolax Supp) 10 mg DAILY PRN RECTAL 12/25/16 04:15 (Lactulose Liq) 30 ml DAILY PRN PO 12/25/16 04:15 (D50w (Vial) Inj) 50 ml UNSCH PRN IV 12/25/16 09:30 (Glucagon Inj) 1 mg UNSCH PRN OTHER 12/25/16 09:30 (NovoLIN R SUPPLEMENTAL SCALE) 1 Q6H SQ 12/25/16 10:00 01/08/17 15:51 (Miralax) 17 gm DAILY PO 12/25/16 17:30 01/08/17 07:56 (Buspar) 5 mg Q8HR PO 12/27/16 22:00 01/08/17 04:57 (Ativan Inj) 1 mg Q2H PRN IV PUSH 12/27/16 20:00 01/07/17 14:33 Alprazolam 0.5 mg 0.5 mg Q6H PRN PO 12/28/16 10:15 01/08/17 12:01 Propofol 100 ml @ 0 mls/hr TITRATE IV 12/31/16 03:00 01/01/17 05:03 Potassium Chloride 100 ml @ 50 mls/hr Q2H PRN IV 01/01/17 08:15 (KCl 20 Meq Premix Inj) 100 ml @ 50 mls/hr Q2H PRN IV 01/01/17 08:15 01/01/17 16:33 Potassium Bicarb/ Potassium Chloride 50 meq 50 meq UNSCH PRN PO 01/01/17 08:15 Potassium Chloride 100 ml @ 25 mls/hr UNSCH PRN IV 01/01/17 08:15 Potassium Chloride 100 ml @ 50 mls/hr Q2H PRN IV 01/01/17 08:15 (Magnesium Sulfate Inj/NS Inj) 100 ml @ 50 mls/hr UNSCH PRN IV 01/01/17 08:15 Magnesium Oxide 800 mg 800 mg UNSCH PRN PO 01/01/17 08:15 (Magnesium Sulfate Inj/NS Inj) 100 ml @ 50 mls/hr UNSCH PRN IV 01/01/17 08:15 Potassium Phosphate 2000 mg 2,000 mg Q4H PRN PO 01/01/17 08:15 (Sodium Phosphate Inj/NS 250 ml Inj) 250 ml @ 42 mls/hr UNSCH PRN IV 01/01/17 08:15 Potassium Phosphate 2000 mg 2,000 mg UNSCH PRN PO/TUBE 01/01/17 08:15 (Potassium Phosphate Inj/NS 250 ml Inj) 260 ml @ 42 mls/hr UNSCH PRN IV 01/01/17 08:15 (Tessalon) 200 mg TID PO 01/04/17 09:00 01/08/17 07:56 (Cardizem) 90 mg QID PO 01/04/17 21:00 01/08/17 17:28 (Protonix) 40 mg DAILY PO 01/05/17 09:00 01/08/17 07:56 (Apresoline Inj) 10 mg Q30M PRN IV PUSH 01/05/17 17:45 01/07/17 06:53 (Catapres) 0.1 mg Q6H PRN PO 01/05/17 17:45 01/06/17 22:05 (Cardura) 6 mg DAILY PO 01/08/17 09:00 01/08/17 07:56 Methylprednisolone Sodium Succinate 125 mg 125 mg Q6H IV 01/08/17 20:00 (Maxipime Inj/NS Inj) 100 ml @ 200 mls/hr Q8HR IV 01/08/17 15:00 01/08/17 15:47 Urinary Catheter: No Date of Removal: Jan 04, 2017 Vascular Central Line Catheter: No A/P Problem List: (1) Acute hypercapnic respiratory failure ICD Code: J96.02 Status: Acute Plan: The patient was admitted to the intensive care unit and taken care of by viticulturist initially. Continue with supplemental oxygen to keep an O2 sat duration > 92%. Continue Bipap as needed Continue DuoNeb every 4 hours, albuterol every [address] angiogram without PE. Mucous plugging in the right mainstem, unable to rule out endobronchial lesion. Patient underwent bronchoscopy on 12/27, as per pulmonary report, no endobronchial lesion seen. Continue Solu-Medrol IV - Continue Solumedrol 40 mg IV Q 6 hrs 01/07 Patient with severe respiratory distress overnight, seen by Therapeutic Program Worker and Medicine PA. ABG showed hypercapnic respiratory failure and patient was offered to be intubated however she refused and changed her code status to DNR. I discussed the patient's current status w the patient and explained to her that she has reached an end stage in her condition which is not reponding to treatment with high dose steroids, bronchodilators and antibiotics. Offered to consult hospice but she asked me to speak with her family first. I called brother who came to hospital. I discussed at length the patient's condition, brother stated he was going to consult with her other sister and get back to me. 01/08 patient is in severe respiratory distress. Ordered a stat ABG and chest x- ray, increase the dose of steroids to 125 mg IV every 6 hours first dose now and start the patient IV cefepime. Stat ABG showed a pH of 7.29, PCO2 of 96, PO2 of 106. Patient is in acute on chronic respiratory failure with hypercarbia. Patient is currently a DO NOT RESUSCITATE. I asked patient if she would like to be intubated and she answered no. Given due to the high CO2 I don't think the patient is able to make adequate decisions at this time, however previously the patient stated that she would not want to be intubated so she was made DO NOT RESUSCITATE and DO NOT INTUBATE. I will follow her wishes. Called the patient's brother who is to healthcare proxy and left a message in his cell phone and in his home phone to return a call urgently to the hospital. I called the other patients contacted in the chart, Adriana Pablo who is the patient's account and she said that she was going to try to locate Mr. Enmanuel Pablo. (2) COPD with exacerbation ICD Code: J44.1 Status: Acute Plan: As above. Continue bipap appreciate pulmonary recommendations. Continue oral Levaquin Continue steroids Patient has end stage COPD exacerbation, now on IV steroids for prolonged time with minimal improvement. 01/06 appreciate palliative care efforts. 01/07 patient is DNR. Awaiting family and patient decision to consult hospice. 01/08 patient with acute hypercarbic respiratory failure, lethargic, patient not tolerating refusing BiPAP. Continue supplemental oxygen to keep oxygen saturation > 92%. (3) HTN (hypertension) ICD Code: I10 Status: Acute Plan: BP with improved control however still elevated. We'll continue doxazosin 4 mg by mouth daily. Continue to monitor vital signs. Continue dosing and clonidine as needed. Labetalol discontinued as beta blockers could worsen COPD. 01/07 BP still elevated - Will increase Cardura to 6 mg po daily. Continue Clonidine as needed. 01/08 BP much improved. Continue doxazosin 6 mg by mouth daily. Continue clonidine as needed. (4) Ileus ICD Code: K56.7 Status: Resolved Plan: CT abdomen and pelvis showed right psoas hematoma measuring about 4.7 cm. Previous bowel anastomosis on the limited loops of small bowel proximally with air fluid level. Possible partial or early obstruction. There is also [place] ventral hernia the umbilicus containing a loop of constipated colon. Small right pleural effusion. Surgery consulted - recommended non surgical management. Small bowel series - showed unremarkable examination Ileus has resolved (5) Hematoma ICD Code: T14.8 Status: Chronic Plan: Patient denies any trauma or symptoms. Coags are normal. Monitor CBC. (6) Severe protein-calorie malnutrition ICD Code: E43 Status: Acute Plan: Patient has a low BMI of 17.6 Dietitian consulted - enlive TID added to meals (7) Anxiety ICD Code: F41.9 Status: Acute Plan: Hold Xanax and anxiety now secondary to toxic encephalopathy caused by CO2 narcosis. (8) Toxic encephalopathy ICD Code: G92 Status: Acute Plan: Due to CO2 narcosis. At this point the patient is unable to make medical decisions. We'll try BiPAP if patient tolerates it. Patient is DO NOT RESUSCITATE and DO NOT INTUBATE. Assessment and Plan DVT prophylaxis - SCD's, continue to hold chemoprophylaxis due to psoas hematoma. 45 minutes of critical care time spent on patient care. Discharge Planning Continue to monitor in the ICU. Patient still requiring bipap. Problem Qualifiers (1) HTN (hypertension): Qualified Code: I10 - Essential hypertension Christian Graham MD Jan 08, 2017 14:13
[2017-01-08] MEDS ORDERED: methylPREDNISolone SOD SUCC 125 MG/2 ML VIAL IV PUSH ONE (14:15)
--- NOTE | 2017-01-08 14:29 | RADRPT ---
EXAM DATE/TIME: 01/08/2017 14:04 [facility] COMPARISON: CHEST SINGLE AP, January 01, 2017, 3:43. INDICATIONS : Short of breath. MEDICAL HISTORY : Chronic obstructive pulmonary disease. SURGICAL HISTORY : None. ENCOUNTER: Initial ACUITY: 1 week PAIN SCORE: Non-responsive. LOCATION: Bilateral chest FINDINGS: No infiltrate, effusion or pneumothorax. Lungs are hyperexpanded. Heart size stable, within normal li mits. Endotracheal tube and nasogastric tube out in the interim. CONCLUSION: No evidence of acute cardiopulmonary disease. Erich Morales MD on January 08, 2017 at 14:27 Board Certified Radiologist. This report was verified electronically.
[2017-01-08 14:38] LABS: BLOOD GAS BASE EXCESS 17.3 mmol/L (-2-2); BLOOD GAS HCO3 45 mmol/L (22-26); BLOOD GAS METHEMOGLOBIN 1.4 % (0-2); BLOOD GAS O2 HGB SATURATION 94 % (90-100); BLOOD GAS OXYGEN CONTENT 11.6 Vol % (12.0-20.0); BLOOD GAS PCO2 96 mmHg (38-42); BLOOD GAS PO2 106 mmHg (61-120); BLOOD GAS TOTAL HGB 8.6 G/DL (12.0-16.0); TEMP CORR TO 98.6
[2017-01-08 14:39] LABS: CRITICAL VALUE YES; DRAW SITE RT RADIAL; LITER FLOW 4 L/M; NUMBER OF ARTERIAL PUNCTURES 1; OXYGEN DEVICE NASAL CANNULA; STAT YES; ULNAR PULSE PRESENT
[2017-01-08] MEDS ORDERED: PIPERACIL-TAZO 4.5 GM PREMIX 100 ML IV SCH (15:00)
[2017-01-08] MEDS ORDERED: CEFEPIME INJ 2,000 MG in SODIUM CHLORIDE 0.9% INJ 100 ML IV SCH (15:00)
[2017-01-08] MEDS: CEFEPIME INJ 2,000 MG in SODIUM CHLORIDE 0.9% INJ 100 ML IV SCH ×2 (15:47→21:25)
[2017-01-08] MEDS: SODIUM CHLOR 0.9% 1000 ML INJ 1,000 ML IV SCH (18:00)
[2017-01-09] VITALS (14 sets, daily range): BP systolic 78–127; BP diastolic 47–64; PULSE 74–83; RESP 20–36; TEMP 94.7–98.2; O2SAT 82–100
[2017-01-09] MEDS: methylPREDNISolone SOD SUCC 125 MG/2 ML VIAL IV SCH ×4 (00:18→19:38)
--- NOTE | 2017-01-09 00:19 | HHI.FPPN ---
Addendum to progress note ADDENDUM Reason for addendum: Additonal documentation Additional information Reviewed cxr - no acute disease, patient with severe respiratory distress. Will order CTA chest to r/o PE. Patient has not been on chemical prophylaxis due to a hematoma. Christian Graham MD Jan 09, 2017 00:19
[2017-01-09] MEDS ORDERED: IOHEXOL 350 MG/ML 10 ML VIAL (for RAD DIAG) IV ONE (01:18)
--- NOTE | 2017-01-09 01:33 | RADRPT ---
EXAM DATE/TIME: 01/09/2017 01:08 [facility] COMPARISON: No previous studies available for comparison. INDICATIONS : Respiratory distress; rule out pulmonary embolus. IV CONTRAST: 75 cc Omnipaque 350 (iohexol) IV RADIATION DOSE: 3.44 CTDIvol (mGy) MEDICAL HISTORY : Hypertension. Cardiovascular disease Chronic obstructive pulmonary disease. SURGICAL HISTORY : Hysterectomy. section. ENCOUNTER: Initial ACUITY: 1 day PAIN SCALE: 0/10 LOCATION: chest TECHNIQUE: Volumetric scanning of the chest was performed using a pulmonary embolism protocol MIP images were re constructed. Using automated exposure control and adjustment of the mA and/or kV according to patien t size, radiation dose was kept as low as reasonably achievable to obtain optimal diagnostic quality images. FINDINGS: The lungs are clear without infiltrate, nodule, or mass except for COPD and scattered areas of scarri ng in both lungs. There is no pleural effusion. No appreciable pathological adenopathy is seen with in the mediastinum. There is a tiny amount of ascites in the perihepatic space. Tiny right pleural ef fusion is seen. There is no evidence for PE for technique. CONCLUSION: Tiny right pleural effusion and ascites and COPD. Lorri Engel MD on January 09, 2017 at 1:29 Board Certified Radiologist. This report was verified electronically.
[2017-01-09] MEDS: RESP: ALBUTEROL 2.5 MG/IPRATROPIUM 0.5 MG NEB (SCH) NEB ×5 (03:33→20:43)
[2017-01-09] MEDS: SODIUM CHLOR 0.9% 1000 ML INJ 1,000 ML IV SCH ×3 (05:13→19:43)
[2017-01-09] MEDS: busPIRone HCL 5 MG TAB PO SCH ×3 (05:14→19:41)
[2017-01-09] MEDS: CEFEPIME INJ 2,000 MG in SODIUM CHLORIDE 0.9% INJ 100 ML IV SCH ×3 (05:28→20:20)
[2017-01-09] MEDS: INSULIN NovoLIN REGULAR SUPPLEMENTAL SCALE SQ SCH ×4 (05:29→19:41)
[2017-01-09] MEDS: SODIUM CHLORIDE 0.9% FLUSH 10 ML FLUSH SCH ×2 (08:21→19:38)
[2017-01-09] MEDS: DOCUSATE SODIUM 50 MG/SENNA 8.6 MG TAB PO SCH ×2 (09:00→19:40)
[2017-01-09] MEDS: POLYETHYLENE GLYCOL 17 GM PKG PO SCH (09:00)
[2017-01-09] MEDS: BENZONATATE 100 MG CAP PO SCH ×3 (09:00→16:58)
[2017-01-09] MEDS: PANTOPRAZOLE SOD 40 MG DELAYED RELEASE TAB PO SCH (09:00)
[2017-01-09] MEDS: DOXAZOSIN MESYLATE 2 MG TAB PO SCH (09:00)
[2017-01-09] MEDS: guaiFENesin E.R. 600 MG TAB PO SCH ×2 (09:00→19:40)
--- NOTE | 2017-01-09 11:35 | HHI.PR ---
Subjective Remarks The patient is unarousable, comatose, tachypneic with a respiratory rate in the 30s BP somewhat low today in the 90s. Patient afebrile Vital signs stable. Objective Vitals Vital Signs Date Time Temp Pulse Resp B/P Pulse Ox O2 Delivery O2 Flow Rate FiO2 01/09/17 10:00 80 01/09/17 08:00 78 01/09/17 08:00 100 Nasal Cannula 4.00 01/09/17 08:00 97.4 74 30 94/55 100 01/09/17 07:52 100 Nasal Cannula 4.00 01/09/17 06:00 83 01/09/17 04:00 79 Nasal Cannula 4.00 01/09/17 04:00 98.2 83 22 126/60 99 01/09/17 02:00 75 01/09/17 00:00 80 01/09/17 00:00 97.6 80 20 127/64 97 01/09/17 00:00 89 Nasal Cannula 4.00 01/08/17 22:00 83 01/08/17 21:11 98 Nasal Cannula 3.00 01/08/17 20:00 89 01/08/17 20:00 97.4 89 22 119/59 100 01/08/17 20:00 89 Nasal Cannula 4.00 01/08/17 18:00 79 01/08/17 16:00 98.4 98 28 138/67 99 01/08/17 16:00 93 Nasal Cannula 2.00 01/08/17 16:00 96 01/08/17 14:00 108 01/08/17 12:00 96 Nasal Cannula 4.00 01/08/17 12:00 103 01/08/17 12:00 98.4 101 27 190/92 94 I/O 01/08/17 01/08/17 01/08/17 01/09/17 01/09/17 01/09/17 07:00 15:00 23:00 07:00 15:00 23:00 Intake Total 200 ml 900 ml 505 ml 568 ml Balance 200 ml 900 ml 505 ml 568 ml Intake Oral 200 ml 900 ml 100 ml IV Total 405 ml 568 ml # Voids 1 6 1 1 # Bowel Movements 0 0 0 Result Diagram: 01/08/17 0536 01/08/17 [address] Angiography 01/09/17 0000 Signed Impressions: Service Date/Time: Monday, January 09, 2017 01:08 - CONCLUSION: Tiny right pleural effusion and ascites and COPD. Lorri Engel MD Chest X-Ray 01/08/17 0000 Signed Impressions: Service Date/Time: Sunday, January 08, 2017 14:04 - CONCLUSION: No evidence of acute cardiopulmonary disease. Erich Morales MD Small Bowel X-Ray 12/27/16 0600 Signed Impressions: Service Date/Time: Tuesday, December 27, 2016 09:23 - CONCLUSION: Unremarkable small bowel examination. No evidence of obstruction Fred Michelle MD Abdomen X-Ray 12/26/16 0000 Signed Impressions: Service Date/Time: Monday, December 26, 2016 09:49 - CONCLUSION: 1. Relatively diffuse mild gaseous distention of the small bowel with a segment that is mildly dilated in the left midabdomen. The degree of distention is less than present on the prior CT. Findings overall are not highly suspicious for obstruction. Patient is currently scheduled for small bowel follow-through examination which will further assess. 2. Stable small right pleural effusion. Erich Stephenson MD Head CT 12/25/16 0000 Signed Impressions: Service Date/Time: Sunday, December 25, 2016 04:14 - CONCLUSION: 1. No acute intracranial abnormalities. Mild white matter ischemic changes. Lee Uribe MD Abdomen/Pelvis CT 12/24/16 0000 Signed Impressions: Service Date/Time: Sunday, December 25, 2016 01:36 - CONCLUSION: 1. Right-sided psoas hematoma measuring about 4.7 cm in maximum diameter and extending over a length of about 7 cm. 2. Previous bowel anastomosis with dilated loops of small bowel proximally with air fluid levels. Differential diagnosis includes a partial or early obstruction. 3. [place] ventral hernia near umbilicus containing a loop of constipated colon. 4. Small right pleural effusion. Lee Uribe MD Objective Remarks GENERAL: Patient is in severe respiratory distress, gasping for air, tachypneic and comatose. SKIN: Warm and dry. HEAD: Normocephalic. EYES: No scleral icterus. No injection or drainage. NECK: Supple, trachea midline. No JVD or lymphadenopathy. CARDIOVASCULAR: Tachycardic without murmurs, gallops, or rubs. RESPIRATORY: Diminished bilaterally, no wheezing but very poor air movement. there is accesory muscle use. GASTROINTESTINAL: Abdomen soft, non-tender, nondistended. MUSCULOSKELETAL: No cyanosis, or edema. BACK: Nontender without obvious deformity. No CVA tenderness. Neuro:, Comatose and unarousable. Procedures sp bronchoscopy Medications and IVs Current Medications Medications (Trade) Dose Ordered Sig/Mariluz Route Start Time Stop Time Status Last Admin (Mucinex Er) 600 mg BID PO 12/25/16 09:00 01/08/17 07:56 (NS Flush) 2 ml UNSCH PRN .XX 12/25/16 04:15 12/26/16 08:31 (NS Flush) 2 ml BID .XX 12/25/16 09:00 01/09/17 08:21 (Tylenol) 650 mg Q6H PRN PO 12/25/16 04:15 01/04/17 15:18 (Zofran Inj) 4 mg Q6H PRN IV 12/25/16 04:15 12/30/16 12:04 Miscellaneous Information 1 Q361D XX 12/25/16 04:15 12/25/16 04:15 (Chlorhexidine 2% Cloth) Taper DAILY@04 TOP 12/26/16 04:00 12/22/17 03:59 01/08/17 23:15 (Chlorhexidine 2% Cloth) 3 pack UNSCH PRN TOP 12/25/16 04:15 (Kellen-Colace) 1 tab BID PO 12/25/16 09:00 01/08/17 07:56 (Milk Of Magnesia Liq) 30 ml Q12H PRN PO 12/25/16 04:15 12/26/16 10:28 (Senokot) 17.2 mg Q12H PRN PO 12/25/16 04:15 (Dulcolax Supp) 10 mg DAILY PRN RECTAL 12/25/16 04:15 (Lactulose Liq) 30 ml DAILY PRN PO 12/25/16 04:15 (D50w (Vial) Inj) 50 ml UNSCH PRN IV 12/25/16 09:30 (Glucagon Inj) 1 mg UNSCH PRN OTHER 12/25/16 09:30 (NovoLIN R SUPPLEMENTAL SCALE) 1 Q6H SQ 12/25/16 10:00 01/09/17 05:29 (Miralax) 17 gm DAILY PO 12/25/16 17:30 01/08/17 07:56 (Buspar) 5 mg Q8HR PO 12/27/16 22:00 01/09/17 12:38 (Ativan Inj) 1 mg Q2H PRN IV PUSH 12/27/16 20:00 01/07/17 14:33 Alprazolam 0.5 mg 0.5 mg Q6H PRN PO 12/28/16 10:15 01/08/17 12:01 Propofol 100 ml @ 0 mls/hr TITRATE IV 12/31/16 03:00 01/01/17 05:03 Potassium Chloride 100 ml @ 50 mls/hr Q2H PRN IV 01/01/17 08:15 (KCl 20 Meq Premix Inj) 100 ml @ 50 mls/hr Q2H PRN IV 01/01/17 08:15 01/01/17 16:33 Potassium Bicarb/ Potassium Chloride 50 meq 50 meq UNSCH PRN PO 01/01/17 08:15 Potassium Chloride 100 ml @ 25 mls/hr UNSCH PRN IV 01/01/17 08:15 Potassium Chloride 100 ml @ 50 mls/hr Q2H PRN IV 01/01/17 08:15 (Magnesium Sulfate Inj/NS Inj) 100 ml @ 50 mls/hr UNSCH PRN IV 01/01/17 08:15 Magnesium Oxide 800 mg 800 mg UNSCH PRN PO 01/01/17 08:15 (Magnesium Sulfate Inj/NS Inj) 100 ml @ 50 mls/hr UNSCH PRN IV 01/01/17 08:15 Potassium Phosphate 2000 mg 2,000 mg Q4H PRN PO 01/01/17 08:15 (Sodium Phosphate Inj/NS 250 ml Inj) 250 ml @ 42 mls/hr UNSCH PRN IV 01/01/17 08:15 Potassium Phosphate 2000 mg 2,000 mg UNSCH PRN PO/TUBE 01/01/17 08:15 (Potassium Phosphate Inj/NS 250 ml Inj) 260 ml @ 42 mls/hr UNSCH PRN IV 01/01/17 08:15 (Tessalon) 200 mg TID PO 01/04/17 09:00 01/08/17 07:56 (Cardizem) 90 mg QID PO 01/04/17 21:00 01/09/17 12:39 (Protonix) 40 mg DAILY PO 01/05/17 09:00 01/08/17 07:56 (Apresoline Inj) 10 mg Q30M PRN IV PUSH 01/05/17 17:45 01/07/17 06:53 (Catapres) 0.1 mg Q6H PRN PO 01/05/17 17:45 01/06/17 22:05 (Cardura) 6 mg DAILY PO 01/08/17 09:00 01/08/17 07:56 Methylprednisolone Sodium Succinate 125 mg 125 mg Q6H IV 01/08/17 20:00 01/09/17 12:38 Cefepime HCl 2000 mg/Sodium Chloride 100 ml @ 200 mls/hr Q8HR IV 01/08/17 15:00 01/09/17 12:38 (NS 1000 ml Inj) 1,000 ml @ 100 mls/hr Q10H IV 01/08/17 18:00 01/09/17 12:40 Urinary Catheter: No Date of Removal: Jan 04, 2017 Vascular Central Line Catheter: No A/P Problem List: (1) Acute hypercapnic respiratory failure ICD Code: J96.02 Status: Acute Plan: The patient was admitted to the intensive care unit and taken care of by upper trimmer initially. Continue with supplemental oxygen to keep an O2 sat duration > 92%. Continue Bipap as needed Continue DuoNeb every 4 hours, albuterol every [address] angiogram without PE. Mucous plugging in the right mainstem, unable to rule out endobronchial lesion. Patient underwent bronchoscopy on 12/27, as per pulmonary report, no endobronchial lesion seen. Continue Solu-Medrol IV - Continue Solumedrol 40 mg IV Q 6 hrs 01/07 Patient with severe respiratory distress overnight, seen by Cafe Att[facility] and Medicine PA. ABG showed hypercapnic respiratory failure and patient was offered to be intubated however she refused and changed her code status to DNR. I discussed the patient's current status w the patient and explained to her that she has reached an end stage in her condition which is not reponding to treatment with high dose steroids, bronchodilators and antibiotics. Offered to consult hospice but she asked me to speak with her family first. I called brother who came to hospital. I discussed at length the patient's condition, brother stated he was going to consult with her other sister and get back to me. 01/08 patient is in severe respiratory distress. Ordered a stat ABG and chest x- ray, increase the dose of steroids to 125 mg IV every 6 hours first dose now and start the patient IV cefepime. Stat ABG showed a pH of 7.29, PCO2 of 96, PO2 of 106. Patient is in acute on chronic respiratory failure with hypercarbia. Patient is currently a DO NOT RESUSCITATE. I asked patient if she would like to be intubated and she answered no. Given due to the high CO2 I don't think the patient is able to make adequate decisions at this time, however previously the patient stated that she would not want to be intubated so she was made DO NOT RESUSCITATE and DO NOT INTUBATE. I will follow her wishes. Called the patient's brother who is to healthcare proxy and left a message in his cell phone and in his home phone to return a call urgently to the hospital. I called the other patients contacted in the chart, Adriana Pablo who is the patient's account and she said that she was going to try to locate Mr. Enmanuel Pablo. 01/09 discussed the case with palliative care team was at bedside. Palliative care team is trying to get in touch of healthcare surrogate. Patient continues to be DNR/DNI. Patient now is comatose in severe respiratory distress and impending respiratory failure. The patient is now comatose and at this point BiPAP ischemic contraindicated due to the mental status. We'll continue to follow and keep in touch with the palliative care team. The patient has an ominous prognosis. Up to this point all medical therapy has failed. Hospice consult has been placed. CTA was done yesterday and reviewed by me shows tiny right pleural effusion and ascites as well as COPD changes. (2) COPD with exacerbation ICD Code: J44.1 Status: Acute Plan: As above. Continue bipap appreciate pulmonary recommendations. Continue oral Levaquin Continue steroids Patient has end stage COPD exacerbation, now on IV steroids for prolonged time with minimal improvement. 01/06 appreciate palliative care efforts. 01/07 patient is DNR. Awaiting family and patient decision to consult hospice. 01/08 patient with acute hypercarbic respiratory failure, lethargic, BiPAP order for impending surgery failure however patient is not tolerating it. Continue supplemental oxygen to keep oxygen saturation > 92% (3) HTN (hypertension) ICD Code: I10 Status: Acute Plan: BP with improved control however still elevated. We'll continue doxazosin 4 mg by mouth daily. Continue to monitor vital signs. Continue dosing and clonidine as needed. Labetalol discontinued as beta blockers could worsen COPD. 01/07 BP still elevated - Will increase Cardura to 6 mg po daily. Continue Clonidine as needed. 01/08 BP much improved. Continue doxazosin 6 mg by mouth daily. Continue clonidine as needed. 01/09 blood pressure now on the lower side. I will decrease the dose of Dr. Talamantes and DrAlonzo 2 mg by mouth daily and with holding parameters. (4) Ileus ICD Code: K56.7 Status: Resolved Plan: CT abdomen and pelvis showed right psoas hematoma measuring about 4.7 cm. Previous bowel anastomosis on the limited loops of small bowel proximally with air fluid level. Possible partial or early obstruction. There is also [place] ventral hernia the umbilicus containing a loop of constipated colon. Small right pleural effusion. Surgery consulted - recommended non surgical management. Small bowel series - showed unremarkable examination Ileus has resolved (5) Hematoma ICD Code: T14.8 Status: Chronic Plan: Patient denies any trauma or symptoms. Coags are normal. Monitor CBC. (6) Severe protein-calorie malnutrition ICD Code: E43 Status: Acute Plan: Patient has a low BMI of 17.6 Dietitian consulted - enlive TID added to meals (7) Anxiety ICD Code: F41.9 Status: Acute Plan: Hold Xanax and anxiety now secondary to toxic encephalopathy caused by CO2 narcosis. (8) Toxic encephalopathy ICD Code: G92 Status: Acute Plan: Due to CO2 narcosis. At this point the patient is unable to make medical decisions. We'll try BiPAP if patient tolerates it. Patient is DO NOT RESUSCITATE and DO NOT INTUBATE. (9) Hyponatremia ICD Code: E87.1 Status: Acute Plan: Sodium on 01/08/01. We'll place on IV fluids and continue to monitor BMP. Assessment and Plan DVT prophylaxis - SCD's, continue to hold chemoprophylaxis due to psoas hematoma. 45 minutes of critical care time spent on patient care. Discharge Planning Continue to monitor in the ICU. Patient still requiring bipap. Problem Qualifiers (1) HTN (hypertension): Qualified Code: I10 - Essential hypertension Christian Graham MD Jan 09, 2017 11:35
[2017-01-09] MEDS: DILTIAZEM HCL 90 MG TAB PO SCH ×4 (12:39→19:40)
--- NOTE | 2017-01-09 13:25 | HHI.HCPN ---
Reason for visit a. To assist with evaluation and management of symptoms including: dyspnea, anxiety. b. To assist medical decision maker(s) with: better understanding of current medical conditions; weighing benefits/burdens of medical treatment options; making medical treatment decisions. . (Anat Lynn) Subjective/Interval History Ms. Soni is a 66 year old female with past medical history of end stage oxygen dependent COPD, emphysema, hypertension, multpile falls with recent left hip fracture s/p ORIF and tobacco abuse. Patient was admitted to [facility] on 12/24/2016 with respiratory failure and COPD exacerbation. Pulmonology , Dr. Mejia was consulted and continues to follow. Dr. Love, general surgery was consulted for evaluation of possible bowel obstruction and abdominal pain. He recommended against surgery due to high surgical risk and GI consult. Gastroenterology, Dr. Segovia was consulted, bowel regimen recommended, symptoms resolved and GI recommend outpatient follow up for colonoscopy. Patient went into severe respiratory distress on 01/08/2017. Stat chest x-ray showed no acute cardiopulmonary disease. A stat ABG showed a pH of 7.9, PCO2 96 , PO2 of 106. Patient in acute on chronic respiratory failure with hypercarbia. Steroid dose was increased to 125 mg every 6 hours; patient was started on IV cefepime. Patient is DO NOT RESUSCITATE and DO NOT INTUBATE. 01/08/2017: WBC 24.0, hemoglobin 8.9, hematocrit 28.7, platelets 214, neutrophils 97.7% Sodium 132, potassium 4.1, chloride 82, carbon dioxide 43.8, glucose 121, calcium 8.4 BUN 17, creatinine 0.23, GFR 366 Total bilirubin 0.5, AST 18, ALT 57, alkaline phosphatase 95 Total protein 5.3, albumin 2.7 CTA this morning showed clear lungs without infiltrate, nodule, or mass except for COPD and scattered areas of scarring in both lungs; there are no pleural effusions; no appreciable pathological adenopathy is seen within the mediastinum ; there is a tiny amount of ascites in the perihepatic space; tiny right pleural effusion is seen; there is no evidence of PE. Patient in non-responsive on examination, does not respond to verbal or tactile stimuli on examination. Respirations are labored with accessory mucles used.Tachypneic, respirations at 37 bpm with coarse breath sounds. Tachycardic. Oxygen saturation 95% on 4 L via nasal cannula. . Family/friend interactions Message left for patient's brother/HCS at [phone] and [phone], awaiting return phone call. Also spoke with patient's daughter (Lisa Soni ) at [phone], update provided on patient's tearing clinical condition. Patient's daughter indicates the family would want the patient to be kept comfortable. We received a phone call from patient's cousin, Daly, who lives in [place] (phone number [phone]). Requested assistance in contacting the patient's brother, John Hartmann. Hospice consult placed. . (Anat Lynn) Advance Directives Health Care Surrogate: Copy in medical record (Anat Lynn) Advance Directive Specifics Date completed: 01/06/17 . Health Care Surrogate(s): Primary health care surrogate, Enmanuel Pablo (brother). Alternates listed on form. . Documented care wishes: No Living Will. . (Anat Lynn) Objective Vital Signs Date Time Temp Pulse Resp B/P Pulse Ox O2 Delivery O2 Flow Rate FiO2 01/09/17 12:00 78 01/09/17 12:00 97.1 79 32 104/56 100 01/09/17 12:00 100 Nasal Cannula 4.00 01/09/17 10:00 80 01/09/17 08:00 78 01/09/17 08:00 100 Nasal Cannula 4.00 01/09/17 08:00 97.4 74 30 94/55 100 01/09/17 07:52 100 Nasal Cannula 4.00 01/09/17 06:00 83 01/09/17 04:00 79 Nasal Cannula 4.00 01/09/17 04:00 98.2 83 22 126/60 99 01/09/17 02:00 75 01/09/17 00:00 80 01/09/17 00:00 97.6 80 20 127/64 97 01/09/17 00:00 89 Nasal Cannula 4.00 01/08/17 22:00 83 01/08/17 21:11 98 Nasal Cannula 3.00 01/08/17 20:00 89 01/08/17 20:00 97.4 89 22 119/59 100 01/08/17 20:00 89 Nasal Cannula 4.00 01/08/17 18:00 79 01/08/17 16:00 98.4 98 28 138/67 99 01/08/17 16:00 93 Nasal Cannula 2.00 01/08/17 16:00 96 01/08/17 14:00 108 Intake & Output 01/09/17 01/09/17 07:00 19:00 Intake Total 1073 ml Balance 1073 ml Intake Oral 100 ml IV Total 973 ml # Voids 2 # Bowel Movements 0 . Physical Exam CONSTITUTIONAL/GENERAL: This is an frail, short of breath female who appears older than her age. TUBES/LINES/DRAINS: PIV x 2 left, nasal cannula SKIN: No jaundice, rashes, or lesions. Ecchymoses on upper extremities. No wounds seen anteriorly. Skin temperature appropriate. Not diaphoretic. HEAD: Atraumatic. Normocephalic. EYES: Pupils equal and round and reactive. Extraocular motions intact. No scleral icterus. No injection or drainage. Fundi not examined. ENT: Nose without bleeding or purulent drainage. NECK: Trachea midline. CARDIOVASCULAR: Irregular, tachycardic. No JVD. RESPIRATORY/CHEST: Symmetric, labored respirations at rest. Accessory muscles being used, coarse air exchange. Tachypneic GASTROINTESTINAL: Abdomen soft, non-tender, nondistended. No guarding. Bowel sounds present. GENITOURINARY: Without palpable bladder distension. MUSCULOSKELETAL: Extremities without clubbing, cyanosis, or edema. LYMPHATICS: No palpable cervical or supraclavicular adenopathy. NEUROLOGICAL: Does not arouse to verbal or tactile stimuli, no purposeful movement observed. PSYCHIATRIC: Unable to assess secondary to responsiveness . (Anat Lynn) Diagnostic Tests Laboratory Laboratory Tests Test 01/07/17 01/08/17 01/08/17 03:56 05:36 14:25 Blood Gas Puncture Site RT RADIAL RT RADIAL Blood Gas Patient Temperature 98.6 98.6 Blood Gas HCO3 47 mmol/L 45 mmol/L (22-26) (22-26) Blood Gas Base Excess 20.3 mmol/L 17.3 mmol/L (-2-2) (-2-2) Blood Gas Oxygen Saturation 94 % (90-100) 94 % (90-100) Arterial Blood pH 7.38 7.29 (7.380-7.420) (7.380-7.420) Arterial Blood Partial 81 mmHg (38-42) 96 mmHg (38-42) Pressure CO2 Arterial Blood Partial 90 mmHg 106 mmHg Pressure O2 (61-120) (61-120) Arterial Blood Oxygen Content 11.6 Vol % 11.6 Vol % (12.0-20.0) (12.0-20.0) Arterial Blood 2.1 % (0-4) 2.0 % (0-4) Carboxyhemoglobin Arterial Blood Methemoglobin 1.1 % (0-2) 1.4 % (0-2) Blood Gas Hemoglobin 8.7 G/DL 8.6 G/DL (12.0-16.0) (12.0-16.0) Oxygen Delivery Device NASAL CANNULA NASAL CANNULA Blood Gas Liter Flow 4 L/M 4 L/M Blood Gas Inspired Oxygen 36 % White Blood Count 24.0 TH/MM3 (4.0-11.0) Red Blood Count 3.85 MIL/MM3 (4.00-5.30) Hemoglobin 8.9 GM/DL (11.6-15.3) Hematocrit 28.7 % (35.0-46.0) Mean Corpuscular Volume 74.5 FL (80.0-100.0) Mean Corpuscular Hemoglobin 23.1 PG (27.0-34.0) Mean Corpuscular Hemoglobin 31.0 % Concent (32.0-36.0) Red Cell Distribution Width 19.6 % (11.6-17.2) Platelet Count 214 TH/MM3 (150-450) Mean Platelet Volume 7.8 FL (7.0-11.0) Neutrophils (%) (Auto) 97.7 % (16.0-70.0) Lymphocytes (%) (Auto) 0.3 % (9.0-44.0) Monocytes (%) (Auto) 1.7 % (0.0-8.0) Eosinophils (%) (Auto) 0.0 % (0.0-4.0) Basophils (%) (Auto) 0.3 % (0.0-2.0) Neutrophils # (Auto) 23.5 TH/MM3 (1.8-7.7) Lymphocytes # (Auto) 0.1 TH/MM3 (1.0-4.8) Monocytes # (Auto) 0.4 TH/MM3 (0-0.9) Eosinophils # (Auto) 0.0 TH/MM3 (0-0.4) Basophils # (Auto) 0.1 TH/MM3 (0-0.2) CBC Comment DIFF FINAL Differential Comment Sodium Level 132 MEQ/L (136-145) Potassium Level 4.1 MEQ/L (3.5-5.1) Chloride Level 82 MEQ/L (98-107) Carbon Dioxide Level 43.8 MEQ/L (21.0-32.0) Anion Gap 6 MEQ/L (5-15) Blood Urea Nitrogen 17 MG/DL (7-18) Creatinine 0.23 MG/DL (0.50-1.00) Estimat Glomerular Filtration 366 ML/MIN Rate (>89) Random Glucose 121 MG/DL (74-106) Calcium Level 8.4 MG/DL (8.5-10.1) Total Bilirubin 0.5 MG/DL (0.2-1.0) Aspartate Amino Transf 18 U/L (15-37) (AST/SGOT) Alanine Aminotransferase 57 U/L (10-53) (ALT/SGPT) Alkaline Phosphatase 95 U/L (45-117) Total Protein 5.3 GM/DL (6.4-8.2) Albumin 2.7 GM/DL (3.4-5.0) . (Anat Lynn) Result Diagram: 01/08/17 0536 01/08/17 0536 Imaging Last [address] Angiography 01/09/17 0000 Signed Impressions: Service Date/Time: Monday, January 09, 2017 01:08 - CONCLUSION: Tiny right pleural effusion and ascites and COPD. Lorri Engel MD Chest X-Ray 01/08/17 0000 Signed Impressions: Service Date/Time: Sunday, January 08, 2017 14:04 - CONCLUSION: No evidence of acute cardiopulmonary disease. Erich Morales MD . Procedures * 01/01/17 - extubated. * 12/30/16 - Intubated * 12/24/16 - Bronchoscopy. . (Anat Lynn) Assessment and Plan Disease Oriented Problem List: (1) COPD with exacerbation (2) Anxiety (3) HTN (hypertension) (4) Ileus (5) Hematoma (6) Severe protein-calorie malnutrition Symptom Scale: (1) Anxiety 0-10 Scale: Unable to quantify (2) Shortness of breath 0-10 Scale: Unable to quantify Pertinent Non-Medical Issues Psychosocial: . 4 children. Spiritual: Protestant jonelle. Legal: Patient is currently capacitated. Should she lose capacity she has designated her brother, Enmanuel Pablo as primary HCS. Sent Designation of HCS paperwork to HIM to be scanned, copy in chart, and original given to patient. Witnessed by Adalgisa Andrea LCSW. Ethical issues impacting care: No known concerns at this time. . Important Contacts * Enmanuel Pablo, brother/primary HCS: [phone] * Alternate HCS #2: Raysa Acharya, sister: [phone] or Eli Pelayo, sister : * Alternate HCS #3: Lisa Soni, daughter: [phone] * Alternate HCS #4: Talisha Busch, daughter: [phone] . Prognosis 66 year old female with end stage COPD, overall prognosis is poor. Life expectancy limited, hospice appropriate if goals are comfort oriented. . Code Status: No Code Plan * NO CODE-DNI/DNR * Patient could status change to DNR/T9 on 01/07/2017 per patient's request. In the event of cardiopulmonary arrest, the patient does not want aggressive interventions (CPR,ACLS medications, cardioversion, intubation). Per notes, patient stated that she is, "ready to meet [facility]". * Patient designated her brother, Enmanuel Pablo as primary HCS on 01/06/2017. Sent Designation of HCS paperwork to HIM to be scanned, copy in chart, and original given to patient. Witnessed by Adalgisa Andrea LCSW. * Discussed with Dr. Vazquez, nurse (Queenie), and child support case officer (Serene). * Patient's clinical condition has rapidly deteriorated secondary to her end- stage condition which is not responding to treatment with high-dose steroids, bronchodilators and antibiotics. Dr. Vazquez offered hospice on 01/08/2017. Patient/family wanted to discuss further before making decision. Attempted to contact the patient's brother/HCS (John Hartmann) this morning-messages left on both available numbers. Discussed with patient's daughter (Lisa) and patient's cousin (Daly). They indicate the family would want the patient to be kept comfortable; they will attempt to find patient's brother/HCS. Hospice consult placed. * SYMPTOMS: Shortness of breath: on oxygen via NC, on Solu-medrol 125mg IV q 6 hours, On Buspar 5mg PO every 8 hours ATC, Xanax 0.5mg PO every 6 hours PRN anxiety, encouraged use and has nebulizers ordered. Will monitor. Anxiety: secondary to severe COPD, Xanax 0.5mg PO every 6 hours PRN anxiety, encouraged use. No new medication recommendations at this time. * Palliative care number provided. * Palliative care will continue to follow to assist with symptom management and further clarification of treatment goals. . (Anat Lynn) Attestation To help prompt me to consider important information that might be impacting today's encounter and assessment, information from prior notes written by myself or my colleagues may have been "brought forward" into today's note. My signature on this note, however, is an attestation that I personally performed the exam, history, and/or decision-making noted today, and, unless otherwise indicated, the interactions with patient, family, and staff as well as the review of records all occurred today. I also attest that the listed assessment and stated plan reflect my best clinical judgment today based on the combination of historical information, prior notes, and today's exam/ interactions. When time spent is documented, it refers only to time spent today by the signer, or if indicated, combined time spent today by collaborating physician/nurse practitioner. . (Anat Lynn) Collaborating MD Comments Discussed with CASEY, agree with assessment and plan (Casimiro Mendez MD) Anat Lynn Jan 09, 2017 13:24 Casimiro Mendez MD Jan 11, 2017 13:51
--- NOTE | 2017-01-09 20:13 | HHI.PR ---
Subjective Remarks 66 YO AA female with severe COPD, Ch. resp insuff,Hypercapnoic RF No fever or chills Anxious Up in chair. On NC, weak, tired SOB even at rest Lethargic, shallow breathing Objective Vital Signs Vital Signs Date Time Temp Pulse Resp B/P Pulse Ox O2 Delivery O2 Flow Rate FiO2 01/09/17 18:00 76 01/09/17 16:00 78 01/09/17 16:00 100 Nasal Cannula 4.00 01/09/17 16:00 94.7 78 36 101/55 100 01/09/17 14:00 79 01/09/17 12:00 78 01/09/17 12:00 97.1 79 32 104/56 100 01/09/17 12:00 100 Nasal Cannula 4.00 01/09/17 10:00 80 01/09/17 08:00 78 01/09/17 08:00 100 Nasal Cannula 4.00 01/09/17 08:00 97.4 74 30 94/55 100 01/09/17 07:52 100 Nasal Cannula 4.00 01/09/17 06:00 83 01/09/17 04:00 79 Nasal Cannula 4.00 01/09/17 04:00 98.2 83 22 126/60 99 01/09/17 02:00 75 01/09/17 00:00 80 01/09/17 00:00 97.6 80 20 127/64 97 01/09/17 00:00 89 Nasal Cannula 4.00 01/08/17 22:00 83 01/08/17 21:11 98 Nasal Cannula 3.00 I/O 01/08/17 01/08/17 01/08/17 01/09/17 01/09/17 01/09/17 07:00 15:00 23:00 07:00 15:00 23:00 Intake Total 200 ml 900 ml 505 ml 568 ml 866 ml Balance 200 ml 900 ml 505 ml 568 ml 866 ml Intake Oral 200 ml 900 ml 100 ml 50 ml IV Total 405 ml 568 ml 816 ml # Voids 1 6 1 1 2 # Bowel Movements 0 0 0 1 Result Diagram: 01/08/1736 01/08/17 0536 Objective Remarks GENERAL: Thin built AA female, sob, uses accessory muscles SKIN: Warm and dry. HEAD: Normocephalic. EYES: No scleral icterus. No injection or drainage. NECK: Supple, trachea midline. No JVD or lymphadenopathy. CARDIOVASCULAR: Regular rate and rhythm without murmurs, gallops, or rubs. RESPIRATORY: Breath sounds equal bilaterally. No accessory muscle use. Decreased chest excursion GASTROINTESTINAL: Abdomen soft, non-tender, nondistended. MUSCULOSKELETAL: No cyanosis, or edema. BACK: Nontender without obvious deformity. No CVA tenderness. A/P Assessment and Plan Hypercapnoic RF S/P Extubation Severe COPD Anxiety Mucous plugging HTN PLAN: Supplement 02 Cont Abx Aerosol nebs Solumedrol 40 mg q 6 hrs Buspar 5 mg tid Aerosol nebs palliative care consulted Will try BIPAP Rolando Mejia MD Jan 09, 2017 20:13
[2017-01-10] VITALS (11 sets, daily range): BP systolic 56–76; BP diastolic 38–49; PULSE 58–93; RESP 26–38; TEMP 96.2–96.7; O2SAT 87–98
[2017-01-10] MEDS: RESP: ALBUTEROL 2.5 MG/IPRATROPIUM 0.5 MG NEB (SCH) NEB ×3 (00:37→07:35)
[2017-01-10] MEDS: INSULIN NovoLIN REGULAR SUPPLEMENTAL SCALE SQ SCH (03:07)
[2017-01-10] MEDS: methylPREDNISolone SOD SUCC 125 MG/2 ML VIAL IV SCH (03:07)
[2017-01-10] MEDS: busPIRone HCL 5 MG TAB PO SCH (03:48)
[2017-01-10] MEDS: CHLORHEXIDINE GLUCONATE 2 % 1 PACK (2 CLOTHS) TOP SCH (03:48)
[2017-01-10] MEDS: CEFEPIME INJ 2,000 MG in SODIUM CHLORIDE 0.9% INJ 100 ML IV SCH (04:52)
[2017-01-10] MEDS ORDERED: SODIUM CHLOR 0.9% 1000 ML INJ 1,000 ML IV ONE (07:45)
--- NOTE | 2017-01-11 09:31 | HHI.DS ---
Summary Note Date of : Jan 10, 2017 Time Of : 901 Admission Date December 24, 2016 at 22:14 Admitting Diagnosis exacerbation COPD w/ypercarbia; sirs/early sepsis Diagnosis at Time of : (1) Acute hypercapnic respiratory failure ICD Code: J96.02 Diagnosis: Principal (2) COPD with exacerbation ICD Code: J44.1 Diagnosis: Principal (3) HTN (hypertension) ICD Code: I10 Diagnosis: Principal (4) Ileus ICD Code: K56.7 Diagnosis: Principal (5) Hematoma ICD Code: T14.8 Diagnosis: Principal (6) Severe protein-calorie malnutrition ICD Code: E43 Diagnosis: Principal (7) Anxiety ICD Code: F41.9 Diagnosis: Principal (8) Toxic encephalopathy ICD Code: G92 Diagnosis: Principal (9) Hyponatremia ICD Code: E87.1 Diagnosis: Principal Procedures sp bronchoscopy Brief History History from patient is limited as she is lethargic and is inconsistent with some of her responses. 66-year-old female with past medical history of COPD, hypertension, tobacco abuse who presents to [facility] emergency department from a intermediate ([facility]) due to shortness of breath. She states she has been in intermediate for 1-1/2 months after she fell and sustained a left hip fracture requiring left hip arthroplasty at [facility] in [facility]. She was hypertensive, tachycardic and anxious upon E VAC arrival. She was administered 2 L normal saline bolus and magnesium sulfate prior to arrival. She was placed on BiPAP 15/5 40%. ABG demonstrated acute on chronic hypercapnic respiratory failure with pH 7.36/PaCO2 58/PA O2 of 109. She was very anxious on BiPAP and was started on Precedex for BiPAP tolerance. Chest x-ray demonstrates hyperinflation with possible right lower lobe infiltrate. She received DuoNeb 3, Solu-Medrol 125 mg IV, aztreonam, as azithromycin in the emergency department. CT pulmonary angiogram was negative for pulmonary embolism. There is severe emphysema and mucous plugging in the right mainstem bronchus. Unable to rule out endobronchial lesion. Patient has cough with large amount of thick yellow sputum production so was taken off Bipap and placed on HFNC 30 L/min 40% FIO2. She states she is feeling better than she was on arrival. CT abdomen/pelvis demonstrated a 4.7 cm right psoas hematoma, 7 cm length . She has a prior bowel anastomosis with small bowel dilatation which may represent partial or early obstruction. Hgb 9.5. Patient denies more recent fall. She denies abdominal pain, flank pain, nausea, vomiting. Does not recall her last bowel movement CBC/BMP: 01/08/17 0536 01/08/17 0536 Significant Findings Laboratory Tests Test 01/08/17 14:25 Blood Gas HCO3 45 mmol/L (22-26) Blood Gas Base Excess 17.3 mmol/L (-2-2) Arterial Blood pH 7.29 (7.380-7.420) Arterial Blood Partial 96 mmHg (38-42) Pressure CO2 Arterial Blood Oxygen Content 11.6 Vol % (12.0-20.0) Blood Gas Hemoglobin 8.6 G/DL (12.0-16.0) Imaging Last Impressions Chest X-Ray 01/01/17 0600 Signed Impressions: Service Date/Time: Sunday, January 01, 2017 03:43 - CONCLUSION: No acute cardiopulmonary disease. KAlonzo Engel MD Small Bowel X-Ray 12/27/16 0600 Signed Impressions: Service Date/Time: Tuesday, December 27, 2016 09:23 - CONCLUSION: Unremarkable small bowel examination. No evidence of obstruction Fred Michelle MD Abdomen X-Ray 12/26/16 0000 Signed Impressions: Service Date/Time: Monday, December 26, 2016 09:49 - CONCLUSION: 1. Relatively diffuse mild gaseous distention of the small bowel with a segment that is mildly dilated in the left midabdomen. The degree of distention is less than present on the prior CT. Findings overall are not highly suspicious for obstruction. Patient is currently scheduled for small bowel follow-through examination which will further assess. 2. Stable small right pleural effusion. Erich Stephenson MD Head CT 12/25/16 0000 Signed Impressions: Service Date/Time: Sunday, December 25, 2016 04:14 - CONCLUSION: 1. No acute intracranial abnormalities. Mild white matter ischemic changes. Lee Uribe MD CT Angiography 12/24/16 0000 Signed Impressions: Service Date/Time: Sunday, December 25, 2016 01:40 - CONCLUSION: 1. Negative for pulmonary embolus. 2. There is suspected extensive mucoid plugging involving a portion of the distal right mainstem bronchus, right upper lobe bronchus and bronchus intermedius extending into segmental branches in both the right middle lobe and right lower lobe. Cannot exclude an endobronchial lesion. A small right-sided pleural effusion. 3. Severe emphysema. Lee Uribe MD Abdomen/Pelvis CT 12/24/16 0000 Signed Impressions: Service Date/Time: Sunday, December 25, 2016 01:36 - CONCLUSION: 1. Right-sided psoas hematoma measuring about 4.7 cm in maximum diameter and extending over a length of about 7 cm. 2. Previous bowel anastomosis with dilated loops of small bowel proximally with air fluid levels. Differential diagnosis includes a partial or early obstruction. 3. [place]idemouth ventral hernia near umbilicus containing a loop of constipated colon. 4. Small right pleural effusion. Lee Uribe MD Hospital Course (1) Acute hypercapnic respiratory failure The patient was admitted to the intensive care unit and taken care of by copyman initially. treated supplemental oxygen to keep an O2 sat duration > 92%, Bipap , Duoneb every 4 hours and every [address] angiogram without PE. Mucous plugging in the right mainstem, unable to rule out endobronchial lesion. Patient underwent bronchoscopy on 12/27, as per pulmonary report, no endobronchial lesion seen. 01/07 Patient with severe respiratory distress overnight, seen by [facility] PA. ABG showed hypercapnic respiratory failure and patient was offered to be intubated however she refused and changed her code status to DNR. I discussed the patient's current status w the patient and explained to her that she had reached an end stage in her condition which was not responding to treatment with high dose steroids, bronchodilators and antibiotics. Offered to consult hospice but she asked me to speak with her family first. I called the patient's brother who came to hospital. I discussed at length the patient's condition, brother stated he was going to consult with her other sister and get back to me. 01/08 patient is in severe respiratory distress. Ordered a stat ABG and chest x- ray, increased the dose of steroids to 125 mg IV every 6 hours first dose now and start the patient IV cefepime. Stat ABG showed a pH of 7.29, PCO2 of 96, PO2 of 106. Patient is in acute on chronic respiratory failure with hypercarbia. Patient is currently a DO NOT RESUSCITATE. I asked patient if she would like to be intubated and she answered no. Given due to the high CO2 I don't think the patient is able to make adequate decisions at this time, however previously the patient stated that she would not want to be intubated so she was made DO NOT RESUSCITATE and DO NOT INTUBATE. I will follow her wishes. Called the patient's brother who is to healthcare proxy and left a message in his cell phone and in his home phone to return a call urgently to the hospital. I called the other patients contacted in the chart, Adriana Pablo who is the patient's account and she said that she was going to try to locate Mr. Enmanuel Pablo however did not hear back from any of the family members. 01/09 discussed the case with palliative care team was at bedside. Palliative care team was trying to get in touch of healthcare surrogate. Patient continued to be DNR/DNI. Patient was comatose in severe respiratory distress and impending respiratory failure. We'll continue to follow and keep in touch with the palliative care team. The patient has an ominous prognosis. Up to this point all medical therapy has failed. Hospice consult has been placed. CTA was done yesterday and reviewed by me shows tiny right pleural effusion and ascites as well as COPD changes. Patient was placed on bipap. 01/10 Patient very hypotensive with SBP int the 50's. Ordered 1 liter IV bolus of normal saline. Patient also in the respiratory distress currently on BiPAP, comatose. Continue BiPAP for acute respiratory failure and impending respiratory failure. Cardiovascular and respiratory arrest imminent. Daughter at bedside. Spoke to daughter and explained the severity of the patient's current health status, explained to her off the severity of her respiratory failure and vascular collapse and imminent . The patient's daughter wants to honor the patient's DO NOT RESUSCITATE and DO NOT INTUBATE status and does not want anything aggressive done to her mother. Palliative care and myself have tried to reach the patient's brother who is the healthcare surrogate multiple times over the weekend, yesterday and today, however the patient's brother has not called as back or right reach us in any way. (2) COPD with exacerbation Treated with high dose steroids which could not be tapered, bipap, IV antibiotics. Patient with End stage COPD exacerbation Patient not responding to medical therapy. Palliative care consulted. 01/07 patient is DNR. Awaiting family and patient decision to consult hospice. 01/08 patient with acute hypercarbic respiratory failure, lethargic, BiPAP order for impending surgery failure however patient is not tolerating it. Continue supplemental oxygen to keep oxygen saturation > 92% 01/10 continue BiPAP, patient on imminent risk for respiratory arrest. (3) HTN (hypertension) BP with improved control however still elevated. We'll continue doxazosin 4 mg by mouth daily. Continue to monitor vital signs. Continue dosing and clonidine as needed. Labetalol discontinued as beta blockers could worsen COPD. 01/07 BP still elevated - Will increase Cardura to 6 mg po daily. Continue Clonidine as needed. 01/08 BP much improved. Continue doxazosin 6 mg by mouth daily. Continue clonidine as needed. 01/09 blood pressure now on the lower side. I will decrease the dose of Doxazosin to 2 mg by mouth daily and with holding parameters. 01/10 patient hypotensive. Order 1 L of IV normal saline. (4) Ileus CT abdomen and pelvis showed right psoas hematoma measuring about 4.7 cm. Previous bowel anastomosis on the limited loops of small bowel proximally with air fluid level. Possible partial or early obstruction. There is also widemouth ventral hernia the umbilicus containing a loop of constipated colon. Small right pleural effusion. Surgery consulted - recommended non surgical management. Small bowel series - showed unremarkable examination Ileus has resolved (5) Hematoma Patient denies any trauma or symptoms. Coags are normal. Monitor CBC. Hematoma was self contained. (6) Severe protein-calorie malnutrition Patient has a low BMI of 17.6 Dietitian consulted - enlive TID added to meals was prescribed. (7) Anxiety Patient very anxious due to respiratory distress.Started on Xanax. Held Xanax and anxiety due to toxic encephalopathy caused by CO2 narcosis. (8) Toxic encephalopathy Due to CO2 narcosis. At this point the patient is unable to make medical decisions. Started on BiPAP. Patient is DO NOT RESUSCITATE and DO NOT INTUBATE. (9) Hyponatremia Sodium on 01/10 132. Started on iv fluids. DVT prophylaxis - SCD's, chemoprophylaxis was held due to psoas hematoma. Christian Graham MD 14, 2017 09:31
--- NOTE | 2017-01-11 09:43 | HHI.PR ---
Subjective Remarks deferred entry - patient seen on 04/12 at 8:30 Patient is severe respiratory distress comatose tachypneic Objective Vitals I/O 01/10/17 01/10/17 01/10/17 01/11/17 01/11/17 01/11/17 07:00 15:00 23:00 07:00 15:00 23:00 Intake Total 597 ml Balance 597 ml IV Total 597 ml # Voids 1 # Bowel Movements 0 Result Diagram: 01/08/17 0536 01/08/17 0536 Objective Remarks GENERAL: Patient is in severe respiratory distress, gasping for air, tachypneic and comatose. SKIN: Warm and dry. HEAD: Normocephalic. EYES: No scleral icterus. No injection or drainage. NECK: Supple, trachea midline. No JVD or lymphadenopathy. CARDIOVASCULAR: Tachycardic without murmurs, gallops, or rubs. RESPIRATORY: Diminished bilaterally, no wheezing but very poor air movement. there is accesory muscle use. BiPAP in place. GASTROINTESTINAL: Abdomen soft, non-tender, nondistended. MUSCULOSKELETAL: No cyanosis, or edema. BACK: Nontender without obvious deformity. No CVA tenderness. Neuro:, Comatose and unarousable. Procedures sp bronchoscopy Urinary Catheter: No Date of Removal: Jan 04, 2017 Vascular Central Line Catheter: No A/P Problem List: (1) Acute hypercapnic respiratory failure ICD Code: J96.02 Status: Acute Plan: The patient was admitted to the intensive care unit and taken care of by bin filler initially. Continue with supplemental oxygen to keep an O2 sat duration > 92%. Continue Bipap as needed Continue DuoNeb every 4 hours, albuterol every [address] angiogram without PE. Mucous plugging in the right mainstem, unable to rule out endobronchial lesion. Patient underwent bronchoscopy on 12/27, as per pulmonary report, no endobronchial lesion seen. Continue Solu-Medrol IV - Continue Solumedrol 40 mg IV Q 6 hrs 01/07 Patient with severe respiratory distress overnight, seen by [facility] Specialist and Medicine PA. ABG showed hypercapnic respiratory failure and patient was offered to be intubated however she refused and changed her code status to DNR. I discussed the patient's current status w the patient and explained to her that she has reached an end stage in her condition which is not reponding to treatment with high dose steroids, bronchodilators and antibiotics. Offered to consult hospice but she asked me to speak with her family first. I called brother who came to hospital. I discussed at length the patient's condition, brother stated he was going to consult with her other sister and get back to me. 01/08 patient is in severe respiratory distress. Ordered a stat ABG and chest x- ray, increase the dose of steroids to 125 mg IV every 6 hours first dose now and start the patient IV cefepime. Stat ABG showed a pH of 7.29, PCO2 of 96, PO2 of 106. Patient is in acute on chronic respiratory failure with hypercarbia. Patient is currently a DO NOT RESUSCITATE. I asked patient if she would like to be intubated and she answered no. Given due to the high CO2 I don't think the patient is able to make adequate decisions at this time, however previously the patient stated that she would not want to be intubated so she was made DO NOT RESUSCITATE and DO NOT INTUBATE. I will follow her wishes. Called the patient's brother who is to healthcare proxy and left a message in his cell phone and in his home phone to return a call urgently to the hospital. I called the other patients contacted in the chart, Adriana Pablo who is the patient's account and she said that she was going to try to locate Mr. Enmanuel Pablo. 01/09 discussed the case with palliative care team was at bedside. Palliative care team is trying to get in touch of healthcare surrogate. Patient continues to be DNR/DNI. Patient now is comatose in severe respiratory distress and impending respiratory failure. The patient is now comatose and at this point BiPAP ischemic contraindicated due to the mental status. We'll continue to follow and keep in touch with the palliative care team. The patient has an ominous prognosis. Up to this point all medical therapy has failed. Hospice consult has been placed. CTA was done yesterday and reviewed by me shows tiny right pleural effusion and ascites as well as COPD changes. 01/10 Patient very hypotensive with SBP int the 50's. Ordered 1 liter IV bolus of normal saline. Patient also in the respiratory distress currently on BiPAP, comatose. Continue BiPAP for acute respiratory failure and impending fistula failure. Cardiovascular and respiratory arrest imminent. Daughter at bedside. Spoke to daughter and explained the severity of the patient's current health status, explained to her off the severity of her respiratory failure and vascular collapse and imminent . The patient's daughter wants to honor the patient's DO NOT RESUSCITATE and DO NOT INTUBATE status and does not want anything aggressive done to her mother. Palliative care and myself have tried to reach the patient's brother who is the healthcare surrogate multiple times over the weekend, yesterday and today, however the patient's brother has not called as back or right reach us in any way. (2) COPD with exacerbation ICD Code: J44.1 Status: Acute Plan: As above. Continue bipap appreciate pulmonary recommendations. Continue oral Levaquin Continue steroids Patient has end stage COPD exacerbation, now on IV steroids for prolonged time with minimal improvement. 01/06 appreciate palliative care efforts. 01/07 patient is DNR. Awaiting family and patient decision to consult hospice. 01/08 patient with acute hypercarbic respiratory failure, lethargic, BiPAP order for impending surgery failure however patient is not tolerating it. Continue supplemental oxygen to keep oxygen saturation > 92% continue BiPAP, patient on imminent risk for respiratory arrest. (3) HTN (hypertension) ICD Code: I10 Status: Acute Plan: BP with improved control however still elevated. We'll continue doxazosin 4 mg by mouth daily. Continue to monitor vital signs. Continue dosing and clonidine as needed. Labetalol discontinued as beta blockers could worsen COPD. 01/07 BP still elevated - Will increase Cardura to 6 mg po daily. Continue Clonidine as needed. 01/08 BP much improved. Continue doxazosin 6 mg by mouth daily. Continue clonidine as needed. 01/09 blood pressure now on the lower side. I will decrease the dose of Dr. Talamantes and 2 mg by mouth daily and with holding parameters. 01/10 patient hypotensive. Order 1 L of IV normal saline. (4) Ileus ICD Code: K56.7 Status: Resolved Plan: CT abdomen and pelvis showed right psoas hematoma measuring about 4.7 cm. Previous bowel anastomosis on the limited loops of small bowel proximally with air fluid level. Possible partial or early obstruction. There is also widemouth ventral hernia the umbilicus containing a loop of constipated colon. Small right pleural effusion. Surgery consulted - recommended non surgical management. Small bowel series - showed unremarkable examination Ileus has resolved (5) Hematoma ICD Code: T14.8 Status: Chronic Plan: Patient denies any trauma or symptoms. Coags are normal. Monitor CBC. (6) Severe protein-calorie malnutrition ICD Code: E43 Status: Acute Plan: Patient has a low BMI of 17.6 Dietitian consulted - enlive TID added to meals (7) Anxiety ICD Code: F41.9 Status: Acute Plan: Hold Xanax and anxiety now secondary to toxic encephalopathy caused by CO2 narcosis. (8) Toxic encephalopathy ICD Code: G92 Status: Acute Plan: Due to CO2 narcosis. At this point the patient is unable to make medical decisions. Started on BiPAP. Patient is DO NOT RESUSCITATE and DO NOT INTUBATE. (9) Hyponatremia ICD Code: E87.1 Status: Acute Plan: Sodium on 01/08/01. We'll place on IV fluids and continue to monitor BMP. Assessment and Plan DVT prophylaxis - SCD's, continue to hold chemoprophylaxis due to psoas hematoma. 35 minutes of critical care time spent on patient care. Discharge Planning Continue to monitor in the ICU. Patient still requiring bipap. Problem Qualifiers (1) HTN (hypertension): Qualified Code: I10 - Essential hypertension Christian Graham MD Jan 11, 2017 09:43
== END 2017-01-10 09:02 | disposition expired | DRG 163 ==
LOC: NEPC 20:42 → NEDA 22:14 → HIMN 12-25 01:54
PROVIDERS: ADMIT Hospitalist; ATTEND Hospitalist
PROC: 5A09357 Assistance with Respiratory Ventilation, Less than 24 Consecutive Hours, Continuous Positive Airway Pressure (ICD-10-PCS; principal; 2016-12-24)
PROC: 0T9B70Z Drainage of Bladder with Drainage Device, Via Natural or Artificial Opening (ICD-10-PCS; 2016-12-24)
PROC: 0BCJ8ZZ Extirpation of Matter from Left Lower Lung Lobe, Via Natural or Artificial Opening Endoscopic (ICD-10-PCS; 2016-12-26)
PROC: 0BCG8ZZ Extirpation of Matter from Left Upper Lung Lobe, Via Natural or Artificial Opening Endoscopic (ICD-10-PCS; 2016-12-26)
PROC: 0BC Respiratory System, Extirpation (ICD-10-PCS; 2016-12-26)
PROC: 0BC38ZZ Extirpation of Matter from Right Main Bronchus, Via Natural or Artificial Opening Endoscopic (ICD-10-PCS; 2016-12-26)
PROC: 0BH17EZ Insertion of Endotracheal Airway into Trachea, Via Natural or Artificial Opening (ICD-10-PCS; 2016-12-30)
PROC: 5A1945Z Respiratory Ventilation, 24-96 Consecutive Hours (ICD-10-PCS; 2016-12-30)
PROC: 5A09357 Assistance with Respiratory Ventilation, Less than 24 Consecutive Hours, Continuous Positive Airway Pressure (ICD-10-PCS; 2017-01-09)
DX: J44.1 Chronic obstructive pulmonary disease with (acute) exacerbation (principal); J96.22 Acute and chronic respiratory failure with hypercapnia; E43 Unspecified severe protein-calorie malnutrition; G92 Toxic encephalopathy; T17.590A Other foreign object in bronchus causing asphyxiation, initial encounter; K56.7 Ileus, unspecified; E87.1 Hypo-osmolality and hyponatremia; Z68.1 Body mass index [BMI] 19.9 or less, adult; Z99.81 Dependence on supplemental oxygen; E83.41 Hypermagnesemia; I10 Essential (primary) hypertension; K42.9 Umbilical hernia without obstruction or gangrene; R00.0 Tachycardia, unspecified; D64.9 Anemia, unspecified; M79.81 Nontraumatic hematoma of soft tissue; Z88.0 Allergy status to penicillin; Z87.891 Personal history of nicotine dependence; J20.9 Acute bronchitis, unspecified; Z96.642 Presence of left artificial hip joint; Z91.81 History of falling; R91.8 Other nonspecific abnormal finding of lung field; K43.2 Incisional hernia without obstruction or gangrene; Z51.5 Encounter for palliative care; F06.4 Anxiety disorder due to known physiological condition; K59.01 Slow transit constipation; R11.10 Vomiting, unspecified; J44.0 Chronic obstructive pulmonary disease with (acute) lower respiratory infection; Z66 Do not resuscitate
CPT/HCPCS: 31500; 36600; 51702; 70450; 71010; 71275; 74000; 74177; 74250; 80048; 80053; 81001; 82550; 82805; 82948; 83605; 83735; 83880; 83930; 83935; 84100; 84132; 84300; 84443; 84484; 85007; 85014; 85018; 85025; 85027; 85610; 85730; 87015; 87040; 87070; 87102; 87116; 87205; 87206; 87641; 88112; 88305; 93005; 94002; 94003; 94150; 94640; 94664; 94667; 96365; 96375; C9113; J0171; J0360; J0456; J0692; J1956; J2060; J2250; J2405; J2920; J2930; J3010; J3480; J7030; J7040; J7042; J7050; J7608; J7613; Q9963; Q9967